=== PATIENT | female | born 1960 | race Caucasian/White ===

== ENCOUNTER 2022-09-01 23:33 | Observation (INO) | payer MEDICARE, MEDICAID, SELFPAY ==
--- NOTE | 2022-09-01 23:21 | PM.IMHP ---
H&P: HPI History of Present Illness Date/Time: 09/01/22 23:10 Chief Complaint: Cervical stenosis. Narrative: This is a pleasant 61-year-old female with coronary artery disease and history of angioplasty, hypertension, hyperlipidemia, and chronic obstructive pulmonary disease who is being directly admitted from the medical floor [facility] for neurosurgery consultation after she was found to have severe cervical stenosis on MRI today. The patient provides the following history. Yesterday she sustained a ground level fall at home and a significantly displaced left trimalleolar fracture which was repaired yesterday per Dr. Nicole. The patient reports having several falls in the past 1 week due to balance issues and some lightheadedness. MRI of the cervical spine was ordered to evaluate the gait disturbances and reports of paresthesias and dexterity issues with the upper extremities and that showed multilevel significant central, pre foraminal, and neuroforaminal stenosis. Dr. Nicole spoke with Dr. Haile, neurosurgeon on-call, who accepted the patient for consult in transfer. At the time my evaluation the patient has some mild discomfort in the left ankle, rating her pain 4/10. She has no other complaints and specifically denies headache, vertigo, vision changes, focal weakness, difficulty speaking, difficulty swallowing, chest pain, shortness a breath, nausea, and vomiting. She also denies paresthesias, skin color, and temperature changes distal to the surgical site. Review of Systems Review of Systems: Twelve systems were reviewed and are negative except for as per HPI. [facility] Past Medical History Medical History (Updated 09/01/22 @ 23:30 by Susanne Farias PA-C) Chronic obstructive pulmonary disease Coronary artery disease Depression with anxiety Hyperlipidemia Hypertension Uterine cancer Status post hysterectomy and external radiation. Surgical History Surgical History (Updated 09/01/22 @ 23:27 by Susanne Farias PA-C) History of cardiac catheterization History of coronary angioplasty History of hysterectomy for cancer History of left knee replacement (2004) History of open reduction and internal fixation (ORIF) procedure (08/31/22) Repair of left trimalleolar fracture per Dr. Nicole. Family History Family History (Updated 09/01/22 @ 23:27 by Susanne Farias PA-C) Other Diabetes mellitus Heart disease Social History Social History (Updated 09/01/22 @ 23:27 by Susanne Farias PA-C) Social History: The patient lives in [place] with her cousin. She is . Former smoker, quit about 5 years ago. No alcohol or illicit substance abuse. Code status: Full code. Meds Home Medications and Allergies Allergies Allergy/AdvReac Type Severity Reaction Status Date / Time Sulfa (Sulfonamide Allergy Mild STOPPED Verified 09/03/08 10:15 Antibiotics) BREATHING-CHILDHOOD morphine AdvReac Severe URINARY Unverified 09/03/08 10:15 RETENTION Exam Const: Other: Well-developed female supine in bed in no acute distress. HENMT: Other: Normocephalic, atraumatic. Nares patent bilaterally. Oral mucosa moist. Eyes: Other: Pupils are reactive. Extraocular motions intact. Sclerae anicteric. Neck: Other: Supple. No midline vertebral tenderness. Resp: Other: Respirations are nonlabored and lungs are clear to auscultation anteriorly and at the flanks. Cardio: Other: Regular rate and rhythm with normal S1-S2. GI: Other: Abdomen is soft, obese, nontender, and nondistended with positive bowel sounds. Skin: Other: Warm and dry. Neuro: Other: Alert oriented x4. Cranial nerves 2-12 grossly intact. No pronator drift. Normal [id number]. 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 Left shoulder shrug may be a bit weaker when compared to the right. Extrem: Other: No cyanosis, clubbing, or edema. Radial and right pedal
[2022-09-02] VITALS (8 sets, daily range): BP systolic 92–126; BP diastolic 40–82; PULSE 66–76; RESP 12–67; TEMP 36.1–36.7; O2SAT 94–99; BMI 38.6
[2022-09-02] MEDS: ACETAMINOPHEN 325 MG TABLET 650 MG PO ×2 (06:02→11:36)
--- NOTE | 2022-09-02 06:28 | PC.NURSE ---
Spoke with Dr. Sotelo at this time r/t patient having pain to left ankle from recent ORIF. New order received for oxycodone 5mg PO once and to follow up with Dr. Whitney for further pain management with his surgical patient.
[2022-09-02 06:31] LABS: Hematocrit 41.8 % (37.0-47.0); Hemoglobin 12.4 g/dL (12.0-15.0); Mean Corpuscular HGB Conc 29.7 g/dl (32-36); Mean Corpuscular Hemoglobin 31.5 pg (26-34); Mean Corpuscular Volume 106.1 fl (80-100); Mean Platelet Volume 11.9 fl (7.4-10.4); Platelet Count Result 170 k/mm3 (150-375); Red Blood Count 3.94 M/mm3 (4.2-5.4); Red Cell Distribution Width 13.2 % (11.5-14.5); White Blood Count 10.6 K/mm3 (4.5-10.0)
[2022-09-02] MEDS: oxyCODONE HCL (*CRX) 5 MG TAB IR PO ×4 (06:42→20:31)
[2022-09-02 06:44] LABS: Alanine Aminotransferase 20 U/L (6-35); Albumin Level 3.2 g/dL (3.5-5.1); Alkaline Phosphatase 58 U/L (38-126); Anion Gap 4 mmol/L (8-16); Aspartate Amino Transferase 27 U/L (14-36); Bilirubin,Total 0.4 mg/dL (0.2-1.3); Blood Urea Nitrogen 17 mg/dL (7-17); Calcium 8.4 mg/dL (8.4-10.2); Carbon Dioxide 28 mmol/L (22-30); Chloride 108 mmol/L (98-107); Estimated CRCL calculation 65 ml/min; Estimated Glomerular Filt Rate > 60; Glucose 106 mg/dL (65-110); Magnesium 2.3 mg/dL (1.6-2.3); Potassium 3.7 mmol/L (3.4-5.0); Sodium 140 mmol/L (137-145)
[2022-09-02] MEDS: ENOXAPARIN 40 MG/0.4 ML SYRINGE SUB-Q (09:27)
[2022-09-02] MEDS: EZETIMIBE 10 MG TABLET PO (12:11)
[2022-09-02] MEDS: EMPAGLIFLOZIN 25 MG TABLET PO (12:11)
[2022-09-02] MEDS: buPROPion HCL SR (12HR) 100 MG TABCR PO (12:11)
[2022-09-02] MEDS: LOSARTAN POTASSIUM 100 MG TABLET PO (12:11)
[2022-09-02] MEDS: ISOSORBIDE MONONITRATE 30 MG TAB.ER.24H PO (12:11)
[2022-09-02] MEDS: hydroCHLOROthiazide 25 MG TABLET PO (12:11)
[2022-09-02] MEDS: ATORVASTATIN 20 MG TABLET PO (12:12)
--- NOTE | 2022-09-02 12:46 | PCPTNOTE ---
On 09/02/22, the student, [Ju Nation], provided care and completed [facility] documentation on this patient. I have reviewed the student's documentation and agree with the findings.
--- NOTE | 2022-09-02 14:58 | PM.IMPN ---
Progress Note: A&P Assessment and Plan (1) Cervical stenosis of spinal canal: Code(s): M48.02 - Spinal stenosis, cervical region Status: Acute Assessment and Plan: MRI findings as noted in prior note - NSG consulted and patient transferred to our care yesterday. Appreciate nsg recs and will await their determination. Patient is on lovenox 40mg currently which will continue unless surgical management expected. (2) Trimalleolar fracture of left ankle: Code(s): S82.852A - Displaced trimalleolar fracture of left lower leg, initial encounter for closed fracture Status: Acute Assessment and Plan: S/P repair from Dr. Nicole, we will reach out and see if he plans to follow here as well. Currently POD2. Pain is controlled this am. The patient states there was a plan for her to have a rehab placement. PT/OT eval/treatment will continue here. (3) Hypertension: Code(s): I10 - Essential (primary) hypertension Status: Acute Assessment and Plan: Stable on current regimen which will continue. (4) Hyperlipidemia: Code(s): E78.5 - Hyperlipidemia, unspecified Status: Acute Assessment and Plan: Cont. atorvastatin. (5) Coronary artery disease: Code(s): I25.10 - Atherosclerotic heart disease of kash[place] coronary artery without angina pectoris Status: Acute Assessment and Plan: Cont. home regimen, patient without complaints. (6) Chronic obstructive pulmonary disease: Code(s): J44.9 - Chronic obstructive pulmonary disease, unspecified Status: Acute Assessment and Plan: Stable without exacerbation, continuing home symbicort, prn susana. Time Spent With Patient Time: >30 minutes. Subjective Date/time seen: 09/02/22 14:58 Interval history: This 61 year old female presented on 09/01 from [place] after a left trimalleolar fracture repair by Dr. Nicole. She was sent for NSG consultation d/t severe cervical spine stenosis found on MRI with symptoms of hand clumsiness and weakness. This morning the patient states she has some pain in the left foot but it is manageable. She denies acute headache or neck pain. She rested fairly well overnight per her report. Review of Systems Review of Systems: Review of symptoms negative across 12 systems other than as noted in history. Exam Narrative: GENERAL APPEARANCE: Appears to be in no acute distress. HEAD: normocephalic atraumatic EYES: PERRL, EOMI. Vision grossly intact. ENT: Hearing grossly intact, no nasal discharge NECK: Neck supple, trachea midline. CARDIAC: Normal S1/S2. Rhythm is regular. No murmurs, rubs, or gallops. No cyanosis or pallor. Extremities are warm and well perfused. LUNGS: Clear to auscultation without rales, rhonchi, wheezing or diminished breath sounds. Respirations even and unlabored. ABDOMEN: BS positive x 4 quadrants. Soft, nondistended, nontender. No guarding or rebound. MSK: Left ankle with dressing c/d/i - distal nv sensation intact, cap refill <2 seconds. PERIPHERAL VASCULAR: Peripheral pulses palpable. Normal perfusion, cap refill <2 seconds. No edema. NEURO: Follows commands. No focal deficits. SKIN: Ursine without lesions or eruptions. PSYCH: Stable, no paranoia or delusional thinking. Objective Data Vital Signs Vital Signs: Vital Signs - 24 hr 09/02/22 00:18 09/02/22 00:34 09/02/22 06:00 Temperature 98.0 F 96.9 F L Pulse Rate 74 72 67 Respiratory Rate 16 14 67 H Blood Pressure 116/73 126/82 Pulse Oximetry 99 99 99 Oxygen Delivery Nasal Cannula Oxygen Flow Rate 2 09/02/22 10:16 09/02/22 09:20 09/02/22 10:59 Temperature Pulse Rate Respiratory Rate Blood Pressure Pulse Oximetry Oxygen Delivery Nasal Cannula Room Air Room Air Oxygen Flow Rate 2 09/02/22 14:00 Temperature 97.1 F L Pulse Rate 76 Respiratory Rate 12 Blood Pressure 110/63 Pulse Oximetry 94 Oxygen Delivery Oxygen Flow Rate Intake/Output Inta
--- NOTE | 2022-09-02 15:17 | PCCCNOTE ---
On 09/02/22, the student, [Yaritza Medina], provided care and completed [facility] documentation on this patient. I have reviewed the student's documentation and agree with the findings.
--- NOTE | 2022-09-02 16:35 | PM.CNOR ---
Assessment and Plan Assessment and plan (1) Trimalleolar fracture of left ankle: Code(s): S82.852A - Displaced trimalleolar fracture of left lower leg, initial encounter for closed fracture Status: Acute Assessment and Plan: Patient is a 61-year-old female who I took care of when she came in through the emergency room on WednesdayAugust 31 with a severely displaced and unstable comminuted left trimalleolar ankle fracture. Even after closed reduction and splinting the joint was still prominently subluxed putting the skin at risk so she underwent urgent open reduction internal fixation of the left ankle fractures unfortunately swelling was very mild allowing this to proceed. She has a history of several falls in the last 3 weeks. She does not know why. She simply loses her balance. I noted that 5 years ago she had moderately severe cervical spinal stenosis and we ordered an MRI scan of her cervical spine yesterday a [facility] and showed severe multilevel cervical spinal stenosis. Patient does admit that her hands go numb at times and sometimes she loses coordination in her hands. I felt it would be unsafe to have her recuperate at home living by herself hopping on the walker 1 leg it as she needs to be strict nonweightbearing on the left leg. With her propensity for falling walking on to normal legs, the likelihood of her falling hopping on 1 leg is considered excessive and dangerous. I spoke to neuro surgery here at [facility] Dr. Ray and we arranged for transfer to [facility] so she cannot have urgent neurosurgical evaluation with respect to her severe cervical spinal stenosis and recommendations for definitive management can be made. She normally takes a baby aspirin and cardiac dosing of Xarelto 2.5 mg b.i.d. for her coronary artery disease. She had NH 5 years ago. She did not have to have a stent. She saw cardiology in the emergency room before her surgery on Wednesday and did not have any cardiac or medical issues with her surgery. After seeing the results of the MRI scan of her cervical spine yesterday with the realization that she may need cervical spine decompression and fusion to address this, I have held her baby aspirin and the Cardiac dosing of Xarelto her and her last doses should been 9:00 a.m. Wednesday morning the 01 of September. The hospitalist has started her on Lovenox for DVT prophylaxis which I think is an excellent choice as this can be discontinued and reversed in a short time if neuro surgery to address her cervical spinal stenosis is planned. On exam today she has intact sensation in her left foot. She has some aching discomfort but no severe pain. Physical therapy has seen her and her is working on transfers with her strict nonweightbearing left leg. I have emphasized the need to keep her left leg elevated most of the time. Will have her limit her time in the chair to 20 minutes at a time these next several days as having the leg down will result in significant swelling and risk of wound healing problems at the left ankle. I will be available for assistance if any questions on her orthopedic care relative to her left ankle arise. If this felt that neurosurgical intervention is not necessary in the near future for her cervical spine, I would recommend resuming her b.i.d. 2.5 mg Xarelto dosing and resume baby aspirin 81 mg chewable every 12 hours for cardiac and DVT prophylaxis following ankle fracture ORIF. Her Lovenox can be then discontinued at that point. With respect to rehabilitation plans for her left ankle, usually there is enough radiographic healing to allow weight-bearing as tolerated in a boot at 6 weeks after surgery with this injury. History of Present Illness HPI Consult date: 09/02/22 Chief complaint: Severe Cervical Spinal Stenosis [facility] Past Medical History Medical History (Updated 09/02/22 @ 15:12 by Brian Mercado APRN) Chronic obstructive pulmonary disease Coronary artery dise
[2022-09-02] MEDS: OMEGA 3 POLYUNSAT FATTY ACIDS 1 GM CAP PO (17:29)
[2022-09-02] MEDS: ACETAMINOPHEN 500 MG TABLET 1000 MG PO (17:30)
[2022-09-02] MEDS: carvediloL 25 MG TABLET PO (17:31)
[2022-09-02] MEDS: busPIRone HCL 10 MG TABLET 30 MG PO (17:32)
[2022-09-02] MEDS: TOPIRAMATE 100 MG TABLET PO (17:33)
[2022-09-02] MEDS: OLANZapine 5 MG TABLET 10 MG PO (20:30)
[2022-09-02] MEDS: DOXYCYCLINE HYCLATE 100 MG TABLET PO (20:31)
[2022-09-02] MEDS: FLUTICASONE/SALMETEROL 45-21 MCG INHALER 1 PUFF 2 PUFF INHALATION (20:57)
[2022-09-03] VITALS (7 sets, daily range): BP systolic 97–134; BP diastolic 65–83; PULSE 65–75; RESP 16–18; TEMP 35.9–36.2; O2SAT 94–98
[2022-09-03] MEDS: oxyCODONE HCL (*CRX) 5 MG TAB IR PO ×6 (00:49→20:06)
[2022-09-03] MEDS: ACETAMINOPHEN 500 MG TABLET 1000 MG PO ×4 (00:49→16:25)
[2022-09-03 06:59] LABS: Hematocrit 40.7 % (37.0-47.0); Hemoglobin 12.7 g/dL (12.0-15.0); Mean Corpuscular HGB Conc 31.2 g/dl (32-36); Mean Corpuscular Hemoglobin 31.5 pg (26-34); Mean Platelet Volume 11.1 fl (7.4-10.4); Platelet Count Result 186 k/mm3 (150-375); Red Blood Count 4.03 M/mm3 (4.2-5.4); Red Cell Distribution Width 13.2 % (11.5-14.5); White Blood Count 8.4 K/mm3 (4.5-10.0)
[2022-09-03 07:09] LABS: Anion Gap 4 mmol/L (8-16); Blood Urea Nitrogen 18 mg/dL (7-17); Calcium 8.6 mg/dL (8.4-10.2); Carbon Dioxide 30 mmol/L (22-30); Chloride 104 mmol/L (98-107); Estimated CRCL calculation 59 ml/min; Estimated Glomerular Filt Rate 57; Glucose 88 mg/dL (65-110); Magnesium 2.3 mg/dL (1.6-2.3); Potassium 3.8 mmol/L (3.4-5.0); Sodium 138 mmol/L (137-145)
[2022-09-03] MEDS: FLUTICASONE/SALMETEROL 45-21 MCG INHALER 1 PUFF 2 PUFF INHALATION ×2 (07:52→20:42)
[2022-09-03] MEDS: ATORVASTATIN 20 MG TABLET PO (09:10)
[2022-09-03] MEDS: hydroCHLOROthiazide 25 MG TABLET PO (09:10)
[2022-09-03] MEDS: busPIRone HCL 10 MG TABLET 30 MG PO ×2 (09:10→16:26)
[2022-09-03] MEDS: EMPAGLIFLOZIN 25 MG TABLET PO (09:10)
[2022-09-03] MEDS: ISOSORBIDE MONONITRATE 30 MG TAB.ER.24H PO (09:10)
[2022-09-03] MEDS: TOPIRAMATE 100 MG TABLET PO ×2 (09:10→16:26)
[2022-09-03] MEDS: LOSARTAN POTASSIUM 100 MG TABLET PO (09:10)
[2022-09-03] MEDS: ENOXAPARIN 40 MG/0.4 ML SYRINGE SUB-Q (09:11)
[2022-09-03] MEDS: EZETIMIBE 10 MG TABLET PO (09:11)
[2022-09-03] MEDS: DOXYCYCLINE HYCLATE 100 MG TABLET PO ×2 (09:11→20:06)
[2022-09-03] MEDS: OMEGA 3 POLYUNSAT FATTY ACIDS 1 GM CAP PO ×2 (09:11→16:26)
[2022-09-03] MEDS: buPROPion HCL SR (12HR) 100 MG TABCR PO (09:11)
[2022-09-03] MEDS: carvediloL 25 MG TABLET PO ×2 (09:11→16:26)
--- NOTE | 2022-09-03 11:11 | PM.IMPN ---
Progress Note: A&P Assessment and Plan (1) Cervical stenosis of spinal canal: Code(s): M48.02 - Spinal stenosis, cervical region Status: Acute Assessment and Plan: MRI findings as noted- NSG consulted and patient transferred to our care two days prior. Appreciate nsg recs and will await their determination. Patient is on lovenox 40mg currently which will continue unless surgical management expected. (2) Trimalleolar fracture of left ankle: Code(s): S82.852A - Displaced trimalleolar fracture of left lower leg, initial encounter for closed fracture Status: Acute Assessment and Plan: S/P repair from Dr. Nicole, he will follow here as well. Currently POD3. Pain is controlled this am. The patient states there was a plan for her to have a rehab placement and this is arranged for [facility]. PT/OT eval/treatment will continue here. In regards to discharge thromboprophylaxis, Dr. Nicole has noted the following, If this felt that neurosurgical intervention is not necessary in the near future for her cervical spine, I would recommend resuming her b.i.d. 2.5 mg Xarelto dosing and resume baby aspirin 81 mg chewable every 12 hours for cardiac and DVT prophylaxis following ankle fracture ORIF.? Her Lovenox can be then discontinued at that point. In regards to rehab plans he additionally notes, With respect to rehabilitation plans for her left ankle, usually there is enough radiographic healing to allow weight-bearing as tolerated in a boot at 6 weeks after surgery with this injury. (3) Hypertension: Code(s): I10 - Essential (primary) hypertension Status: Acute Assessment and Plan: Stable on current regimen which will continue. (4) Hyperlipidemia: Code(s): E78.5 - Hyperlipidemia, unspecified Status: Acute Assessment and Plan: Cont. atorvastatin. (5) Coronary artery disease: Code(s): I25.10 - Atherosclerotic heart disease of lime coronary artery without angina pectoris Status: Acute Assessment and Plan: Cont. home regimen, patient without complaints. If no contraindication, resume her xarelto and asa upon discharge as discussed above. (6) Chronic obstructive pulmonary disease: Code(s): J44.9 - Chronic obstructive pulmonary disease, unspecified Status: Acute Assessment and Plan: Stable without exacerbation, continuing home symbicort, prn susana. Time Spent With Patient Time: >30 minutes with moderate decision making complexity Subjective Date/time seen: 09/03/22 11:11 Interval history: This 61 year old female presented on 09/01 from [place] after a left trimalleolar fracture repair by Dr. Nicole. She was sent for NSG consultation d/t severe cervical spine stenosis found on MRI with symptoms of hand clumsiness and weakness. This morning the patient states she has continued pain in the left foot but it is manageable on the oral pain medications. She denies acute headache or neck pain. She rested fairly well overnight per her report. She does not report numbness or paresthesias of the hands. Review of Systems Review of Systems: Review of symptoms negative across 12 systems other than as noted in history. Exam Narrative: GENERAL APPEARANCE: Appears to be in no acute distress. HEAD: normocephalic atraumatic EYES: PERRL, EOMI. Vision grossly intact. ENT: Hearing grossly intact, no nasal discharge NECK: Neck supple, trachea midline. CARDIAC: Normal S1/S2. Rhythm is regular. No murmurs, rubs, or gallops. No cyanosis or pallor. Extremities are warm and well perfused. LUNGS: Clear to auscultation without rales, rhonchi, wheezing or diminished breath sounds. Respirations even and unlabored. ABDOMEN: BS positive x 4 quadrants. Soft, nondistended, nontender. No guarding or rebound. MSK: Left ankle with dressing c/d/i - distal nv sensation intact, cap refill <2 seconds. PERIPHERAL VASCULAR: Periphera
--- NOTE | 2022-09-03 13:11 | WPDNEUROSGCN ---
Assessment and Plan Assessment and plan (1) Cervical stenosis of spinal canal: Code(s): M48.02 - Spinal stenosis, cervical region Status: Acute (2) Cervical myelopathy: Code(s): G95.9 - Disease of spinal cord, unspecified Status: Acute Plan Ms. Butterfield is a 61-year-old female with history of OR/CAD s/p CABG and coronary stent on ASA/Xarelto and COPD on 2.5L O2 at night who was admitted to the hospital for urgent evaluation of cervical myelopathy. She has had intermittent paresthesias in her hands, dropping objects, and falls. She recently sustained a trimalleolar fracture as a result of her fall which is being managed by Dr. Nicole. She does have objective signs of myelopathy on exam. Her MRI shows cervical stenosis with cord compression most significantly at C5-6 and C6-7. I do believe that she needs surgical intervention; however, this does not need to be done while she is in the hospital this admission. I briefly discussed the need for surgery with her as well as the fact that she is a relatively high-risk surgical candidate due to her medical comorbidities and blood thinner use. We would need to get clearance from her cosmetic surgeon and PCP. I will arrange for follow up with me in clinic in the next few weeks to be able to discuss surgery in more detail. Consult date: 09/03/22 HPI: Letty Butterfield is a 61 year old female with history of OR in 2016 on ASA/xarelto, COPD on 2.5L O2 at night, HTN, HLD Who was admitted to the hospital on Wednesday for urgent neurosurgical evaluation of cervical stenosis. The patient reports a long history of neck pain over the course of many years. Over the last 6 months, the patient has been having intermittent paresthesias in her hands which occur for a few minutes at a time 3-4 times per week. 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 She has occasionally dropped objects. She sometimes gets into her left shoulder but denies radicular pain into the arms. She has also been having more falls but describes often feeling lightheaded prior to falling. She denies any loss of consciousness. She has had a few episodes of urinary incontinence because of not being able to get to the restroom quickly enough, but she denies any issues with urinary frequency or urgency on a routine basis. she had a recent fall from which she sustained a trimalleolar fracture for which Dr. Nicole was seeing her. He apparently had access to an old MRI cervical spine showing cervical stenosis, and he sent her to [place] to get an updated MRI cervical spine. This reportedly showed significant cervical stenosis, and he recommended that she be admitted to the hospital in order to be evaluated by Neurosurgery. Of note, she has had 2 myocardial infarctions, last time in 2016. She follows with cosmetic surgeon Dr. Stroud in [place]. she has COPD for which she uses 2.5 L of oxygen night. This is reportedly managed by her primary care physician, Dr. Taylor Fernández. She quit smoking in 2016. She lives with her cousin. She has been ambulating with a cane for several years since she had a left knee surgery. She states that this pain is to help take the pressure off her knee. Review of Systems Review of Systems: All systems reviewed & are unremarkable except as noted in HPI and below PMFSH Past Medical History Medical History (Updated 09/03/22 @ 18:15 by Lianet Whitfield MD) Chronic obstructive pulmonary disease Coronary artery disease Depression with anxiety Hyperlipidemia Hypertension Uterine cancer Status post hysterectomy and external radiation. Surgical History Surgical History (Updated 09/01/22 @ 23:27 by Susanne aFrias PA-C) History of cardiac catheterization History of coronary angioplasty History of hysterectomy for cancer History of left knee replacement (2004) History of open reduction and internal fixation (ORIF) procedure (08/31/22) Repair of left trimal
--- NOTE | 2022-09-03 15:18 | PM.DS ---
DS: Admitting Diagnosis Discharge Date 09/03/22 Admitting Diagnosis left trimalleolar fracture, cervical stenosis, htn, hld, cad, cad, copd DS: Discharge Diagnosis Discharge Diagnosis (1) Cervical stenosis of spinal canal: Code(s): M48.02 - Spinal stenosis, cervical region Status: Acute Assessment and Plan: MRI findings as noted- NSG consulted and patient transferred to our care two days prior. Appreciate nsg recs, noted no acute plan for intervention. (2) Trimalleolar fracture of left ankle: Code(s): S82.852A - Displaced trimalleolar fracture of left lower leg, initial encounter for closed fracture Status: Acute Assessment and Plan: S/P repair from Dr. Nicole, he will follow here as well. Currently POD3. Pain is controlled this am. The patient states there was a plan for her to have a rehab placement and this is arranged for [facility]. PT/OT eval/treatment will continue here with discharge planned for this evening. In regards to discharge thromboprophylaxis, Dr. Nicole has noted the following, If this felt that neurosurgical intervention is not necessary in the near future for her cervical spine, I would recommend resuming her b.i.d. 2.5 mg Xarelto dosing and resume baby aspirin 81 mg chewable every 12 hours for cardiac and DVT prophylaxis following ankle fracture ORIF.? Her Lovenox can be then discontinued at that point. In regards to rehab plans he additionally notes, With respect to rehabilitation plans for her left ankle, usually there is enough radiographic healing to allow weight-bearing as tolerated in a boot at 6 weeks after surgery with this injury. (3) Hypertension: Code(s): I10 - Essential (primary) hypertension Status: Acute Assessment and Plan: Stable on current regimen which will continue. (4) Hyperlipidemia: Code(s): E78.5 - Hyperlipidemia, unspecified Status: Acute Assessment and Plan: Cont. atorvastatin. (5) Coronary artery disease: Code(s): I25.10 - Atherosclerotic heart disease of grindstone coronary artery without angina pectoris Status: Acute Assessment and Plan: Cont. home regimen, patient without complaints. If no contraindication, resume her xarelto and asa upon discharge as discussed above. (6) Chronic obstructive pulmonary disease: Code(s): J44.9 - Chronic obstructive pulmonary disease, unspecified Status: Acute Assessment and Plan: Stable without exacerbation, continuing home symbicort, prn susana. Uses 2.5L at night. DS: Summary Hospital Course Reason for hospitalization: Cervical Stenosis, NSG consult Hospital Course: Letty Butterfield is a 61 year old female who presented as a direct transfer from [facility], [place] where she was admitted for a left ankle fracture s/p repair with new findings of cervical stenosis on MRI. She was transferred for neurosurgical consultation. That consultation has occurred and there is not an acute plan for surgical management in regards to this currently. The patient is pod 3 for the ankle repair and will be discharging to a SNF for further rehab. Further outpatient management of the cervical stenosis can be undertaken as needed by NSG post rehab, or acutely if symptoms worsen. Status at Discharge Cognitive/behavioral status at discharge: Baseline. Time Spent with Patient Time attestation: Total time spent providing and/or coordinating discharge services: Time spent: Greater than 30 minutes Exam Narrative: GENERAL APPEARANCE: Appears to be in no acute distress. HEAD: normocephalic atraumatic EYES: PERRL, EOMI. Vision grossly intact. ENT: Hearing grossly intact, no nasal discharge NECK: Neck supple, trachea midline. CARDIAC: Normal S1/S2. Rhythm is regular. No murmurs, rubs, or gallops. No cyanosis or pallor. Extremities are warm and well perfused. LUNGS: Clear to auscultation without rales, rhonchi, wheezing or diminishe
[2022-09-03] MEDS: OLANZapine 5 MG TABLET 10 MG PO (20:06)
== END 2022-09-03 21:45 ==
PROVIDERS: Nurse Practitioner Family; Physician Assistant; Admitting Provider Family Medicine; Visit Provider Family Medicine
DX: M48.02 Spinal stenosis, cervical region (principal); S82.852A Displaced trimalleolar fracture of left lower leg, initial encounter for closed fracture; W18.30XA Fall on same level, unspecified, initial encounter; Y92.009 Unspecified place in unspecified non-institutional (private) residence as the place of occurrence of the external cause; I10 Essential (primary) hypertension; E78.5 Hyperlipidemia, unspecified; I25.10 Atherosclerotic heart disease of native coronary artery without angina pectoris; Z95.1 Presence of aortocoronary bypass graft; I25.2 Old myocardial infarction; J44.9 Chronic obstructive pulmonary disease, unspecified; Z99.81 Dependence on supplemental oxygen; R29.6 Repeated falls; D72.829 Elevated white blood cell count, unspecified; R26.9 Unspecified abnormalities of gait and mobility; R20.2 Paresthesia of skin; R42 Dizziness and giddiness; F41.8 Other specified anxiety disorders; Z90.710 Acquired absence of both cervix and uterus; Z79.01 Long term (current) use of anticoagulants; Z79.82 Long term (current) use of aspirin; Z85.42 Personal history of malignant neoplasm of other parts of uterus; Z87.891 Personal history of nicotine dependence; Z82.49 Family history of ischemic heart disease and other diseases of the circulatory system
CPT/HCPCS: 36415; 80048; 80053; 83735; 85027; 94640; 96372; 97110; 97161; 97165; 97530; 97535; A9270; G0378; J1650

== ENCOUNTER 2022-12-09 09:25 | Outpatient (CLI) | payer MEDICARE, MEDICAID, SELFPAY ==
--- NOTE | ~2022-12-09 | XR_ITS ---
EXAMINATION: XR chest 2V DATE: 12/09/2022 10:03 INDICATION: History of COPD TECHNIQUE: Frontal and lateral views of the chest are obtained COMPARISON: None available FINDINGS: The lungs are free of acute opacities. No pleural effusion or pneumothorax. The cardiomedia stinal silhouette is normal. There is severe thoracic spondylosis. IMPRESSION: 1. No acute cardiopulmonary abnormality. Reviewed, dictated and finalized at location A.
--- NOTE | 2022-12-09 09:37 | ECG_ITS ---
Measurements Intervals [place] Rate: 63 P: 67 TX: 166 QRS: 15 QRSD: 97 T: 39 QT: 420 QTc: 432 Interpretive Statements SINUS RHYTHM NO PREVIOUS ECG AVAILABLE FOR COMPARISON Electronically Signed On 12-09-2022 15:45:36 CDT by Dot Aguayo M.D.
[2022-12-09 10:08] LABS: Hematocrit 44.6 % (37.0-47.0); Hemoglobin 14.3 g/dL (12.0-15.0); Mean Corpuscular HGB Conc 32.1 g/dl (32-36); Mean Corpuscular Hemoglobin 31.8 pg (26-34); Mean Corpuscular Volume 99.3 fl (80-100); Platelet Count Result 257 k/mm3 (150-375); Red Blood Count 4.49 M/mm3 (4.2-5.4); Red Cell Distribution Width 13.3 % (11.5-14.5); White Blood Count 8.9 K/mm3 (4.5-10.0)
[2022-12-09 10:11] LABS: Appearance Urine Clear (Clear); Bilirubin Urine Negative (Negative); Blood Urine Negative (Negative); Color Urine Yellow (Yellow); Glucose Urine UA 3+ mg/dL (Negative); Ketones Urine Negative (Negative); Leukocyte Esterase Ur Negative LEU/UL (Negative); Nitrate Urine Negative (Negative); Protein Urine Negative (Negative); Specific Grav Ur 1.014 (1.001-1.035); Urobilinogen Urine 0.2 mg/dL (<2.0)
[2022-12-09 10:15] LABS: Add Urine Microscopic? NO
[2022-12-09 10:17] LABS: Anion Gap 7 mmol/L (8-16); Blood Urea Nitrogen 21 mg/dL (7-17); Calcium 9.7 mg/dL (8.4-10.2); Carbon Dioxide 28 mmol/L (22-30); Chloride 104 mmol/L (98-107); Estimated Glomerular Filt Rate 42; Glucose 103 mg/dL (65-110); Potassium 4.1 mmol/L (3.4-5.0); Sodium 139 mmol/L (137-145)
[2022-12-09 10:23] LABS: Partial Thromboplastin Time 27.4 SECONDS (22.3-36.8); Prothrombin Time 13.5 Seconds (11.1-14.7)
== END 2022-12-09 09:26 | disposition home or self-care (01) ==
LOC: ANHSURGERY 09:32
PROVIDERS: PCP Family Medicine; Visit Provider Neurological Surgery
DX: Z01.818 Encounter for other preprocedural examination (principal); M54.12 Radiculopathy, cervical region
CPT/HCPCS: 36415; 71046; 80048; 81003; 85027; 85610; 85730; 93005

== ENCOUNTER 2022-12-17 13:20 | Observation (INO) | payer MEDICARE, MEDICAID, SELFPAY ==
[2022-12-07 12:42] VITALS: BMI 34.9
--- NOTE | 2022-12-07 12:50 | PC.NURSE ---
Report to the Outpatient Waiting Room, entrance under the green pavilion located off [facility], at time 6:00 on date 12/16/22. Planned Procedure Time: 7:30. Time changes happen often and if your time is changed the preop area will call you the afternoon before. - You and your visitor will be asked to self-screen and do not enter if you have any COVID symptoms. - A mask is optional within the hospital at this time. Patients may have clear liquids (water, carbonated beverages, clear teas, apple juice) until 3 hours prior to surgery (4:30) with a maximum of 20 ounces. - No food from midnight until time of surgery Take the following medications with a SIP of water the morning of surgery: INHALERS, BUPROPION, BUSPIRONE, CARVEDILOL, ISOSORBIDE, TOPIRAMATE DO NOT STOP ANY OF YOUR OTHER PRESCRIPTION MEDICATIONS PRIOR TO SURGERY ?EXCEPT THE FOLLOWING Medications to discontinue per physician: ASPIRIN, XARELTO Date to take last dose: 12/08/22 LAST DOSE OF VITAMINS 12/12/22 Please no make-up, nail [place] su[place], hairspray, perfume, deodorant, or body powder the day of surgery. No jewelry (including any body piercings) or valuables the day of surgery, leave them at home. Please take a shower or bath the night before, or the morning of, surgery with an antibacterial soap. Wear comfortable, loose fitting clothing. - Jewelry must be removed prior to entering the operating room. Rings and piercings that are not removed may be cut off. - The hospital will not accept responsibility for valuables. - Please leave all valuables, including medications, at home the day of surgery. If you are going home after surgery, a licensed tier truck driver must drive you home. - NO public transportation without another adult if you receive anesthesia. - We recommend that an adult stay with you for 24 hours following discharge. - We also recommend that you do not drive, make important decision, drink alcoholic beverages, or take any drugs that were not prescribed by your health care provider for at least 24 hours after your discharge time. Follow any additional instructions given to you from your surgeon. If you or anyone in your household have experienced Covid symptoms in the past week, please notify your surgeon or the nurse liaison at the phone number below for possible testing. Telephone instructions given to PT - DELANO CANTU and asked if any additional questions and then verbalized understanding. Patient advised to call surgeon office or pre surgery nurse liaison [phone] if any additional questions.
[2022-12-16] VITALS (14 sets, daily range): BP systolic 112–154; BP diastolic 69–97; PULSE 66–93; RESP 12–18; TEMP 36.1–37.2; O2SAT 94–98
[2022-12-16] MEDS: LACTATED RINGERS 1,000 ML 30 ML IV CONT ×2 (06:30→10:44)
--- NOTE | 2022-12-16 07:10 | WPDANESEPPF ---
Anes - Initial Pre Proc Eval Procedure: Operation Date: 12/16/22 07:30 Proposed Procedures p C4-C7 Posterior Cervical Decompression and Fusion - Lianet Whitfield MD Date/Time: 12/16/22 07:10 Surgeon: Lianet Whitfield MD Pre Op Diagnosis: cervical myelopathy and stenosis with radiculopath Patient Data Age: 62 Gender: F Height: 1.6 m Weight: 89.4 kg Allergies Allergy/AdvReac Type Severity Reaction Status Date / Time Sulfa (Sulfonamide Allergy Mild STOPPED Verified 12/07/22 12:38 Antibiotics) BREATHING-CHILDHOOD morphine AdvReac Severe URINARY Verified 12/07/22 12:38 RETENTION Home Medications Medication Instructions Recorded Confirmed Type albuterol sulfate 90 mcg/actuation 2 puff inhalation DIRECTED PRN 09/01/22 12/07/22 History aerosol inhaler Dyspnea atorvastatin 20 mg tablet 20 mg PO DAILY 09/01/22 12/07/22 History budesonide-formoterol HFA 80 2 inh inhalation DAILY 09/01/22 12/07/22 History mcg-4.5 mcg/actuation aerosol inhaler (Symbicort) bupropion HCl 100 mg tablet,12 hr 100 mg PO DAILY 09/01/22 12/07/22 History sustained-release (Wellbutrin SR) buspirone 30 mg tablet 30 mg PO BID 09/01/22 12/07/22 History carvedilol 25 mg tablet 25 mg PO BID 09/01/22 12/07/22 History cyanocobalamin (vitamin B-12) 1,000 mcg PO DAILY 09/01/22 12/07/22 History 1,000 mcg tablet ezetimibe 10 mg tablet 10 mg PO DAILY 09/01/22 12/07/22 History ipratropium bromide 0.02 % 3 ml inhalation Q6H PRN Dyspnea 09/01/22 12/07/22 History solution for inhalation isosorbide mononitrate 30 mg 30 mg PO DAILY 09/01/22 12/07/22 History tablet,extended release 24 hr losartan 100 1 tablet PO DAILY 09/01/22 12/07/22 History mg-hydrochlorothiazide 25 mg tablet olanzapine 10 mg tablet 10 mg PO HS 09/01/22 12/07/22 History rivaroxaban 2.5 mg tablet (Xarelto) 2.5 mg PO BID 09/01/22 12/07/22 History topiramate 100 mg tablet 100 mg PO BID 09/01/22 12/07/22 History dapagliflozin propanediol 10 mg 10 mg PO DAILY 09/02/22 12/07/22 History tablet (Farxiga) icosapent ethyl 1 gram capsule 1 g PO BID 09/02/22 12/07/22 History aspirin 81 mg chewable tablet 81 mg PO DAILY 12/07/22 12/07/22 History Patient hx anesthesia problems: none Family hx anesthesia problems: none Results Review: All pre-operative results and documents have been reviewed as part of the pre-operative evaluation. [facility] Past Medical History Medical History Chronic obstructive pulmonary disease Coronary artery disease Depression with anxiety Hyperlipidemia Hypertension Uterine cancer Status post hysterectomy and external radiation. Surgical History Surgical History History of cardiac catheterization History of coronary angioplasty History of hysterectomy for cancer History of left knee replacement (2004) History of open reduction and internal fixation (ORIF) procedure (08/31/22) Repair of left trimalleolar fracture per Dr. Nicole. Family History Family History Other Diabetes mellitus Heart disease Social History Social History Social History: The patient lives in [place] with her cousin. She is . Former smoker, quit about 5 years ago. No alcohol or illicit substance abuse. Code status: Full code. Smoking packs per day: 2 Smoking cigarettes per day: 40.0 Years smoked: 45 Smoking pack-years: 90.00 Smoking status: Former smoker Tobacco type: cigarettes Smoking end date: 03/08/15 Alcohol intake: never Substance use: never Substance use type: does not use Lack of Transportation: No Lack of Food: Never True Current Housing: I Have Housing Concerned About Future Housing: No Difficulty Paying Gas/Electric Bills: No Difficulty Paying for Meds: No Currently Unemployed:
--- NOTE | 2022-12-16 07:17 | WPDHPUPDATE1 ---
History and Physical Update Update Date/Time: 12/16/22 07:17 History and Physical has been reviewed, including an updated exam of the patient. There are NO changes in the patient's condition. Risks, benefits, and alternatives have been discussed and questions answered. Patient agrees to proceed with procedure.
--- NOTE | 2022-12-16 07:17 | PM.IMHP ---
H&P: HPI History of Present Illness Date/Time: 12/16/22 07:17 Chief Complaint: cervical myelopathy Narrative: Ms. Butterfield is a 62-year-old female with history of HTN, [place] in 2016 on ASA/xarelto, COPD on 2.5L O2 at night, HTN, HLD who presents for follow-up of an inpatient consultation for cervical stenosis.? I saw her in August after she was diagnosed with a trimalleolar fracture which she sustained from a fall.? 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 She was discharged to rehab facility and has since returned home.? She is here to discuss surgery today for her cervical spine. ? Today, she reports she has had many years of neck pain with radiation into the shoulder and down the back of the left arm to the elbow.? She continues to have intermittent paresthesias in her hands.? She feels weak in her hand strength as well as generally weak throughout her body.? She has been walking with a walker since her discharge from the hospital to prevent falls.? She again reiterates that she often will get dizzy or lightheaded which causes her to fall. ? With respect to her ankle injury, she is weaning out of the boot.? She did have surgery for this which she tolerated well.? She recently saw her bank secrecy act officer, Dr. Stroud, who made some recent adjustments her blood pressure medication. Review of Systems Review of Systems: All systems reviewed & are unremarkable except as noted in HPI and below PMFSH Past Medical History Medical History Chronic obstructive pulmonary disease Coronary artery disease Depression with anxiety Hyperlipidemia Hypertension Uterine cancer Status post hysterectomy and external radiation. Surgical History Surgical History History of cardiac catheterization History of coronary angioplasty History of hysterectomy for cancer History of left knee replacement (2004) History of open reduction and internal fixation (ORIF) procedure (08/31/22) Repair of left trimalleolar fracture per Dr. Nicole. Family History Family History Other Diabetes mellitus Heart disease Social History Social History Social History: The patient lives in [place] with her cousin. She is . Former smoker, quit about 5 years ago. No alcohol or illicit substance abuse. Code status: Full code. Smoking packs per day: 2 Smoking cigarettes per day: 40.0 Years smoked: 45 Smoking pack-years: 90.00 Smoking status: Former smoker Tobacco type: cigarettes Smoking end date: 03/08/15 Alcohol intake: never Substance use: never Substance use type: does not use Lack of Transportation: No Lack of Food: Never True Current Housing: I Have Housing Concerned About Future Housing: No Difficulty Paying Gas/Electric Bills: No Difficulty Paying for Meds: No Currently Unemployed: No Education: High School Diploma/GED Difficulty w/ Childcare or Family Care: No Living arrangements: with family Additional living arrangements comments: COUSIN Spiritual care concerns: No Agree to blood products: Yes Meds Home Medications and Allergies Home Medications Medication Instructions Recorded Confirmed Type albuterol sulfate 90 mcg/actuation 2 puff inhalation DIRECTED PRN 09/01/22 12/07/22 History aerosol inhaler Dyspnea atorvastatin 20 mg tablet 20 mg PO DAILY 09/01/22 12/07/22 History budesonide-formoterol HFA 80 2 inh inhalation DAILY 09/01/22 12/07/22 History mcg-4.5 mcg/actuation aerosol inhaler (Symbicort) bupropion HCl 100 mg tablet,12 hr 100 mg PO DAILY 09/01/22 12/07/22 History sustained-release (Wellbutrin SR) buspirone 30
[2022-12-16] MEDS: ceFAZolin 2 GM/D5W 50 ML 2 GM/50 ML BAG IVPB ×3 (07:30→22:36)
[2022-12-16] MEDS: BUPIVACAINE/EPINEPHRINE 0.5% 50 ML VIAL 20 ML INFILTRATE (08:48)
--- NOTE | 2022-12-16 10:53 | P.OPB_ITS ---
Procedure Note - Brief Procedure Note - Brief Date of procedure: 12/16/22 cervical myelopathy and stenosis with radiculopathy Post-op diagnosis: Same Procedure performed: Posterior cervical decompressioin and fusion C4-7 Surgeon: Lianet Whitfield MD Electrician Supervisor Airplane: Benny Anesthesia: GLMA Findings: Successful PCDF C4-7. Difficulty visualizing hardware due to patient's anatomy Estimated blood loss (mL): 200 Urine output (mL): -100.0 Drains: Yes Packing: No Pathology: None sent Complications: None Condition: Stable Disposition: PACU
[2022-12-16] MEDS: fentaNYL CITRATE INJ (*CRX) 100 MCG/2 ML VIAL 25 MCG IV PUSH ×3 (10:57→11:21)
--- NOTE | 2022-12-16 11:05 | SUR.PHASEI ---
1100 - dr. river at bedside assessing pt and pt neuro assessment.
--- NOTE | 2022-12-16 12:12 | ADMGEN ---
This patient, Letty Butterfield, was admitted to Medical Room 250-01. Patient/family oriented to hospital policies and general routines including ID bracelet, bed and alarms, visiting hours, pain management, procedures, bathroom and other care routines, personal items, smoking policy, room service/diet, and visiting hours. Information on how to activate the Rapid Response Team has been discussed. Patient/Family are encouraged to report perceived risks to care and to ask questions if they do not understand what they are told or what they should do.
[2022-12-16] MEDS: ACETAMINOPHEN 500 MG TABLET 1000 MG PO ×2 (12:39→17:46)
[2022-12-16] MEDS: oxyCODONE HCL (*CRX) 5 MG TAB IR 10 MG PO ×2 (12:39→18:21)
--- NOTE | 2022-12-16 12:57 | W.PM.PROC2 ---
Procedure Note - Detailed Date of Procedure 12/16/22 Pre-op Diagnosis cervical myelopathy and stenosis with radiculopathy Post-op Diagnosis Same Procedure Performed 1. C4, C5, C6, and C7 laminectomies 2. Lateral mass instrumentation at C4, C5, C6, and C7 3. Arthrodesis with autograft and allograft at C4-5, C5-6, and C6-7 4. Use of C-arm for fluoroscopy Surgeon Lianet Whitfield MD Machine Rigger Benny Anesthesia General Indications Ms. Butterfield is a 62-year-old female who presents with an 8-month history of intermittent paresthesias in her hands, weakness in her hands, neck pain with radiculopathy into the left arm, falling, and urinary frequency and urgency.?MRI cervical spine accessed in [facility] from August shows severe central stenosis at C4-5, C5-6, and C6-7 cord compression.? Given her subjective and objective signs of cervical myelopathy, I recommended surgery in the form of posterior cervical decompression and fusion from C4-C7.?Risks including bleeding, pain, infection, CSF leak, hardware malpositioning, spinal cord injury, weakness, paralysis, coma, stroke, and were discussed. The patient provided written informed consent to proceed. Description of Procedure The patient was brought to the operating room where endotracheal anesthesia was induced. The Dixon headholder was applied, and the patient was transferred to the operating table in the prone position. The head was secured to the bed. All pressure points were padded. The C-arm was used to evaluate the planned incision. The planned surgical site was prepped and draped in usual sterile fashion. Time out was conducted, and local anesthesia was injected. A 10-blade scalpel was used to make the incision. The subcutaneous tissue was dissected with the bovie until the spinous processes were encountered. Self-retaining retractors were placed. A clamp was placed on a spinous process which was confirmed to be the C4 level with the C-arm. The incision was extended inferiorly to better expose down to the inferior level. The muscles were elevated in a subperiosteal fashion to expose the laminae and lateral masses of C4 through C7 bilaterally. The facet joints were exposed and defined with the bovie, and the airplane patrol pilot holes for the lateral mass screws were created with the high-speed drill. On the right side, the hand drill was used to drill through the lateral mass to a depth of 12mm at C4. The trajectory was palpated with a ball-tip probe to ensure where were no breeches in the bone. The drill was then lengthened to 14mm. The 3.0mm tap was then passes. This was repeated at C5, C6, and C7. Bone wax was placed over the screw holes. This was then repeated on the left side at C4, C5, C6, and C7. No bone breaches were noted at the depth of 14mm. We then turned our attention to the laminectomies. The high-speed drill was used to create a trough through the laminae of C4, C5, C6, and C7. The posterior elements were elevated with a Leksell and Kerrison rongeurs, and the bone was passed off to be morselized for autograft. The ligamentum flavum was elevated with the bone. Small residual pieces of ligamentum and bone were removed with the kerrison. The facet joints were decorticated with the drill.? We ensured hemostasis with the bipolar and Floseal. We next turned our attention to the lateral mass screws. The screw trajectories were palpated again with the balltip probe. 14 x 3.5mm screws were placed at each level bilaterally. 50mm rods were placed followed by set screws which were final tightened. The area was copiously irrigated. Autograft was placed lateral to the screws bilaterally and into the facets. A hemovac drain was placed in the epidural space and tunneled inferiorly. The muscle was approximated with 0 vicryl. The fascia was closed with 0 vicryl as well. The dermis was closed with 2-0 and 3-0 vicryl. The skin was closed with running 3-0 nylon. The drain was secured with a nylon as well. Sterile dressings were placed. T
[2022-12-16] MEDS: TOLNAFTATE 1% POWDER 45 GM BTL 1 APPLIC TOPICAL ×2 (15:44→20:09)
[2022-12-16] MEDS: busPIRone HCL 10 MG TABLET 30 MG PO (17:03)
[2022-12-16] MEDS: OMEGA 3 POLYUNSAT FATTY ACIDS 1 GM CAP 2 GM PO (17:04)
[2022-12-16] MEDS: TOPIRAMATE 100 MG TABLET PO (17:04)
[2022-12-16] MEDS: carvediloL 25 MG TABLET 50 MG PO (20:09)
[2022-12-16] MEDS: OLANZapine 5 MG TABLET 10 MG PO (20:09)
[2022-12-16] MEDS: DOCUSATE SODIUM 100 MG CAPSULE PO (20:09)
[2022-12-16] MEDS: FLUTICASONE/SALMETEROL 45-21 MCG INHALER 1 PUFF 2 PUFF INHALATION (21:30)
[2022-12-17] VITALS (11 sets, daily range): BP systolic 106–146; BP diastolic 63–81; PULSE 73–92; RESP 12–20; TEMP 36.1–36.6; O2SAT 93–99
--- NOTE | ~2022-12-17 | XR_ITS ---
EXAMINATION: XR_CERV2-3V_CR DATE: 12/16/2022 14:10 INDICATION: Cervical posterior decompression and fusion. TECHNIQUE: 3 views of cervical spine were obtained. COMPARISON: Cervical spine MRI 09/01/2022 FINDINGS: There is 3 mm retrolisthesis of C3 on C4 and C4 on C5 and 2 mm retrolisthesis of C5 on C6. Vertebral body heights are normal. There is severely decreased disc height from C3-C4 through C6-C7. There are changes of posterior fusion procedure from C4 to C7 with lateral mass screws. There are swanson inectomies from C4 to C7. There is multilevel mild to moderate facet joint hypertrophy. A surgical dr gabe is noted. IMPRESSION: 1. Posterior fusion procedure from C4 to C7. 2. Severe cervical spondylosis. Reviewed, dictated and finalized at location A.
--- NOTE | ~2022-12-17 | XR_ITS ---
XR fluoroscopy no charge Procedure: Cervical decompression and fusion. TECHNIQUE: Fluoroscopy used during Cervical decompression and fusion. performed by [Lianet gonzalez MD] on 12/16/2022. 14 seconds of fluoroscopy with 6 images captured. FINDINGS: Correlate with procedure note. IMPRESSION: Fluoroscopy used during Cervical decompression and fusion. Surgical changes demonstrated at C4-7. Please refer to procedural report. Reviewed, dictated and finalized at location B.
[2022-12-17] MEDS: oxyCODONE HCL (*CRX) 5 MG TAB IR 10 MG PO ×4 (00:14→17:38)
[2022-12-17] MEDS: ACETAMINOPHEN 500 MG TABLET 1000 MG PO ×4 (00:14→17:38)
[2022-12-17] MEDS: CYCLOBENZAPRINE HCL 10 MG TABLET PO (01:36)
[2022-12-17] MEDS: ceFAZolin 2 GM/D5W 50 ML 2 GM/50 ML BAG IVPB ×2 (06:11→14:13)
[2022-12-17] MEDS: FLUTICASONE/SALMETEROL 45-21 MCG INHALER 1 PUFF 2 PUFF INHALATION ×2 (07:49→20:38)
[2022-12-17] MEDS: buPROPion HCL SR (12HR) 100 MG TABCR PO (08:14)
[2022-12-17] MEDS: TOPIRAMATE 100 MG TABLET PO ×2 (08:14→16:01)
[2022-12-17] MEDS: ATORVASTATIN 20 MG TABLET PO (08:14)
[2022-12-17] MEDS: DOCUSATE SODIUM 100 MG CAPSULE PO ×2 (08:14→20:23)
[2022-12-17] MEDS: OMEGA 3 POLYUNSAT FATTY ACIDS 1 GM CAP 2 GM PO ×2 (08:14→16:01)
[2022-12-17] MEDS: CYANOCOBALAMIN 1,000 MCG TABLET 1000 MCG PO (08:15)
[2022-12-17] MEDS: EZETIMIBE 10 MG TABLET PO (08:15)
[2022-12-17] MEDS: hydroCHLOROthiazide 25 MG TABLET PO (08:15)
[2022-12-17] MEDS: carvediloL 25 MG TABLET 50 MG PO ×2 (08:15→20:23)
[2022-12-17] MEDS: ISOSORBIDE MONONITRATE 30 MG TAB.ER.24H PO (08:15)
[2022-12-17] MEDS: EMPAGLIFLOZIN 25 MG TABLET BY MOUTH (08:15)
[2022-12-17] MEDS: LOSARTAN POTASSIUM 100 MG TABLET PO (08:15)
[2022-12-17] MEDS: busPIRone HCL 10 MG TABLET 30 MG PO ×2 (08:15→16:01)
[2022-12-17] MEDS: TOLNAFTATE 1% POWDER 45 GM BTL 1 APPLIC TOPICAL ×2 (08:15→20:24)
--- NOTE | 2022-12-17 10:17 | WPDANESPN ---
Anes - Prog Note Post-Op Date/Time: 12/17/22 10:17 Cardiovascular status: normal Respiratory status: normal Airway patency: baseline Mental status: baseline Post-Op hydration status: normal Vital Signs: Last Vital Signs Temp 97.0 F L 12/17/22 10:01 Pulse 75 12/17/22 10:01 Resp 17 12/17/22 10:01 BP 108/65 12/17/22 10:01 Pulse Ox 93 12/17/22 10:01 O2 Del Method Nasal Cannula 12/17/22 08:00 O2 Flow Rate 2 12/17/22 08:00 FiO2 30 12/17/22 07:49 Pain Score (VAS): 0/10 I/O: Intake & Output 12/16/22 12/17/22 12/17/22 23:59 07:59 15:59 Intake Total 1320 50 360 Output Total 50 50 Balance 1270 0 360 Post-procedural complaints: none Patient Feedback: Patient satisfied with anesthetic care.
--- NOTE | 2022-12-17 15:29 | PC.NURSE ---
pt informed nurse that neurosurgery may remove Hemovac later this shift.
--- NOTE | 2022-12-17 17:50 | PC.NURSE ---
pt ambulated to restroom, sba sponge bath given. MD Roseann here to removed hemavac.
--- NOTE | 2022-12-17 19:05 | WPDNEUROSGPN ---
Progress Note: A&P Assessment and Plan (1) Cervical myelopathy: Code(s): G95.9 - Disease of spinal cord, unspecified Status: Acute (2) Status post cervical arthrodesis: Code(s): Z98.1 - Arthrodesis status Status: Acute Plan s/p PCDF C4-7 on 12/16 Plan: -I removed the hemovac at bedside today -Anticipate discharge home tomorrow -She may shower tomorrow -Bathing and activity restrictions discussed with the patient -She will see me in clinic in 2 weeks for suture removal Subjective Date/time seen: 12/17/22 19:05 Interval history: Doing well with tolerable neck pain today. No pain or paresthesias in arms or hands. Ambulated with therapy. She did have some hypoxia with ambulation which she thinks has been a chronic issue due to her COPD. Voiding independently and tolerating PO. Review of Systems Review of Systems: All systems reviewed & are unremarkable except as noted in HPI and below Exam Narrative: AOx4 Full strength with exception of hand intrinsics 4+/5 Sensation intact to light touch Trace serosanguinous drainage on dressing HV 100cc out since surgery Objective Data Vital Signs Vital Signs: Vital Signs - 24 hr 12/16/22 20:09 12/16/22 20:52 12/17/22 01:31 Temperature 97.0 F L 97.2 F L Pulse Rate 82 87 87 Respiratory Rate 14 13 Blood Pressure 129/78 136/74 Pulse Oximetry 97 96 Oxygen Delivery Oxygen Flow Rate Fraction of Inspired Oxygen 12/17/22 05:46 12/17/22 07:49 12/17/22 08:15 Temperature 96.9 F L Pulse Rate 92 90 Respiratory Rate 12 Blood Pressure 146/81 H Pulse Oximetry 99 95 Oxygen Delivery Nasal Cannula Oxygen Flow Rate 2.5 Fraction of Inspired Oxygen 30 12/17/22 08:00 12/17/22 10:01 12/17/22 14:52 Temperature 97.0 F L 97.9 F Pulse Rate 90 75 74 Respiratory Rate 12 17 17 Blood Pressure 108/65 106/63 Pulse Oximetry 95 93 97 Oxygen Delivery Nasal Cannula Oxygen Flow Rate 2 Fraction of Inspired Oxygen Intake/Output Intake/Output: Intake & Output 12/14/22 12/15/22 12/16/22 12/17/22 23:59 23:59 23:59 23:59 Intake Total 1890 1630 Output Total 70 540 Balance 1820 1090 Meds/Results Medications: Active Medications Generic Name Dose Route Start Last Admin Trade Name Freq PRN Reason Stop Dose Admin Acetaminophen 1,000 mg 12/16/22 12:00 12/17/22 17:38 Acetaminophen 500 Mg Tablet PO 1,000 mg Q6H MANINDER Administration Al Hydrox/Mg Hydrox/Simethicone 20 ml 12/16/22 10:46 Mag Hydrox/Al Hydrox/Simeth 30 Ml Udc PO Q4H PRN Indigestion/Heartburn Albuterol 2 puff 12/16/22 10:50 Albuterol Sulfate (*Sp) Aerosol 1 Puff INHALATION Q4-6H PRN Dyspnea Atorvastatin Calcium 20 mg 12/17/22 09:00 12/17/22 08:14 Atorvastatin 20 Mg Tablet PO 20 mg DAILY MANINDER Administration Bisacodyl 10 mg 12/16/22 10:46 Bisacodyl 10 Mg Suppository RECTAL DAILY PRN Constipation Bupropion HCl 100 mg 12/17/22 09:00 12/17/22 08:14 Bupropion Hcl Sr (12hr) 100 Mg Tabcr PO 100 mg DAILY MANINDER Administration Buspirone HCl 30 mg 12/16/22 17:00 12/17/22 16:01 Buspirone Hcl 10 Mg Tablet PO 30 mg BID MANINDER Administration Carvedilol 50 mg 12/16/22 21:00 12/17/22 08:15 Carvedilol 25 Mg Tablet PO 50 mg Q12HR MANINDER Administration Cyanocobalamin 1,000 mcg 12/17/22 09:00 12/17/22 08:15 Cyanocobalamin 1,000 Mcg Tablet PO 1,000 mcg DAILY MANINDER Administration Cyclobenzaprine HCl 10 mg 12/16/22 10:46 12/17/22 01:36 Cyclobenzaprine Hcl 10 Mg Tablet PO 10 mg TID PRN Administration Muscle Spasms Docusate Sodium 100 mg 12/16/22 21:00 12/17/22 08:14 Docusate Sodium 100 Mg Capsule PO 100 mg Q12HR MANINDER Administration Ezetimibe 10 mg 12/17/22 09:00 12/17/22 08:15 Ezetimibe 10 Mg Tablet PO 10 mg DAILY MANINDER Administration Empagliflozin 25 mg 12/17/22 09:00 12/17/22 08:15 Empagliflozin 25 Mg Tablet BY MOUTH
[2022-12-17] MEDS: OLANZapine 5 MG TABLET 10 MG PO (20:24)
[2022-12-18] MEDS: ACETAMINOPHEN 500 MG TABLET 1000 MG PO ×3 (00:30→11:15)
[2022-12-18] MEDS: oxyCODONE HCL (*CRX) 5 MG TAB IR 10 MG PO ×3 (00:30→11:15)
[2022-12-18 04:31] VITALS: BP 118/68; PULSE 66; RESP 20; TEMP 36.1; O2SAT 99
[2022-12-18 08:00] VITALS: O2SAT 95
[2022-12-18] MEDS: DOCUSATE SODIUM 100 MG CAPSULE PO (08:07)
[2022-12-18] MEDS: ISOSORBIDE MONONITRATE 30 MG TAB.ER.24H PO (08:07)
[2022-12-18] MEDS: OMEGA 3 POLYUNSAT FATTY ACIDS 1 GM CAP 2 GM PO (08:07)
[2022-12-18] MEDS: hydroCHLOROthiazide 25 MG TABLET PO (08:08)
[2022-12-18] MEDS: EMPAGLIFLOZIN 25 MG TABLET BY MOUTH (08:08)
[2022-12-18] MEDS: EZETIMIBE 10 MG TABLET PO (08:08)
[2022-12-18] MEDS: busPIRone HCL 10 MG TABLET 30 MG PO (08:08)
[2022-12-18] MEDS: buPROPion HCL SR (12HR) 100 MG TABCR PO (08:08)
[2022-12-18] MEDS: ATORVASTATIN 20 MG TABLET PO (08:08)
[2022-12-18] MEDS: TOPIRAMATE 100 MG TABLET PO (08:08)
[2022-12-18] MEDS: CYANOCOBALAMIN 1,000 MCG TABLET 1000 MCG PO (08:08)
[2022-12-18] MEDS: LOSARTAN POTASSIUM 100 MG TABLET PO (08:08)
[2022-12-18 08:09] VITALS: O2SAT 95
[2022-12-18] MEDS: FLUTICASONE/SALMETEROL 45-21 MCG INHALER 1 PUFF 2 PUFF INHALATION (08:09)
[2022-12-18 08:10] VITALS: PULSE 70
[2022-12-18] MEDS: TOLNAFTATE 1% POWDER 45 GM BTL 1 APPLIC TOPICAL (08:10)
[2022-12-18] MEDS: carvediloL 25 MG TABLET 50 MG PO (08:10)
--- NOTE | 2022-12-18 12:45 | PM.DS ---
DS: Admitting Diagnosis Discharge Date December 18, 2022 Admitting Diagnosis Cervical myelopathy DS: Discharge Diagnosis Discharge Diagnosis (1) Cervical myelopathy: Code(s): G95.9 - Disease of spinal cord, unspecified Status: Acute (2) Status post cervical arthrodesis: Code(s): Z98.1 - Arthrodesis status Status: Acute DS: Summary Hospital Course Hospital Course: Ms. Butterfield presented to the hospital on December 16 for surgery; please see the operative note for more details. She was transferred to the floor after surgery. She worked with therapy who cleared her for discharge home. Therapy did note decreased oxygen saturations with ambulation. Her hemovac drain was removed on POD1. Her pain was adequately controlled. She was determined ready for discharge home on POD2. Time Spent with Patient Time attestation: Total time spent providing and/or coordinating discharge services: Exam Narrative: AOx4 Full strength with exception of hand intrinsics 4+/5 Sensation intact to light touch Trace serosanguinous drainage on dressing Discharge Plan Discharge Attending physician on discharge: Lianet Whitfield Discharging Clinician: Lainet Whitfield Patient Disposition: Home, Self-Care Activity: other - see discharge instructions Diet: as tolerated Wound Care Instructions: follow printed instructions Discharge Instructions: Discharge Instructions Procedure: Posterior cervical decompression and fusion Your doctor removed bone and ligament to decompress your spinal cord and nerve roots, and then placed hardware to stabilize the spine. Here are some instructions to follow upon discharge from the hospital to help in your recovery. Activity: Unless released by your doctor, you should not return to work. You should rest at home and let your body heal. Taking short walks is encouraged, but avoid strenuous exercise. Do not jog, run, lift weights, bicycle, or participate in other exercises unless specifically allowed by your doctor. Most importantly, avoid lifting objects heavier than a telephone book or a carton of milk as this places a strain on your neck. If possible, avoid household activities that involve lifting such as laundry, grocery shopping, or childcare. Try to arrange for help from friends and family for these activities while your neck heals. You should not drive until you are both off of narcotics and your neck has loosened up enough to safely check your blind spots. You may remove the dressing and leave the incision open to air. You may shower. After showering, lightly dab your wound dry. Do not take baths or sit in a hot tub or pool until approved by your doctor. You may get your incision wet with soap and water, but do not submerge the incision under water. DO NOT SMOKE TOBACCO. Smoking has been proven to interfere with the normal healing of the bones in your neck. Smoking will dramatically reduce the success rate of your surgery. Diet: You can return to your usual diet, unless instructed otherwise by your doctor. Medications: You should resume taking all of your normal medications unless instructed otherwise by your doctor. You may take Tylenol 1000mg every 6 hours as needed for pain. If your pain is still uncontrolled after Tylenol, then take oxycodone. You may also take flexeril for neck pain and muscle spasms every 8 hours. However, you should not take anti-inflammatory medications (such as Motrin, Advil, ibuprofen, naproxen) unless specifically approved by your doctor. These medications can prevent your bones from healing properly after surgery. If you have questions about your normal medications (for example, those prescribed for high blood pressure), you should contact your primary care doctor. You will be given a prescription for pain medications and possibly a laxative, as pain medications can cause constipation. Take the pain medication as instructed. If your pain is not re
== END 2022-12-18 15:15 | disposition home or self-care (01) ==
LOC: ANHSURGERY 13:38 → ANH2MED 13:38
PROVIDERS: Admitting Provider Neurological Surgery; PCP Family Medicine; Visit Provider Neurological Surgery
PROC: (CPT 22600; principal; 2022-12-16 07:30)
DX: M48.02 Spinal stenosis, cervical region (principal); M54.12 Radiculopathy, cervical region; G95.9 Disease of spinal cord, unspecified; I10 Essential (primary) hypertension; I25.2 Old myocardial infarction; J44.9 Chronic obstructive pulmonary disease, unspecified; R06.00 Dyspnea, unspecified; I25.10 Atherosclerotic heart disease of native coronary artery without angina pectoris; F41.8 Other specified anxiety disorders; Z87.891 Personal history of nicotine dependence; Z79.82 Long term (current) use of aspirin; Z79.01 Long term (current) use of anticoagulants; Z79.51 Long term (current) use of inhaled steroids; Z79.899 Other long term (current) drug therapy; Z82.49 Family history of ischemic heart disease and other diseases of the circulatory system
CPT/HCPCS: 22600; 22614 ×2; 22842; 20936; 36415; 71046; 72040; 80048; 81003; 85027; 85610; 85730; 86850; 86900; 86901; 93005; 94640; 97161; 97165; 97530; 97535; 99199; A9270; C1713; G0378; J0330; J0690; J1100; J1170; J2250; J2405; J2704; J3010; J7120

== ENCOUNTER 2023-04-22 14:12 | Outpatient (CLI) | payer MEDICARE, SELFPAY ==
--- NOTE | ~2023-04-22 | XR_ITS ---
EXAMINATION:XR_CERV2-3V_CR DATE: 04/22/2023 14:30 INDICATION: Chronic neck pain. Assess arthrodesis status TECHNIQUE: AP, lateral, lateral swimmers and odontoid views of the cervical spine are provided. COMPARISON: 12/16/2022 FINDINGS: C4-C7 laminectomies. C4-C7 instrumented posterior spinal fusion with bilateral vertical jean claude and later al mass screw fixation. No evident instrumentation failure or lucency surrounding the screws to sugge st loosening or infection. Unchanged 3 mm retrolisthesis C3 on C4, C4 on C5 and 2 mm retrolisthesis C 5 on C6. Odontoid is intact. Moderate atlantoaxial osteoarthritis. Severe disc height loss at C3-C4 t hrough C6-C7. Multilevel bilateral cervical facet osteoarthritis. Prevertebral soft tissues are norm al. IMPRESSION: 1. Stable appearance of instrumented C4-C7 posterior spinal fusion with associated C7 laminectomies. 2. Severe cervical spondylosis. Reviewed, dictated and finalized at location A. LATION APPLICATOR IMPRESSION: 1. Stable appearance of instrumented C4-C7 posterior spinal fusion with associa sandeep C7 laminectomies. 2. Severe cervical spondylosis.
== END 2023-04-22 14:13 | disposition home or self-care (01) ==
LOC: ANHIMG 14:17
PROVIDERS: PCP Family Medicine; Visit Provider Neurological Surgery
DX: M54.2 Cervicalgia (principal); Z98.1 Arthrodesis status; M43.02 Spondylolysis, cervical region
CPT/HCPCS: 72040

== ENCOUNTER 2023-10-21 12:03 | Outpatient (CLI) | payer MEDICARE, SELFPAY ==
--- NOTE | ~2023-10-21 | XR_ITS ---
XR_CERV2-3V_CR Ordering provider: Lianet Whitfield MD History: . Z98.1 - Arthrodesis status . Comparison: April 22, 2023 FINDINGS: VERTEBRAL BODIES: Normal height and alignment. No visible fracture or subluxation. The dens is intact . Postoperative changes seen posteriorly at the levels of C3, C4, C5 and C6. DISK SPACES: Narrowing of all disc spaces except C2-C3. Multilevel uncovertebral joint osteoarthritic changes. PARASPINOUS SOFT TISSUES: No prevertebral soft tissue swelling. IMPRESSION: No acute osseous abnormality cervical spine. Postoperative changes. Reviewed, dictated and finalized at location A.
--- NOTE | ~2023-10-21 | XR_ITS ---
XR shoulder RT min 2V Ordering provider: Lianet Whitfield MD History: . M25.519 - Pain in unspecified shoulder . Comparison: None. FINDINGS: BONES: No acute fracture or dislocation. JOINT SPACES: The acromioclavicular joint is normal. The glenohumeral joint is normal. SOFT TISSUES: Normal. IMPRESSION: No acute osseous abnormality right shoulder. Reviewed, dictated and finalized at location A.
--- NOTE | ~2023-10-21 | XR_ITS ---
XR shoulder LT min 2V Ordering provider: Lianet Whitfield MD History: . M25.519 - Pain in unspecified shoulder . Comparison: None. FINDINGS: BONES: No acute fracture or dislocation. JOINT SPACES: The acromioclavicular joint is normal. The glenohumeral joint is normal. SOFT TISSUES: Normal. IMPRESSION: No acute osseous abnormality left shoulder. Reviewed, dictated and finalized at location A.
== END 2023-10-21 12:04 | disposition home or self-care (01) ==
PROVIDERS: PCP Family Medicine; Visit Provider Neurological Surgery
DX: Z98.1 Arthrodesis status (principal); M25.511 Pain in right shoulder; M25.512 Pain in left shoulder
CPT/HCPCS: 72040; 73030

== ENCOUNTER 2024-03-07 14:10 | Outpatient (CLI) | payer MEDICARE, SELFPAY ==
[2024-03-07 15:15] VITALS: PULSE 72; O2SAT 95
[2024-03-07 15:17] VITALS: PULSE 96; O2SAT 87
[2024-03-07 15:18] VITALS: PULSE 98; O2SAT 88
[2024-03-07 15:19] VITALS: PULSE 93; O2SAT 91
[2024-03-07 15:20] VITALS: PULSE 92; O2SAT 92
[2024-03-07 15:30] VITALS: PULSE 79; O2SAT 95
--- NOTE | 2024-03-07 15:36 | PCRCNOTE ---
Faxed home O2 eval to Gina Cortes [employer] office staff. Formal 6min walk not performed due to need for home o2
--- NOTE | 2024-03-08 22:45 | P.PCNPFT_ITS ---
PFT Procedure Performed PFT Procedure Performed Spirometry with Pre/Post Bronchodilator Plethysmography (Lung Vol) Diffusing Cap (DLCO) Flow Vol Loop PFT Interpretation DOS: 03/07/2024 REQUESTING: AJAY Ricketts REASON FOR TESTING: Dyspnea PULMONARY FUNCTION TESTS Results are reliable and reproducible. Repeatability of spirometry FEV1 maneuver pre and post bronchodilator is Grade A. Spirometry: The pre-bronchodilator FEV1 is 1.45 L, 61%, decreased. The pre- bronchodilator FVC is 2.54 L, 85%, normal. The FEV1/FVC ratio is 57%, decreased consistent with airflow obstruction. After bronchodilator, the FEV1 is 1.41 L, 60%,-2%. The FVC is 2.40 L, 80%,-5%. The FEV1/FVC ratio is 59%, below normal. Lung volumes: The total lung capacity is 4.20 L, 86%, normal. The residual volume is 1.66 L, 84%, normal. The RV/TLC is 39%, normal. Airway resistance is increased. Diffusion: DLCO is 6.5, 31%, extremely reduced. The DLCO/VA is 2.30 L, 52%, moderately reduced. Flow volume loop: The flow volume loop shows coving of the expiratory limb. IMPRESSION: This study shows a moderate obstructive ventilatory impairment without response to bronchodilator, normal lung volumes, severe diffusion impairment with partial correction when adjusted for alveolar volume. Lack of response to bronchodilator should not preclude use if clinically indicated. No prior studies to compare. Leigh Aiken MD
== END 2024-03-07 14:11 | disposition home or self-care (01) ==
PROVIDERS: PCP Family Medicine; Visit Provider Nurse Practitioner
DX: R94.2 Abnormal results of pulmonary function studies (principal); R06.09 Other forms of dyspnea
CPT/HCPCS: 94060; 94618; 94726; 94729

== ENCOUNTER 2024-03-15 10:05 | Outpatient (CLI) | payer MEDICARE, SELFPAY ==
--- NOTE | ~2024-03-15 | XR_ITS ---
Clinical Indication: Dyspnea PA and lateral views of the chest: Comparison: 12/09/2022 Findings: The lungs are clear, without evidence of focal consolidation or pleural effusion. Cardiome diastinal silhouette is within normal limits. Degenerative change of the thoracic spine noted. Impression: Clear lungs. Reviewed, dictated and finalized at location . ET LUBRICANT MIXER Impression: Clear lungs.
[2024-03-15 11:51] LABS: Basophils Percent Auto 0.1 % (0.2-1.2); Eosinophils Absolute Auto 0.4 K/mm3 (0-0.3); Eosinophils Percent Auto 5.1 % (0-4.4); Hematocrit 42.1 % (37.0-47.0); Hemoglobin 13.4 g/dL (12.0-15.0); Immature Granulocyte Absolute 0.02 K/mm3 (0.00-0.031); Immature Granulocyte Percent A 0.3 % (0-0.5); Lymphocytes Absolute Auto 1.21 K/mm3 (0.9-3.2); Lymphocytes Percent Auto 17.7 % (18.3-44.2); Mean Corpuscular HGB Conc 31.8 g/dl (32-36); Mean Corpuscular Hemoglobin 31.2 pg (26-34); Mean Corpuscular Volume 97.9 fl (80-100); Mean Platelet Volume 11.1 fl (7.4-10.4); Monocytes Absolute Auto 0.9 K/mm3 (0.1-0.6); Monocytes Percent Auto 12.6 % (2.6-8.5); Neutrophils Absolute Auto 4.4 K/mm3 (1.3-6.7); Neutrophils Percent Auto 64.2 % (45.5-73.1); Platelet Count Result 253 k/mm3 (150-375); Red Cell Distribution Width 12.8 % (11.5-14.5); White Blood Count 6.8 K/mm3 (4.5-10.0)
[2024-03-15 11:58] LABS: Cholesterol 113 mg/dL (0-200); HDL Direct 50 mg/dL; Triglycerides 106 mg/dL (<150)
[2024-03-15 12:08] LABS: NT Pro B Type Natriuretic Pept 98 pg/mL (19.9-100)
[2024-03-15 12:10] LABS: LDL Cholesterol Direct 37 mg/dL
[2024-03-15 12:29] LABS: Vitamin D 25 Hydroxy 58.5 ng/mL
[2024-03-15 13:00] LABS: Hepatitis C Virus Antibody Negative (Negative)
[2024-03-15 13:07] LABS: Folic Acid 5.1 ng/mL (2.76->20); Vitamin B12 > 1000.0 pg/mL (239-931)
[2024-03-15 19:42] LABS: Hemoglobin A1C 5.6 % (<5.7)
[2024-03-16 08:23] LABS: Alanine Aminotransferase 17 U/L (6-35); Albumin Level 3.9 g/dL (3.5-5.1); Alkaline Phosphatase 92 U/L (38-126); Anion Gap 9 mmol/L (4-12); Aspartate Amino Transferase 22 U/L (14-36); Bilirubin,Total 0.6 mg/dL (0.2-1.3); Blood Urea Nitrogen 19 mg/dL (7-17); Calcium 9.1 mg/dL (8.4-10.2); Carbon Dioxide 21 mmol/L (22-30); Chloride 106 mmol/L (98-107); Estimated Glomerular Filt Rate 50; Glucose 77 mg/dL (65-110); Potassium 3.8 mmol/L (3.4-5.0); Sodium 136 mmol/L (137-145)
[2024-03-16 11:53] LABS: Immunoglobulin E 23 kU/L (<OR=114)
[2024-03-17 04:28] LABS: Alpha-1-Antitrypsin, QN 183 mg/dL (83-199)
[2024-03-17 13:48] LABS: NIL 0.03 IU/mL; Quantiferon TB Plus, 1T NEGATIVE (NEGATIVE); TB1-NIL <0.00 IU/mL; TB2-NIL <0.00 IU/mL
[2024-03-17 14:18] LABS: Alternaria alternata IgE <0.10 kU/L; Alternaria alternata IgE Class 0; Aspergillus fumigatus IgE <0.10 kU/L; Bermuda Grass (G2) IgE <0.10 kU/L; Bermuda Grass (G2) IgE Class 0; Cat Dander IgE <0.10 kU/L; Cat Dander IgE Class 0; Cladosporium herbarum IgE <0.10 kU/L; Cladosporium herbarum IgE Clas 0; Cockroach IgE <0.10 kU/L; Cockroach IgE Clas 0; Common Ragweed IgE Class 0; Cottonwood IgE <0.10 kU/L; Dermatophagoides Farinae Class 0; Dermatophagoides Pterony Class 0; Dermatophagoides Pteronyssinus <0.10 kU/L; Dog Dander IgE <0.10 kU/L; Elm (T8) IgE <0.10 kU/L; Elm (T8) IgE Class 0; Hickory/Pecan IgE <0.10 kU/L; Hickory/Pecan IgE Class 0; Immunoglobulin E 21 kU/L (<OR=114); Maple Box Elder IgE Class 0; Mountain Cedar IgE <0.10 kU/L; Mountain Cedar IgE Class 0; Mouse Urine Proteins IgE <0.10 kU/L; Mouse Urine Proteins IgE Class 0; Oak IgE <0.10 kU/L; Peniciliium notatum class 0; Penicillium notatum (M1) IgE <0.10 kU/L; Rough Marsh <0.10 kU/L; Rough Marsh Elder Class 0; Rough Pigweed (W14) IgE <0.10 kU/L; Rough Pigweed (W14) IgE Class 0; Russian Thistle <0.10 kU/L; Sycamore IgE <0.10 kU/L; Sycamore IgE Class 0; Timothy Grass IgE <0.10 kU/L; Timothy Grass IgE Class 0; Walnut Tree IgE <0.10 kU/L; Walnut Tree IgE Class 0; White Ash IgE Class 0; White Mulberry IgE <0.10 kU/L; White Mulberry IgE Class 0
[2024-03-18 21:54] LABS: Immunoglobulin G, Serum 863 mg/dL (600-1540); Immunoglobulin G1 534 mg/dL (382-929); Immunoglobulin G2 199 mg/dL (241-700); Immunoglobulin G3 71 mg/dL (22-178); Immunoglobulin G4 10.7 mg/dL (4.0-86.0)
== END 2024-03-15 10:06 | disposition home or self-care (01) ==
PROVIDERS: PCP Family Medicine; Referring Provider Nurse Practitioner Family; Visit Provider Nurse Practitioner
DX: R06.09 Other forms of dyspnea (principal); E78.5 Hyperlipidemia, unspecified; R73.9 Hyperglycemia, unspecified; E55.9 Vitamin D deficiency, unspecified; Z11.59 Encounter for screening for other viral diseases; Z79.899 Other long term (current) drug therapy
CPT/HCPCS: 36415; 71046; 80053; 80061; 82103; 82306; 82607; 82746; 82784; 82785; 82787; 83036; 83880; 84443; 85025; 86003; 86480; 86803

== ENCOUNTER 2024-03-15 12:55 | Outpatient (CLI) | payer MEDICARE, SELFPAY ==
--- NOTE | ~2024-03-15 | MM_ITS ---
EXAMINATION: MM screening tk BI w ben HISTORY: Screening TECHNIQUE: Craniocaudal and mediolateral oblique 3-D tomosynthesis images were obtained and synthetic 2-D images were generated. CAD analysis was submitted and interpreted. COMPARISON: No prior mammogram is available for comparison at this institution. BREAST PARENCHYMAL COMPOSITION: There are scattered areas of fibroglandular density. FINDINGS: There is no evidence of suspicious mass, calcification, or architectural distortion to sugg est malignancy in either breast. There has been no suspicious interval change. IMPRESSION: 1. No mammographic evidence of malignancy. 2. Recommend routine screening mammography in one year. BI-RADS Category 1: Negative Reviewed, dictated and finalized at location B. ING PROCESS SPECIALIST
== END 2024-03-15 12:56 | disposition home or self-care (01) ==
LOC: MICIMG 12:56
PROVIDERS: PCP Family Medicine; Visit Provider Nurse Practitioner Family
DX: Z12.31 Encounter for screening mammogram for malignant neoplasm of breast (principal)
CPT/HCPCS: 77063; 77067

== ENCOUNTER 2024-03-16 13:54 | Outpatient (CLI) | payer MEDICARE, SELFPAY ==
[2024-03-16 14:46] LABS: Add Urine Microscopic? YES; Appearance Urine Clear (Clear); Bacteria Urine None Seen /hpf; Bilirubin Urine Negative (Negative); Blood Urine Negative (Negative); Color Urine Yellow (Yellow); Glucose Urine UA 1+ mg/dL (Negative); Ketones Urine Negative (Negative); Leukocyte Esterase Ur 3+ LEU/UL (Negative); Nitrate Urine Negative (Negative); Non Pathogenic Casts 0-2; Protein Urine Negative (Negative); RBC Urine 0-2 /hpf (0-2); Specific Grav Ur 1.005 (1.001-1.035); Squamous Epithelial Cell Urine None Seen /hpf (Few); Urobilinogen Urine 0.2 mg/dL (<2.0)
[2024-03-16 15:02] LABS: Complement C3 118 mg/dL (88-165)
[2024-03-16 15:08] LABS: Erythrocyte Sedimentation Rate 15 mm/hr (0-20)
[2024-03-16 15:25] LABS: Creatinine Urine 10.3 mg/dL; Total Protein Urine Random 12 mg/dL; Ur Ttl Prot Creatinine Ratio 1.17 mg/mg (0-0.20)
[2024-03-16 15:31] LABS: MALB Creatinine Ratio < 60.0 mg/g (0-30); Microalbumin Urine Random < 6.0 mg/L (0-16.7)
[2024-03-16 15:37] LABS: Vitamin D 25 Hydroxy 55.6 ng/mL
[2024-03-16 15:52] LABS: Hepatitis B Surface Antigen Negative (Negative)
[2024-03-16 16:10] LABS: Hepatitis C Virus Antibody Negative (Negative)
[2024-03-16 16:42] LABS: Albumin Level 4.2 g/dL (3.5-5.1); Anion Gap 8 mmol/L (4-12); Blood Urea Nitrogen 20 mg/dL (7-17); CRP < 0.5 mg/dL (<1.0); Calcium 9.3 mg/dL (8.4-10.2); Carbon Dioxide 25 mmol/L (22-30); Chloride 105 mmol/L (98-107); Creatine Kinase 73 U/L (30-135); Estimated Glomerular Filt Rate 48; Glucose 82 mg/dL (65-110); Magnesium 1.9 mg/dL (1.6-2.3); Phosphorus 4.1 mg/dL (2.5-4.5); Potassium 3.7 mmol/L (3.4-5.0); Sodium 138 mmol/L (137-145)
[2024-03-16 16:48] LABS: NT Pro B Type Natriuretic Pept 151 pg/mL (19.9-100)
[2024-03-17 13:44] LABS: Protein, Total 6.5 g/dL (6.1-8.1)
[2024-03-20 12:39] LABS: Cystatin C 1.47 mg/L (0.52-1.14); eGFR 43 (> OR = 60)
[2024-03-20 13:43] LABS: NIL 0.03 IU/mL; Quantiferon TB Plus, 1T NEGATIVE (NEGATIVE)
== END 2024-03-16 13:55 | disposition home or self-care (01) ==
PROVIDERS: PCP Family Medicine; Visit Provider Internal Medicine Nephrology
DX: I12.9 Hypertensive chronic kidney disease with stage 1 through stage 4 chronic kidney disease, or unspecified chronic kidney disease (principal); N18.30 Chronic kidney disease, stage 3 unspecified; I73.9 Peripheral vascular disease, unspecified; I25.84 Coronary atherosclerosis due to calcified coronary lesion; I87.2 Venous insufficiency (chronic) (peripheral); G47.33 Obstructive sleep apnea (adult) (pediatric); E78.00 Pure hypercholesterolemia, unspecified; F32.2 Major depressive disorder, single episode, severe without psychotic features
CPT/HCPCS: 36415; 80069; 81001; 82043; 82306; 82550; 82570; 82610; 83735; 83880; 83883; 84155; 84156; 84165; 85652; 86140; 86160; 86480; 86803; 87340

== ENCOUNTER 2024-04-04 12:58 | Outpatient (CLI) | payer MEDICARE, SELFPAY ==
--- OUTSIDE RECORDS SUMMARY | 2024-04-04 13:36 | XMS_ITS | Continuity of Care Document ---
Author Organization [facility] Address [address] [place] [address] Phone Care Team Providers Care Meat Hostess Name Role Phone Davie Sun Unavailable Unavailable Procedures Procedure Date Eye Exam & Treatment Eye Exam, New Patient Advance Directives Directive Yes / No Effective Date File Name No Information Encounters Encounter Description Practice Location Reason(s) For Visit Diagnoses Date Provider Providers Copied on Encounter [facility], [address] [place] [address] [address], [place], [place], [id number], tel:[phone] [facility] No Information 3-[address] Krishnasamy Davie. [address], [facility], [place]. tel:[phone] [facility], [address] [place] [address] [address], [place], [place], [id number], tel:[phone] [facility] No Information 2-[address] Krishnasamy Davie. [address] [facility] [address], [place], [address], [place]. tel:[phone] Family History Family Member Type Diagnosis Age At Onset No Information Payers Payer name Insurance type Covered green party ID Authoriza tion(s) No Information Social History Type Description Quantity Date Captured Comments Sex Male Smoking Status No Information Chief Complaint And Reason For Visit No Information Reason For Referral Reason For Referral No Information History Of Present Illness Encounter Date Complaint History Of Prese nt Illness No Information Functional Status Date Functional Assessmen t No Information Instructions Date Instruction Additional Infor mation No Information Assessments Type Assessment Date No Information Patient Care Teams Name Effective Dates (start - stop) Status Members No Information
--- OUTSIDE RECORDS SUMMARY | 2024-04-04 13:36 | XMS_ITS | Patient Health Summary ---
Author Organization [facility] Address [address] [place] [address] Care Team Providers Care Gamb Cutter Name Role Phone José Carrillo MD Primary Care Provider [phone] Note from [facility],non-owned Affiliates and Associated Physician Practices is amultiple site organization consisting of ambulatory clinics and hospital sitesin [place], [place], [place] and [place]. This disclosure is being madepursuant to the Care Everywhere program and may not contain all information available regarding this patient. Last updated 17.[facility] Social History Tobacco Use Types Packs/Day Years Used Date Smoking Tobacco: Never Assessed Sex and Gender Information Value Date Recorded Sex Assigned at Not on file Gender Identity Not on file Sexual Orientation Not on file Care Teams Gamb Cutter Relationship Specialty Start Date End Date José Carrillo MD [facility] [place] [address] PCP - General 02/10/18
--- OUTSIDE RECORDS SUMMARY | 2024-04-04 13:36 | XMS_ITS | Clinical Summary ---
Author Organization [facility] Address [facility] [facility] [place], [place] [address] [place] [address] Care Team Providers Care Hospital Staff Pharmacist Name Role Phone Unavailable Primary Care Provider Unavailabl e Social History Tobacco Use Types Packs/Day Years Used Date Smoking Tobacco: Never Assessed Comments Unknown Sex and Gender Information Value Date Recorded Sex Assigned at Not on file Legal Sex Female 4:34 PM CDT Gender Identity Not on file Sexual Orientation Not on file Plan of Treatment Health Maintenance Due Date Last Done Comments Cervical Cancer Screening Pa p Smear (Age 30 to 64) Every 3 Years 1961 Colorectal Cancer Screening Colonoscopy (10 Years) 1961 Annual Physical 1964 Hepatitis C 12/05/1979 DTaP, Tdap and Td Vaccines ( 1 - Tdap) 1980 Cervical Cancer Screening Pa p with HPV Testing (Age 30 to 64) Every 5 Years 12/05/1991 Cervical Cancer Screening with HPV 12/05/1991 Mammogram Screening 2001 Zoster Vaccines (1 of 2) 12/05/2011 COVID-19 Vaccine (2023-2 5 season) 2023 Influenza Adult (#1) 2023 RSV Immunization or 60+ Years (1 - 1-dose 75+ series) 2036 Meningococcal B Vaccine Aged Out No l onger eligible based on patient's age to complete this topic Meningococcal Vaccine Aged Out No afshin yuniel eligible based on patient's age to complete this topic Pneumococcal Vaccine: Pediat rics (0 to 5 Years) and At-Risk Patients (6 to 64 Years) Aged Out No longer eligible b ased on patient's age to complete this topic RSV Immunizations Under 20 Months Aged Out No longer eligible based on patient's age to complete this topic
--- OUTSIDE RECORDS SUMMARY | 2024-04-04 13:36 | XMS_ITS | Clinical Summary ---
Author Organization [facility] Address [address] [facility] [place] [address] Care Team Providers Care Cake Decorator Name Role Phone José Carrillo MD Primary Care Provider [phone] Source Comments [facility]non-owned Affiliates and Associated Physician Practices is amultiple site organization consisting of ambulatory clinics and hospital sitesin [place], [place], [place] and [place]. This disclosure is being madepursuant to the Care Everywhere program and may not contain all information available regarding this patient. Last updated 17.[facility] Social History Tobacco Use Types Packs/Day Years Used Date Smoking Tobacco: Never Assessed Sex and Gender Information Value Date Recorded Sex Assigned at Not on file Gender Identity Not on file Sexual Orientation Not on file Plan of Treatment Health Maintenance Due Date Last Done Comments COLOGUARD (AGES 45-75) - COL ON CA SCREENING 1961 COLON MONITORING 1961 COLONOSCOPY - COLON CA SCREENING 1961 CT COLONOGRAPHY - COLON CA SCREENING 1961 Colorectal Cancer Screening 1961 FIT - COLON CA SCREENING 1961 FLEX SIG - COLON CA SCREENING 1961 LIPID TESTING 1961 MAMMOGRAM 1961 PAP SMEAR 1961 HIV SCREENING 1976 HEPATITIS C SCREENING 11/30/1979 DTAP/TDAP/TD VACCINES (1 - Tdap) 1980 PNEUMOCOCCAL VACCINE 50+ (1 of 1 - PCV) 12/05/2011 ZOSTER VACCINE (1 of 2) 12/05/2011 COVID-19 VACCINE ( - 2023-2 5 season) 2023 INFLUENZA VACCINE (#1) 2023 DEPRESSION SCREENING 03/08/2024 Respiratory Syncytial Virus (RSV) Vaccine Pt: or over 60 yrs (1 - 1-dose 75+ series) 2036 HEPATITIS B VACCINE Aged Out No longe r eligible based on patient's age to complete this topic HIB VACCINE Aged Out No longer eligi ble based on patient's age to complete this topic HPV VACCINE Aged Out No longer eligi ble based on patient's age to complete this topic MENINGOCOCCAL (Group B) VACCINE Aged Out No longer eligible based on patient's age to complete this topic MENINGOCOCCAL VACCINE Aged Out No afshin yuniel eligible based on patient's age to complete this topic PNEUMOCOCCAL VACCINE Aged Out No long er eligible based on patient's age to complete this topic Care Teams Cake Decorator Relationship Specialty Start Date End Date José Carrillo MD [address] [place] [address] PCP - General 02/10/18
--- OUTSIDE RECORDS SUMMARY | 2024-04-04 13:36 | XMS_ITS | Referral Summary ---
Author Organization [facility] Address [address] [facility] [place] [address] Care Team Providers Care Methods Analyst Name Role Phone José Carrillo MD Primary Care Provider [phone] Source Comments [facility],non-owned Affiliates and Associated Physician Practices is amultiple site organization consisting of ambulatory clinics and hospital sitesin [place], [place], [place] and [place]. This disclosure is being madepursuant to the Care Everywhere program and may not contain all information available regarding this patient. Last updated 17.[facility] Social History Tobacco Use Types Packs/Day Years Used Date Smoking Tobacco: Never Assessed Sex and Gender Information Value Date Recorded Sex Assigned at Not on file Gender Identity Not on file Sexual Orientation Not on file Plan of Treatment Not on file Care Teams Methods Analyst Relationship Specialty Start Date End Date José Carrillo MD [facility] [place] [address] PCP - General 02/10/18
--- OUTSIDE RECORDS SUMMARY | 2024-04-04 13:36 | XMS_ITS | CONTINUITY OF CARE DOCUMENT ---
Author Name scooter helms Address Unknown Organization [facility] Address [address] [address] [place] [address] Phone [phone] Care Team Providers Care Rn Rehab Name Role Phone Maximus JAVIER, Jeremy Unavailable ANDREAS BALLARD MD Unavailable VALE KIRBYJUAN Unavailable [phone] PROBLEMS Condition Status Date Provider Notes Diastolic CHF active Jeremy Stroud MD Pulmonary hypertension active Jeremy Stroud MD Neck pain, chronic active Jeremy Stroud MD Aortic atherosclerosis active Jeremy Stroud MD HTN-01/13 ECHO EF 60 completed - Jeremy Stroud MD CHEST PAIN-01/13 NUC NEG & ECHO completed - Jeremy Stroud MD SLEEP APNEA:NO TIME FOR SLEE P STUDY NOW completed - Jeremy Stroud MD HTN-01/13 TYRESE DUP NEG completed - Jeremy issa MD LVH completed - Jeremy Stroud MD SHORTNESS OF BREATH?ETIOLOGY completed 200 10/17/17 - Jeremy Stroud MD Tobacco use, quit active Jeremy Stroud MD COPD active Jeremy Stroud MD 02 at [facility] un[facility] HTN essential;neg duplx and angio active Jeremy Stroud MD rpm not covreee d Hypercholesterolemia;neg lpa and crp active Jeremy Stroud MD BACK PAIN;CHRONIC active Jeremy Stroud MD CAD;carotid plaue active Jeremy Stroud MD AMI, subendocardial active Cynthia Regalado 2016 Anxiety disorder active Jeremy Stroud MD Raynaud's syndrome active Jeremy Stroud MD SLEEP APNEA; active Jeremy Stroud MD Obesity active Jeremy Stroud MD Dyspnea on exertion completed - Jeremy Stroud MD Screening active Jeremy Stroud MD Claudication, intermittent completed 10/03 - Jeremy Stroud MD B12 deficiency with macro active Jeremy petersen MD nml folate PVD; active Jeremy Stroud MD Edema completed - Jeremy Stroud MD Hypertriglyceridemia active Jeremy Murguia D Exposure to SARS-associated coronavirus;neg igg active Jeremy Stroud MD Renal disease, chronic, mild;NEG DUPLEX AND US and angiao active Jeremy Stroud MD on arb and farxag not dm,eg uacr Syncope active Jeremy Stroud MD resloved wiht stoppielliot pych meds SVT;nml tsh active Jeremy stanley active Tony Prince MD Coronary artery aneurysm active Jeremy brower MD Bipolar disorder active Jeremy Stroud MD ENCOUNTERS Date Type Provider Location Encounter Diag nosis - In-person encounter Office Visit Jeremy Stroud MD [facility] COPDSyncopeBipolar disorder - In-person encounter Office Visit Tony Prince MD [facility] - In-person encounter Office Visit Tony Prince MD [facility] - In-person encounter Office Visit Jeremy Stroud MD [facility] B12 deficiency with macro - In-person encounter Office Visit Jeremy Stroud MD [facility] HTN essential;neg duplx and [id number] deficiency with macroCoronary artery aneurysm - In-person encounter Office Visit Tony Prince MD [facility] july thurner - In-person encounter Office Visit Jeremy Stroud MD [facility] CAD;carotid plaueScreeningEdemaSyncopeS [place];nml tsh - In-person encounter Office Visit Jeremy Stroud MD [facility] Syncope - In-person encounter Office Visit Jeremy Stroud MD [facility] AMI, subendocardialRenal disease, chronic, mild;NEG DUPLEX AND US and angiao - In-person encounter Office Visit Ge Quick MD [facility] - In-person encounter Office Visit Jeremy Stroud MD [facility] - In-person encounter Office Visit Jeremy Stroud MD [facility] - In-person encounter Office Visit Jeremy Stroud MD [facility] PVD;HypertriglyceridemiaExp osure to SARS-associated coronavirus;neg igg - In-person encounter Office Visit Jeremy Stroud MD [facility] CAD;carotid plaueSLEEP APNEA;Dyspnea on exertionScreeningClaudicati on, [id number] deficiency with macroPVD; - In-person encounter Office Visit Jeremy Stroud MD [facility] HTN-01/13 ECHO EF 60CHEST PAIN-01/13 NUC NEG & ECHOSLEEP APNEA:NO TIME FOR SLEEP STUDY NOWHTN-01/13 TYRESE DUP NEGLVHSHORTNESS OF BREATH?ETIOLOGYTobacco use, quitCOPDHTN essential;neg duplx and angioHypercholesterolemia;n eg lpa and crpBACK PAIN;CHRONICCAD;carotid plaueAMI, subendocardialAnxiety disorderRaynaud's syndromeSLEEP APNEA;ObesityScreening - In-person encounter Office Visit Jeremy Stroud MD [facility] Tobacco use, quit - In-person encounter Office Visit Jeremy Stroud MD [facility] HTN-01/13 ECHO EF 60CHEST PAIN-01/13 NUC NEG & ECHO VITAL SIGNS Date Observation Value Provider Body Mass Index (Ratio) 34.61 kg/m2 Jagdish Stroud MD blood pressure, cuff size regular Doni morrow Leroy blood pressure, diastolic 70 mm[Hg] Ta cristhian Leroy blood pressure, systolic 116 mm[Hg] Tab [facility] Leroy oxygen saturation, oximetry 97 % Neha Leroy respiratory rate E&M 12 /min Neha Leroy pulse rate 64 /min Neha Leroy weight E&M 208 [lb_av] Neha [place] height E&M 65 [in_i] Neha [place] Body Mass Index (Ratio) 35.24 kg/m2 Sund britton Prince MD blood pressure, diastolic 80 mm[Hg] Ky oneil [place] blood pressure, systolic 109 mm[Hg] Kyl ia [place] oxygen saturation, oximetry 94 % [facility] pulse rate 64 /[facility] 211.8 [lb_av] Karthika [place] blood pressure, cuff size regular Ky oneil [place] respiratory rate E&M 12 /min Joesph Nilsa freedman height E&M 65 [in_i] [facility] Body Mass Index (Ratio) 34.44 kg/m2 Sund britton Prince MD blood pressure, cuff size large Ke rri Reganuenebrigitte blood pressure, diastolic 82 mm[Hg] Ke rri Gruenenfelder blood pressure, systolic 124 mm[Hg] Claire ri Gruenenfelder oxygen saturation, oximetry 94 % Leslie Gruenenfelder respiratory rate E&M 12 /min Leslie G ruenenfelder pulse rate 75 /min Leslie Gruenenfe lder weight E&M 207 [lb_av] Leslie Gruenenfe lder height E&M 65 [in_i] Leslie Gruenenfe er Body Mass Index (Ratio) 34.61 kg/m2 Jagdish Stroud MD blood pressure, cuff size regular Ke rri Gruenenfeld blood pressure, diastolic 80 mm[Hg] Ke rri Gruenenfelder blood pressure, systolic 142 mm[Hg] Claire ri Reganuenenfelder oxygen saturation, oximetry 95 % Leslie Ericanenfelder respiratory rate E&M 12 /min Leslie G ruenenfelder pulse rate 70 /min Leslie Grrogelionenfe [facility] weight E&M 208 [lb_av] Leslie Akbarnfe [facility] height E&M 65 [in_i] Leslie Akbarnfe [facility] Body Mass Index (Ratio) 34.14 kg/m2 Jagdish Stroud MD blood pressure, cuff size large Doni Leroy blood pressure, diastolic 78 mm[Hg] Ta cristhian Leroy blood pressure, systolic 118 mm[Hg] Merrick Leroy oxygen saturation, oximetry 97 % Neha Leroy respiratory rate E&M 12 /min Nehasammy Leroy pulse rate 61 /min Nehanash Leroy weight E&M 205.2 [lb_av] Nehanash Leroy height E&M 65 [in_i] Neha Rad blood pressure, cuff size regular Ke rri Gruenenfelder blood pressure, diastolic 80 mm[Hg] Ke rri Gruenenfelder blood pressure, systolic 130 mm[Hg] Ker ri Gruenenfelder oxygen saturation, oximetry 93 % Leslie Gruenenfelder respiratory rate E&M 12 /min Leslie G ruenenfelder pulse rate 62 /min Leslie Gruenenfe lder height E&M 65 [in_i] Leslie Gruenenfe lder Body Mass Index (Ratio) 34.11 kg/m2 Jagdish Stroud MD blood pressure, cuff size regular Ja rret blood pressure, diastolic 106 mm[Hg] Ja rret blood pressure, systolic 142 mm[Hg] Jar ret pulse rate 73 /min Loyd y oxygen saturation, oximetry 90 % respiratory rate E&M 16 /min Loyd weight E&M 205 [lb_av] Loyd y height E&M 65 [in_i] Loyd y Body Mass Index (Ratio) 33.94 kg/m2 Jagdish Stroud MD blood pressure, cuff size regular Ke rri Gruenenfelder blood pressure, diastolic 104 mm[Hg] Ke rri Gruenenfelder blood pressure, systolic 170 mm[Hg] Ker ri Gruenenfelder oxygen saturation, oximetry 94 % Leslie Gruenenfelder respiratory rate E&M 12 /min Leslie G ruenenfelder pulse rate 78 /min Leslie Gruenenfe lder weight E&M 204 [lb_av] Leslie Gruenenfe er height E&M 65 [in_i] Leslie Gruenenfe [facility] Body Mass Index (Ratio) 33.94 kg/m2 Jagdish Stroud MD blood pressure, diastolic 100 mm[Hg] Li nkLogic blood pressure, systolic 142 mm[Hg] Hilaria kLogic blood pressure, cuff size regular Ke rri Gruenenfelder blood pressure, diastolic 100 mm[Hg] Ke rri Gruenenfelder blood pressure, systolic 142 mm[Hg] Ker ri Gruenenfelder oxygen saturation, oximetry 96 % Leslie Grcecilenfmeena respiratory rate E&M 12 /min Leslie G kaila pulse rate 74 /min Leslie Grrogelionenfe [facility] weight E&M 204 [lb_av] Leslie Gruenenfe [facility] height E&M 65 [in_i] Leslie Grrogelionenfe [facility] Body Mass Index (Ratio) 35.94 kg/m2 Rosita Quick MD blood pressure, diastolic 80 mm[Hg] Ri pantera Null blood pressure, systolic 117 mm[Hg] Davion shayla Chaka blood pressure, cuff size large Ri pantera Null oxygen saturation, oximetry 95 % Asiya Null respiratory rate E&M 16 /min Zia Null pulse rate 56 /min Asiya Muller son weight E&M 216 [lb_av] Asiya Muller son height E&M 65 [in_i] Asiya Muller son Body Mass Index (Ratio) 39.07 kg/m2 Jagdish Stroud MD blood pressure, diastolic 70 mm[Hg] Li [facility]kLogic blood pressure, systolic 170 mm[Hg] Hilaria kLogic blood pressure, cuff size large Rose Mary mott [place] blood pressure, diastolic 70 mm[Hg] Rose Mary mott [place] blood pressure, systolic 170 mm[Hg] Ruperto mcguire [place] pulse rate 98 /min Joyce Darien monteiro respiratory rate E&M 20 /min Stephanie nunez [place] oxygen saturation, oximetry 92 % Joyce Gary weight E&M 234.8 [lb_av] Joyce Ramonasammy marcel height E&M 65 [in_i] Joyce Darien monteiro Body Mass Index (Ratio) 34.78 kg/m2 Jagdish Stroud MD blood pressure, diastolic 104 mm[Hg] Cy pepper Fenton blood pressure, systolic 179 mm[Hg] Iwona priya Fenton blood pressure, cuff size regular Cy ntalcon Fenton respiratory rate E&M 16 /min Ro Fenton pulse rate 67 /min Ro Stanbel l oxygen saturation, oximetry 95 % Ro Fenton weight E&M 209 [lb_av] Ro Campbel l height E&M 65 [in_i] Ro Campbel l Body Mass Index (Ratio) 30.62 kg/m2 Jagdish Stroud MD blood pressure, elliott tolic, second observation 74 mm[Hg] Jeremy Stroud MD blood pressure, syst olic, second observation 113 mm[Hg] Jeremy Stroud MD blood pressure, diastolic 82 mm[Hg] Da gustavo Rae blood pressure, systolic 112 mm[Hg] Dac ia Rae oxygen saturation, oximetry 93 % Diane Rae respiratory rate E&M 16 /min Diane V oss pulse rate 74 /min Diane Rae weight E&M 184 [lb_av] Diane Mcbride height E&M 65 [in_i] Diane Mcbride blood pressure, diastolic 70 mm[Hg] Romel Pink blood pressure, systolic 130 mm[Hg] Edita Pink pulse rate 65 /min Lorrie Pink oxygen saturation, oximetry 96 % Lorrie Pink respiratory rate E&M 18 /min Lorrie Pink Body Mass Index (Ratio) 36.34 kg/m2 Markus Pink weight E&M 218.4 [lb_av] Lorrie Pink height E&M 65 [in_i] Lorrie Pink blood pressure, diastolic 87 mm[Hg] Reinaldo Gonzalez RN blood pressure, systolic 124 mm[Hg] Piotr Gonzalez RN pulse rate 82 /min Piotr Gonzalez RN oxygen saturation, oximetry 98 % Piotr Gonzalez RN respiratory rate E&M 20 /min Piotr mcqueen RN weight E&M 173 [lb_av] Piotr Gonzalez RN blood pressure, diastolic 97 mm[Hg] Reinaldo Gonzalez RN blood pressure, systolic 148 mm[Hg] Piotr Gonzalez RN pulse rate 78 /min Piotr Gonzalez RN oxygen saturation, oximetry 98 % Piotr Gonzalez RN respiratory rate E&M 18 /min Piotr mcqueen RN weight E&M 176 [lb_av] Piotr Gonzalez RN RESULTS Date Observation Value Provider Reference Range Interpretation Location lipoprotein, beta, serum, point, quantitative, calculated 53 mg/dL [facility] 0-99 HDL cholesterol, serum 44 mg/dL [facility] >39 triglyceride, serum, random 154 mg/dL [facility] 0-149 High cholesterol, serum 123 mg/dL [facility] [phone]/01/ 30 calcium, serum 9.6 mg/dL [facility] 8.7-10.2 carbon dioxide, venous blood 27 mmol/L [facility] 20-29 chloride, serum 96 mmol/L [facility] 96-106 potassium, serum 4.1 mmol/L [facility] 3.5-5.2 sodium, serum 137 mmol/L [facility] 199-948 4630/01/ 30 urea nitrogen/creatinine ratio, serum 14 [facility] 9-23 eGFR if 61 mL/min/{1.7 3_m2} [facility] >59 eGFR if not 53 mL/min/{1.7 3_m2} [facility] >59 Low creatinine, serum 1.15 mg/dL [facility] 0.57-1.00 High urea nitrogen, blood 16 mg/dL [facility] 6-24 blood glucose, random 97 mg/dL [facility] 65-99 HDL cholesterol, serum 57 mg/dL [facility] >39 triglyceride, serum, random 220 mg/dL [facility] 0-149 High cholesterol, serum 189 mg/dL [facility] 131-980 7230/10/ 03 calcium, serum 10.6 mg/dL [facility] 8.7-10.2 High carbon dioxide, venous blood 29 mmol/L [facility] 20-29 chloride, serum 103 mmol/L [facility] 96-106 potassium, serum 5.2 mmol/L [facility] 3.5-5.2 sodium, serum 146 mmol/L [facility] 134-144 High urea nitrogen/creatinine ratio, serum 22 [facility] 9-23 eGFR if 55 mL/min/{1.7 3_m2} [facility] >59 Low eGFR if not 48 mL/min/{1.7 3_m2} [facility] >59 Low creatinine, serum 1.25 mg/dL [facility] 0.57-1.00 High urea nitrogen, blood 27 mg/dL [facility] 6-24 High blood glucose, random 98 mg/dL [facility] 65-99 pro brain natriuretic peptide 137 pg/mL [facility] 0-287 microalbumin/creatin ine ratio, urine 2.4 MG/G CREAT [facility] 0.0-30.0 microalbumin, random, urine 0.33 mg/dL [facility] Units converted. See lab report for original value. creatinine, random, urine 135.6 mg/dL [facility] Not Estab. lipoprotein, beta, serum, point, quantitative, calculated 109 mg/dL [facility] 0-99 High very low density lipoproteins 56 mg/dL [facility] 5-40 High HDL cholesterol, serum 35 mg/dL [facility] >39 Low triglyceride, serum, random 282 mg/dL [facility] 0-149 High cholesterol, serum 200 mg/dL [facility] 100-199 High alanine aminotransferase (SGPT), serum 12 1/L [facility] 0-32 aspartate aminotransferase (SGOT), serum 14 1/L [facility] 0-40 alkaline phosphatase, serum 99 1/L [facility] 39-117 bilirubin, serum, total 0.3 mg/dL [facility] 0.0-1.2 albumin/globulin ratio, serum 1.9 [facility] 1.2-2.2 globulin, serum 2.3 [facility] 1.5-4.5 albumin, serum 4.3 g/dL [facility] 3.5-5.5 protein, total, serum 6.6 g/dL [facility] 6.0-8.5 calcium, serum 9.7 mg/dL [facility] 8.7-10.2 carbon dioxide, venous blood 22 mmol/L [facility] 20-29 chloride, serum 105 mmol/L [facility] 96-106 potassium, serum 5.0 mmol/L [facility] 3.5-5.2 sodium, serum 144 mmol/L [facility] [phone]/10/ 04 urea nitrogen/creatinine ratio, serum 13 [facility] 9-23 eGFR if 69 mL/min/{1.7 3_m2} [facility] >59 eGFR if not 60 mL/min/{1.7 3_m2} [facility] >59 creatinine, serum 1.05 mg/dL [facility] 0.57-1.00 High urea nitrogen, blood 14 mg/dL [facility] 6-24 blood glucose, random 83 mg/dL [facility] 65-99 hemoglobin A1C, blood, as % of total hemoglobin 5.3 % [facility] 4.8-5.6 vitamin b12, serum 339.3 pg/mL LinkLog 211.0 - 946.0 free thyroxine index 5.1 ??g/dL [facility] 4.4 - 11.4 triiodothyronine uptake 1.1 TBI [facility] 0.8 - 1.3 thyroxine, serum, total 5.6 ??G/DL [facility] 4.5 - 11.7 thyroid stimulating hormone, serum 0.788 ??IU/ML [facility] 0.270 - 4.200 pro brain natriuretic peptide 100.9 pg/mL [facility] 0.0 - 125.0 very low density lipoproteins 52.0 mg/dL [facility] 5.0 - 40.0 High LDL/HDL (low-density lipoprotein/high-den sity lipoprotein) ratio 2.7 RATIO [facility] - lipoprotein, beta, serum, point, quantitative, calculated 101.0 (?) [facility] 0.0 - 100.0 High HDL cholesterol, serum 37.0 mg/dL [facility] 45.0 - 65.0 Low cholesterol, serum 190.0 mg/dL [facility] 0.0 - 200.0 triglyceride, serum, fasting 260.0 mg/dL [facility] 0.0 - 150.0 High ferritin, serum 244.8 ng/mL [facility] 13.0 - 150.0 High anion gap, serum 11.5 [facility] - albumin/globulin ratio, serum 2.6 g/dL [facility] 1.1 - 2.5 High globulin, serum 2.7 [facility] 2.3 - 3.8 urea nitrogen/creatinine ratio, serum 15.0 [facility] - Estimated Glomerular Filtration Rate (calc) 49.9 (?) [facility] 59.0 - Low chloride, serum 103.5 mmol/L [facility] 98.0 - 107.0 potassium, serum 5.3 mmol/L [facility] 3.5 - 5.1 High sodium, serum 143.0 mmol/L [facility] 136.0 - 145.0 creatinine, serum 1.2 mg/dL [facility] 0.5 - 1.0 High carbon dioxide, venous blood 28.0 mmol/L [facility] 22.0 - 29.0 albumin, serum 4.2 g/dL [facility] 3.5 - 5.2 calcium, serum 9.8 mg/dL [facility] 8.6 - 10.2 aspartate aminotransferase (SGOT), serum 17.0 1/L [facility] 0.0 - 32.0 alkaline phosphatase, serum 102.0 1/L [facility] 40.0 - 130.0 alanine aminotransferase (SGPT), serum 20.0 1/L [facility] 0.0 - 33.0 protein, total, serum 6.9 g/dL [facility] 6.6 - 8.7 bilirubin, serum, total 0.3 mg/dL [facility] 0.0 - 1.2 urea nitrogen, blood 18.0 mg/dL [facility] 6.0 - 20.0 blood glucose, random 79.0 mg/dL [facility] 74.0 - 99.0 red blood cell distribution width, size density 48.1 fL [facility] - immature granulocytes, percentage of total cells, blood 0.2 % [facility] nucleated red blood cells as percent of blood leukocytes 0.0 % [facility] - red blood cell (erythrocyte) count, per high power field 0.0 10*3/UL [facility] eosinophils as percent of blood leukocytes 4.6 % [facility] - neutrophils as percent of blood leukocytes 55.2 % [facility] - Absolute Neutrophils 5.4 CELLS/UL [facility] 1.5 - 7.8 basophils as percent of blood leukocytes 1.0 % [facility] - Absolute Basophils 0.1 CELLS/UL [facility] 0.0 - 0.2 monocytes as percent of blood leukocytes 10.7 % [facility] - Absolute Monocytes 1.0 CELLS/UL [facility] 0.2 - 1.0 High lymphocytes as percent of blood leukocytes 28.3 % [facility] - Absolute Lymphocytes 2.8 CELLS/UL [facility] 0.9 - 3.9 mean platelet volume 11.7 (?) [facility] - platelet count 243.0 THOUSAND/UL [facility] 100.0 - 400.0 mean corpuscular hemoglobin concentration, RBC 31.4 G/DL [facility] 31.0 - 38.0 mean corpuscular hemoglobin, RBC 31.0 pg [facility] 25.0 - 35.0 mean corpuscular volume, RBC 98.9 fL [facility] 75.0 - 100.0 hematocrit, blood 43.0 % [facility] 35.0 - 55.0 hemoglobin, blood 13.5 g/dL [facility] 11.5 - 16.5 erythrocyte count, whole blood 4.4 MILLION/UL [facility] 3.5 - 5.5 iron, serum 82.0 ug/dL [facility] 25.0 - 156.0 iron saturation percent, serum 24.5 % [facility] 20.0 - 50.0 iron binding capacity, total 334.6 ug/dL [facility] 250.0 - 450.0 Nitrite Urine Negative [facility] Negative urobilinogen, urine 0.2 E.U./dL mg/dl [facility] 0.2 - 1.0 specific gravity, urine >=1.030 [facility] 1.001 - 1.035 KETONES, URINE Negative [facility] Negative bilirubin, urine Negative [facility] Negative Glucose Urine Negative [facility] Negative clarity, urine, point Cloudy [facility] Yellow urine color Yellow [facility] yellow to karl hemoglobin A1C, blood, as % of total hemoglobin 5.9 % [facility] 4.0 - 6.0 HISTORY OF MEDICATION USE Medication Status Instructions Dates Provider Indications Com ments furosemide 20 mg tablet active TAKE 1 TABLET BY MOUTH TWICE A DAY 03/16 Rosemary Tiwarigovy 0.25 mg/0.5 mL pen injector active 1 pen injector subcutaneously once a week 11/24 Jeremy Stroud MD clopidogrel 75 mg tablet active TAKE 1 TABLET BY MOUTH EVERY DAY 11/24 Jeremy Stroud MD clopidogrel 75 mg tablet completed - 11/24 Jeremy Stroud MD Zetia 10 mg tablet active Take 1 tablet by mouth once a day 08/29 Jeremy Stroud MD Crestor 40 mg tablet active Take 1 tablet by mouth once a day 08/29 Jeremy Stroud MD Nexlizet 180-10 mg tablet completed Take 1 tablet by mouth once a day 08/25 - 08/29 Jeremy Stroud MD furosemide 20 mg tablet completed take 1 pill twice a day - 03/16 Rosemary Valentine nifedipine 60 mg tablet extended release 24hr active Take 1 tablet by mouth every night at bedtime Jeremy Stroud MD Lasix 20 mg tablet completed Take 1 tablet by mouth twice a day - 08/25 Jeremy Stroud MD Procardia XL 60 mg tablet extended release 24hr completed Take 1 tablet by mouth once daily 06/09 - 08/03 Jeremy Stroud MD atorvastatin 40 mg tablet completed 1 tablet by mouth once a day TAKE 1 TABLET BY MOUTH EVERY DAY 04/02 - 08/29 Jeremy Stroud MD losartan 100 mg tablet active TAKE 1 TABLET BY MOUTH EVERY DAY 03/31 Jeremy Stroud MD topiramate 100 mg tablet active Take 1 tablet by mouth once a day as needed headache Jeremy Stroud MD albuterol sulfate 90 mcg/actuation HFA aerosol inhaler active Inhale 2 puff using inhaler every four hours as needed Cynthia Dougherty NP Vascepa 1 gram capsule active TAKE 2 CAPSULES BY MOUTH TWICE A DAY Jeremy Stroud MD Coreg 25 mg tablet active TAKE 2 TABLETS BY MOUTH TWICE DAILY 08/20 Jeremy Stroud MD cyclobenzaprine 10 mg tablet completed - 08/25 Jeremy Stroud MD atorvastatin 20 mg tablet completed 1 tablet by mouth once a day TAKE 1 TABLET BY MOUTH EVERY DAY 03/17 - 04/02 Jeremy Stroud MD ezetimibe 10 mg tablet completed Take 1 tablet by mouth once a day TAKE 1 TABLET BY MOUTH EVERY DAY 03/17 - 08/25 Jeremy Stroud MD metoprolol succinate 100 mg tablet extended release 24 hr completed Take 1 tablet by mouth once a day TAKE 1 TABLET BY MOUTH EVERY DAY 03/17 - 08/20 Cynthia Dougherty NP Vascepa 1 gram capsule completed Take 2 capsule by mouth twice a day TAKE 2 CAPSULES BY MOUTH TWICE A DAY 03/17 - 03/31 Cynthia Dougherty NP Xarelto 2.5 mg tablet completed Take 1 tablet by mouth twice a day 03/17 - 11/24 Jeremy tSroud MD ezetimibe 10 mg tablet completed TAKE 1 TABLET BY MOUTH EVERY DAY - 03/17 Bobbi Bañuelos NP atorvastatin 20 mg tablet completed TAKE 1 TABLET BY MOUTH EVERY DAY 04/09 - 03/17 Bobbi Bañuelos NP Farxiga 10 mg tablet active Take 1 tablet by mouth once a day 03/13 Jeremy Stroud MD albuterol sulfate 2.5 mg/3 mL (0.083 %) solution for nebulization completed Inhale 1 puff using nebulizer once a day as needed 03/13 - 07/11 Jeremy Stroud MD Vitamin B-12 1,000 mcg tablet active TAKE 1 TABLET BY MOUTH EVERY DAY 04/28 Jeremy Stroud MD Xarelto 2.5 mg tablet completed TAKE 1 TABLET BY MOUTH TWICE A DAY 04/23 - 03/17 Bobbi Bañuelos NP Vascepa 1 gram capsule completed TAKE 2 CAPSULES BY MOUTH TWICE A DAY 04/21 - 03/17 Bobbi Bañuelos NP metoprolol succinate 100 mg tablet extended release 24 hr completed TAKE 1 TABLET BY MOUTH EVERY DAY - 03/17 Bobbi Bañeulos NP Vascepa 1 gram capsule completed 2 capsule by mouth twice a day 04/06 - 04/21 Jeremy Stroud MD phentermine 37.5 mg capsule completed Take 1 tablet by mouth once a day - 07/11 Jeremy Stroud MD Xarelto 2.5 mg tablet completed 1 tablet by mouth twice a day - 04/23 Jeremy Stroud MD losartan-hydrochl orothiazide 100-25 mg tablet completed Take 1 tablet by mouth once a day 12/04 - 03/31 Cynthia Dougherty [employer] #90, 90 days supply, Prescribed by JEREMY STROUD, Filled 12/05/2019 ezetimibe 10 mg tablet completed Take 1 tablet by mouth once a day 12/04 - Leslie Ibrahim #90, 90 days supply, Prescribed by JEREMY STROUD, Filled 12/05/2019 duloxetine 60 mg capsule,delayed release(DR/EC) completed Take 1 capsule by mouth once a day - 08/25 Jeremy Stroud MD #30, 30 days supply, Prescribed by CHRISTOPHE CORBIN, Filled 02/07/2020 Symbicort 80-4.5 mcg/actuation HFA aerosol inhaler active Take 2 puff by mouth once a day Jeremy Stroud MD #10.2, 30 days supply, Prescribed by EMORY WARE, Filled 02/13/2020 SEMAGLUTIDE/PLACE KELSIE completed once a week - 08/20 Cynthia Dougherty NP Vascepa 1 gram capsule completed 2 capsule by mouth twice a day 12/04 - 04/21 Jeremy Stroud MD ZETIA 10 MG ORAL TABLET completed ONE TAB. DAILY with lipoitor 12/04 - Jeremy Stroud MD HYZAAR 100-25 MG ORAL TABLET completed ONE TAB. DAILY 12/04 - Jeremy Stroud MD cyanocobalamin (vitamin B-12) 1,000 mcg tablet completed tablet by mouth once a day - 04/28 Jeremy Stroud MD #90, 90 days supply, Prescribed by JEREMY STROUD, Filled 11/12/2019 olanzapine 20 mg tablet completed Take 0.5 tablet by mouth twice a day 11/27 - 08/31 Leslie Ibrahim #30, 30 days supply, Prescribed by CHRISTOPHE CORBIN, Filled 11/28/2019 duloxetine 30 mg capsule,delayed release(DR/EC) completed Take 1 capsule by mouth once a day 11/27 - 03/13 Jeremy Stroud MD #30, 30 days supply, Prescribed by CHRISTOPHE CORBIN, Filled 11/28/2019 buspirone 30 mg tablet completed Take 1 tablet by mouth twice a day 11/27 - 08/25 Jeremy Stroud MD #60, 30 days supply, Prescribed by CHRISTOPHE CORBIN, Filled 11/28/2019 ALBUTEROL SULFATE HFA 108 (90 BASE) MCG/ACT INHALATION AEROSOL SOLUTION completed INHALE 2 PUFFS BY MOUTH ONCE EVERY 4 HOURS 09/27 - Jeremy Stroud MD #[id number], 16 days supply, Prescribed by ANDREAS BALLARD, Filled 11/29/2019 metoprolol succinate 100 mg tablet extended release 24 hr completed TAKE 1 TABLET BY MOUTH DAILY 09/30 - Piotr Gonzalez RN EZETIMIBE 10MG completed TAKE 1 TABLET BY MOUTH EVERY DAY WITH ATORVASTATIN 03/11 - 12/04 Ro Fenton ZETIA 10 MG ORAL TABLET completed ONE TAB. DAILY to take with lipitor - 12/04 Ro Fenton VITAMIN D3 [id number] completed TAKE 1 CAPSULE BY MOUTH EACH WEEK 09/02 - 12/04 Jeremy Stroud MD VITAMIN B-12 1000MCG completed TAKE 1 TABLET BY MOUTH DAILY 09/02 - 12/04 Jeremy Stroud MD PHENTERMINE HCL 37.5 MG TABS completed TAKE 1 TABLET BY MOUTH DAILY - 12/04 Ro Fenton TOPAMAX 100 MG ORAL TABLET completed one a day - 12/04 Ro Fenton SYMBICORT 160-4.5 MCG/ACT INHALATION AEROSOL completed take 2 puffs once daily - 12/04 Jeremy Stroud MD VITAMIN D3 00773 UNIT ORAL TABLET completed take one tablet weekly 10/06 - 10/16 Diane Rae QSYMIA 7.5-46 MG ORAL CAPSULE EXTENDED RELEASE 24 HOUR completed one tablet daily 10/17 - 10/16 Diane Are QSYMIA 3.75-23 MG ORAL CAPSULE EXTENDED RELEASE 24 HOUR completed one tablet daily 10/03 - 10/16 Diane Rae albuterol sulfate 2.5 mg/3 mL (0.083 %) solution for nebulization completed as needed - 03/13 Lorrie Pink ipratropium bromide 0.02% solution active four times a day as directed Lorrie Pink OXYCODONE-ACETAMI NOPHEN 10-325 MG ORAL TABLET completed as needed for pain - 10/16 Diane Rae BUPROPION HCL ER (XL) 300 MG ORAL TABLET EXTENDED RELEASE 24 HOUR completed one tab a day - 12/04 Ro Fenton CITALOPRAM HYDROBROMIDE 40 MG ORAL TABLET completed take one tablet by mouth once daily - 10/16 Diane Rae isosorbide mononitrate 30 mg tablet extended release 24 hr completed Take 1 tablet by mouth once a day 09/30 - 11/24 Jeremy Stroud MD gabapentin 800 mg tablet active Take 1 tablet by mouth three times a day 09/02 Santosh Sorto trazodone 100 mg tablet active Take 1 tablet by mouth every night Jeremy Stroud MD BRILINTA 90 MG ORAL TABLET completed twice daily - 10/16 Diane aRe atorvastatin 20 mg tablet completed Take 1 tablet by mouth once a day 09/30 - 04/09 Piotr Gonzalez RN aspirin 81 mg tablet,delayed release (DR/EC) active 1 tablet by mouth once a day 08/06 Jeremy Stroud MD [facility] N[facility] STEP 1 21 MG/24HR TRANSDERMAL PATCH 24 HOUR completed Apply 1 Patch Once a Day Transdermally. 08/06 - 10/16 Lorrie Pink COUMADIN 5 MG ORAL TABLET completed 1 TAB DAILY - 10/16 Lorrie Pink ZESTORETIC 10-12.5 MG ORAL TABLET completed ONE TAB. DAILY (new) 03/27 - 10/16 Lorrie Pink LORCET PLUS TABS completed every 6-8 as needed for pain - 10/16 Lorrie Pink TOPROL XL 100 MG ORAL TABLET EXTENDED RELEASE 24 HOUR completed ONE TAB DAILY - 12/04 Jeremy Stroud MD XANAX 0.5 MG ORAL TABLET completed ONE TAB. 4 TIMES DAILY - 12/04 Ro Fenton SOCIAL HISTORY Date Observation Value Provider personal history of marijuana use no Jeremy Stroud MD drug use no Jeremy Monteiro alcohol use, average drinks per day none Jeremy Jacobsa alcohol use yes Jeremy Serota Shantal Monteiro smoking, year quit 2015 Jeremy turner MD number of years as a smoker 10 years or m ore Jeremy Stroud MD smoking history, tot al pack/day 2 Jeremy Stroud MD cigarette use yes Jeremy Stroud MD smoking status Former smoker Jeremy issa MD quit smoking, stage quit Jeremy hooper MD personal history of marijuana use no Tony Prince drug use no Tony Prince alcohol use, average drinks per day none Tony Prince alcohol use yes Tony Prince smoking, year quit 2015eep D as number of years as a smoker 10 years or m ore Tonyfabricio Prince MD smoking history, tot al pack/day 2 Tony Prince cigarette use yes Tony Prince smoking status Former smoker Tonyfabricio Prince MD personal history of marijuana use no Jeremy Stroud MD drug use no Jeremy Serota Shantal Monteiro alcohol use, average drinks per day none Jeremy Stroud MD alcohol use yes Jeremy Serota Shantal Monteiro smoking, year quit 2015 Jeremy turner MD number of years as a smoker 10 years or m ore Jeremy Stroud MD smoking history, tot al pack/day 2 Jeremy Stroud MD cigarette use yes Jeremy Stroud MD smoking status Former smoker Jeremy issa MD personal history of marijuana use no Jeremy Serotsammy JAVIER drug use no Jeremy Serota Shantal Monteiro alcohol use, average drinks per day none Jeremy Serota alcohol use yes Jeremy Monteiro smoking, year quit 2015 Jeremy turner MD number of years as a smoker 10 years or m ore Jeremy Stroud MD smoking history, tot al pack/day 2 Jeremy Stroud MD cigarette use yes Jermey Stroud MD smoking status Former smoker Jeremy issa MD personal history of marijuana use no Gracia O'Shant PRINT INSPECTOR drug use no Gracia O'Shant PRINT INSPECTOR alcohol use, average drinks per day none Gracia O'Shant PRINT INSPECTOR alcohol use yes Gracia O'Shant PRINT INSPECTOR smoking, year quit 2015 Gracia O'N eal PRINT INSPECTOR number of years as a smoker 10 years or m ore Gracia O'Shant PRINT INSPECTOR smoking history, tot al pack/day 2 Gracia O'Shant PRINT INSPECTOR cigarette use yes Gracia O'Shant N P smoking status Former smoker Gracia O'Shant PRINT INSPECTOR quit smoking, stage quit Jeremy hooper MD personal history of marijuana use no Jeremy Stroud MD drug use no Jeremy Monteiro alcohol use, average drinks per day none Jeremy Stroud MD alcohol use yes Jeremy Monteiro smoking, year quit 2015 Jeremy turner MD number of years as a smoker 10 years or m ore Jeremy Stroud MD smoking history, tot al pack/day 2 Jeremy Stroud MD cigarette use yes Jeremy Stroud MD smoking status Former smoker Jeremy issa MD personal history of marijuana use no Cynthia Dougherty NP drug use no Cynthia Murrietareri PRINT INSPECTOR alcohol use yes Cynthia Murrietareri PRINT INSPECTOR smoking, year quit 2015 Cynthia Mireles areri PRINT INSPECTOR number of years as a smoker 10 years or m ore Cynthia Phillipsri PRINT INSPECTOR smoking history, tot al pack/day 2 Cynthia Phillipsri PRINT INSPECTOR cigarette use yes Cynthia Phillipsri PRINT INSPECTOR smoking status Former smoker Cynthia Phillips ri PRINT INSPECTOR social history reviewed E&M revi ewed - no changes required Cynthia Phillipsri PRINT INSPECTOR social history E&M Marital Statu s: L fran with family/friends E thnicity: Smoking History: Fabricio weiss is a former smoker. Cynthia Murrietareri PRINT INSPECTOR drug use no Cynthia Phillipsri PRINT INSPECTOR alcohol use no Cynthia Phillipsri PRINT INSPECTOR smoking status Former smoker Cynthia Phillips ri PRINT INSPECTOR physical exercise, f requency, days per week no Asiya Chaka caffeine use, averag e drinks per day yes Asiya Chaka smoking, year quit 2015 Asiya Churcherson number of years as a smoker 10 years or m ore Asiya Null smoking history, tot al pack/day 2 Asiya Churcherson cigarette use yes Asiya mcduffie smoking status Former smoker Asiya Mehdi davis social history E&M Marital Statu s: L fran with family/friends E thnicity: Smoking History: Fabricio weiss is a former smoker. Jeremy Stroud MD social history reviewed E&M revi ewed - no changes required Jeremy Stroud MD physical exercise, f requency, days per week no Joyce Gary caffeine use, averag e drinks per day yes Joyce Gary smoking, year quit 2015 Joyce Gary number of years as a smoker 10 years or m ore Joyce Gary smoking history, tot al pack/day 2 Joyce Gary cigarette use yes Joyce Toribio nd smoking status Former smoker Joyce ballard social history E&M Marital Statu s: L fran with family/friends E thnicity: Smoking History: Fabricio weiss is a former smoker. Jeremy Stroud MD social history reviewed E&M revi ewed - no changes required Jeremy Stroud MD physical exercise, f requency, days per week no Ro Fenton caffeine use, averag e drinks per day yes Ro Fenton smoking, year quit 2015 Ro parrish number of years as a smoker 10 years or m ore Ro Fenton smoking history, tot al pack/day 2 Ro Eliceo cigarette use yes Ro Rodrigo villeda smoking status Former smoker Ro Stan bryan social history E&M Marital Statu s: L fran with family/friends E thnicity: Smoking History: Fabricio weiss is a former smoker. Jeremy Stroud MD social history reviewed E&M revi ewed - no changes required Jeremy Stroud MD smoking, year quit 2016 Diane Fiona s smoking history, tot al pack/day 2 Diane Rae cigarette use yes Diane Rae physical exercise, f requency, days per week no Diane Rae alcohol use, average drinks per day none Diane Rae caffeine use, averag e drinks per day yes Diane Rae smoking status Former smoker Diane Rae physical exercise, f requency, days per week no Jeremy Stroud MD alcohol use, average drinks per day none Jeremy Stroud MD smoking/tobacco cess ation, patient education and counseling yes Jeremy Stroud MD caffeine use, averag e drinks per day yes Jeremy Stroud MD smoking status Current every day smoker H skip Stroud MD social history E&M Marital Statu s: L fran with family/friends E thnicity: Smoking History: P atperry currently smokes every day. P atperry has been counseled to quit. Jeremy Stroud MD social history reviewed E&M ian connors - no changes required Jeremy Stroud MD quit smoking, stage quit Jeremy hooper MD number of grandchildren Jeremy Stroud MD Lorrie Pink smoking status smoker - current status unknown Corby Galeano RN smoking/tobacco cess ation, patient education and counseling yes eJremy Stroud MD social history reviewed E&M reviewed Piotr Gonzalez RN smoking/tobacco cess ation, patient education and counseling yes Jeremy Stroud MD social history E&M Marital Statu s: L fran with family/friends E thnicity: Piotr Gonzalez RN social history reviewed E&M reviewed Piotr Gonzalez RN physical exercise, f requency, days per week no [employer] caffeine use, averag e drinks per day yes [employer] alcohol use, average drinks per day none [employer] number of years as a smoker 10 years or m ore [facility] STATUS Date Observation Value Provider HRA, CV Assess/Plan, Angina (inactive) Management Plan continue current therapy Jeremy Stroud MD HRA, CV Assess/Plan, Angina (inactive) Management Plan continue current therapy Courtney Milton NP HRA, CV Assess/Plan, Angina (inactive) Management Plan continue current therapy Tony Prince MD HRA, CV Assess/Plan, Angina (inactive) Management Plan continue current therapy, antianginal therapy Jeremy Stroud MD HRA, CV Assess/Plan, Angina (inactive) Management Plan continue current therapy Jeremy Stroud MD HRA, CV Assess/Plan, Angina (inactive) Management Plan continue current therapy Gracia Prado NP HRA, CV Assess/Plan, Angina (inactive) Management Plan continue current therapy, schedule PCI Jeremy Stroud MD HRA, CV Assess/Plan, Angina (inactive) Management Plan continue current therapy Cynthia Dougherty NP HRA, CV Assess/Plan, Angina (inactive) Management Plan continue current therapy Cynthia Dougherty NP HRA, CV Assess/Plan, Angina (inactive) Management Plan continue current therapy Jeremy Stroud MD HRA, CV Assess/Plan, Angina (inactive) Management Plan continue current therapy Jeremy Stroud MD HRA, CV Assess/Plan, Angina (inactive) Management Plan continue current therapy Jeremy Stroud MD HRA, CV Assess/Plan, Angina (inactive) Management Plan continue current therapy Jeremy Stroud MD MENTAL STATUS Date Observation Value Provider assessment of judgme nt and insight E&M Alert and oriented to time, place and person. Mood and affect are normal. Piotr Gonzalez RN assessment of judgme nt and insight E&M Alert and oriented to time, place and person. Mood and affect are normal. Piotr Gonzalez RN INSURANCE PROVIDERS Payer name Policy type / Coverage type [place] [employer] ID [employer] COMPLETE CARE [id number] (PPO C-SNP) [employer] [id number] ADVANCE DIRECTIVES Name Date DISCUSSED - NO DECISION MADE TREATMENT PLAN Date Name Performer [id number],C,T he patient is between 55-77 years old and has smoked at least 30 pack years. The patient is either a current smoker or has quit within the past 15 years. T he patient is recommended to have low dose CT scan for lung cancer screening. Has been counseled regarding the importance of tobacco cessation and abstinence. Shared decision making during this office visit included discussion of the benefits and harms of screening, possible future recommendations of follow-up diagnostic testing, and total amount of radiation exposure. The patient was recommended to have annual low dose CT scan for lung cancer screening and is willing to undergo diagnosis and treatment. Cynthia Dougherty NP [id number],C,P atient c/o worsening of SOB. Will check labs, CXR, and PFTs. Her updated medication list for this problem includes: Symbicort 80-4.5 Mcg/actuation Hfa Aerosol Inhaler (Budesonide-formoterol) ..... Take 2 puff by mouth once a day Ipratropium [place] 0.02% Solution (Ipratropium bromide) ..... Four times a day as directed Cynthia Murrietaconor ELI [id number],C,W ill check labs to asess current status. Cynthia Phillipsroldan ELI [id number],C,T he patient is using CPAP on a regular basis. The patient has been benefiting from therapy and should continue use. Cynthia Phillipsroldan ELI [id number],C, W ill check labs. Cynthia Phillipsroldan ELI [id number],C,W ill check lipid profile. H er updated medication list for this problem includes: Atorvastatin 20 Mg Tablet (Atorvastatin) ..... 1 tablet by mouth once a day take 1 tablet by mouth every day Ezetimibe 10 Mg Tablet (Ezetimibe) ..... Take 1 tablet by mouth once a day take 1 tablet by mouth every day Vascepa 1 Gram Capsule (Icosapent ethyl) ..... Take 2 capsule by mouth twice a day take 2 capsules by mouth twice a day Cynthia Phillipsroldan ELI [id number],C,S lightly elevated in office today. She states her Bp at home ranges in the 150s/100s. W ill change Metoprolol to Carvedilol W ill order RPM Her updated medication list for this problem includes: Losartan-hydrochlorothiazide 100-25 Mg Tablet (Losartan-hydrochlorothiazide) ..... Take 1 tablet by mouth once a day Metoprolol Succinate 100 Mg Tablet Extended Release 24 Hr (Metoprolol succinate) ..... Take 1 tablet by mouth once a day take 1 tablet by mouth every day Aspirin 81 Mg Tablet,delayed Release (dr/ec) (Aspirin) ..... 1 tablet by mouth once a day Cynthia Phillipsroldan ELI [id number],C,N o chest pain. Will continue current medications. n eg nuc 2019 5 0% rca adn 100 om 3 with non stemi, had rca aneurm on med rx ef 55% Cynthia Dougherty SREEDHAR [id number],C,P atient c/o increased SOB n ml pro in 2018. Will check ProBNP C ONCLUSIONS: Echo 01/2022 1 . Normal left ventricular systolic function. Normal left ventricular size. Normal left ventricular wall thickness. There is E to A w ave reversal consistent with impaired LV relaxation. Left ventricular ejection fraction is measured at 55 %. 2 . Mild enlargement of right ventricle. Normal right ventricular systolic function. 3 . The left atrium is normal in size. Left atrial volume index is 16.0 LA volume is 20 mL. 4 . No significant valvular abnormalities. Cynthia Dougherty SREEDHAR [id number],S,S table T he following medications were removed from the medication list: Metoprolol Succinate 100 Mg Tablet Extended Release 24 Hr (Metoprolol succinate) ..... Take 1 tablet by mouth every day Her updated medication list for this problem includes: Losartan-hydrochlorothiazide 100-25 Mg Tablet (Losartan-hydrochlorothiazide) ..... Take 1 tablet by mouth once a day Metoprolol Succinate 100 Mg Tablet Extended Release 24 Hr (Metoprolol succinate) ..... Take 1 tablet by mouth once a day take 1 tablet by mouth every day Aspirin 81 Mg Tablet,delayed Release (dr/ec) (Aspirin) ..... 1 tablet by mouth once a day Bobbi Sarmad ELI [id number],S,W orsening sob, check echo H er updated medication list for this problem includes: Symbicort 80-4.5 Mcg/actuation Hfa Aerosol Inhaler (Budesonide-formoterol) ..... Take 2 puff by mouth once a day Ipratropium [place] 0.02% Solution (Ipratropium bromide) ..... Four times a day as directed Bobbi Bañuelos NP [id number],S, T he following medications were removed from the medication list: Atorvastatin 20 Mg Tablet (Atorvastatin) ..... Take 1 tablet by mouth every day Vascepa 1 Gram Capsule (Icosapent ethyl) ..... Take 2 capsules by mouth twice a day Ezetimibe 10 Mg Tablet (Ezetimibe) ..... Take 1 tablet by mouth every day Her updated medication list for this problem includes: Atorvastatin 20 Mg Tablet (Atorvastatin) ..... 1 tablet by mouth once a day take 1 tablet by mouth every day Ezetimibe 10 Mg Tablet (Ezetimibe) ..... Take 1 tablet by mouth once a day take 1 tablet by mouth every day Vascepa 1 Gram Capsule (Icosapent ethyl) ..... Take 2 capsule by mouth twice a day take 2 capsules by mouth twice a day Bobbi Bañuelos NP [id number],S,Continue curr ent meds Bobbi Bañuelos NP [id number],S,c oudl be villeda thrune but does not want it yet w u neg see screeing Jeremy Stroud MD [id number],S, n eg nuc 2019 5 0% rca adn 100 om 3 with non stemi, had rca aneurm on med rx ef 55% Jeremy Stroud MD [id number],S, T he patient is using CPAP on a regular basis. The patient has been benefiting from therapy and should continue use. Jeremy Stroud MD [id number],B, d oes not want surgey but will try diet pill Jeremy Stroud MD [id number],B, Jeremy issa MD [id number],S, n ml d n eg uacr, neg a1c n o venlus insuf or clto, high dd though and iron, nml tsh Jeremy Stroud MD [id number],S, m ild by charline Jeremy Stroud MD [id number],B, Jeremy issa MD [id number],S, Jeremy issa MD [id number],S, Jeremy issa MD [id number],S, T he patient is between 55-77 years old and has smoked at least 30 pack years. The patient is either a current smoker or has quit within the past 15 years. T he patient is recommended to have low dose CT scan for lung cancer screening. Has been counseled regarding the importance of tobacco cessation and abstinence. Shared decision making during this office visit included discussion of the benefits and harms of screening, possible future recommendations of follow-up diagnostic testing, and total amount of radiation exposure. The patient was recommended to have annual low dose CT scan for lung cancer screening and is willing to undergo diagnosis and treatment. Jeremy Stroud MD [id number],S, Jeremy issa MD Cardiology Jeremy Stroud MD Cardiology: r elated to [employer] meds which she stopped Jeremy Strodu MD Cardiology: nml d , neg a1c n o venlus insuf or clto, high dd though and iron, nml tsh Jeremy Stroud MD Cardiology: p ap 64/44 mean 52 who group 2 Jeremy Stroud MD Cardiology Jeremy Stroud MD Cardiology Jeremy Stroud MD Cardiology: b /l leg pains much better post mts stening for both CIV Jeremy Stroud MD Cardiology: c to second om, 70% rplv wiht pos pet was stented at time of cooling Jeremy Stroud MD Cardiology: e f 50 lvedp 27, nml pro 119 Jeremy Stroud MD Cardiology:48 e GFR 52 (09/18/2023) Jeremy Stroud MD Cardiology: s /p stent coiling of the RCA 09/17/2023 n ow doing well post stent coiling could consider angiogram in future to ensure patchy open areas within stent have clotted off pt advised that the only way to assess the segment which has been coiled in future would be by ivus as the angiogram would be shadowed by the coils Jeremy Stroud MD Cardiology: B P today: 109/80 P rior BP: 124/82 (09/01/2023) Labs Reviewed: C reat: 1.20 (09/2023) C hol: 123 (04/06/2020) HDL: 44 (04/06/2020) LDL: 53 (04/06/2020) T (04/06/2020) Courtney Milton NP Cardiology: H er updated medication list for this problem includes: Icosapent Ethyl 1 Gram Capsule (Icosapent ethyl) ..... Take 2 capsules by mouth twice a day Atorvastatin 40 Mg Tablet (Atorvastatin) ..... 1 tablet by mouth once a day take 1 tablet by mouth every day Ezetimibe 10 Mg Tablet (Ezetimibe) ..... Take 1 tablet by mouth once a day take 1 tablet by mouth every day Courtney Milton NP Cardiology: e GFR 52 (09/18/2023) Courtney Milton NP Cardiology: r elated to V[employer] which she stopped Courtney Sammy Milton PRINT INSPECTOR Cardiology: p ap 64/44 mean 52 who group 2 Courtney Sammy Milton PRINT INSPECTOR Cardiology: e f 50 lvedp 27, nml pro Courtney Sammy Milton PRINT INSPECTOR Cardiology:s/p stent coiling of the RCA 09/17/2023 n ow doing well post stent coiling could consider angiogram in future to ensure patchy open areas within stent have clotted off pt advised that the only way to assess the segment which has been coiled in future would be by ivus as the angiogram would be shadowed by the coils Courtney Milton NP :48 EGFR Jeremy Stroud MD Cardiology: H er updated medication list for this problem includes: Furosemide 20 Mg Tablet (Furosemide) ..... Take 1 pill twice a day Nifedipine 60 Mg Tablet Extended Release 24hr (Nifedipine) ..... Take 1 tablet by mouth every night at bedtime Losartan 100 Mg Tablet (Losartan) ..... Take 1 tablet by mouth every day Coreg 25 Mg Tablet (Carvedilol) ..... Take 2 tablets by mouth twice daily Aspirin 81 Mg Tablet,delayed Release (dr/ec) (Aspirin) ..... 1 tablet by mouth once a day Suresh JAVIER Cardiology: H er updated medication list for this problem includes: Zetia 10 Mg Tablet (Ezetimibe) ..... Take 1 tablet by mouth once a day Crestor 40 Mg Tablet (Rosuvastatin) ..... Take 1 tablet by mouth once a day Vascepa 1 Gram Capsule (Icosapent ethyl) ..... Take 2 capsules by mouth twice a day Suresh JAVIER Cardiology:Pt is her e for eval for treatment of cor aneuysm. Covered stents are not approved for elective use in [place] P gurdeep will schedule stent with coiling p rocedure, options, risks, discussed with patients in detail, over 30 minutes and pt aggreable to proceed Suresh JAVIER Cardiology:b/l leg p ains much better post mts stening for both CIV Suresh JAVIER Cardiology:doctor of medicine second om, 70% rp lv wiht pos pet Jeremy Stroud MD Cardiology Jeremy Stroud MD Cardiology: m ild by charline Jeremy Stroud MD Cardiology Jeremy Stroud MD Cardiology: p ap 64/44 mean 52 who group 2 Jeremy Stroud MD Cardiology: e f 50 lvedp 27, nml pro Jeremy Stroud MD Cardiology:related to pych meds which she stoope Jeremy Stroud MD Cardiology Jeremy Stroud MD Cardiology:both iliacs stented H skip Stroud MD Cardiology: 3 7 Jeremy Stroud MD Cardiology Jeremy Stroud MD Cardiology: e nlarger io be stented Jeremy Stroud MD :37 Jeremy Stroud MD Cardiology:enlarger io be stente d Jeremy Stroud MD Cardiology Jeremy Stroud MD Cardiology Jeremy Stroud MD Cardiology Jeremy Stroud MD Cardiology Jeremy Stroud MD Cardiology: H er updated medication list for this problem includes: Icosapent Ethyl 1 Gram Capsule (Icosapent ethyl) ..... Take 2 capsules by mouth twice a day Atorvastatin 40 Mg Tablet (Atorvastatin) ..... 1 tablet by mouth once a day take 1 tablet by mouth every day Ezetimibe 10 Mg Tablet (Ezetimibe) ..... Take 1 tablet by mouth once a day take 1 tablet by mouth every day Jeremy Stroud MD Cardiology: H er updated medication list for this problem includes: Lasix 20 Mg Tablet (Furosemide) ..... Take 1 tablet by mouth twice a day Procardia Xl 60 Mg Tablet Extended Release 24hr (Nifedipine) ..... Take 1 tablet by mouth once daily Losartan 100 Mg Tablet (Losartan) ..... Take 1 tablet by mouth every day Coreg 25 Mg Tablet (Carvedilol) ..... Take 2 tablets by mouth twice daily Aspirin 81 Mg Tablet,delayed Release (dr/ec) (Aspirin) ..... 1 tablet by mouth once a day BP today: 118/78 P rior BP: 130/80 (07/28/2023) Labs Reviewed: C reat: 1.15 (04/06/2020) C hol: 123 (04/06/2020) HDL: 44 (04/06/2020) LDL: 53 (04/06/2020) T (04/06/2020) Jeremy Stroud MD Cardiology Jeremy Stroud MD Cardiology: 4 4 Jeremy Stroud MD Cardiology Jeremy Stroud MD Cardiology: L /RHC showed: 1 . Enlarging aneurysm of right coronary artery which appears to be about 15mm in diameter. 2 . 50% mid right coronary stenosis and 70% RPLV stenosis. 3 . 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 4 . WHO Group 2 pulmonary hypertension with a subcomponent of COPD causing pulmonary hypertension with an elevated LVEDP of 27 and a mean PA pressure of 52. 5 . Renal insufficiency and hypertension with normal renal arteries. 6 . Diastolic heart failure with an ejection fraction of 50%. 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 b ilat 70% common iliac 06/29/23: 8 . Bilateral venous angiogram showed no stenosis. 9. 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 Jeremy Stroud MD Cardiology:L/RHC lianne wed: 1 . Enlarging aneurysm of right coronary artery which appears to be about 15mm in diameter. 2 . 50% mid right coronary stenosis and 70% RPLV stenosis. 3 . 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 4 . WHO Group 2 pulmonary hypertension with a subcomponent of COPD causing pulmonary hypertension with an elevated LVEDP of 27 and a mean PA pressure of 52. 5 . Renal insufficiency and hypertension with normal renal arteries. 6 . Diastolic heart failure with an ejection fraction of 50%. 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 b ilat 70% common iliac 06/29/23: 8 . Bilateral venous angiogram showed no stenosis. 9. 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 Tony Prince MD Cardiology: o n B12 supplements. Gracia Prado NP Cardiology: m ild by charline Gracia Prado NP Cardiology: o ld doctor of medicine 2nd om 70% rplv pos pet 1 5mm rca anerusm Gracia Prado NP Cardiology: e f 50 lvedp 27, nml pro Gracia Prado NP Cardiology: W ill schedule elective eliquine vein stenting for treatment of for May-Thurner Syndrome. b ilat 70% common iliac 06/29/23: L/RHC showed: 1 . Enlarging aneurysm of right coronary artery which appears to be about 15mm in diameter. 2 . 50% mid right coronary stenosis and 70% RPLV stenosis. 3 . 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 4 . WHO Group 2 pulmonary hypertension with a subcomponent of COPD causing pulmonary hypertension with an elevated LVEDP of 27 and a mean PA pressure of 52. 5 . Renal insufficiency and hypertension with normal renal arteries. 6 . Diastolic heart failure with an ejection fraction of 50%. lvedp 27 8 . Bilateral venous angiogram showed no stenosis. 9 . 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 Gracia Prado NP :44 Jeremy Stroud MD :bilat 70% common iliac Jeremy hooper MD :old doctor of medicine 2nd om 70% rplv pos pet 1 5mm rca anerusm Jeremy Stroud MD :ef 50 lvedp 27, nml pro Jeremy Stroud MD :pap 64/44 mean 52 who group 2 H skip Stroud MD Cardiology:brief Jeremy Monteiro Cardiology:carrillo net to date may need loop will cath for pos pet Jeremy Stroud MD Cardiology: n on compaletn Jeremy Stroud MD Cardiology Jeremy Stroud MD Cardiology: m ild by charline Jeremy Stroud MD Cardiology:CHOL: 123 (04/06/2020) LDL: 53 (04/06/2020) HDL: 44 (04/06/2020) T (04/06/2020) Her updated medication list for this problem includes: Atorvastatin 40 Mg Tablet (Atorvastatin) ..... 1 tablet by mouth once a day take 1 tablet by mouth every day Ezetimibe 10 Mg Tablet (Ezetimibe) ..... Take 1 tablet by mouth once a day take 1 tablet by mouth every day Icosapent Ethyl 1 Gram Capsule (Icosapent ethyl) ..... Take 2 capsules by mouth twice a day Jeremy Stroud MD Cardiology Jeremy Stroud MD Cardiology Jeremy Stroud MD Cardiology Jeremy Stroud MD Cardiology Jeremy Stroud MD Cardiology Jeremy Stroud MD Cardiology:neg echo and pro n ml d , neg a1c n o venlus insuf or clto, high dd though and iron, nml tsh Jeremy Stroud MD Cardiology: T gail patient is between 55-77 years old and has smoked at least 30 pack years. The patient is either a current smoker or has quit within the past 15 years. T gail patient is recommended to have low dose CT scan for lung cancer screening. Has been counseled regarding the importance of tobacco cessation and abstinence. Shared decision making during this office visit included discussion of the benefits and harms of screening, possible future recommendations of follow-up diagnostic testing, and total amount of radiation exposure. The patient was recommended to have annual low dose CT scan for lung cancer screening and is willing to undergo diagnosis and treatment. Jeremy Stroud MD Cardiology:pos pet 2 024 n eg nuc 2019 5 0% rca adn 100 om 3 with non stemi, had rca aneurm on med rx ef 55% Jeremy Stroud MD Cardiology: W ill check 2 weeks telesentry W ill repeat echo and check labs Cynthia Dougherty NP Cardiology: o n B12 supplements. Cynthia Dougherty NP Cardiology: F imers with neuro in [place] Cynthia Dougherty NP Cardiology: T he following medications were removed from the medication list: Vascepa 1 Gram Capsule (Icosapent ethyl) ..... Take 2 capsule by mouth twice a day take 2 capsules by mouth twice a day Her updated medication list for this problem includes: Atorvastatin 20 Mg Tablet (Atorvastatin) ..... 1 tablet by mouth once a day take 1 tablet by mouth every day Ezetimibe 10 Mg Tablet (Ezetimibe) ..... Take 1 tablet by mouth once a day take 1 tablet by mouth every day Icosapent Ethyl 1 Gram Capsule (Icosapent ethyl) ..... Take 2 capsules by mouth twice a day Cynthia Dougherty NP Cardiology: E levated in office. H as dizzy episodes with falls W ill adjust medications Cynthia Dougherty NP Cardiology: N o chest pain. Will continue current medications. n eg nuc 2019 5 0% rca adn 100 om 3 with non stemi, had rca aneurm on med rx ef 55% Cynthia Dougherty NP Cardiology: T he patient is using CPAP on a regular basis. The patient has been benefiting from therapy and should continue use. Cynthia Dougherty NP Cardiology: e f 55%, nml pro 2018 h as shortness of breath. w ill check labs and repeat echo Cynthia Dougherty NP -seen with PRINT INSPECTOR:The [place] flores is between 55-77 years old and has smoked at least 30 pack years. The patient is either a current smoker or has quit within the past 15 years. T he patient is recommended to have low dose CT scan for lung cancer screening. Has been counseled regarding the importance of tobacco cessation and abstinence. Shared decision making during this office visit included discussion of the benefits and harms of screening, possible future recommendations of follow-up diagnostic testing, and total amount of radiation exposure. The patient was recommended to have annual low dose CT scan for lung cancer screening and is willing to undergo diagnosis and treatment. Cynthia Dougherty NP -seen with PRINT INSPECTOR:Luis Angel t c/o worsening of SOB. Will check labs, CXR, and PFTs. Her updated medication list for this problem includes: Symbicort 80-4.5 Mcg/actuation Hfa Aerosol Inhaler (Budesonide-formoterol) ..... Take 2 puff by mouth once a day Ipratropium [place] 0.02% Solution (Ipratropium bromide) ..... Four times a day as directed Cynthia Dougherty NP -seen with PRINT INSPECTOR:Will check labs to asess current status. Cynthia Dougherty NP -seen with PRINT INSPECTOR:The pa sandra is using CPAP on a regular basis. The patient has been benefiting from therapy and should continue use. Cynthia Murrietaconor ELI -seen with PRINT INSPECTOR: W ill check labs. Cynthia Farhat ELI -seen with PRINT INSPECTOR:Yo valentine lipid profile. H er updated medication list for this problem includes: Atorvastatin 20 Mg Tablet (Atorvastatin) ..... 1 tablet by mouth once a day take 1 tablet by mouth every day Ezetimibe 10 Mg Tablet (Ezetimibe) ..... Take 1 tablet by mouth once a day take 1 tablet by mouth every day Vascepa 1 Gram Capsule (Icosapent ethyl) ..... Take 2 capsule by mouth twice a day take 2 capsules by mouth twice a day Cynthia Phillipsroldan ELI -seen with PRINT INSPECTOR:Slight ly elevated in office today. She states her Bp at home ranges in the 150s/100s. W ill change Metoprolol to Carvedilol W ill order RPM Her updated medication list for this problem includes: Losartan-hydrochlorothiazide 100-25 Mg Tablet (Losartan-hydrochlorothiazide) ..... Take 1 tablet by mouth once a day Metoprolol Succinate 100 Mg Tablet Extended Release 24 Hr (Metoprolol succinate) ..... Take 1 tablet by mouth once a day take 1 tablet by mouth every day Aspirin 81 Mg Tablet,delayed Release (dr/ec) (Aspirin) ..... 1 tablet by mouth once a day Cynthia Murrietaconor ELI -seen with PRINT INSPECTOR:No candy st pain. Will continue current medications. n eg nuc 2019 5 0% rca adn 100 om 3 with non stemi, had rca aneurm on med rx ef 55% Cynthia Murrietaconor ELI -seen with PRINT INSPECTOR:[place] t c/o increased SOB n ml pro in 2017. Will check ProBNP C ONCLUSIONS: Echo 01/2022 1 . Normal left ventricular systolic function. Normal left ventricular size. Normal left ventricular wall thickness. There is E to A w ave reversal consistent with impaired LV relaxation. Left ventricular ejection fraction is measured at 55 %. 2 . Mild enlargement of right ventricle. Normal right ventricular systolic function. 3 . The left atrium is normal in size. Left atrial volume index is 16.0 LA volume is 20 mL. 4 . No significant valvular abnormalities. Cynthia Murrietaconor ELI Cardiology:Stable T he following medications were removed from the medication list: Metoprolol Succinate 100 Mg Tablet Extended Release 24 Hr (Metoprolol succinate) ..... Take 1 tablet by mouth every day Her updated medication list for this problem includes: Losartan-hydrochlorothiazide 100-25 Mg Tablet (Losartan-hydrochlorothiazide) ..... Take 1 tablet by mouth once a day Metoprolol Succinate 100 Mg Tablet Extended Release 24 Hr (Metoprolol succinate) ..... Take 1 tablet by mouth once a day take 1 tablet by mouth every day Aspirin 81 Mg Tablet,delayed Release (dr/ec) (Aspirin) ..... 1 tablet by mouth once a day Bobbi Bañuelos NP Cardiology:Worsening sob, check echo H er updated medication list for this problem includes: Symbicort 80-4.5 Mcg/actuation Hfa Aerosol Inhaler (Budesonide-formoterol) ..... Take 2 puff by mouth once a day Ipratropium [place] 0.02% Solution (Ipratropium bromide) ..... Four times a day as directed Bobbi Bañuelos NP Cardiology: T he following medications were removed from the medication list: Atorvastatin 20 Mg Tablet (Atorvastatin) ..... Take 1 tablet by mouth every day Vascepa 1 Gram Capsule (Icosapent ethyl) ..... Take 2 capsules by mouth twice a day Ezetimibe 10 Mg Tablet (Ezetimibe) ..... Take 1 tablet by mouth every day Her updated medication list for this problem includes: Atorvastatin 20 Mg Tablet (Atorvastatin) ..... 1 tablet by mouth once a day take 1 tablet by mouth every day Ezetimibe 10 Mg Tablet (Ezetimibe) ..... Take 1 tablet by mouth once a day take 1 tablet by mouth every day Vascepa 1 Gram Capsule (Icosapent ethyl) ..... Take 2 capsule by mouth twice a day take 2 capsules by mouth twice a day Bobbi Bañuelos NP Cardiology:Continue current meds Bobbi Bañuelos NP Cardiology:coudl be villeda thrune but does not want it yet w u neg see screeing Jeremy Stroud MD Cardiology: n eg nuc 2020 5 0% rca adn 100 om 3 with non stemi, had rca aneurm on med rx ef 55% Jeremy Stroud MD Cardiology: T he patient is using CPAP on a regular basis. The patient has been benefiting from therapy and should continue use. Jeremy Stroud MD Cardiology: d oes not want surgey but will try diet pill Jeremy Stroud MD Cardiology Jeremy Stroud MD Cardiology: n ml d n eg uacr, neg a1c n o venlus insuf or clto, high dd though and iron, nml tsh Jeremy Stroud MD Cardiology: m ild by charline Jeremy Stroud MD Cardiology Jeremy Stroud MD Cardiology Jeremy Stroud MD Cardiology Jeremy Stroud MD Cardiology: T he patient is between 55-77 years old and has smoked at least 30 pack years. The patient is either a current smoker or has quit within the past 15 years. T he patient is recommended to have low dose CT scan for lung cancer screening. Has been counseled regarding the importance of tobacco cessation and abstinence. Shared decision making during this office visit included discussion of the benefits and harms of screening, possible future recommendations of follow-up diagnostic testing, and total amount of radiation exposure. The patient was recommended to have annual low dose CT scan for lung cancer screening and is willing to undergo diagnosis and treatment. Jeremy Stroud MD Cardiology Jeremy Stroud MD TeleHealth:nml d n eg uacr, neg a1c n o venlus insuf or clto, high dd though and iron, nml tsh Jeremy Stroud MD TeleHealth: T he patient is using CPAP on a regular basis. The patient has been benefiting from therapy and should continue use. Jeremy Stroud MD TeleHealth: H er updated medication list for this problem includes: Ezetimibe 10 Mg Oral Tablet (Ezetimibe) ..... Take 1 tablet by mouth every day with atorvastatin Vascepa 1 Gm Oral Capsule (Icosapent ethyl) ..... 2 capsules by mouth twice daily universal coupon code: bin# [id number], pcn# [id number], grp# [email or web address], id# [id number] Atorvastatin 20mg (Atorvastatin calcium) ..... Take 1 tablet by mouth daily C HOL: 189 (12/09/2019) HDL: 57 (12/09/2019) Jeremy Stroud MD TeleHealth Jeremy Stroud MD TeleHealth Jeremy Stroud MD TeleHealth Jeremy Stroud MD TeleHealth: d oes not want surgey but will try diet pill Jeremy Stroud MD TeleHealth Jeremy Stroud MD TeleHealth: H er updated medication list for this problem includes: Losartan Potassium-hctz 100-25 Mg Oral Tablet (Losartan potassium-hctz) ..... Take 1 tablet by mouth every day Metoprolol Succinate Er 100 Mg [id number] (Metoprolol succinate) ..... Take 1 tablet by mouth daily Aspirin Adult Low Dose 81 Mg Oral Tablet Delayed Release (Aspirin) ..... One tab by mouth daily & #13;Prior BP: 179/104 (12/05/2019) Labs Reviewed: C reat: 1.25 (12/09/2019) C hol: 189 (12/09/2019) HDL: 57 (12/09/2019) Jeremy Stroud MD TeleHealth: w u neg see screeing Jeremy Stroud MD TeleHealth: n eg nuc 2019 5 0% rca adn 100 om 3 with non stemi, had rca aneurm on med rx ef 55% Jeremy Stroud MD TeleHealth Jeremy Stroud MD nothing in clinedesk Jeremy brower MD Cardiology follow up : T he following medications were removed from the medication list: Toprol Xl 100 Mg Oral Tablet Extended Release 24 Hour (Metoprolol succinate) ..... One tab daily & #13;Her updated medication list for this problem includes: Hyzaar 100-25 Mg Oral Tablet (Losartan potassium-hctz) ..... One tab. daily Metoprolol Succinate Er 100 Mg [id number] (Metoprolol succinate) ..... Take 1 tablet by mouth daily Aspirin Adult Low Dose 81 Mg Oral Tablet Delayed Release (Aspirin) ..... One tab by mouth daily BP today: 179/104 P rior BP: 112/82 (12/08/2017) Labs Reviewed: C reat: 1.05 (12/09/2017) C hol: 200 (12/09/2017) HDL: 35 (12/09/2017) Jeremy Stroud MD Cardiology follow up :carrillo neg see screeing Jeremy Stroud MD Cardiology follow up Jeremy brower MD Cardiology follow up Jeremy brower MD Cardiology follow up :neg uacr, neg a1c n o venlus insuf or clto, high dd though and iron, nml tsh Jeremy Stroud MD Cardiology follow up : n ml pro Jeremy Stroud MD Cardiology follow up : T he patient is between 55-77 years old and has smoked at least 30 pack years. The patient is either a current smoker or has quit within the past 15 years. T he patient is recommended to have low dose CT scan for lung cancer screening. Has been counseled regarding the importance of tobacco cessation and abstinence. Shared decision making during this office visit included discussion of the benefits and harms of screening, possible future recommendations of follow-up diagnostic testing, and total amount of radiation exposure. The patient was recommended to have annual low dose CT scan for lung cancer screening and is willing to undergo diagnosis and treatment. Jeremy Stroud MD Cardiology follow up :mild by ab i Jeremy Stroud MD Cardiology follow up Jeremy brower MD Cardiology follow up :The patient is using CPAP on a regular basis. The patient has been benefiting from therapy and should continue use. Jeremy Stroud MD Cardiology follow up :neg nuc 2020 5 0% rca adn 100 om 3 with non stemi, had rca aneurm on med rx ef 55% Jeremy Stroud MD Cardiology follow up : H er updated medication list for this problem includes: Atorvastatin Calcium 20 Mg Oral Tablet (Atorvastatin calcium) ..... Take one tablet by mouth once daily C HOL: 190.0 (10/05/2015) HDL: 37.0 (10/05/2015) T.0 (10/05/2015) Jeremy Stroud MD Cardiology follow up :no venlus insuf or clto, high dd though and iron, nml tsh Jeremy Stroud MD Cardiology follow up : d oes not want surgey but will try diet pill Jeremy Stroud MD Cardiology follow up:will carrillo Steven Stroud MD Cardiology follow up : 5 0% rca adn 100 om 3 with non stemi, had rca aneurm on med rx ef 55% Jeremy Strodu MD Cardiology follow up : H er updated medication list for this problem includes: Aspirin Adult Low Dose 81 Mg Oral Tablet Delayed Release (Aspirin) ..... One tab by mouth daily Toprol Xl 100 Mg Oral Tablet Extended Release 24 Hour (Metoprolol succinate) ..... One tab daily BP today: 112/82 P rior BP: 130/70 (10/04/2015) Labs Reviewed: C reat: 1.2 (10/05/2015) C hol: 190.0 (10/05/2015) HDL: 37.0 (10/05/2015) T.0 (10/05/2015) Jeremy Stroud MD Cardiology follow up:nml pro Steven Stroud MD Cardiology follow up :The patient is between 55-77 years old and has smoked at least 30 pack years. The patient is either a current smoker or has quit within the past 15 years. T he patient is recommended to have low dose CT scan for lung cancer screening. Has been counseled regarding the importance of tobacco cessation and abstinence. Shared decision making during this office visit included discussion of the benefits and harms of screening, possible future recommendations of follow-up diagnostic testing, and total amount of radiation exposure. The patient was recommended to have annual low dose CT scan for lung cancer screening and is willing to undergo diagnosis and treatment. Jeremy Stroud MD Cardiology follow up:NEEDS TITRA TON, SEVERE Jeremy Stroud MD Cardiology follow up Jeremy brower MD Cardiology need [facility] Jeremy issa MD Cardiology need [facility]: T he following medications were removed from the medication list: Coumadin 5 Mg Tabs (Warfarin sodium) ..... 1 tab daily Her updated medication list for this problem includes: Brilinta 90 Mg Oral Tabs (Ticagrelor) ..... Twice daily Aspirin 81 Mg Tabs (Aspirin) ..... One tab. daily Jeremy Stroud MD Cardiology need [facility]vs:COPD VS ELLIOTT TOLIC CHF WILL CARRILLO Jeremy Stroud MD Cardiology need [facility]: does not want surgey but will try diet pill Jeremy Stroud MD Cardiology need [facility]vs:many sx will shahana Stroud MD Cardiology need [facility]vs:per pt Reena Stroud MD Cardiology need [facility]: H er updated medication list for this problem includes: Atorvastatin Calcium 20 Mg Oral Tabs (Atorvastatin calcium) ..... Take one tablet by mouth once daily Jeremy Stroud MD Cardiology need [facility]: H er updated medication list for this problem includes: Albuterol Sulfate (2.5 Mg/3ml) 0.083% Inh Nebu (Albuterol sulfate) ..... As needed Ipratropium [place] 0.02 % Inh Soln (Ipratropium bromide) ..... Four times daily as directed Jeremy Stroud MD Cardiology need cvs:see cad Jagdish Stroud MD Cardiology need [facility]vs: 50% rca adn 100 om 3 with non stemi, had rca aneurm on med rx ef 55% T he following medications were removed from the medication list: Zestoretic 10-12.5 Mg Tabs (Lisinopril-hydrochlorothiazide) ..... One tab. daily (new) Coumadin 5 Mg Tabs (Warfarin sodium) ..... 1 tab daily Her updated medication list for this problem includes: Isosorbide Mononitrate Er 30 Mg Oral [id number] (Isosorbide mononitrate) ..... Take one tablet by mouth once daily Brilinta 90 Mg Oral Tabs (Ticagrelor) ..... Twice daily Aspirin 81 Mg Tabs (Aspirin) ..... One tab. daily Toprol Xl 100 Mg Tb24 (Metoprolol succinate) ..... One tab daily Jeremy Stroud MD office visit Jeremy Stroud MD office visit: H er updated medication list for this problem includes: Toprol Xl 100 Mg Tb24 (Metoprolol succinate) ..... One tab daily Zestoretic 10-12.5 Mg Tabs (Lisinopril-hydrochlorothiazide) ..... One tab. daily (new) BP today: 124/87 Prior BP: 148/97 (01/26/2008) N uclear Stress Findings: 1. Normal Alber protocol exercise tolerance test. 2 . Normal left ventricular size and function with a calculated ejection fraction of 55%. 3 . Myocardial scintigraphy is normal without evidence for previous myocardial infarction or reversible ischemia. (01/26/2008) E chocardiogram: The left ventricular chamber size is normal. Wall thickness is increased consistent with mild concentric left ventricular hypertrophy. Normal left ventricular function. LV EF is estimated at 60% T he right ventricle is normal in size and function. N ormal left atrium. Normal right atrium. M yxomatous mitral valve. T he aortic valve appears structurally normal. T he tricuspid valve is structurally normal. The right ventricular systolic pressure (RSVP) is estimated to be less than 3 0 mmHg and is within normal limits. N ormal pulmonic valve. N ormal pericardium with no significant pericardial effusion. No pleural effusion noted. N ormal aortic root. M inimal mitral regurgitation. N o evidence of aortic valve regurgitation. M inimal tricuspid regurgitation. M inimal pulmonic regurgitation. (01/26/2008) Jeremy Stroud MD office visit: H er updated medication list for this problem includes: Toprol Xl 100 Mg Tb24 (Metoprolol succinate) ..... One tab daily Zestoretic 10-12.5 Mg Tabs (Lisinopril-hydrochlorothiazide) ..... One tab. daily (new) BP today: 124/87 P rior BP: 148/97 (01/26/2008) Orders: E KG (CPT-49513) C BC (INCLUDES DIFF/PLT) (6399) Jeremy Stroud MD office visit: H er updated medication list for this problem includes: Toprol Xl 100 Mg Tb24 (Metoprolol succinate) ..... One tab daily Zestoretic 10-12.5 Mg Tabs (Lisinopril-hydrochlorothiazide) ..... One tab. daily (new) BP today: 124/87 Prior BP: 148/97 (01/26/2008) N uclear Stress Findings: 1. Normal Alber protocol exercise tolerance test. 2 . Normal left ventricular size and function with a calculated ejection fraction of 55%. 3 . Myocardial scintigraphy is normal without evidence for previous myocardial infarction or reversible ischemia. (01/26/2008) E chocardiogram: The left ventricular chamber size is normal. Wall thickness is increased consistent with mild concentric left ventricular hypertrophy. Normal left ventricular function. LV EF is estimated at 60% T he right ventricle is normal in size and function. N ormal left atrium. Normal right atrium. M yxomatous mitral valve. T he aortic valve appears structurally normal. T he tricuspid valve is structurally normal. The right ventricular systolic pressure (RSVP) is estimated to be less than 3 0 mmHg and is within normal limits. N ormal pulmonic valve. N ormal pericardium with no significant pericardial effusion. No pleural effusion noted. N ormal aortic root. M inimal mitral regurgitation. N o evidence of aortic valve regurgitation. M inimal tricuspid regurgitation. M inimal pulmonic regurgitation. (01/26/2008) Orders: X -Ray, Chest, PA & Lateral ([id number]) B TYPE NATRIURETIC PEPTIDE (BNP) (04444) C OMPREHENSIVE METABOLIC PANEL W/EGFR (33741) L IPID PANEL (7600) C BC (INCLUDES DIFF/PLT) (6399) Jeremy Stroud MD office visit: O rders: B TYPE NATRIURETIC PEPTIDE (BNP) (88360) C OMPREHENSIVE METABOLIC PANEL W/EGFR (18250) L IPID PANEL (7600) C BC (INCLUDES DIFF/PLT) (6399) Jeremy Stroud MD office visit: H er updated medication list for this problem includes: Toprol Xl 100 Mg Tb24 (Metoprolol succinate) ..... One tab daily Zestoretic 10-12.5 Mg Tabs (Lisinopril-hydrochlorothiazide) ..... One tab. daily (new) BP today: 124/87 P rior BP: 148/97 (01/26/2008) Orders: B TYPE NATRIURETIC PEPTIDE (BNP) (61278) C OMPREHENSIVE METABOLIC PANEL W/EGFR (96003) L IPID PANEL (7600) C BC (INCLUDES DIFF/PLT) (6399) Jeremy Stroud MD office visit: H er updated medication list for this problem includes: Toprol Xl 100 Mg Tb24 (Metoprolol succinate) ..... One tab daily Zestoretic 10-12.5 Mg Tabs (Lisinopril-hydrochlorothiazide) ..... One tab. daily BP today: 148/97 Prior BP: / () Orders: C omplete Echo (CPT-07026) S tress Test - Adenosine (05939) R enal Artery Duplex (CPT-21179) X -Ray, Chest, PA & Lateral (CPT-10442) Jeremy Stroud MD office visit: H er updated medication list for this problem includes: Toprol Xl 100 Mg Tb24 (Metoprolol succinate) ..... One tab daily Zestoretic 10-12.5 Mg Tabs (Lisinopril-hydrochlorothiazide) ..... One tab. daily BP today: 148/97 Orders: C omplete Echo (CPT-13311) S tress Test - Adenosine (07962) R enal Artery Duplex (CPT-75057) X -Ray, Chest, PA & Lateral (CPT-03982) Jeremy Stroud MD Date Name Holter Monitor [address] DLCO - 40757 FRC - 54438 FVC - 40585 LIPID PANEL CBC (INCLUDES DIFF/P LT) BASIC METABOLIC PANE L W/EGFR PROTHROMBIN TIME WIT H INR Holter Monitor [address] DLCO - 11300 FRC - 36691 FVC - 19026 DLCO - 69679 FRC - 45202 FVC - [address] FOLATE, SERUM BASIC METABOLIC PANE L W/EGFR CBC (INCLUDES DIFF/P LT) LIPID PANEL PROTHROMBIN TIME WIT H INR Venogram with IVUS - Other PROTHROMBIN TIME WIT H INR LIPID PANEL CBC (INCLUDES DIFF/P LT) BASIC METABOLIC PANE L W/EGFR CRP, high sensitivit y DLCO - 80965 FRC - 78466 FVC - [address] RPM (remote patient monitoring) Monitor - Telemetry (Mobile Cardiac) Stress Cardiac PET-C T Low Dose Lung CT Complete Echo DLCO - 77346 FRC - 85560 FVC - 17362 CXR- PA/Lat CRP, high sensitivit y COMPREHENSIVE METABO LIC PANEL, W/EGFR LIPID PANEL Lipoprotein (a) PROBNP, N TERMINAL Microalb/Creatinine Urine, Random Complete Echo RPM (remote patient monitoring) PROBNP, N TERMINAL Low Dose Lung CT DLCO - 88489 FRC - 21549 FVC - 58755 CXR- PA/Lat Microalb/Creatinine Urine, Random CRP, high sensitivit y Lipoprotein (a) COMPREHENSIVE METABO LIC PANEL, W/EGFR LIPID PANEL Complete Echo RPM (remote patient monitoring) CT, Coronary Calcium Score Low Dose Lung CT DLCO - 51848 FRC - 54835 FVC - [address] LIPID PANEL BASIC METABOLIC PANE L W/EGFR DLCO - 03089 FRC - 02767 FVC - 88570 CT, Coronary Calcium Score Kidney Ultrasound BASIC METABOLIC PANE L W/EGFR COVID19 High Affinit y Antibodies (LC) Vitamin D, 25-Hydrox y LIPID PANEL CT, Coronary Calcium Score Low Dose Lung CT DLCO - 35602 FRC - 34512 FVC - 07641 PROBNP, N TERMINAL STR - Adenosine Arterial Duplex Bi-L ower EX CT, Coronary Calcium Score URINALYSIS, RANDOM, MICROALB/CREATININE HEMOGLOBIN A1c COMPREHENSIVE METABO LIC PANEL, W/EGFR LIPID PANEL Low Dose Lung CT DLCO - 21709 FRC - 35804 FVC - 15252 Sleep Study - split night URINALYSIS, COMPLETE W/REFLEX TO CULTURE Venous Doppler Bilat eral LE - Standing CBC (INCLUDES DIFF/P LT) COMPREHENSIVE METABO LIC PANEL W/EGFR PROBNP, N TERMINAL Sleep Study Home IRON AND TOTAL IRON BINDING CAPACITY FERRITIN THYROID PANEL WITH T SH, 3RD GENERATION VITAMIN B12 VITAMIN D, 25-HYDROX Y, LC/MS/MS HEMOGLOBIN A1c D-DIMER, QUANTITATIV E LIPID PANEL Complete Echo Carotid Duplex Bilat eral DLCO - 14284 FRC - 08271 FVC - 60958 CBC (INCLUDES DIFF/P LT) LIPID PANEL COMPREHENSIVE METABO LIC PANEL W/EGFR B TYPE NATRIURETIC P EPTIDE (BNP) X-Ray, Chest, PA & L ateral X-Ray, Chest, PA & L ateral Renal Artery Duplex Stress Test - Adenos ine Complete Echo HISTORY OF PROCEDURES Procedure Date Procedure Name Provider Procedure Notes S tatus Counseling LDCT Jeremy Stroud MD june pleted Complex e/m visit add on Suresh JAVIER completed Complex e/m visit add on Suresh JAVIER completed Complex e/m visit add on Jeremy Stroud MD completed Counseling LDCT Jeremy Stroud MD arpril com pleted Complex e/m visit add on Jeremy Stroud MD completed Counseling LDCT Jeremy Stroud MD june pleted Counseling LDCT Jeremy Stroud MD 1 yeare com pleted Spirometry Jeremy Stroud MD complete d FVC / MVV with bronchodilator - 63483 Jeremy Stroud MD completed BLOOD COUNT HEMOGLOBIN Jeremy Stroud MD completed SpO2 w/o 6min walk/titration Jeremy Stroud MD completed SVC - 60968 Jeremy Stroud MD complet ed DLCO - 10078 Jeremy Stroud MD comple sandeep Counseling LDCT Jeremy Stroud MD com pleted Counseling LDCT Jeremy Stroud MD com pleted EKG Jeremy Stroud MD complete d Counseling LDCT Jeremy Stroud MD com pleted EKG Jeremy Stroud MD complete d Spirometry Jeremy Stroud MD complete d FVC / MVV with bronchodilator - 74474 Jeremy Stroud MD completed BLOOD COUNT HEMOGLOBIN Jeremy Stroud MD completed FRC - 83088 Jeremy Stroud MD complet ed SpO2 w/o 6min walk/titration Jeremy Stroud MD completed SVC - 82886 Jeremy Stroud MD complet ed DLCO - 36620 Jeremy Stroud MD comple sandeep Ultrasound, retroperitoneal, complete Jeremy Stroud MD completed Counseling LDCT Jeremy Stroud MD nov com pleted FVC / MVV with bronchodilator - 15010 Jeremy Stroud MD completed BLOOD COUNT HEMOGLOBIN Jeremy Stroud MD completed FRC - 93179 Jeremy Stroud MD complet ed SpO2 w/o 6min walk/titration Jeremy Stroud MD completed DLCO - 05219 Jeremy Stroud MD comple sandeep Counseling LDCT Jeremy Stroud MD com pleted EKG Jeremy Stroud MD complete d Regadenoson, 4 units Jeremy Stroud MD completed Cardiolite, 2 units Jeremy Stroud MD completed SPECT Images Jeremy Stroud MD comple sandeep Stress EKG Jeremy Stroud MD complete d FVC / MVV with bronchodilator - 93783 Jeremy Stroud MD completed BLOOD COUNT HEMOGLOBIN Jeremy Stroud MD completed FRC - 83394 Jeremy Stroud MD complet ed SpO2 w/o 6min walk/titration Jeremy Stroud MD completed DLCO - 11952 Jeremy Stroud MD comple sandeep Counseling LDCT Jeremy Stroud MD com pleted EKG Jeremy Stroud MD complete d BLOOD COUNT HEMOGLOBIN Jeremy Stroud MD completed FVC - 16188 Jeremy Stroud MD complet ed FR - 70554 Jeremy Stroud MD complet ed DLCO - 93136 Jeremy Stroud MD [facility] sandeep SNOMED-CT: [id number] Smoking Cessation Counseling Jeremy Stroud MD completed EKG Jeremy Stroud MD complete d SNOMED-CT: [id number] Current Medications Documented Jeremy Stroud MD completed EKG Jeremy Stroud MD complete d EKG Jeremy Stroud MD complete d
--- OUTSIDE RECORDS SUMMARY | 2024-04-04 13:36 | XMS_ITS | Clinical Summary ---
Author Organization [facility] Facility Address [address] [place] [address] Care Team Providers Care Donor Services Specialist Name Role Phone Stew Arambula Primary Care Provider [phone] Medications NIFEdipine XL (PROCARDIA XL) 30 MG 24 hr tablet Take 1 tablet (30 mg total) by mouth at bed time Do not crush, chew, or split. 90 tablet 1 5 Active indapamide (LOZOL) 2.5 MG tablet Take 1 tablet (2.5 mg total) by mouth 1 (one) time each day in the morning 90 tablet 1 5 Active furosemide (LASIX) 20 MG tablet furosemide 20 mg tablet 4 03/21/19 25 Discontinu ed(Alterna te therapy) NIFEdipine XL (PROCARDIA XL) 30 MG 24 hr tablet Take 30 mg by mouth 1 (one) time each day Do not crush, chew, or split. 03/21/19 25 Discontinu ed(Reorder (does not appear on AVS)) indapamide (LOZOL) 2.5 MG tablet Take 2.5 mg by mouth 1 (one) time each day in the morning 03/21/19 25 Discontinu ed(Reorder (does not appear on AVS)) Encounters Date Type Department Care Team Description 03/28/2024 Documentation Only [facility], [address] [phone] Arun Li DO 03/27/2024 Documentation Only [facility], [address] [phone] Arun Li, DO 03/24/2024 Documentation Only [facility], [address] [phone] Arun Li, DO 03/24/2024 Documentation Only [facility], [address] [phone] Arun Li, DO 03/24/2024 Documentation Only [facility], [address] [phone] Arun Li, DO 03/22/2024 Documentation Only [facility], [address] [phone] Arun Li, DO 03/21/2024 3:15 PM [employer]ET [employer] Office Visit [facility], [facility] [address] [facility] [address] [place] [phone] Arun Li, DO Stage 3 chronic kidney disease, not otherwise specified (HCC) (Primary Dx); Persistent proteinuria; Coronary artery disease due to calcified coronary lesion; Peripheral vascular disease (HCC); Venous insufficiency; Obstructive sleep apnea syndrome; Hypertensive chronic kidney disease; Pure hypercholesterolemi a, not otherwise specified; Major depressive disorder, single episode, severe without psychotic features, not otherwise specified (HCC); Interstitial nephritis 03/21/2024 Refill [facility], [facility] [address] [facility] [address] [place] [address] Carmelina Roblero, HUGH 03/21/2024 Documentation Only [facility], [address] [phone] Arun Li, DO 03/20/2024 Documentation Only [facility], [address] [phone] Arun Li, DO 03/17/2024 Documentation Only [facility], [address] [place] [phone] Arun Li DO 03/16/2024 Documentation Only [address] [place] [phone] Arun Li DO from Last 3 Months Social History Tobacco Use Types Packs/Day Years Used Date Smoking Tobacco: Never Assessed Comments Unknown Sex and Gender Information Value Date Recorded Sex Assigned at Not on file Legal Sex Female 11:04 AM EDT Gender Identity Not on file Sexual Orientation Not on file Last Filed Vital Signs Vital Sign Reading Time Taken Comments Blood Pressure 118/64 03/21/2024 2:56 PM [employer] Pulse 72 03/21/2024 2:56 PM ASSET [employer]ER Temperature 36.1 ??C (97 ??F) 12/21/2023 1:47 PM CDT Respiratory Rate 18 03/21/2024 2:56 PM [employer]ET [employer] Oxygen Saturation 97% 03/21/2024 2:56 PM ASSET [employer]ER Inhaled Oxygen Concentration - - Weight 93.4 kg (205 lb 14.4 oz) 03/21/2024 2:56 PM ASSET [employer]OTE[employer]ER Height - - Body Mass Index - - Plan of Treatment Upcoming Encounters Date Type Department Care Team (Late st Contact Info) Description 04/25/2024 4:00 PM ASSET [employer]CTION GRE[employer]ER Office Visit [facility] [address] [phone] Arun Li DO [address] [place], [place] [address] [address] Health Maintenance Due Date Last Done Comments Breast Cancer Screening 1960 Colorectal Cancer Screening: Annual FOBT 2010 Colorectal Cancer Screening: Colonoscopy 2010 Colorectal Cancer Screening: Sigmoidoscopy 2010 Pneumococcal Vaccine: Pediatrics (0 to 5 Years) and At-Risk Patients (6 to 64 Years) (3 of 3 - PPSV23 or PCV20) 10/02/2026 10/02/2021, 06/01/2017 Influenza Vaccine Completed 02/02/2024, , 01/06/2022, Additional history exists Hepatitis B Vaccine Aged Out No longe r eligible based on patient's age to complete this topic Insurance [facility] [place] [address] Care Teams Donor Services Specialist Relationship Specialty Start Date End Date Stew Arambula [address] [place] [phone] PCP - General 09/20/23
[2024-04-04 13:51] LABS: Hematocrit 44.1 % (37.0-47.0); Hemoglobin 14.7 g/dL (12.0-15.0); Mean Corpuscular HGB Conc 33.3 g/dl (32-36); Mean Corpuscular Hemoglobin 30.9 pg (26-34); Mean Corpuscular Volume 92.8 fl (80-100); Mean Platelet Volume 11.5 fl (7.4-10.4); Platelet Count Result 192 k/mm3 (150-375); Red Blood Count 4.75 M/mm3 (4.2-5.4); Red Cell Distribution Width 12.3 % (11.5-14.5); White Blood Count 7.7 K/mm3 (4.5-10.0)
[2024-04-04 14:00] LABS: Alanine Aminotransferase 25 U/L (6-35); Albumin Level 4.4 g/dL (3.5-5.1); Alkaline Phosphatase 88 U/L (38-126); Anion Gap 15 mmol/L (4-12); Aspartate Amino Transferase 30 U/L (14-36); Bilirubin,Total 0.9 mg/dL (0.2-1.3); Blood Urea Nitrogen 26 mg/dL (7-17); Calcium 9.3 mg/dL (8.4-10.2); Carbon Dioxide 23 mmol/L (22-30); Chloride 95 mmol/L (98-107); Estimated Glomerular Filt Rate 54; Glucose 102 mg/dL (65-110); Magnesium 1.9 mg/dL (1.6-2.3); Potassium 3.3 mmol/L (3.4-5.0); Sodium 133 mmol/L (137-145)
[2024-04-04 14:57] LABS: Vitamin D 25 Hydroxy 62.2 ng/mL
[2024-04-06 03:04] LABS: Protein, Total 7.1 g/dL (6.1-8.1)
[2024-04-06 12:29] LABS: Cystatin C 1.57 mg/L (0.52-1.14); eGFR 39 (> OR = 60)
[2024-04-06 15:34] LABS: Kappa\\Lambda Light Chains 1.31 (0.26-1.65); Lambda Light Chain 26.2 mg/L (5.7-26.3)
[2024-04-06 20:18] LABS: Albumin 4.3 g/dL (3.8-4.8); Alpha 1 Globulin 0.3 g/dL (0.2-0.3); Alpha 2 Globulin 0.7 g/dL (0.5-0.9); Beta 1 Globulin 0.5 g/dL (0.4-0.6)
== END 2024-04-04 12:59 | disposition home or self-care (01) ==
PROVIDERS: PCP Family Medicine; Visit Provider Internal Medicine Nephrology
DX: I12.9 Hypertensive chronic kidney disease with stage 1 through stage 4 chronic kidney disease, or unspecified chronic kidney disease (principal); N18.30 Chronic kidney disease, stage 3 unspecified; R80.1 Persistent proteinuria, unspecified; I25.84 Coronary atherosclerosis due to calcified coronary lesion; I73.9 Peripheral vascular disease, unspecified; I87.2 Venous insufficiency (chronic) (peripheral); E78.00 Pure hypercholesterolemia, unspecified; G47.33 Obstructive sleep apnea (adult) (pediatric); F32.2 Major depressive disorder, single episode, severe without psychotic features
CPT/HCPCS: 36415; 80053; 82306; 82610; 83735; 83883; 84155; 84165; 85027

== ENCOUNTER 2024-04-05 16:27 | Outpatient (CLI) | payer MEDICARE, SELFPAY ==
--- OUTSIDE RECORDS SUMMARY | 2024-04-05 16:50 | XMS_ITS | Data Portability ---
Author Organization [place] [facility] [place] [facility], Main Office Address [address] [place] [address] Care Team Providers Care Panel Coverer Name Role Phone ANDREAS LEHMAN Primary Care Provider ANDREAS LEHMAN Referring Provider YI REED Tray Line Worker Assessment Encounter Date Assessment Date Assessment LastModified by Organization Details LastModified Time 02/16/2024 02/16/2024 Time spent with patient included: preparing to see patient by reviewing tests, obtaining and reviewing history, medical examination and evaluation, counseling and educating the patient, ordering medications and tests, documenting clinical information in EHR, independently interpreting results and communicating results to the patient for a total of 58 minutes. Not available 02/16/2024 14:51:22 03/27/2024 03/27/2024 Time spent with patient included: preparing to see patient by reviewing tests, obtaining and reviewing history, medical examination and evaluation, counseling and educating the patient, ordering medications and tests, documenting clinical information in EHR, independently interpreting results and communicating results to the patient for a total of 45 minutes. Not available 03/27/2024 12:19:29 Plan of Treatment Reminders Order Date Submit Date Provider Last Modified By Organization Details Last Modified Time Details Appointments Any 15 2024 10:00A M Gina Cortes NP Not available Not available Not available Any 15 2024 10:00A M Gina Cortes NP Not available Not available Not available Lab HbA1c (hemoglob in A1c), blood 2023 024 [email or web address] [id number] Not available 08/17/2023 08:02:44 BMP, serum or plasma 2023 024 NORMA Not available 08/04/2023 11:57:11 vitamin D, 25-hydrox y, total, serum 2023 024 NORMA Not available 08/04/2023 16:56:02 CBC w/ auto diff 2023 NORMA Not available 08/04/2023 11:40:59 drug of abuse panel, urine 2023 [facility] ([facility] [address] [place], [address], 10/19/2023 20:01:07 lipid panel, serum 2023 024 [facility], [address], [place], [address], 04/04/2024 08:24:40 CBC w/ auto diff 2023 024 [facility], [address], [place], [address], 03/14/2024 12:41:55 CMP, serum or plasma 2023 024 [facility], [address], [place], [address], 04/04/2024 08:24:40 TSH, serum or plasma 2023 024 [facility], [address], [place], [address], 04/04/2024 08:24:41 HbA1c (hemoglob in A1c), blood 2023 024 [facility], [address], [place], [address], 03/14/2024 12:41:55 vitamin D, 25-hydrox y, total, serum 2023 024 [facility], [address], [place], [address], 03/14/2024 12:41:54 vitamin B12 + folate, serum or blood [address] [facility], [address] [facility] [facility], [place], [address], 04/04/2024 08:24:40 hepatitis C virus Ab, serum 2023 [facility]24 [facility], [address] [facility], [place], [address], 04/04/2024 08:24:41 alpha-1-a ntitrypsi n (aat) phenotype , serum [address] [facility], [address] [facility], [place], [address], 03/24/2024 12:12:05 BNP (B-type natriuret ic peptide), serum or plasma 2023 024 [email or web address] [facility], [address] [facility] [facility], [place], [address], 03/06/2024 10:04:03 ige, total, serum 2023 024 [email or web address] 2 [facility], [address] [facility] [facility], [place], [address], 03/06/2024 10:04:19 tb (M tuberculo sis), ifn-gamma horace, blood [address] [facility], [address] [facility], [place], [address], 03/27/2024 08:58:29 igg subclasse s 1+2+3+4, serum 2023 024 [email or web address] 2 [facility], [address] [facility] [facility], [place], [address], 03/06/2024 10:05:52 respirato ry allergen panel, [facility] A, serum 2023 024 [email or web address] 2 [facility], [address], [place], [address], 03/06/2024 10:06:06 respirato ry allergen panel - [facility] b 2023 024 [email or web address] 2 [facility], [address], [place], [address], 03/06/2024 10:06:17 Referral pulmonolo gist referral - Please call patient to schedule. 2023 024 [email or web address] Gina Cortes [facility], [address] [facility], [address], [place], [address], 02/11/2024 15:48:46 pulmonary rehab referral - Please call patient to schedule. 2024 025 [facility] (Outpatient Rehab), [facility] [place], [address], 03/28/2024 19:10:33 overnight pulse oximetry referral - Please call patient to arrange. 2024 025 [facility], [address] [place] [address], [address], 03/28/2024 19:05:18 Procedures None recorded. Surgeries None recorded. Imaging MAMMO, screening , digital, bilateral - Please call patient to schedule. 2023 024 [email or web address] [facility], [address], [place], [address], 03/06/2024 16:00:41 XR, chest, 2 view 2023 024 [facility], [address], [address], [place], [address], 03/27/2024 16:55:11 LDCT, chest, for lung cancer screening 2024 025 [facility], [address], [address] [address], [place], [address], 03/27/2024 13:06:47 Medication Orders furosemid e 20 mg tablet 2023 024 [id number] 22 [facility] #[id number], [address], [place], [address], 03/21/2024 17:01:49 Symbicort 80 mcg-4.5 mcg/actua tion HFA aerosol inhaler 2023 024 [facility] #[id number], [address], [place], [address], 03/27/2024 10:50:34 prednison e 20 mg tablet 2023 024 [email or web address] #[id number], [address], [place], [address], 01/26/2024 17:06:50 doxycycli ne hyclate 100 mg tablet 2023 024 [facility]acy #[id number], [address], [place], [address], 01/26/2024 17:16:35 gabapenti n 800 mg tablet 2023 024 [facility]acy #[id number], [address], [place], [address], 02/02/2024 17:20:08 phentermi ne 37.5 mg tablet 2023 024 [facility] #[id number], [address], [place], [address], 02/02/2024 17:22:01 gabapenti n 800 mg tablet 2023 024 NORMA [facility]armacy #[id number], [address], [place], [address], 02/02/2024 17:33:19 albuterol sulfate HFA 90 mcg/actua tion aerosol inhaler 2023 024 [id number], [address], [place], [address], 02/02/2024 17:33:18 Symbicort 80 mcg-4.5 mcg/actua tion HFA aerosol inhaler 2023 024 [id number], [address], [place], [address], 03/27/2024 10:50:34 cholecalc iferol (vitamin D3) 50 mcg (2,000 unit) capsule 2023 024 [id number], [address], [place], [address], 02/02/2024 17:33:18 Trelegy Ellipta 200 mcg-62.5 mcg-25 mcg powder for inhalatio n 2023 024 [id number] [address] [place], [address], 02/16/2024 14:34:52 Augmentin 875 mg-125 mg tablet 2023 024 [email or web address] [id number], [address], [place], [address], 03/27/2024 10:24:33 prednison e 20 mg tablet 2023 024 [id number] [address] [place], [address], 02/16/2024 14:34:52 Trelegy Ellipta 200 mcg-62.5 mcg-25 mcg powder for inhalatio n 2024 025 NORMA [facility][id number], [address], [place], [address], 03/27/2024 10:59:39 Patient TargetsNo targets recorded. Patient Instructions Encounter Date Encounter Id Patient Instructions Last Modified By Organization Details Last Modified Time 02/02/2024 [id number] dementia rating scale-2* Not available 02/02/2024 17:33:13 multi-dimensiona l health assessment questionnaire* Not available 02/02/2024 17:33:13 care plan* NORMA Not available 02/03 12:56:35 advance directiv es: care instructions Not available 02/02/2024 17:33:13 advance care planning: care instructions Not available 02/02/2024 17:33:13 [place] Advance Directives Not available 02/02/2024 17:33:14 Follow up in 6 months Obtain labs Tests: Complete mammogram Referral: Gina CortesFmkid-fasedjznh-BRR D Recommend: Shingles vaccine Personalized Health Plan and Screening Recommendations Advance Directives - Do you have one? You have indicated that you are capable of preparing your advance care directive Advance Directives - Do we have your advance directive on file in your health record? Primary Prevention/Interven tion (prevents or decreases the chance of common diseases from occurring) Smoking Risk: Non Smoker Alcohol Misuse Screening: Negative Weight: Appropriate Overwei ght continue your current weight loss efforts try to lose 5% of your body weight try to lose 10% of your body weight try to lose 15% of your body weight Physical activity: minimum of 10-20 minutes of activity that causes mild breathlessness/day minimum of 20-30 minutes activity that causes mild breathlessness/day Nutrition: Good Average Refer to attached handout Heart-Healthy Diet: After Your Visit Refer to attached handout DASH Diet: After Your Visit Fall Risk (screened today): Low Intermediate Refer to attached handout Preventing Falls: After your Visit Vaccines Pneumococcal: Ordered Recommended today Recommended today, but you have declined No further needed Influenza: Ordered Chronic Disease Risks Stroke: Low Risk Intermediate Risk I have no recommendations Heart Attack: Low risk I have no recommendations Clogging of the Arteries: Low risk Intermediate Risk I have no recommendations Diabetes: Low Risk Intermediate Risk I have no recommendations Secondary Prevention/Interven tion (detects treatable diseases before they may cause symptoms, disability, or ) Breast Cancer Screening with mammogram: Your next mammogram: Ordered Cervical/Uterine/Ov serge Cancer Screening: Osteoporosis Screening: Date Screening Last Performed: Colon Cancer Screening: Colonoscopy Fecal Occult Blood Cologuard (DNA stool test) Date Screening Last Performed: __10/2021___ Eye Disease Screening: Dementia Risk: Low Intermediate I have no recommendations Depression Screening: Negative Positive Not available 02/02/2024 17:33:04 02/16/2024 [id number] six minute walk test* NORMA Not available 03/27/2024 13:55:34 complete PFT w/ post bronchodilator spirometry* - Please call patient to schedule. 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 Referring Physician: Nicole Gimenez, Internal Medicine, Encounter Date: 02/02/2024 Pulmonary Rehab Referral for Moderate chronic obstructive pulmonary disease Please call patient to schedule. Referring Physician: Gina Cortes, Pulmonary Disease, Encounter Date: 03/27/2024 Overnight Pulse Oximetry Ref erral for Oxygen saturation below reference range Please call patient to arrange. Referring Physician: Gina Cortes, Pulmonary Disease, Encounter Date: 03/27/2024 Results Created Date Observation Date Name Description Value Unit Range Abnormal Flag Note LastModifiedBy Organization Detail LastModifiedTime 08/04/19 24 08/04/2023 CBC/C OMPLE TE BLD COUNT W/DIF F white blood cells 16.3 x10'3 /uL 4.2-10 .8 high Not Available [facility] (Lab) [address] [place], [address], 08/04/2023 13:15:16 08/04/19 24 08/04/2023 CBC/C OMPLE TE BLD COUNT W/DIF F red blood cells 4.70 x10'6 /uL 3.80-5 .20 Not Available [facility] (Lab) [address] [place], [address], 08/04/2023 13:15:16 08/04/19 24 08/04/2023 CBC/C OMPLE TE BLD COUNT W/DIF F hemoglobin 15.0 g/dL 12.0-1 5.6 Not Available [facility] (Lab) [address] [place], [address], 08/04/2023 13:15:16 08/04/19 24 08/04/2023 CBC/C OMPLE TE BLD COUNT W/DIF F hematocrit 46.5 % 35.7-4 5.7 high Not Available [facility] (Lab) [address] [place], [address], 08/04/2023 13:15:16 08/04/19 24 08/04/2023 CBC/C OMPLE TE BLD COUNT W/DIF F mean red cell volume 98.9 fL 82.0-9 9.0 Not Available [facility] (Lab) [address] [place], [address], 08/04/2023 13:15:16 08/04/19 24 08/04/2023 CBC/C OMPLE TE BLD COUNT W/DIF F mean red cell hemoglobin 31.9 pg 27.0-3 3.0 Not Available [facility] (Lab) [address] [place], [address], 08/04/2023 13:15:16 08/04/19 24 08/04/2023 CBC/C OMPLE TE BLD COUNT W/DIF F mean RBC HGB concentratio n 32.3 g/dL 31.0-3 6.0 Not Available [facility] (Lab) [address] [place], [address], 08/04/2023 13:15:16 08/04/19 24 08/04/2023 CBC/C OMPLE TE BLD COUNT W/DIF F red cell distribution width 12.4 % 11.8-1 5.5 Not Available [facility] (Lab) [address] [place], [address], 08/04/2023 13:15:16 08/04/19 24 08/04/2023 CBC/C OMPLE TE BLD COUNT W/DIF F platelets 215 x10'3 /uL 150-40 0 Not Available [facility] (Lab) [address] [place], [address], 08/04/2023 13:15:16 08/04/19 24 08/04/2023 CBC/C OMPLE TE BLD COUNT W/DIF F mean platelet volume 10.9 fL 9.0-12 .4 Not Available [facility] (Lab) [address] [place], [address], 08/04/2023 13:15:16 08/04/19 24 08/04/2023 CBC/C OMPLE TE BLD COUNT W/DIF F neutrophils 80 % 39.0-7 2.0 high Not Available [facility] (Lab) [address] [place], [address], 08/04/2023 13:15:16 08/04/19 24 08/04/2023 CBC/C OMPLE TE BLD COUNT W/DIF F lymphocytes 13 % 16.0-4 7.0 low Not Available [facility] (Lab) [address] [place], [address], 08/04/2023 13:15:16 08/04/19 24 08/04/2023 CBC/C OMPLE TE BLD COUNT W/DIF F monocytes 4 % 5.0-12 .0 low Not Available [facility] (Lab) [address] [place], [address], 08/04/2023 13:15:16 08/04/19 24 08/04/2023 CBC/C OMPLE TE BLD COUNT W/DIF F eosinophils 3 % 1.0-7. 0 Not Available [facility] (Lab) [address] [place], [address], 08/04/2023 13:15:16 08/04/19 24 08/04/2023 CBC/C OMPLE TE BLD COUNT W/DIF F neutrophils, absolute count 12.09 x10'3 /uL 1.5-8. 0 high Not Available [facility] (Lab) [address] [place], [address], 08/04/2023 13:15:16 08/04/19 24 08/04/2023 CBC/C OMPLE TE BLD COUNT W/DIF F lymphocytes, absolute count 2.00 x10'3 /uL 1.07-3 .43 Not Available [facility] (Lab) [address] [place], [address], 08/04/2023 13:15:16 08/04/19 24 08/04/2023 BASIC METAB OLIC PANEL sodium 137 mmol/ L 137-14 5 Not Available [facility] (Lab) [address] [place], [address], 08/04/2023 11:57:11 08/04/19 24 08/04/2023 BASIC METAB OLIC PANEL potassium 4.0 mmol/ L 3.5-5. 1 Not Available [facility] (Lab) [address] [place], [address], 08/04/2023 11:57:11 08/04/19 24 08/04/2023 BASIC METAB OLIC PANEL chloride 102 mmol/ L 98-107 Not Available [facility] (Lab) [address] [place], [address], 08/04/2023 11:57:11 08/04/19 24 08/04/2023 BASIC METAB OLIC PANEL carbon dioxide 28 mmol/ L 22-30 Not Available [facility] (Lab) [address] [place], [address], 08/04/2023 11:57:11 08/04/19 24 08/04/2023 BASIC METAB OLIC PANEL anion gap 11.0 mmol/ L 14-22 low Not Available [facility] (Lab) [address] [place], [address], 08/04/2023 11:57:11 08/04/19 24 08/04/2023 BASIC METAB OLIC PANEL glucose 116 mg/dL 70-99 high Not Available [facility] (Lab) [address] [place], [address], 08/04/2023 11:57:11 08/04/19 24 08/04/2023 BASIC METAB OLIC PANEL BUN 18 mg/dL 8-19 Not Available [facility] (Lab) [address] [place], [address], 08/04/2023 11:57:11 08/04/19 24 08/04/2023 BASIC METAB OLIC PANEL creatinine 1.40 mg/dL 0.66-1 .25 high Not Available [facility] (Lab) [address] [place], [address], 08/04/2023 11:57:11 08/04/19 24 08/04/2023 BASIC METAB OLIC PANEL GFR 38 Refer ence Range : [place] ge GFR Healt hy Adult : >60 mL/mi n/1.7 3 m2 Chron ic Kidne y Disea se: 15-60 mL/mi n/1.7 3 m2 Kidne y Failu re: <15/m L/min /1.73 m2 www.n iddk. nih.g ov The MDRD study equat ion has not been valid ated in child julio c <18 years of age; pregn ant women ; the elder ly >85 years of age; or in some racia l or ethni c subgr oups, such as Hispa nics. Outsi de the valid ated maddison eters , estim ated GFR is less accur ate, requi ring clini mechelle judgm ent on a case- by-ca se basis . Clini mechelle inter preta tion for other races and ages must be made by the clini joao. The MDRD study equat ion has not been valid ated for the evalu ation of serum creat inine relat ed to nutri awa l statu s or medic ation usage . For perso ns <18 years of age, a pedia tric GFR calcu lator is avail able on the [facility] websi te: https ://ww w.kid milady.o rg/pr ofess ional s/kdo qi/gf r_cal culat or Not Available [facility] (Lab) [address] [place], [address], 08/04/2023 11:57:11 08/04/19 24 08/04/2023 BASIC METAB OLIC PANEL calcium 9.5 mg/dL 8.4-10 .2 Not Available [facility] (Lab) [address] [place], [address], 08/04/2023 11:57:11 08/04/19 24 08/04/2023 HEMOG LOBIN A1C HA1C 5.7 % 4.0-6. 0 Diabe barrett Scree migel Crite barb: <5.7% Consi stent with absen ce of diabe barrett 5.7-6 .4% Consi stent with incre ased risk for diabe barrett (pred iabet es) >OR=6 .5% Consi stent with diabe barrett REFER ENCE: Diabe barrett Care 2016, 39(Izaguirre ppl.1 ):s13 -s22 Not Available [facility] (Lab) [address] [place], [address], 08/04/2023 14:56:00 08/04/19 24 08/04/2023 VITAM IN D 25-HY DROXY vd25oh 29.4 NG/mL 30-100 low Vitam in D Statu s: Defic ient: <20 ng/mL Insuf ficie nt: 20-29 ng/mL Suffi cient : 30-10 0 ng/mL Not Available [facility] (Lab) [address] [place], [address], 08/04/2023 16:53:21 07/04/19 24 07/04/2023 XR, chest No observ ation record ed. [email or web address] [facility] [address] [place], [address], 07/24/2023 11:55:54 10/21/19 24 10/21/2023 XR, shoul luis No observ ation record ed. [address] [address], [place], [address], 11/04/2023 08:55:12 10/21/19 24 10/21/2023 XR, shoul luis No observ ation record ed. [address] [address], [place], [address], 11/04/2023 08:54:55 10/21/19 24 10/21/2023 XR, cervi mechelle spine , 2 or 3 view No observ ation record ed. [address] [address], [place], [address], 11/04/2023 08:55:56 03/08/19 25 03/07/2024 imagi ng/di agnos tic resul t No observ ation record ed. [address], [place], [address], 03/08/2024 23:51:13 03/15/19 25 03/15/2024 XR, chest , 2 view No observ ation record ed. [facility] [address], [place], [address], 03/27/2024 16:55:12 03/15/19 25 03/15/2024 MAMMO , scree migel, digit al, bilat eral No observ ation record ed. [facility] [address], [place], [address], 03/20/2024 14:31:44 03/20/1903/07/2024 compl ete PFT w/ post [facility] hodil ator bee metry * No observ ation record ed. [email or web address] (Pulmonary) [address] [facility] [address], [place], [address], 03/27/2024 17:00:52 03/24/1903/07/2024 compl ete PFT w/ post [facility] hodil ator bee metry * No observ ation record ed. [facility] (Pulmonary) [address] [facility] [address], [place], [address], 03/24/2024 12:12:05 03/27/1903/27/2024 six minut e walk test* No observ ation record ed. [facility] ([facility] Scheduling) [address] [place], [address], 03/27/2024 13:55:34 Result Notes Documentation Provider Name and Address Organization Details Recorded Time Tb (m Tuberculosis), Ifn-gamma Horace, Blood : TB neg, RAST neg Gina Cortes, TRANSFORMATION COACH [address] [facility], [facility] [address], [place], [address], [employer] 03/27/2024 10:10:36 Problems Name Problem SNOMED Code Status Onset Date Resolution Date Notes Provider Name and Address Organization Details Recorded Time White blood cell abnormali ty 986268175 Active Not Available [employer] 4 11:23:59 Chronic obstructi ve pulmonary disease 45461822 Active Nicole Gimenez APRN [address] [facility], [address], [place], [address] , [employer] 4 17:10:00 Insomnia 407536220 Active Nicole Gimenez APRN [address] [facility], [address], [place], [address] , [employer] 4 17:10:49 Myocardia l infarctio n 81392237 Active 07/2015 Nicole Gimenez APRN [address], [place], [address] , [employer] [facility] 4 17:11:11 Degenerat ion of lumbar intervert ebral disc 98010534 Active Nicole Gimenez APRN [address], [address] [facility], [place], [address] , [employer] 4 17:10:20 Raynaud's phenomeno n 340610481 Active Nicole Gimenez APRN [address], [address], [place], [address] , [employer] 4 17:10:58 Angular cheilitis 030378178 Active 2019 Nicole Gimenez APRN [address], [address] [address], [place], [address] , [employer] 4 17:09:55 Shoulder joint pain 146791092 Active Not Available [employer] 4 11:23:59 Syncope 676362358 Active Nicole Gimenez APRN [address], [place], [address] , [employer] 4 17:10:55 Knee pain Active Not Available [facility] 4 11:23:59 Vitamin D deficienc y 85258191 Active Nicole Gimenez APRN [address], [address], [place], [address] , [employer] 4 17:10:51 Depressiv e disorder 89131532 Active Nicole Gimenez APRN [address], [place], [address] , [employer] 4 17:10:24 Malignant neoplasm of uterus 991710188 Active around age 28 Not Available [facility] 4 11:23:59 Osteoarth ritis 017196087 Active Nicole Gimenez APRN [address], [place], [address] , [facility] [employer] [facility] [facility] 4 17:11:01 Obesity 767503512 Active Nicolezayra Gimenez APRN [address], [place], [address] , [facility] 4 17:11:05 Cough 29624497 Active Not Available [facility] 4 11:24:00 Hyperlipi demia 30500759 Active Nicole Gimenez APRN [address], [address], [place], [address] , [facility] [employer] [facility] 4 17:10:40 Essential hypertens ion 36102757 Active Nicole Gimenez APRN [address], [address], [place], [address] , [facility] [employer] [facility] 4 17:10:28 Degenerat ion of cervical intervert ebral disc 60140806 Active Nicole KELLY Gimenez [address], [place], [address] , [employer] [facility] [employer] [facility] 4 17:10:08 Snoring 11604308 Active Not Available [facility] 4 11:24:00 Degenerat ion of intervert ebral disc 44986133 Active lumbar and cervical spine Nicole Gimenez APRN [address], [place], [address] , [facility] 4 17:10:16 Obstructi ve sleep apnea syndrome 98276398 Active 2017 Nicole Gimenez APRN [address], [address], [place], [address] , [employer] [facility] [employer] [facility] 4 17:11:02 Fatigue 01533104 Active Nicole Gimenez APRN [address], [place], [address] , [facility] 4 17:10:32 Dental abscess 162104985 Active 2022 Not Available [facility] 4 11:23:59 Pain of right ankle joint [id number] 338733 Active 2022 Not Available [facility] 4 11:23:59 Pain of left ankle joint [id number] 824915 Active 2022 Not Available [facility] 4 11:23:59 Closed trimalleo lar fracture of left ankle [id number] Active 2022 Not Available [facility] 4 11:23:59 Edema of lower extremity 413794032 Active 2023 Andreas Lehman MD [address], [address], [place], [address] , [employer] 4 17:41:44 Hyperglyc emia 54785125 Active 2023 Nicole Gimenez APRN [address], [address], [place], [address] , [employer] 4 17:11:30 Coronary arteriosc lerosis 81760179 Active 2023 Nicole Gimenez APRN [address], [address], [place], [address] , [employer] 4 17:10:05 Glomerula r filtratio n rate below reference range 442126465 Active 2023 MIRIAM Joyce [address], [address], [place], [address] , [employer] 4 12:52:59 Closed fracture of left ankle [id number] 988098 Active Nicole Gimenez APRN [address], [address], [place], [address] , [employer] [facility] 4 17:06:20 Open fracture of lateral malleolus 3290275 Active Nicole Gimenez APRN [address], [place], [address] , [employer] 4 17:06:20 Acute exacerbat ion of chronic obstructi ve pulmonary disease 247249054 Active Nicole Gimenez APRN [address], [address], [place], [address] , [employer] [facility] [employer] 4 17:07:30 Stented coronary artery 941339500 Active 2023 Nicole Gimenez APRN [address], [address], [place], [address] , [employer] [facility] [employer] [facility] 4 17:29:53 Disorder of limb 859241430 Active 2023 Nicole Gimenez APRN [address], [address], [place], [address] , [employer] [facility] [employer] 4 17:30:55 Moderate chronic obstructi ve pulmonary disease 642622465 Active 2023 Gina Cortes NP [address], [address], [place], [address] , [employer] [facility] 4 14:15:28 Dyspnea on exertion 31936948 Active 2023 Gina Cortes NP [address], [address], [place], [address] , [employer] [facility] [employer] [facility] 4 14:26:40 Acute sinusitis 26831779 Active 2023 Gina Cortes NP [address], [place] [address], [place], [address] , [employer] [facility] [employer] [facility] 4 14:31:30 Oxygen saturatio n below reference range 396906946 Active 2024 Gina Cortes NP [address], [place], [address] , [employer] [facility] [employer] 5 11:44:38 Notes:Some problems listed i n Document: #[id number] could not be added to this patient's chart. Please review this document and add these problems to the patient's chart manually as needed. Problem Notes None recorded. Procedures Surgical History Date Name Laterality Status Provider Name and Address Organization Details Recorded Time 02/02/20 Medicare Wellness CPT Code, subsequent completed Nicole Gimenez, CHEMICAL WEIGHER [address], [facility] [address], [place], [address], [place] [facility] 01/26/2024 17:14:10 Knee Replacement completed Radha kendrick, [facility] [place] [facility] [place] [facility] 09/24/2022 15:33:23 Hysterectomy completed Radha Gallo, [facility] [place] [facility] 09/24/2022 15:33:41 Cardiac Cath completed Layla Gomez [facility] [place] [facility] 02/02/2024 17:02:43 Neck Surgeries completed Marie Albert [facility] 02/16/2024 14:05:44 Ankle Surgery completed Marie Albert [facility] 02/16/2024 14:05:53 Cardiac Stent Placement completed Marie Albert [facility] 02/16/2024 14:06:16 Stent completed Marie Albert [facility] 02/16/2024 14:06:28 Imaging Results Imaging Date Name Status LastModified by Organization Details LastModified Time 07/04/2023 XR, chest completed [address] [place], [address], 07/24/2023 11:55:54 10/21/2023 XR, shoulder completed [address], [address], 11/04/2023 08:55:12 10/21/2023 XR, shoulder completed [address], [address], 11/04/2023 08:54:55 10/21/2023 XR, cervical spine, 2 or 3 view completed [address], [address], 11/04/2023 08:55:56 03/07/2024 imaging/diagnostic result active [facility] [address] [facility] [address], [place], [address], 03/08/2024 23:51:13 03/15/2024 XR[facility], [facility] [address], [place], [address], 03/27/2024 16:55:12 03/15/2024 MAMMO, screening, digital, bilateral [facility] [address], [place], [address], 03/20/2024 14:31:44 03/07/2024 complete PFT w/ post bronchodilator spirometry* completed [address] (Pulmonary) [address] [address], [place], [address], 03/27/2024 17:00:52 03/07/2024 complete PFT w/ post bronchodilator spirometry* completed [facility] (Pulmonary) [address] [place] [address] [address], [place], [address], 03/24/2024 12:12:05 03/27/2024 six minute walk test* completed [facility] ([facility]) [address] [facility], [place], [address], 03/27/2024 13:55:34 Procedure Notes None recorded. Medical Equipment None Reported. Allergies Allergen ID Allergen Name Allergen Category Reaction Reaction Severity Criticality Documentation Date Start Date Code Code System Note Provider Name and Address Organization Details Recorded Time 51399 Substance with sulfonami de structure and antibacte rial mechanism of action (substanc e) medicatio n Not available Not available Not available 05/06/2022 [id number] SNOMED Other react ions and sever ities : 'Adve rse react ion to subst ance' . Nicole Gimenez APRN [address] [facility], [place], [address], [facility] [employer] 11/20/202 4 17:05:50 Medications Name Sig Start Date Stop Date Status Note LastModified by Organization Details LastModified Time losartan 50 mg tablet 100 mg by oral route. 09/02 completed Not Available Not Available Not Available nifedipine ER 30 mg tablet,ext ended release 24 hr TAKE 1 TABLET BY MOUTH EVERY DAY AT BEDTIME. DO NOT CRUSH, CHEW, OR SPLIT active Not Available Not Available No t Available cyclobenza delfino 10 mg tablet Take 10 mg by oral route. 02/01 completed Not Available Not Available Not Available cefazolin 1 gram solution for injection 1000 mg by injectio n route. 08/31 completed Not Available Not Available Not Available docusate sodium 50 mg/5 mL oral liquid 100 mg by oral route. 09/02 completed Not Available Not Available Not Available atorvastat in 40 mg tablet TAKE 1 TABLET BY MOUTH EVERY DAY 02/01 completed Not Available Not Available Not Available buspirone 5 mg tablet 10/02 completed Not Available Not Available Not Available cyanocobal harris (vit B-12) ER 1,000 mcg tablet,ext ended release TAKE 1 TABLET BY MOUTH DAILY 05/02 completed Not Available Not Available Not Available carvedilol 25 mg tablet TAKE 2 TABLETS BY MOUTH TWICE A DAY active Not Available Not Available No t Available acetaminop hen 325 mg tablet 650 mg by oral route. 09/01 completed Not Available Not Available Not Available prednisone 10 mg tablet TAKE 1 TAB BY MOUTH 3X A DAY X 3 DAYS,1 TAB 2 X A DAY X 2 DAYS, 1 TAB ONCE A DAY FOR 1 DAY 10/02 completed Not Available Not Available Not Available venlafaxin e ER 75 mg capsule,ex tended release 24 hr TAKE 1 CAPSULE BY MOUTH EVERY DAY 10/02 completed Not Available Not Available Not Available gabapentin 600 mg tablet 07/02 completed 1 po tid Not Available Not Available Not Available doxycyclin e hyclate 100 mg capsule 100 mg by oral route. 09/24 completed Not Available Not Available Not Available carvedilol 12.5 mg tablet 02/01 completed Not Available Not Available Not Available ipratropiu m 0.5 mg-albuter ol 3 mg (2.5 mg base)/3 mL nebulizati on soln 3 mL by inhalati on route. 07/03 completed Not Available Not Available Not Available clindamyci n HCl 300 mg capsule Take 1 capsule 3 times a day by oral route for 7 days. active Not Available Not Available No t Available albuterol sulfate 2.5 mg/3 mL (0.083 %) solution for nebulizati on USE 3 ML VIA NEBULIZE R FOUR TIMES DAILY NEEDED active [address] Not Available Not Available No t Available citalopram 40 mg tablet TK 1 T PO QD 07/29 completed Not Available Not Available Not Available trazodone 50 mg tablet TAKE 1 TABLET BY MOUTH EVERY DAY AT BEDTIME NEEDED FOR 30 DAYS 10/02 completed Not Available Not Available Not Available polyethyle ne glycol 3350 17 gram oral powder packet 17 g by oral route. 09/01 completed Not Available Not Available Not Available azithromyc in 250 mg tablet 2 tabs po qd x 1 day then 1 tab po qd x 4 days active Not Available Not Available No t Available indapamide 2.5 mg tablet TAKE 1 TABLET (2.5 MG TOTAL) BY MOUTH ONCE DAILY IN THE MORNING active Not Available Not Available No t Available alprazolam 1 mg tablet TAKE 1 TABLET BY MOUTH FOUR TIMES DAILY NEEDED 10/02 completed Not Available Not Available Not Available Senna Lax 8.6 mg tablet 17.2 mg by oral route. 09/01 completed Not Available Not Available Not Available naloxone 0.4 mg/mL injection solution 0.2 mg by injectio n route. 09/01 completed Not Available Not Available Not Available prednisone 20 mg tablet take 3 tabs po x 2 days, then 2 tabs po x 2 days then 1 tabs po x 2 days active Not Available Not Available No t Available isosorbide mononitrat e ER 30 mg tablet,ext ended release 24 hr TAKE 1 TABLET BY MOUTH EVERY DAY active Not Available Not Available No t Available metoprolol succinate ER 100 mg tablet,ext ended release 24 hr TAKE 1 TABLET BY MOUTH EVERY DAY 10/15 completed Not Available Not Available Not Available gabapentin 400 mg capsule Take 800 mg by oral route. 01/25 completed Not Available Not Available Not Available Milk of Jax 400 mg/5 mL oral suspension 2400 mg by oral route. 09/01 completed Not Available Not Available Not Available phentermin e 15 mg capsule TAKE 1 CAPSULE BY MOUTH DAILY 02/03 completed Not Available Not Available Not Available cyanocobal harris (vit B-12) 1,000 mcg tablet TAKE 1 TABLET BY MOUTH EVERY DAY active Not Available Not Available No t Available olanzapine 10 mg tablet Take 1 tablet every day by oral route. active [employer] Not Available Not Available No t Available amlodipine 2.5 mg tablet Take 1 tablet every day by oral route. active Not Available Not Available No t Available phentermin e 37.5 mg tablet TAKE 1 TABLET BY MOUTH EVERY DAY DIRECTED active Not Available Not Available No t Available clopidogre l 75 mg tablet TAKE 1 TABLET BY MOUTH EVERY DAY active Not Available Not Available No t Available morphine ER 30 mg tablet,ext ended release TAKE 1 TABLET BY MOUTH EVERY 12 HOURS 12/22 completed Not Available Not Available Not Available hydrocodon e 10 mg-acetami nophen 325 mg tablet Take 1 tablet every 4 hours by oral route. active Not Available Not Available No t Available aspirin 81 mg tablet,del ayed release Take 1 tablet every day by oral route. active Dr. Stroud Not Available Not Available Not Available Wellbutrin SR 100 mg tablet, 12 hr sustained- release Take 1 tablet every day by oral route. active [employer] Not Available Not Available No t Available vancomycin 1,000 mg intravenou s injection 1000 mg by intraven . route. 09/02 completed Not Available Not Available Not Available acetaminop hen 500 mg tablet 1000 mg by oral route. 09/02 completed Not Available Not Available Not Available Lipitor 20 mg tablet Take 20 mg by oral route. 02/01 completed Not Available Not Available Not Available oxycodone 15 mg tablet TAKE 1 TABLET BY MOUTH EVERY 8 HOURS NEEDED 12/22 completed Not Available Not Available Not Available prednisone 10 mg tablets in a dose pack Take 1 tab by mouth, 3 times a day for 3 daysTake 1 tab by mouth 2 times a day for 2 daysTake 1 tab by mouth once a day for 1 day 10/02 completed Not Available Not Available Not Available losartan 100 mg-hydroch lorothiazi de 25 mg tablet Take 1 tablet by oral route. active [employer] Not Available Not Available No t Available oxycodone- acetaminop hen 5 mg-325 mg tablet 1 tablet by oral route. 09/01 completed Not Available Not Available Not Available amoxicilli n 875 mg tablet Take 1 tablet every 12 hours by oral route for 7 days. active Not Available Not Available No t Available citalopram 20 mg tablet TAKE 1 TABLET BY MOUTH EVERY DAY active Not Available Not Available No t Available famotidine 20 mg tablet 20 mg by oral route. 09/01 completed Not Available Not Available Not Available diphenhydr amine 50 mg/mL injection solution 12.5 mg by injectio n route. 09/01 completed Not Available Not Available Not Available cyanocobal harris (vit B-12) 500 mcg tablet Take 1000 microgra ms by oral route. 02/01 completed Not Available Not Available Not Available Nitrostat 0.4 mg sublingual tablet 1 tab under tongue prn chest pain active Not Available Not Available No t Available nifedipine ER 60 mg tablet,ext ended release 24 hr TAKE 1 TABLET BY MOUTH EVERYDAY AT BEDTIME active Not Available Not Available No t Available oxycodone- acetaminop hen 10 mg-325 mg tablet Take 1 tablet every 6 hours by oral route. active Not Available Not Available No t Available gabapentin 800 mg tablet TAKE 1 TABLET BY MOUTH THREE TIMES A DAY active Not Available Not Available No t Available trazodone 100 mg tablet TAKE 1 TABLET BY MOUTH AT BEDTIME NEEDED FOR INSOMNIA active Serota Not Available Not Available No t Available Kenalog 10 mg/mL suspension for injection In office injectio n administ ered by the provider 10/02 completed [facility]: [id number] Not Available Not Available Not Available morphine ER 60 mg tablet,ext ended release Take 1 tablet every 12 hours by oral route for 14 days. active Not Available Not Available No t Available bisacodyl 10 mg rectal suppositor y 10 mg by rectal route. 09/02 completed Not Available Not Available Not Available diphenhydr amine 25 mg capsule 25 mg by oral route. 09/02 completed Not Available Not Available Not Available buspirone 30 mg tablet Take 30 mg by oral route. 02/01 completed Not Available Not Available Not Available triamcinol one acetonide 0.1 % topical ointment Apply 1 applicat ion(s) twice a day by topical route as needed for 4-6 weeks corners of mouth active Not Available Not Available No t Available nystatin 100,000 unit/gram topical cream AVA TO CORNER OF MOUTH BID PRN FOR 4 - 6 WEEKS 12/22 completed Not Available Not Available Not Available lidocaine 5 % topical patch Apply by topical route for 30 days. 02/01 completed Not Available Not Available Not Available metoprolol tartrate 50 mg tablet 50 mg by oral route. 09/01 completed Not Available Not Available Not Available fentanyl (PF) 50 mcg/mL injection solution 25 microgra ms by injectio n route. 09/01 completed Not Available Not Available Not Available aspirin 81 mg chewable tablet 81 mg by oral route. 09/02 completed Not Available Not Available Not Available morphine ER 15 mg tablet,ext ended release TK 1 T PO Q 12 H FOR 7 DAYS 12/22 completed Not Available Not Available Not Available cyanocobal harris (vit B-12) 1,[address] 1 tablet every day by sublingu al route. 04/05 completed Not Available Not Available Not Available hydrochlor othiazide 25 mg tablet 25 mg by oral route. 09/02 completed Not Available Not Available Not Available furosemide 20 mg tablet TAKE 1 TABLET BY MOUTH TWICE A DAY active [address] Not Available Not Available No t Available sodium chloride 0.9 % intravenou s solution 1000 mL by intraven . route. 07/03 completed Not Available Not Available Not Available ergocalcif sanjiv (vitamin D2) 1,250 mcg (50,000 unit) capsule TK 1 C PO Q WEEK 04/05 completed Not Available Not Available Not Available levofloxac in 500 mg tablet Take 1 tablet every 24 hours by oral route for 5 days. active Not Available Not Available No t Available Anusol-HC 25 mg rectal suppositor y Insert 1 supposit ory twice a day by rectal route for 14 days. 02/03 completed Not Available Not Available Not Available albuterol sulfate HFA 90 mcg/actuat ion aerosol inhaler INHALE 2 PUFFS BY MOUTH ONCE EVERY 4 HOURS dx j44.9 active Not Available Not Available No t Available losartan 100 mg tablet TAKE 1 TABLET BY MOUTH EVERY DAY active Not Available Not Available No t Available fluticason e propionate 50 mcg/actuat ion nasal spray,susp ension 2 sprays each nostril qday 04/05 completed Not Available Not Available Not Available doxycyclin e hyclate 100 mg tablet TAKE 1 TABLET BY MOUTH TWICE A DAY FOR 7 DAYS 01/25 completed Not Available Not Available Not Available phentermin e 37.5 mg capsule Take 1 capsule every day by oral route as directed . 2023 active [address] Not Available Not Available Not Avai lable ipratropiu m bromide 0.02 % solution for inhalation INHALE THE CONTENTS OF 1 VIAL VIA NEBULIZE R EVERY 6 HOURS NEEDED active [address] 15 Not Available Not Available No t Available diazepam 5 mg tablet Take 1 tablet every day by oral route at bedtime. active Not Available Not Available No t Available amoxicilli n 875 mg-potassi um clavulanat e 125 mg tablet Take 1 tablet every 12 hours by oral route for 10 days. 03/27 completed Not Available Not Available Not Available Topamax 100 mg tablet Take 1 tablet every day by oral route. active [employer] Not Available Not Available No t Available buspirone 15 mg tablet 30 mg by oral route. 09/02 completed Not Available Not Available Not Available oxycodone 5 mg tablet TAKE 1 TABLET BY MOUTH EVERY 8 HOURS NEEDED FOR PAIN active Not Available Not Available No t Available midazolam 1 mg/mL injection solution 5 mg by injectio n route. 08/31 completed Not Available Not Available Not Available escitalopr am 10 mg tablet 1 po qday with 20 mg tab 12/22 completed Not Available Not Available Not Available escitalopr am 20 mg tablet 1/2 tab daily 12/22 completed Not Available Not Available Not Available ezetimibe 10 mg tablet TAKE 1 TABLET BY MOUTH EVERY DAY active Not Available Not Available No t Available cyclobenza delfino 5 mg tablet TAKE 1 TABLET BY MOUTH THREE TIMES A DAY NEEDED 02/01 completed Not Available Not Available Not Available rosuvastat in 40 mg tablet TAKE 1 TABLET BY MOUTH EVERY DAY active Not Available Not Available No t Available bupropion HCl XL 300 mg 24 hr tablet, extended release TAKE 1 TABLET BY MOUTH EVERY DAY 07/06 completed Not Available Not Available Not Available bupropion HCl XL 150 mg 24 hr tablet, extended release 3 po qday active Not Available Not Available No t Available Therapeuti c Multivit/M ineral 27 mg-0.4 mg tablet 1 tablet by oral route. 09/02 completed Not Available Not Available Not Available topiramate 50 mg tablet TAKE 1 TABLET BY MOUTH TWICE A DAY FOR 30 DAYS 10/02 completed Not Available Not Available Not Available Mag-Al Plus 200 mg-200 mg-20 mg/5 mL oral suspension 30 mL by oral route. 09/02 completed Not Available Not Available Not Available duloxetine 60 mg capsule,de layed release Take 60 mg by oral route. 02/01 completed Not Available Not Available Not Available Boostrix Tdap 2.5 Lf unit-8 mcg-5 Lf/0.5 mL intramuscu lar syringe active Not Available Not Available Not Available pregabalin 75 mg capsule TAKE 1 CAPSULE BY MOUTH TWICE A DAY 05/21 completed Not Available Not Available Not Available Lyrica 50 mg capsule Take 1 capsule 3 times a day by oral route. 06/29 completed Not Available Not Available Not Available sodium chloride 0.9 % intravenou s piggyback 50 mL by intraven . route. 09/02 completed Not Available Not Available Not Available lidocaine (PF) 10 mg/mL (1 %) injection solution In office injectio n administ ered by the provider 10/02 completed [facility]: [phone] Not Available Not Available Not Available ondansetro n HCl (PF) 4 mg/2 mL injection solution 4 mg by injectio n route. 09/02 completed Not Available Not Available Not Available Symbicort 160 mcg-4.5 mcg/actuat ion HFA aerosol inhaler Inhale 1 puff twice a day by inhalati on route. 04/05 completed Not Available Not Available Not Available Symbicort 80 mcg-4.5 mcg/actuat ion HFA aerosol inhaler INHALE 2 PUFFS BY MOUTH bid 03/27 completed Not Available Not Available Not Available cholecalci ferol (vitamin D3) 1,250 mcg (50,000 unit) capsule TAKE 1 CAPSULE BY MOUTH ONCE WEEKLY 10/02 completed Not Available Not Available Not Available oxycodone 20 mg tablet TK 1 T PO Q 6 H PRN P 12/22 completed Not Available Not Available Not Available cholecalci ferol (vitamin D3) 50 mcg (2,000 unit) capsule Take 1 capsule every day by oral route. 2023 active Not Available Not Available Not Avai lable cholecalci ferol (vitamin D3) 50 mcg (2,000 unit) tablet TAKE 1 TABLET BY MOUTH EVERY DAY active Not Available Not Available No t Available Senexon-S 8.6 mg-50 mg tablet TAKE 1 TABLET BY MOUTH TWICE A DAY NEEDED FOR CONSTIPA TION 02/01 completed Not Available Not Available Not Available [employer]ios Aerosol Delivery System 04/05 completed Not Available Not Available Not Available Xarelto 10 mg tablet 2.5 mg by oral route. 09/01 completed Not Available Not Available Not Available Brilinta 90 mg tablet TK 1 T PO BID 02/03 completed Not Available Not Available Not Available Qsymia 3.75 mg-23 mg capsule, extended release TK 1 C PO QD 11/26 completed Not Available Not Available Not Available Vascepa 1 gram capsule TAKE 2 CAPSULES BY MOUTH TWICE A DAY active Not Available Not Available No t Available hydromorph one 0.5 mg/0.5 mL injection syringe 0.5 mg by injectio n route. 09/01 completed Not Available Not Available Not Available Farxiga 10 mg tablet Take 10 mg by oral route. active [facility] Not Available Not Available No t Available Spiriva Respimat 2.5 mcg/actuat ion solution for inhalation Inhale 2 puffs every day by inhalati on route. 12/22 completed Not Available Not Available Not Available Vitamin B12 10/02 completed Not Available Not Available Not Available ketamine 50 mg/5 mL (10 mg/mL) in sodium chlor,iso- osmotic inj syringe 50 mg by injectio n route. 08/31 completed Not Available Not Available Not Available Xarelto 2.5 mg tablet Take 2.5 mg by oral route. 02/01 completed Not Available Not Available Not Available vancomycin 1.25 gram/250 mL in diluent combinatio n IV piggyback 1250 mg by intraven . route. 09/01 completed Not Available Not Available Not Available Trelegy Ellipta 200 mcg-62.5 mcg-25 mcg powder for inhalation Inhale 1 puff every day by inhalati on route. 2024 active Not Available Not Available Not Avai lable Flowflex COVID-19 Antigen Home Test kit USE DIRECTED 10/15 completed Not Available Not Available Not Available Vitals Date Recorded Body height Body mass index (BMI) Body weight Body temperature Oxygen saturation Oxygen saturation in Arterial blood by Pulse oximetry Heart rate Systolic blood pressure Diastolic blood pressure Provider Name and Address Organization Details Last Updated DateTime 4 160.02 cm 37 kg/m2 87197.8 1 g 97.7 [degF] 95 % 95 % 86 /min 118 mm[Hg] 78 mm[Hg] SANJUANITA Garnica [facility] [employer] [facility] 4 17:27:11 Date Recorded Body height Body mass index (BMI) Body weight Body temperature Heart rate Oxygen saturation Oxygen saturation in Arterial blood by Pulse oximetry Systolic blood pressure Diastolic blood pressure Provider Name and Address Organization Details Last Updated DateTime 4 160.02 cm 36.1 kg/m2 48928.8 4 g 97.3 [degF] 81 /min 91 % 91 % 140 mm[Hg] 76 mm[Hg] Virginie Hyde RN [facility] [employer] [facility] 4 16:17:50 Date Recorded Body height Body mass index (BMI) Body weight Body temperature Heart rate Systolic blood pressure Diastolic blood pressure Provider Name and Address Organization Details Last Updated DateTime 4 160.02 cm 36.3 kg/m2 19433.4 4 g 97.2 [degF] 72 /min 126 mm[Hg] 80 mm[Hg] SERA [facility] [employer] [facility] 4 17:04:33 Date Recorded Body height Body temperature Heart rate Oxygen saturation Oxygen saturation in Arterial blood by Pulse oximetry Systolic blood pressure Diastolic blood pressure Provider Name and Address Organization Details Last Updated DateTime 4 160.02 cm 97.2 [degF] 62 /min 90 % 90 % 124 mm[Hg] 78 mm[Hg] Marie Albert MA [facility] [employer] [facility] 4 14:02:45 Date Recorded Body height Body mass index (BMI) Body weight Heart rate Oxygen saturation Oxygen saturation in Arterial blood by Pulse oximetry Body temperature Systolic blood pressure Diastolic blood pressure Provider Name and Address Organization Details Last Updated DateTime 5 160.02 cm 36.7 kg/m2 26688.6 2 g 70 /min 91 % 91 % 98.4 [degF] 124 mm[Hg] 72 mm[Hg] Shanique Bee MA [facility] [employer] [facility] 5 10:27:38 Social History Question Answer Notes LastModified by Organization Details LastModified Time Tobacco Smoking Status Former Smoker Not Available [facility] 05/06/2022 10:41:30 Do You Have An Advance Directive? No MIGRATION.[id number] [id number] Information not available 05/06/2022 What Is Your Level Of Alcohol Consumption? None MIGRATION.0301 [id number] Information not available 05/06/2022 What Is Your Level Of Caffeine Consumption? Occasional MIGRATION.0301 [id number] Information not available 05/06/2022 In The 14 Days Before Symptom Onset, Have You Had Close Contact With A Laboratory-confi rmed COVID-19 While That Case Was Ill? No Information not available 02/16/2024 In The 14 Days Before Symptom Onset, Have You Had Close Contact With A Person Who Is Under Investigation For COVID-19 While That Person Was Ill? No Information not available 02/16/2024 Are You Currently Employed? No Retired Information not available 02/16/2024 What Type Of Diet Are You Following? REGULAR MIGRATION.0301 [id number] Information not available 05/06/2022 What Is The Highest Grade Or Level Of School You Have Completed Or The Highest Degree You Have Received? [id number] Information not available 02/02/2024 Do You Have An Electrostatic Air Filter? No Information not available 02/16/2024 Have You Been Exposed To Chemicals Or Toxins? No Not That Aware Of Information not available 02/16/2024 Have There Been Any Changes To Your Family Or Social Situation? No MIGRATION.0301 [id number] Information not available 05/06/2022 What Is The Fluoride Status Of Your Home? Unknown MIGRATION.0301 [id number] Information not available 05/06/2022 When Did You Quit Smoking? 6-10yearssincelast cigarette MIGRATION.0301 [id number] Information not available 05/06/2022 Do You Have A Humidifier? No Information not available 02/16/2024 Do You Use Insect Repellent Routinely? Yes MIGRATION.0301 [id number] Information not available 05/06/2022 Where Do You Live? SingleLevelHouse MIGRATION.0301 [id number] Information not available 05/06/2022 Do You Have A Medical Power Of Bridal Gown Fitter? No Information not available 02/02/2024 Do You Have Moisture Problems In Your Home? No Information not available 02/16/2024 What Was The Date Of Your Most Recent Tobacco Screening? 03/27/2024 [email or web address] Information not available 03/27/2024 How Many Children Do You Have? 1 Information not available 02/16/2024 What Is Your Current Pack Years? 30ormorepackyears MIGRATION.0301 [id number] Information not available 05/06/2022 Do You Have Any Pets? Yes Information not available 02/16/2024 What Is Your Relationship Status? Information not available 02/02/2024 Do You Use Your Seat Belt Or Car Seat Routinely? Yes MIGRATION.0301 [id number] Information not available 05/06/2022 Do You Have Smoke And Carbon Monoxide Detectors In Your Home? Yes MIGRATION.0301 [id number] Information not available 05/06/2022 At What Age Did You Start Smoking Tobacco? 17 MIGRATION.0301 [id number] Information not available 05/06/2022 Are You Passively Exposed To Smoke? No MIGRATION.0301 858680 Information not available 05/06/2022 Are There Any Smokers In Your House? No MIGRATION.030 085897 Information not available 05/06/2022 Do You Feel Stressed (tense, Restless, Nervous, Or Anxious, Or Unable To Sleep At Night)? [id number] MIGRATION.030 039658 Information not available 05/06/2022 Do You Use Any Illicit Or Recreational Drugs? No MIGRATION.030 999583 Information not available 05/06/2022 Do You Use Sunscreen Routinely? Yes MIGRATION.[id number] Information not available 05/06/2022 Has Tobacco Cessation Counseling Been Provided? No MIGRATION.030 204618 Information not available 05/06/2022 How Many Years Have You Smoked Tobacco? 37 MIGRATION.[id number] Information not available 05/06/2022 Have You Recently Traveled Abroad? No Information not available 02/02/2024 Do You Have Any Dietary Restrictions? No MIGRATION.[id number] Information not available 05/06/2022 Do You Or Have You Ever Used Any Other Forms Of Tobacco Or Nicotine? No MIGRATION.030 598857 Information not available 05/06/2022 Sex: Female Functional Status Question Answer Note LastModified by Organizat ion Details LastModified Time What is your exercise level? Occasional [id number] Information not available 05/06/2022 Mental Status None recorded. Family History Relationship Description Onset Age of this Age Resolved Age Notes LastModified by Organization Details LastModified Time Mother Heart disease [email or web address] Not available 2022 15:32:53 Mother Hypertensive disorder [email or web address] Not available 2022 15:33:04 Medical History Condition Response HEART DISEASE/HEART PROBLEMS Y ARTHRITIS Y USE OF BLOOD THINNERS Y Gynecological History Statement/Question Response Date of Last Pap Date of Last Mammogram Date of Last Colonoscopy Most Recent Bone Density Obstetrics History GPAL:G 0 P 0 0 0 0 Immunizations Vaccine Type Date Status Note Provider Nam e and Address Organization Details Recorded Time COVID-19, mRNA, LNP-S, PF, 30 mcg/0.3 mL dose 1 completed Nicole Gimenez, CHEMICAL WEIGHER [address] [facility], [address], [place], [address], [facility] [employer] [facility] 01/26/2024 17:06:33 COVID-19, mRNA, LNP-S, PF, 30 mcg/0.3 mL dose 1 completed Nicole Gimenez APRN [address], [address], [place], [address], [facility] [employer] [facility] 01/26/2024 17:06:33 Tdap 8 completed Nicole Gimenez APRN [address], [address], [place], [address], [facility] [employer] [facility] 01/26/2024 17:06:33 Influenza, split virus, quadrivalent, PF 3 completed Virginie Hyde RN null, [facility] 01/27/2023 14:03:43 pneumococcal polysaccharide PPV23 2 completed Not Available [facility] 04/01/2023 11:24:00 Influenza, split virus, quadrivalent, PF 9 completed Not Available [facility] 04/01/2023 11:24:00 Influenza, split virus, quadrivalent, PF 8 completed Not Available [facility] 04/01/2023 11:24:00 Influenza, split virus, quadrivalent, PF 7 completed Not Available [facility] 04/01/2023 11:24:00 Tdap 8 completed Not Available [facility] 04/01/2023 11:24:00 Pneumococcal conjugate PCV 13 8 completed Not Available [facility] 04/01/2023 11:24:00 Influenza, split virus, quadrivalent, PF 2 completed Nicole Gimenez APRN [address], [address], [place], [address], [facility] [employer] [facility] 01/26/2024 17:06:33 Influenza, split virus, quadrivalent, preservative 6 completed Not Available [facility] 04/01/2023 11:24:00 Influenza, split virus, trivalent, PF 4 completed SERA Pope null, [facility] 02/02/2024 17:43:40 Past Encounters Encounter ID Performer Location Encounter Start Date Encounter Closed Date Diagnosis/Indication Diagnosis SNOMED-CT Code Diagnosis ICD10 Code Diagnosis Note [id number] [facility] [address] [facility] [address] [place] [address] 10/02/2021 00:00:00 10/03/2021 13:26:40 [id number] [facility] [address] [facility] [address] [place] [address] 11/04/2021 00:00:00 11/04/2021 22:36:43 [id number] [facility] [address] [facility] [address] [place] [address] 01/06/2022 00:00:00 02/04/2022 17:58:17 [id number] Andreas Lehman MD [facility] Primary Care [place] [address] [facility] [address] [place] [address] 05/21/2022 10:22:28 05/21/2022 10:59:50 Dietary management surveillance 323688899 Z71.3 doing welldown 19 poundscont inue phentermin e 37.5 mg po qday daily for 3 months then 4 week breakf/u in 4 months or sooner if needed Degenerati on of lumbar intervertebral disc 70673645 M51.36 d/c lyrica as it is not effectiver estart gabapentin 800 mg po tidcontinu e pain mgtm Dental abscess 885511666 K04.7 salt water garg[place]kee p dentures out when possiblese e dentist if no improvemen t in 2 weeks-her dentures may need to be refitted given her recent weight loss [id number] SHARI Silva [facility] [address] [address] 09/24/2022 14:43:44 09/24/2022 16:08:15 Pain of right ankle joint 8725910341 7492420 M25.571 [id number] Vincent Nicole MD [facility] [address] [address] 10/15/2022 14:49:01 10/15/2022 15:52:55 Closed trimalleolar fracture of left ankle 8024793097 0271958 S82.852D [id number] Andreas Lehman MD [facility] Primary Care [facility] [address] [facility] [address] [place] [address] 01/26/2023 09:46:08 01/26/2023 10:20:03 Chronic obstructive pulmonary disease 49893404 J44.9 overnight pulse oximetry orderedif normal, consider formal 6 minute walkcontin ue symbicortr ecent CXR normal Administra tion of influenza vaccine 78580916 Z23 [id number] Andreas Lehman MD [facility] Care [facility] [address] [facility] [address] [place] [address] 06/14/2023 12:35:15 06/14/2023 13:12:18 Coronary arteriosclerosis 31881207 I25.10 will have heart cath doneconsid er GLP-1 in future for cardiovasc ular effects [id number] Andreas Lehman MD [facility] [address] [facility] [address] [facility] [place] [address] 07/20/2023 17:19:37 07/20/2023 17:56:26 Chronic obstructive pulmonary disease 22710343 J44.9 overnight pulse oximetry orderedif normal, consider formal 6 minute walkcontin ue symbicortr ecent CXR normal 07/20/23: increase symbicort use to bidprednis one taperdoxyc ycline bid x 7 dayscall/r eturn if no improvemen t in 1-2 days or sooner if neededrevi ewed s/s that warrant urgent/ritu rgent eval in meantime Edema of l ower extremity 579218525 R60.0 check labs after starting furosemide Essential hypertension 43419586 I10 Vitamin D deficiency 347 82921 E55.9 Hyperglycemia 27993405 R 73.9 check a1c, consider ozempic for cardiovasc ular protection if elevated [id number] MIRIAM Joyce [facility] Primary Care [facility] [address] [facility] [address] [facility] [place] [address] 10/19/2023 16:13:56 10/19/2023 16:45:16 Dietary management surveillance 789579400 Z71.3 5lb weight loss since last visit refill phentermin e given Essential hypertension 57008241 I10 stable with medsbp 140/76, 81 no hernandez/cp, occ sob r/t COPDmeds per cardiology Degenerati on of lumbar intervertebral disc 59948364 M51.36 Long-term drug therapy 229950095 Z79.079 [id number] Nicole Gimenez APRN [facility] Primary Care [facility] [address] [facility] [address] [place] [address] 02/02/2024 16:48:10 02/02/2024 17:45:08 Hyperlipidemia 03855252 E78.5 Z79.899 Hyperglycemia 37347614 R 73.9 Vitamin D deficiency 347 27920 E55.9 Screening mammography 24 214980 Z12.31 Hepatitis C screening 41 5468850 Z11.59 Adult heal th examination 557694317 Z00.00 Screening for disorder 172206532 Z13.9 Degenerati on of lumbar intervertebral disc 92649630 M51.369 Administra tion of influenza vaccine 23407089 Z23 Chronic ob structive pulmonary disease 88689506 J44.9 [id number] Gina Cortes NP [facility] Pulmonolo gy [address] [place] [address] 02/16/2024 13:52:03 02/16/2024 14:41:13 Moderate chronic obstructive pulmonary disease 824181073 J44.9 CAT-33Prog ressively worsening of breathing- ADL's are affected will stop Symbicort and start Trelegy6 minute walk test and PFT orderCXR asapConsid er pulmonary rehab in futureAugm entin and prednisone due to lungs sounds and sinusitisC ontinue O2 at night Dyspnea on exertion 6084 5006 R06.09 Lab work todayPFT repeat due to worsening of s/sAware to use Albuterol inhaler as needed-ok to use when sobEncoura ge patient to remain activefoll ow-up in 3 months for trelegy and testing-so clarice for any changes in breathing and increase use of inhaler Acute sinusitis 80925000 J01.90 Augmentin and Prednisone as directed-s violeta effects reviewed-t yanet probiotic with it Obstructiv e sleep apnea syndrome 34021489 G47.33 continue home O2 at night-unab le to tolerate CPAP Ex-smoker 5186801 Z87.89 1 last LDCT was in May 2023-wnl [id number] Gina Cortes NP [facility] Pulmonolo gy [address] [address] 03/27/2024 09:52:32 03/27/2024 13:06:47 Moderate chronic obstructive pulmonary disease 738852518 J44.9 CAT-32Prog ressively worsening of breathing- ADL's are affected (difficult y showering and dressing, unable to walk long distance without becoming sob) will continue TrelegyO2 sats with 6 minute walk test 87%-+ dyspnea with exertionPu lmonary rehab orderFollo w-up in 3 months-steve ner if worseEncou rage vaccinatio nsRAST -, TB wnl, Alpha 1 neg Ex-cigarette smoker [address] screening in May Oxygen sat uration below reference range 562604518 R79.81 R09.02 G47.30 O2 required with exertion-O 2 sats dropped below 90 during 6 minute walk test Health Concerns Section Related Observation LastModified by Organization Detai ls LastModified Time None Recorded Concern Status LastModified by Organization Details LastModified Time None Recorded Advance Directives Directive N: Payers Encounter Date Sequence Insurance Name Policy Number Policy Lebron Covered Member ID Lebron Member ID Guarantor Name 07/20/2023 1 [facility] (MEDICARE REPLACEMENT/A DVANTAGE - PPO) [id number] Letty Butterfield [id number] Letty Butterfield 10/19/2023 1 [facility] (MEDICARE REPLACEMENT/A DVANTAGE - PPO) [id number] Letty Butterfield [id number] Letty Butterfield 02/02/2024 1 [facility] (MEDICARE REPLACEMENT/A DVANTAGE - PPO) [id number] Letty Butterfield [id number] Letty Butterfield 02/16/2024 1 [facility] (MEDICARE REPLACEMENT/A DVANTAGE - PPO) [id number] Letty E Greer [id number] Letty Ritchie Greer 03/27/2024 1 [facility] (MEDICARE REPLACEMENT/A DVANTAGE - PPO) [id number] Letty Butterfield [id number] Letty E Greer Notes Date Note Type Note Provider Name and Address Organization Details Recorded Time 07/20/2023 text/html had cath done, w ill see vascular surgeon soon lots of chest congestion, +sputum, +cough increased edema hands and feet Andreas Lehman MD [address], [place], [address], [employer] 07/25/2023 10:25:42 10/19/2023 text/html Pt is here for f/u Stew reyes, [employer] [address], [place], [address], [employer] 10/19/2023 16:39:14 02/02/2024 text/html Letty presents today for her Medicare Annual Wellness exam and medication refills. She also sees Dr. Stroud and Dr. Barron for her care. She does not see pulmonary for her COPD. Nicole Gimenez APRN [address], [address], [place], [address], [employer] 02/04/2024 13:06:37 02/16/2024 text/html COPDReported bypatient.Quality:symp toms do not vary with time of day; symptoms worse with lying down Severity:very limiting; severe; uses nebulizer/inhaler an average of 14 times/week lately; unable to shower without stopping-walking to house from car difficult Duration:constant Onset/Timing:chronic: slowly much worse Context:cigarette smoking; recurrent bronchopulmonary infections; influenza vaccine 01/2024 Modifying Factors:relieved with rest; relieved with bronchodilator; worse in a supine position; worse with exertion Associated Symptoms:no snoring; no arousals from sleep; no decrease in exercise capacity; no coughing up sputum; no fever; no weight loss;excessive daytime sleepiness;dyspnea exertional;decrease in exercise capacity;fatigue;cough ing up sputum green;cough loose;wheezing exertional;depression; lower leg edema and chest discomfort intermittentNotes:ex-s moker of 2 ppd for 40 yearssees Cardiologyhx sleep apneaMmrc 5 Gina Cortes NP [address] [facility] [facility] [address], [place], [address], [employer] 02/16/2024 14:52:44 03/27/2024 text/html COPDReported bypatient.Quality:symp toms do not vary with time of day; symptoms worse with lying down Severity:very limiting; severe; unable to shower without stopping-walking to house from car difficult-nebulizer 1-2 times a day Duration:constant Onset/Timing:chronic: slowly much worse Context:cigarette smoking; recurrent bronchopulmonary infections; influenza vaccine 01/2024 Modifying Factors:relieved with rest; relieved with bronchodilator; worse in a supine position; worse with exertion Associated Symptoms:no snoring; no arousals from sleep; no decrease in exercise capacity; no coughing up sputum; no fever; no wheezing; no weight loss;excessive daytime sleepiness;dyspnea exertional;decrease in exercise capacity;fatigue;cough ing up sputum clear / white and frothy;cough loose;depression; lower leg edema intermittentNotes:ex-s moker of 2 ppd for 40 years-last CT 05/2023 wnlsees Cardiology-hx stentshx sleep apneaMmrc 5little relief with albuterol inhaler Gina Cortes NP [address] [facility], [place], [address], [employer] 03/27/2024 12:36:06 OBGyn Episode No OBEpisode recorded.
--- OUTSIDE RECORDS SUMMARY | 2024-04-05 16:50 | XMS_ITS | CONTINUITY OF CARE DOCUMENT ---
Author Name scooter helms Address Unknown Organization [facility] Address [address] [place] [address] Phone [phone] Care Team Providers Care Obiee Architect Name Role Phone Maximus JAVIER, Jeremy Unavailable ANDREAS BALLARD MD Unavailable [phone] VALE KIRBY JUAN Murguia Unavailable PROBLEMS Condition Status Date Provider Notes Diastolic CHF active Jeremy Stroud MD Pulmonary hypertension active Jeremy Stroud MD Neck pain, chronic active Jeremy Stroud MD Aortic atherosclerosis active Jeremy Stroud MD CHEST PAIN-01/13 NUC NEG & ECHO completed - Jeremy Stroud MD COPD active Jermey Stroud MD 02 at [facility] HTN essential;neg duplx and angio active Jeremy Stroud MD rpm not covreee d AMI, subendocardial active Cynthia Regalado 2016 Raynaud's syndrome active Jeremy Stroud MD Dyspnea on exertion completed - Jeremy Stroud MD Claudication, intermittent completed 10/03 - Jeremy Stroud MD Edema completed - Jeremy Stroud MD Renal disease, chronic, mild;NEG DUPLEX AND US and angiao active Jeremy Stroud MD on arb and farxag not dm,eg uacr Syncope active Jeremy Stroud MD resloved wiht stoppion pych meds Coronary artery aneurysm active Jeremy brower MD Bipolar disorder active Jeremy Stroud MD may thurner active Tony Prince MD SVT;nml tsh active Jeremy Stroud MD Exposure to SARS-associated coronavirus;neg igg active Jeremy Stroud MD Hypertriglyceridemia active Jeremy Murguia D PVD; active Jeremy Stroud MD B12 deficiency with macro active Jeremy petersen MD nml folate Screening active Jeremy Stroud MD Obesity active Jeremy Stroud MD SLEEP APNEA; active Jeremy Stroud MD Anxiety disorder active Jeremy Stroud MD CAD;carotid plaue active Jeremy Stroud MD BACK PAIN;CHRONIC active Jeremy Stroud MD Hypercholesterolemia;neg lpa and crp active Jeremy Stroud MD Tobacco use, quit active Jeremy Stroud MD SHORTNESS OF BREATH?ETIOLOGY completed 200 10/17/17 - Jeremy Stroud MD LVH completed - Jeremy Stroud MD HTN-01/13 TYRESE DUP NEG completed - Jeremy issa MD SLEEP APNEA:NO TIME FOR SLEE P STUDY NOW completed - Jeremy Stroud MD HTN-01/13 ECHO EF 60 completed - Jeremy Stroud MD ENCOUNTERS Date Type Provider Location Encounter Diag nosis - In-person encounter Office Visit Jeremy Stroud MD [facility] COPDSyncopeBipolar disorder - In-person encounter Office Visit Tony Prince MD [facility] - In-person encounter Office Visit Tony Prince MD [facility] - In-person encounter Office Visit Jeremy Stroud MD [facility] B12 deficiency with macro - In-person encounter Office Visit Jeremy Stroud MD [facility] HTN essential;neg duplx and jruunF11 deficiency with macroCoronary artery aneurysm - In-person encounter Office Visit Tony Prince MD [facility] july thurner - In-person encounter Office Visit Jeremy Stroud MD [facility] CAD;carotid plaueScreeningEdemaSyncopeS VT;nml tsh - In-person encounter Office Visit eJremy Stroud MD [facility] Syncope - In-person encounter Office Visit Jeremy Stroud MD [facility] AMI, subendocardialRenal disease, chronic, mild;NEG DUPLEX AND US and angiao - In-person encounter Office Visit Ge Quick MD [facility] - In-person encounter Office Visit Jeremy Stroud MD [facility] - In-person encounter Office Visit Jeremy Stroud MD [facility] - In-person encounter Office Visit Jeremy Stroud MD [facility] PVD;HypertriglyceridemiaExp osure to SARS-associated coronavirus;neg igg - In-person encounter Office Visit Jeremy Stroud MD [facility] CAD;carotid plaueSLEEP APNEA;Dyspnea on exertionScreeningClaudicati on, pbyiudtxrtvfI21 deficiency with macroPVD; - In-person encounter Office Visit Jeremy Stroud MD [facility] HTN-01/13 ECHO EF 60CHEST PAIN-01/13 NUC NEG & ECHOSLEEP APNEA:NO TIME FOR SLEEP STUDY NOWHTN-01/13 TYRESE DUP NEGLVHSHORTNESS OF BREATH?ETIOLOGYTobacco use, quitCOPDHTN essential;neg duplx and angioHypercholesterolemia;n eg lpa and crpBACK PAIN;CHRONICCAD;carotid plaueAMI, subendocardialAnxiety disorderRaynaud's syndromeSLEEP APNEA;ObesityScreening - In-person encounter Office Visit Jeremy Stroud MD [facility] Tobacco use, quit - In-person encounter Office Visit Jeremy Stroud MD [facility] HTN-01/13 ECHO EF 60CHEST PAIN-01/13 NUC NEG & ECHO VITAL SIGNS Date Observation Value Provider Body Mass Index (Ratio) 34.61 kg/m2 Jagdish Stroud MD blood pressure, cuff size regular Doni morrow Leroy blood pressure, diastolic 70 mm[Hg] Ta cristhian Leroy blood pressure, systolic 116 mm[Hg] Tab [facility] Leroy oxygen saturation, oximetry 97 % Neha Leroy respiratory rate E&M 12 /min Neha Leroy pulse rate 64 /min Neha Leroy weight E&M 208 [lb_av] Neha [place] height E&M 65 [in_i] Neha [place] Body Mass Index (Ratio) 35.24 kg/m2 Sund britton Prince MD blood pressure, diastolic 80 mm[Hg] Ky oneil [place] blood pressure, systolic 109 mm[Hg] Kyl ia [place] oxygen saturation, oximetry 94 % [facility] pulse rate 64 /[facility] 211.8 [lb_av] Karthika [place] blood pressure, cuff size regular Ky oneil [place] respiratory rate E&M 12 /min Joesph Nilsa freedman height E&M 65 [in_i] [facility] Body Mass Index (Ratio) 34.44 kg/m2 Sund [...] ruenenfelder pulse rate 70 /min Leslie Grrogelionenfe [facility] weight E&M 208 [lb_av] Leslie Akbarnfe [facility] height E&M 65 [in_i] Leslie Akbarnfe [facility] Body Mass Index (Ratio) 34.14 kg/m2 Jagdish [...] er height E&M 65 [in_i] Leslie Gruenenfe [facility] Body Mass Index (Ratio) 33.94 kg/m2 Jagdish [...] kaila pulse rate 74 /min Leslie Grrogelionenfe [facility] weight E&M 204 [lb_av] Leslie Gruenenfe [facility] height E&M 65 [in_i] Leslie Grrogelionenfe [facility] Body Mass Index (Ratio) 35.94 kg/m2 Rosita [...] Asiya Muller son height E&M 65 [in_i] Aisya Muller son Body Mass Index (Ratio) 39.07 kg/m2 Jagdish Stroud MD blood pressure, diastolic 70 mm[Hg] Li [facility]kLogic blood pressure, systolic 170 mm[Hg] Hilaria kLogic blood pressure, cuff size large Rose Mary mott [place] blood pressure, diastolic 70 mm[Hg] Rose Mary mott [place] blood pressure, systolic 170 mm[Hg] Ruperto mcguire [place] pulse rate 98 /min Joyce Darien monteiro respiratory rate E&M 20 /min Stephanie nunez [place] oxygen saturation, oximetry 92 % Joyce Gary [...] [lb_av] Diane Mcbride height E&M 65 [in_i] Dinae Mcbride blood pressure, diastolic 70 mm[Hg] Romel [...] 0-149 High cholesterol, serum 123 mg/dL [facility] [phone]/01/ 30 calcium, serum 9.6 mg/dL [facility] 8.7-10.2 carbon dioxide, venous blood 27 mmol/L [facility] 20-29 chloride, serum 96 mmol/L [facility] 96-106 potassium, serum 4.1 mmol/L [facility] 3.5-5.2 sodium, serum 137 mmol/L [facility] [phone]/01/ 30 urea nitrogen/creatinine ratio, serum 14 [facility] [...] 0-149 High cholesterol, serum 189 mg/dL [facility] [phone]/10/ 03 calcium, serum 10.6 mg/dL [facility] 8.7-10.2 [...] [facility] 3.5-5.2 sodium, serum 144 mmol/L [facility] 088-015 7562/10/ 04 urea nitrogen/creatinine ratio, serum 13 [facility] [...] cell distribution width, size density 48.1 fL [facility] - immature granulocytes, percentage of total cells, blood 0.2 % [facility] - nucleated red blood cells as percent of blood leukocytes 0.0 % [facility] - red blood cell (erythrocyte) count, per high power field 0.0 10*3/UL [facility] eosinophils as percent of blood leukocytes 4.6 % [facility] - neutrophils as percent of blood leukocytes 55.2 % [facility] - Absolute Neutrophils 5.4 CELLS/UL [facility] 1.5 - 7.8 basophils as percent of blood leukocytes 1.0 % [facility] - Absolute Basophils 0.1 CELLS/UL [facility] 0.0 - 0.2 monocytes as percent of blood leukocytes 10.7 % [facility] - Absolute Monocytes 1.0 CELLS/UL [facility] 0.2 - 1.0 High lymphocytes as percent of blood leukocytes 28.3 % [facility] - Absolute Lymphocytes 2.8 CELLS/UL [facility] 0.9 - 3.9 mean platelet volume 11.7 (?) [facility] - platelet count 243.0 THOUSAND/UL [facility] [...] tablet by mouth once a day 08/29 Jereym Stroud MD Crestor 40 mg tablet active [...] twice a day 03/17 - 11/24 Jeremy Stroud MD ezetimibe 10 mg tablet completed TAKE [...] EVERY DAY - 03/17 Bobbi Bañuelos NP Vascepa 1 gram capsule completed 2 [...] a day 12/04 - 03/31 Cynthia Dougherty SOUND DESIGNER #90, 90 days supply, Prescribed by JEREMY [...] lipitor - 12/04 Ro Fenton VITAMIN D3 [id number] completed TAKE 1 CAPSULE BY MOUTH EACH [...] - 12/04 Jeremy Stroud MD VITAMIN D3 17822 UNIT ORAL TABLET completed take one tablet weekly 10/06 - 10/16 Diane Rae QSYMIA 7.5-46 MG ORAL CAPSULE EXTENDED RELEASE 24 HOUR completed one tablet daily 10/17 - 10/16 Diane Rae QSYMIA 3.75-23 MG ORAL CAPSULE EXTENDED RELEASE [...] TABLET completed twice daily - 10/16 Diane Rae atorvastatin 20 mg tablet completed Take 1 [...] history of marijuana use no Gracia O'Shant SOUND DESIGNER drug use no Gracia O'Shant SOUND DESIGNER alcohol use, average drinks per day none Gracia O'Shant SOUND DESIGNER alcohol use yes Gracia O'Shant SOUND DESIGNER smoking, year quit 2015 Gracia O'N eal SOUND DESIGNER number of years as a smoker 10 years or m ore Gracia O'Shant SOUND DESIGNER smoking history, tot al pack/day 2 Gracia O'Shant SOUND DESIGNER cigarette use yes Gracia O'Shant N P smoking status Former smoker Gracia O'Shant SOUND DESIGNER quit smoking, stage quit Jeremy hooper MD [...] Dougherty NP drug use no Cynthia Murrietareri SOUND DESIGNER alcohol use yes Cynthia Murrietareri SOUND DESIGNER smoking, year quit 2015 Cynthia Mireles areri SOUND DESIGNER number of years as a smoker 10 years or m ore Cynthia Phillipsri SOUND DESIGNER smoking history, tot al pack/day 2 Cnythia Phillipsri SOUND DESIGNER cigarette use yes Cynthia Phillipsri SOUND DESIGNER smoking status Former smoker Cynthia Phillips ri SOUND DESIGNER social history reviewed E&M revi ewed - no changes required Cynthia Phillipsri SOUND DESIGNER social history E&M Marital Statu s: L fran with family/friends E thnicity: Smoking History: Fabricio weiss is a former smoker. Cynthia Murrietareri SOUND DESIGNER drug use no Cynthia Phillipsri SOUND DESIGNER alcohol use no Cynthia Phillipsri SOUND DESIGNER smoking status Former smoker Cynthia Phillips ri SOUND DESIGNER physical exercise, f requency, days per week [...] counseling yes Jeremy Stroud MD social history reviewed E&M reviewed [...] or m ore [facility] smoking status [facility] FUN[facility] STAT[facility] Date Observation Value Provider [...] Payer name Policy type / Coverage type [place] red green party ID [id number] COMPLETE CARE [id number] (PPO C-SNP) [employer] insurance [employer] [id number] ADVANCE DIRECTIVES Name Date DISCUSSED - NO DECISION MADE TREATMENT PLAN Date Name Performer [id number],C,T he patient is between 55-77 years old [...] undergo diagnosis and treatment. Cynthia Dougherty NP [id number],C,P atient c/o worsening of SOB. Will check labs, CXR, and PFTs. Her updated medication list for this problem includes: Symbicort 80-4.5 Mcg/actuation Hfa Aerosol Inhaler (Budesonide-formoterol) ..... Take 2 puff by mouth once a day Ipratropium [place] 0.02% Solution (Ipratropium bromide) ..... Four times a day as directed Cynthia Murrietaconor ELI [id number],C,W ill check labs to asess current status. Cynthia Phillipsroldan ELI [id number],C,T he patient is using CPAP on a regular basis. The patient has been benefiting from therapy and should continue use. Cynthia Phillipsroldan ELI [id number],C, W ill check labs. Cynthia Phillipsroldan ELI [id number],C,W ill check lipid profile. H er updated [...] mouth twice a day Cynthia Phillipsroldan ELI [id number],C,S lightly elevated in office today. She states [...] mouth once a day Cynthia Phillipsroldan ELI [id number],C,N o chest pain. Will continue current medications. n eg nuc 2019 5 0% rca adn 100 om 3 with non stemi, had rca aneurm on med rx ef 55% Cynthia Dougherty SREEDHAR [id number],C,P atient c/o increased SOB n ml pro [...] No significant valvular abnormalities. Cynthia Dougherty SREEDHAR [id number],S,S table T he following medications were removed [...] mouth once a day Bobbi Sarmad ELI [id number],S,W orsening sob, check echo H er updated medication list for this problem includes: Symbicort 80-4.5 Mcg/actuation Hfa Aerosol Inhaler (Budesonide-formoterol) ..... Take 2 puff by mouth once a day Ipratropium [place] 0.02% Solution (Ipratropium bromide) ..... Four times a day as directed Bobbi Bañuelos NP [id number],S, T he following medications were removed from [...] mouth twice a day Bobbi Bañuelos NP [id number],S,Continue curr ent meds Bobbi Bañuelos NP [id number],S,c oudl be villeda thrune but does not want it yet w u neg see screeing Jeremy Stroud MD [id number],S, n eg nuc 2019 5 0% rca adn 100 om 3 with non stemi, had rca aneurm on med rx ef 55% Jeremy Stroud MD [id number],S, T he patient is using CPAP on a regular basis. The patient has been benefiting from therapy and should continue use. Jeremy Stroud MD [id number],B, d oes not want surgey but will try diet pill Jeremy Stroud MD [id number],B, Jeremy issa MD [id number],S, n ml d n eg uacr, neg a1c n o venlus insuf or clto, high dd though and iron, nml tsh Jeremy Stroud MD [id number],S, m ild by charline Jeremy Stroud MD [id number],B, Jeremy issa MD [id number],S, Jeremy issa MD [id number],S, Jeremy issa MD [id number],S, T he patient is between 55-77 years [...] undergo diagnosis and treatment. 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 3 . 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 4 . WHO Group 2 pulmonary hypertension with a subcomponent of COPD causing pulmonary hypertension with an elevated LVEDP of 27 and a mean PA pressure of 52. 5 . Renal insufficiency and hypertension with normal renal arteries. 6 . Diastolic heart failure with an ejection fraction of 50%. 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 3 . 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 4 . WHO Group 2 pulmonary hypertension with a subcomponent of COPD causing pulmonary hypertension with an elevated LVEDP of 27 and a mean PA pressure of 52. 5 . Renal insufficiency and hypertension with normal renal arteries. 6 . Diastolic heart failure with an ejection fraction of 50%. 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 3 . 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 Cynthia Duogherty NP -seen with SOUND DESIGNER:Luis Angel t c/o worsening of SOB. Will check labs, CXR, and PFTs. Her updated medication list for this problem includes: Symbicort 80-4.5 Mcg/actuation Hfa Aerosol Inhaler (Budesonide-formoterol) ..... Take 2 puff by mouth once a day Ipratropium [place] 0.02% Solution (Ipratropium bromide) ..... Four times a day as directed Cynthia Dougherty NP -seen with SOUND DESIGNER:Will check labs to asess current status. Cynthia Dougherty NP -seen with SOUND DESIGNER:The pa sandra is using CPAP on a regular basis. The patient has been benefiting from therapy and should continue use. Cynthia Murrietaconor ELI -seen with SOUND DESIGNER: W ill check labs. Cynthia Farhat ELI -seen with SOUND DESIGNER:Yo valentine lipid profile. H er updated medication [...] a day Cynthia Phillipsroldan ELI -seen with SOUND DESIGNER:Slight ly elevated in office today. She states [...] a day Cynthia Murrietaconor ELI -seen with SOUND DESIGNER:No candy st pain. Will continue current medications. n eg nuc 2019 5 0% rca adn 100 om 3 with non stemi, had rca aneurm on med rx ef 55% Cynthia Murrietaconor ELI -seen with SOUND DESIGNER:Pativernon t c/o increased SOB n ml pro [...] puff by mouth once a day Ipratropium [place] 0.02% Solution (Ipratropium bromide) ..... Four times [...] mouth twice daily universal coupon code: bin# [id number], pcn# cn, grp# [id number], id# [id number] Atorvastatin 20mg (Atorvastatin calcium) ..... Take 1 [...] every day Metoprolol Succinate Er 100 Mg [id number] (Metoprolol succinate) ..... Take 1 tablet by [...] tab. daily Metoprolol Succinate Er 100 Mg Pi86o-cem (Metoprolol succinate) ..... Take 1 tablet by [...] Nebu (Albuterol sulfate) ..... As needed Ipratropium [place] 0.02 % Inh Soln (Ipratropium bromide) ..... [...] includes: Isosorbide Mononitrate Er 30 Mg Oral Zh45s-[id number] (Isosorbide mononitrate) ..... Take one tablet by [...] rior BP: 148/97 (01/26/2008) Orders: E KG (CPT-49840) C BC (INCLUDES DIFF/PLT) (6399) Jeremy Stroud [...] Orders: X -Ray, Chest, PA & Lateral (CPT-03699) B TYPE NATRIURETIC PEPTIDE (BNP) (34177) C OMPREHENSIVE METABOLIC PANEL W/EGFR (36970) L IPID PANEL (7600) C BC (INCLUDES DIFF/PLT) (6399) Jeremy Stroud MD office visit: O rders: B TYPE NATRIURETIC PEPTIDE (BNP) (30696) C OMPREHENSIVE METABOLIC PANEL W/EGFR (17366) L IPID PANEL (7600) C BC (INCLUDES DIFF/PLT) (6399) Jeremy Stroud MD office visit: H er updated medication list for this problem includes: Toprol Xl 100 Mg Tb24 (Metoprolol succinate) ..... One tab daily Zestoretic 10-12.5 Mg Tabs (Lisinopril-hydrochlorothiazide) ..... One tab. daily (new) BP today: 124/87 P rior BP: 148/97 (01/26/2008) Orders: B TYPE NATRIURETIC PEPTIDE (BNP) (53518) C OMPREHENSIVE METABOLIC PANEL W/EGFR (02482) L IPID PANEL (7600) C BC (INCLUDES DIFF/PLT) (6399) Jeremy Stroud MD office visit: H er updated medication list for this problem includes: Toprol Xl 100 Mg Tb24 (Metoprolol succinate) ..... One tab daily Zestoretic 10-12.5 Mg Tabs (Lisinopril-hydrochlorothiazide) ..... One tab. daily BP today: 148/97 Prior BP: / () Orders: C omplete Echo (CPT-61153) S tress Test - Adenosine (17287) R enal Artery Duplex (CPT-36190) X -Ray, Chest, PA & Lateral (CPT-70628) Jeremy Stroud MD office visit: H er updated medication list for this problem includes: Toprol Xl 100 Mg Tb24 (Metoprolol succinate) ..... One tab daily Zestoretic 10-12.5 Mg Tabs (Lisinopril-hydrochlorothiazide) ..... One tab. daily BP today: 148/97 Orders: C omplete Echo (CPT-58519) S tress Test - Adenosine (81035) R enal Artery Duplex (CPT-82376) X -Ray, Chest, PA & Lateral (CPT-00291) Jeremy Stroud MD Date Name Holter Monitor [address] DLCO - 12167 FRC - 45606 FVC - 40596 LIPID PANEL CBC (INCLUDES DIFF/P LT) BASIC METABOLIC PANE L W/EGFR PROTHROMBIN TIME WIT H INR Holter Monitor [address] DLCO - 87353 FRC - 46488 FVC - 34519 DLCO - 29776 FRC - 41649 FVC - [address] FOLATE, SERUM BASIC METABOLIC PANE L W/EGFR CBC (INCLUDES DIFF/P LT) LIPID PANEL PROTHROMBIN TIME WIT H INR Venogram with IVUS - Other PROTHROMBIN TIME WIT H INR LIPID PANEL CBC (INCLUDES DIFF/P LT) BASIC METABOLIC PANE L W/EGFR CRP, high sensitivit y DLCO - 82283 FRC - 76495 FVC - [address] RPM (remote patient monitoring) Monitor - Telemetry (Mobile Cardiac) Stress Cardiac PET-C T Low Dose Lung CT Complete Echo DLCO - 24476 FRC - 99616 FVC - 88326 CXR- PA/Lat CRP, high sensitivit y COMPREHENSIVE METABO LIC PANEL, W/EGFR LIPID PANEL Lipoprotein (a) PROBNP, N TERMINAL Microalb/Creatinine Urine, Random Complete Echo RPM (remote patient monitoring) PROBNP, N TERMINAL Low Dose Lung CT DLCO - 00313 FRC - 24809 FVC - 03503 CXR- PA/Lat Microalb/Creatinine Urine, Random CRP, high sensitivit y Lipoprotein (a) COMPREHENSIVE METABO LIC PANEL, W/EGFR LIPID PANEL Complete Echo RPM (remote patient monitoring) CT, Coronary Calcium Score Low Dose Lung CT DLCO - 02521 FRC - 94199 FVC - [address] LIPID PANEL BASIC METABOLIC PANE L W/EGFR DLCO - 56442 FRC - 60361 FVC - 06862 CT, Coronary Calcium Score Kidney Ultrasound BASIC METABOLIC PANE L W/EGFR COVID19 High Affinit y Antibodies (LC) Vitamin D, 25-Hydrox y LIPID PANEL CT, Coronary Calcium Score Low Dose Lung CT DLCO - 22435 FRC - 96304 FVC - 42030 PROBNP, N TERMINAL STR - Adenosine Arterial Duplex Bi-L ower EX CT, Coronary Calcium Score URINALYSIS, RANDOM, MICROALB/CREATININE HEMOGLOBIN A1c COMPREHENSIVE METABO LIC PANEL, W/EGFR LIPID PANEL Low Dose Lung CT DLCO - 44796 FRC - 85036 FVC - 95423 Sleep Study - split night URINALYSIS, COMPLETE [...] Echo Carotid Duplex Bilat eral DLCO - 65701 FRC - 62796 FVC - 47686 CBC (INCLUDES DIFF/P LT) LIPID PANEL COMPREHENSIVE [...] Stroud MD june pleted Counseling LDCT Jeremy tSroud MD 1 yeare com pleted Spirometry Jeremy Stroud MD complete d FVC / MVV with bronchodilator - 20205 Jeremy Stroud MD completed BLOOD COUNT HEMOGLOBIN Jeremy Stroud MD completed SpO2 w/o 6min walk/titration Jeremy Stroud MD completed SVC - 27660 Jeremy Stroud MD complet ed DLCO - 34746 Jeremy Stroud MD comple sandeep Counseling LDCT Jeremy Stroud MD com pleted Counseling LDCT Jeremy Stroud MD com pleted EKG Jeremy Stroud MD complete d Counseling LDCT Jeremy Stroud MD com pleted EKG Jeremy Stroud MD complete d Spirometry Jeremy Stroud MD complete d FVC / MVV with bronchodilator - 29245 Jeremy Stroud MD completed BLOOD COUNT HEMOGLOBIN Jeremy Stroud MD completed FRC - 93577 Jeremy Stroud MD complet ed SpO2 w/o 6min walk/titration Jeremy Stroud MD completed SVC - 83660 Jeremy Stroud MD complet ed DLCO - 25237 Jeremy Stroud MD comple sandeep Ultrasound, retroperitoneal, complete Jeremy Stroud MD completed Counseling LDCT Jeremy Stroud MD nov com pleted FVC / MVV with bronchodilator - 34893 Jeremy Stroud MD completed BLOOD COUNT HEMOGLOBIN Jeremy Stroud MD completed FRC - 86519 Jeremy Stroud MD complet ed SpO2 w/o 6min walk/titration Jeremy Stroud MD completed DLCO - 59352 Jeremy Stroud MD comple sandeep Counseling LDCT Jeremy Stroud MD com pleted EKG Jeremy Stroud MD complete d Regadenoson, 4 units Jeremy Stroud MD completed Cardiolite, 2 units Jeremy Stroud MD completed SPECT Images Jeremy Stroud MD comple sandeep Stress EKG Jeremy Stroud MD complete d FVC / MVV with bronchodilator - 34061 Jeremy Stroud MD completed BLOOD COUNT HEMOGLOBIN Jeremy Stroud MD completed FRC - 58286 Jeremy Stroud MD complet ed SpO2 w/o 6min walk/titration Jeremy Stroud MD completed DLCO - 92180 Jeremy Stroud MD comple sandeep Counseling LDCT Jeremy Stroud MD com pleted EKG Jeremy Stroud MD complete d BLOOD COUNT HEMOGLOBIN Jeremy Stroud MD completed FVC - 07082 Jeremy Stroud MD complet ed FR - 33124 Jeremy Stroud MD complet ed DLCO - 60880 Jeremy Stroud MD [facility] sandeep SNOMED-CT: [id number] Smoking Cessation Counseling Jeremy Stroud MD completed EKG Jeremy Stroud MD complete d SNOMED-CT: [id number] 957803 Current Medications Documented Jeremy Stroud MD completed EKG Jeremy Stroud MD complete d EKG Jeremy Stroud MD complete d
--- OUTSIDE RECORDS SUMMARY | 2024-04-05 16:50 | XMS_ITS | Clinical Summary ---
Author Organization [facility] Address Formerly [facility] [facility] [place], [place] [address] [place] [address] Care Team Providers Care Propagation Manager Name Role Phone Unavailable Primary Care Provider [...]
--- OUTSIDE RECORDS SUMMARY | 2024-04-05 16:50 | XMS_ITS | Patient Health Summary ---
Author Organization [facility] Address [address] [place] [place] [address] Care Team Providers Care Recreation Technician Name Role Phone José Carrillo MD Primary Care Provider [phone] Note from [facility],non-owned Affiliates and Associated Physician Practices is amultiple site organization consisting of ambulatory clinics and hospital sitesin [place], [place], [place] and [place]. This disclosure is being madepursuant to the Care Everywhere program and may not contain all information available regarding this patient. Last updated 17.[facility] Social History Tobacco Use Types Packs/Day Years Used Date Smoking Tobacco: Never Assessed Sex and Gender Information Value Date Recorded Sex Assigned at Not on file Gender Identity Not on file Sexual Orientation Not on file Care Teams Recreation Technician Relationship Specialty Start Date End Date José Carrillo MD [facility] [place] [address] PCP - General 02/10/18
--- OUTSIDE RECORDS SUMMARY | 2024-04-05 16:50 | XMS_ITS | Referral Summary ---
Author Organization [facility] Address [address] [facility] [place] [address] Care Team Providers Care Mule Spinner Name Role Phone José Carrillo MD Primary Care Provider [phone] Source Comments [facility],non-owned Affiliates and Associated Physician Practices is amultiple site organization consisting of ambulatory clinics and hospital sitesin [place], [place], [place] and [place]. This disclosure is being madepursuant to the Care Everywhere program and may not contain all information available regarding this patient. Last updated 17.[facility] Social History Tobacco Use Types Packs/Day Years Used Date Smoking Tobacco: Never Assessed Sex and Gender Information Value Date Recorded Sex Assigned at Not on file Gender Identity Not on file Sexual Orientation Not on file Plan of Treatment Not on file Care Teams Mule Spinner Relationship Specialty Start Date End Date José Carrillo MD [facility] [place] [address] PCP - General 02/10/18
--- OUTSIDE RECORDS SUMMARY | 2024-04-05 16:50 | XMS_ITS | Continuity of Care Document ---
Author Organization [facility] Address [address] [place] [address] Phone Care Team Providers Care Classified Advertising Manager Name Role Phone Davie Sun Unavailable Unavailable Procedures Procedure Date Eye Exam & Treatment Eye Exam, New Patient Advance Directives Directive Yes / No Effective Date File Name No Information Encounters Encounter Description Practice Location Reason(s) For Visit Diagnoses Date Provider Providers Copied on Encounter [facility], [address] [place] [address] [address], [place], [place], [id number], tel:[phone] [facility] [place] [facility] No Information 3[address] [place]. [address], [facility], [place]. tel:[phone] [facility], [address] [place] [address] [address], [place], [place], [id number], tel:[phone] [facility] [place] [facility] No Information [address] [place] [facility] [address], [place], [address], [place]. tel:[phone] Family History Family Member Type Diagnosis Age [...]
--- OUTSIDE RECORDS SUMMARY | 2024-04-05 16:50 | XMS_ITS | Clinical Summary ---
Author Organization [facility] Address [address] [facility] [place] [address] Care Team Providers Care Boot Turner Name Role Phone José Carrillo MD Primary Care Provider [phone] Source Comments [facility],non-owned Affiliates and Associated Physician Practices is amultiple site organization consisting of ambulatory clinics and hospital sitesin [place], [place] and [place]. This disclosure is being madepursuant to the Care Everywhere program and may not contain all information available regarding this patient. Last updated 17.[facility] Social History Tobacco Use Types Packs/Day Years [...] age to complete this topic Care Teams Boot Turner Relationship Specialty Start Date End Date José Carrillo MD [address] [place] [address] PCP - General 02/10/18
--- OUTSIDE RECORDS SUMMARY | 2024-04-05 16:51 | XMS_ITS | Clinical Summary ---
Author Organization [facility] Address [address] [place] [address] Care Team Providers Care Slabbing Machine Operator Name Role Phone Stew Arambula Primary Care Provider [phone] Medications NIFEdipine XL (PROCARDIA XL) 30 MG [...] Department Care Team Description 03/28/2024 Documentation Only [facility], [address] [address] Arun Li DO 03/27/2024 Documentation Only [facility], [address] [address] Arun Li, DO 03/24/2024 Documentation Only [facility], [address] [phone] Arun Li, DO 03/24/2024 Documentation Only [facility], [address] [phone] Arun Li, DO 03/24/2024 Documentation Only [facility], [address] [address] Arun Li, DO 03/22/2024 Documentation Only [facility], [address] [phone] Arun Li, DO 03/21/2024 3:15 PM [facility] [place] Office Visit [facility], [facility] [address] [facility] [address] [place] [address] Arun Li, DO Stage 3 chronic kidney disease, not otherwise specified (HCC) (Primary Dx); Persistent proteinuria; Coronary artery disease due to calcified coronary lesion; Peripheral vascular disease (HCC); Venous insufficiency; Obstructive sleep apnea syndrome; Hypertensive chronic kidney disease; Pure hypercholesterolemi a, not otherwise specified; Major depressive disorder, single episode, severe without psychotic features, not otherwise specified (HCC); Interstitial nephritis 03/21/2024 Refill [facility], [facility] [address] [facility] [address] [place] [address] Carmelina Roblero, HUGH 03/21/2024 Documentation Only [facility], [address] [phone] Arun Li, DO 03/20/2024 Documentation Only [facility], [address] [phone] Arun Li, DO 03/17/2024 Documentation Only [facility], [address] [place] [address] Arun Li DO 03/16/2024 Documentation Only [address] [place] [address] Arun Li [...] Comments Blood Pressure 118/64 03/21/2024 2:56 PM COOK [place] Pulse 72 03/21/2024 2:56 PM [facility] [place] Temperature 36.1 ??C (97 ??F) 12/21/2023 1:47 PM CDT Respiratory Rate 18 03/21/2024 2:56 PM [facility] [place] Oxygen Saturation 97% 03/21/2024 2:56 PM [facility] [place] Inhaled Oxygen Concentration - - Weight 93.4 kg (205 lb 14.4 oz) 03/21/2024 2:56 PM [facility] [place] Height - - Body Mass Index - - Plan of Treatment Upcoming Encounters Date Type Department Care Team (Late st Contact Info) Description 04/25/2024 4:00 PM COOK [place] Office Visit [facility] [address] [phone] Arun Li DO [address] [place], [place] [address] [address] Health Maintenance Due Date Last Done [...] patient's age to complete this topic Insurance [facility] MEDICARE Care Teams Slabbing Machine Operator Relationship Specialty Start Date End Date Stew Arambula [address] [place] [phone] PCP - General 09/20/23
[2024-04-05 17:11] LABS: Add Urine Microscopic? YES; Appearance Urine Clear (Clear); Bacteria Urine Rare /hpf; Bilirubin Urine Negative (Negative); Blood Urine Negative (Negative); Color Urine Yellow (Yellow); Glucose Urine UA 2+ mg/dL (Negative); Ketones Urine Negative (Negative); Leukocyte Esterase Ur 2+ LEU/UL (Negative); Need Manual Microscopic Reviewed; Nitrate Urine Negative (Negative); Non Pathogenic Casts 0-2; Protein Urine Negative (Negative); RBC Urine 0-2 /hpf (0-2); Squamous Epithelial Cell Urine None Seen /hpf (Few); Urobilinogen Urine 0.2 mg/dL (<2.0); WBC Urine 0-5 /hpf (0-3); pH Urine 6.5 (5.0-9.0)
[2024-04-05 17:40] LABS: Creatinine Urine 39.7 mg/dL; Total Protein Urine Random 15 mg/dL; Ur Ttl Prot Creatinine Ratio 0.38 mg/mg (0-0.20)
[2024-04-05 18:22] LABS: Creatinine Urine 37.4 mg/dL
[2024-04-05 18:32] LABS: MALB Creatinine Ratio < 16.0 mg/g (0-30); Microalbumin Urine Random < 6.0 mg/L (0-16.7)
[2024-04-08 10:03] LABS: Kappa Light Chains, Free RU 31.47 mg/L (<=32.90)
== END 2024-04-05 16:28 | disposition home or self-care (01) ==
LOC: ANHLAB 16:29
PROVIDERS: PCP Family Medicine; Visit Provider Internal Medicine Nephrology
DX: N18.30 Chronic kidney disease, stage 3 unspecified (principal); R80.1 Persistent proteinuria, unspecified; I25.84 Coronary atherosclerosis due to calcified coronary lesion; I73.9 Peripheral vascular disease, unspecified; I87.2 Venous insufficiency (chronic) (peripheral); G47.33 Obstructive sleep apnea (adult) (pediatric); I21.9 Acute myocardial infarction, unspecified; E78.00 Pure hypercholesterolemia, unspecified; F32.2 Major depressive disorder, single episode, severe without psychotic features
CPT/HCPCS: 81001; 82043; 82570; 84156; 86335

== ENCOUNTER 2024-06-19 10:41 | Outpatient (CLI) | payer MEDICARE, SELFPAY ==
[2024-06-19 11:44] LABS: Anion Gap 8 mmol/L (4-12); Blood Urea Nitrogen 23 mg/dL (7-17); Calcium 9.2 mg/dL (8.4-10.2); Carbon Dioxide 26 mmol/L (22-30); Chloride 104 mmol/L (98-107); Estimated Glomerular Filt Rate 46; Glucose 99 mg/dL (65-110); Phosphorus 3.9 mg/dL (2.5-4.5); Potassium 3.9 mmol/L (3.4-5.0); Sodium 138 mmol/L (137-145)
--- OUTSIDE RECORDS SUMMARY | 2024-06-19 12:05 | XMS_ITS | Continuity of Care Document ---
Author Organization [facility] Address [address] [place] [address] Phone Care Team Providers Care Velvet Cutter Name Role Phone Davie Sun Unavailable Unavailable Procedures Procedure Date Eye Exam & Treatment Eye Exam, New Patient Advance Directives Directive Yes / No Effective Date File Name No Information Encounters Encounter Description Practice Location Reason(s) For Visit Diagnoses Date Provider Providers Copied on Encounter [facility], [address] [place] [address] [address], [place], [place], [id number], tel:[phone] [facility] No Information 3-[address] [place]. [address], [facility], [place]. tel:[phone] [facility], [address] [place] [address] [address], [place], [place], [id number], tel:[phone] [facility] No Information [address] [place]. [address] [facility] [address], [place], [address], [place]. tel:[phone] Family History Family Member Type Diagnosis Age At Onset No Information Payers Payer name Insurance type Covered constitution party ID Authoriza tion(s) No Information Social [...]
--- OUTSIDE RECORDS SUMMARY | 2024-06-19 12:05 | XMS_ITS | Clinical Summary ---
Author Organization [facility] Address [address] [place] [address] Care Team Providers Care Kinesiologist Name Role Phone José Carrillo MD Primary Care Provider [phone] Source Comments [facility],non-owned Affiliates and Associated Physician Practices is amultiple site organization consisting of ambulatory clinics and hospital sitesin [place], [place], [place] and [place]. This disclosure is being madepursuant to the Care Everywhere program and may not contain all information available regarding this patient. Last updated 17.[facility] Social History Tobacco Use Types Packs/Day Years Used Date Smoking Tobacco: Never Assessed Comments Unknown Sex and Gender Information Value Date Recorded Sex Assigned at Not on file Legal Sex Female 11:34 AM CDT Gender Identity Not on file Sexual [...] VACCINE ( - 2023-2 5 season) 2023 DEPRESSION SCREENING 03/08/2024 INFLUENZA VACCINE (Season Ended) 2024 Respiratory Syncytial Virus (RSV) Vaccine Pt: or [...] to complete this topic MENINGOCOCCAL (Group B) VACC INE SHARED DECISION-MAKING Aged Out No longer eligibl e based on patient's age to complete this topic MENINGOCOCCAL GROUPS A/C/Y/W VACCINE Aged Out No longer eligible b ased on patient's age to complete this topic PNEUMOCOCCAL VACCINE Aged Out No long er eligible based on patient's age to complete this topic Care Teams Kinesiologist Relationship Specialty Start Date End Date José Carrillo MD [address] [place] [address] PCP - General 02/10/18
--- OUTSIDE RECORDS SUMMARY | 2024-06-19 12:05 | XMS_ITS | Clinical Summary ---
Author Organization [facility] Address [facility] [place] [address] Care Team Providers Care Executive Housekeeper Name Role Phone Unavailable Primary Care Provider [...] 12/05/2011 COVID-19 Vaccine (2023-2 5 season) 2023 RSV Immunization or 60+ Years (1 - 1-dose 75+ series) 2036 Meningococcal B Vaccine Aged Out No l onger eligible based on patient's age to complete this topic Meningococcal Vaccine Aged Out No afshin yuniel eligible based on patient's age to complete this topic Pneumococcal Vaccine: Pediat rics (0 to 5 Years) and At-Risk Patients (6 to 49 Years) Aged Out No longer eligible b ased on patient's age to complete this topic RSV Immunizations Under 20 Months Aged Out No longer eligible based on patient's age to complete this topic
--- OUTSIDE RECORDS SUMMARY | 2024-06-19 12:06 | XMS_ITS | CONTINUITY OF CARE DOCUMENT ---
Author Name scooter helms Address Unknown Organization [facility] Address [address] [address] [place] [address] Phone [phone] Care Team Providers Care Director Occupational Name Role Phone Maximus JAVIER, Jeremy Unavailable [phone] ANDREAS BALLARD MD Unavailable VALE KIRBY JUAN Murguia Unavailable [phone] PROBLEMS Condition Status Date Provider Notes Diastolic CHF active Jeremy Stroud MD Pulmonary hypertension active Jeremy Stroud MD Neck pain, chronic active Jeremy Stroud MD Aortic atherosclerosis active Jeremy Stroud MD CHEST PAIN-01/13 NUC NEG & ECHO completed - Jeremy Stroud MD COPD active Jermey Stroud MD 02 at [facility] HTN essential;neg duplx and angio active Jeremy [...] active Jeremy Stroud MD Hypertriglyceridemia active Jeremy Monteiro PVD; active Jeremy Stroud MD B12 deficiency with macro active Jeremy petersen MD nml folate Screening active Jeremy Stroud MD Obesity active Jeremy Stroud MD could ot get wegovy SLEEP APNEA; active Jeremy Stroud MD Anxiety [...] In-person encounter Office Visit Jeremy Stroud MD [facility] Obesity - In-person encounter Office Visit Jeremy Stroud MD [facility] COPDSyncopeBipolar disorder - In-person encounter Office Visit Tony Prince MD [facility] - In-person encounter Office Visit Tony Prince MD [facility] - In-person encounter Office Visit Jeremy Stroud MD [facility] B12 deficiency with macro - In-person encounter Office Visit Jeremy Stroud MD [facility] HTN essential;neg duplx and [id number] deficiency with macroCoronary artery aneurysm - In-person encounter Office Visit Tony Prince MD [facility] may thurner - In-person encounter Office Visit Jeremy Stroud MD [facility] CAD;carotid plaueScreeningEdemaSyncopeS VT;nml tsh - In-person encounter Office Visit Jeremy Stroud MD [facility] Syncope - In-person encounter Office Visit Jeremy Stroud MD [facility] AMI, subendocardialRenal disease, chronic, mild;NEG DUPLEX AND US and angiao - In-person encounter Office Visit Ge Quick MD [facility] - In-person encounter Office Visit Jeremy Stroud MD [facility] - In-person encounter Office Visit Jeremy Stroud MD [facility] - In-person encounter Office Visit Jeremy Stroud MD [facility] PVD;HypertriglyceridemiaExp osure to SARS-associated coronavirus;neg igg - In-person encounter Office Visit Jeremy Stroud MD [facility] CAD;carotid plaueSLEEP APNEA;Dyspnea on exertionScreeningClaudicati on, [id number] deficiency with macroPVD; - In-person encounter Office Visit Jeremy Stroud MD [facility] HTN-01/13 ECHO EF 60CHEST PAIN-01/13 NUC NEG & ECHOSLEEP APNEA:NO TIME FOR SLEEP STUDY NOWHTN-01/13 TYRESE DUP NEGLVHSHORTNESS OF BREATH?ETIOLOGYTobacco use, quitCOPDHTN essential;neg duplx and angioHypercholesterolemia;n eg lpa and crpBACK PAIN;CHRONICCAD;carotid plaueAMI, subendocardialAnxiety disorderRaynaud's syndromeSLEEP APNEA;ObesityScreening - In-person encounter Office Visit Jeremy Stroud MD [facility] Tobacco use, quit - In-person encounter Office Visit Jeremy Stroud MD [facility] HTN-01/13 ECHO EF 60CHEST PAIN-01/13 NUC NEG & ECHO VITAL SIGNS Date Observation Value Provider Body Mass Index (Ratio) 33.78 kg/m2 Jagdish Stroud MD blood pressure, diastolic 65 mm[Hg] [facility] blood pressure, systolic 90 mm[Hg] ezio [facility] oxygen saturation, oximetry 92 % [facility] pulse rate 71 /min [facility] respiratory rate E&M 12 /min [facility] weight E&M 203 [lb_av] [facility] height E&M 65 [in_i] [facility] blood pressure, cuff size regular An [facility] Body Mass Index (Ratio) 34.61 kg/m2 Jagdish Stroud MD blood pressure, cuff size regular Doni glovermary [place] blood pressure, diastolic 70 mm[Hg] Ta bitha [place] blood pressure, systolic 116 mm[Hg] Tab itha [place] oxygen saturation, oximetry 97 % Neha [place] respiratory rate E&M 12 /min Neha [place] pulse rate 64 /min Neha [place] weight E&M 208 [lb_av] Neha [place] height E&M 65 [in_i] Neha [place] Body Mass Index (Ratio) 35.24 kg/m2 Samira Prince MD blood pressure, diastolic 80 mm[Hg] Karthik Boggsam blood pressure, systolic 109 mm[Hg] Karthikl vinnie Gerber oxygen saturation, oximetry 94 % Joesph Boggsam pulse rate 64 /min Joesph Boggsam weight E&M 211.8 [lb_av] Joesph Boggsam blood pressure, cuff size regular Karthik Gerber respiratory rate E&M 12 /min Joesph Ash raham height E&M 65 [in_i] Joesph Buzz Body Mass Index (Ratio) 34.44 kg/m2 Samira Prince MD blood pressure, cuff size large Ke rri Gruenenfelder blood pressure, diastolic 82 mm[Hg] Ke rri Gruenenfelder blood pressure, systolic 124 mm[Hg] Ker ri Gruenenfelder oxygen saturation, oximetry 94 % Leslie Gruenenfelder respiratory rate E&M 12 /min Leslie G ruenenfelder pulse rate 75 /min Leslie Gruenenfe er weight E&M 207 [lb_av] Leslie Gruenenfe lder height E&M 65 [in_i] Leslie Gruenenfe lder Body Mass Index (Ratio) 34.61 kg/m2 Jagdish Stroud MD blood pressure, cuff size regular Ke rri Gruenenfelder blood pressure, diastolic 80 mm[Hg] Ke rri Gruenenfelder blood pressure, systolic 142 mm[Hg] Ker ri Gruenenfelder oxygen saturation, oximetry 95 % Leslie Gruenenfelder respiratory rate E&M 12 /min Leslie G ruenenfelder pulse rate 70 /min Leslie Gruenenfe lder weight E&M 208 [lb_av] Leslie Magi [facility] height E&M 65 [in_i] Leslie Magi [facility] Body Mass Index (Ratio) 34.14 kg/m2 Jagdish Stroud MD blood pressure, cuff size large Ta cristhian Leroy blood pressure, diastolic 78 mm[Hg] Ta cristhian Leroy blood pressure, systolic 118 mm[Hg] Tab ithsammy [place] oxygen saturation, oximetry 97 % Neha [place] respiratory rate E&M 12 /min Neha Leroy pulse rate 61 /min Neha [place] weight E&M 205.2 [lb_av] Neha [place] height E&M 65 [in_i] Neha [place] blood pressure, cuff size regular [facility] blood pressure, diastolic 80 mm[Hg] Ke rri Gruenenfarabella blood pressure, systolic 130 mm[Hg] Claire Lorenz oxygen saturation, oximetry 93 % Leslie [facility] respiratory rate E&M 12 /min Leslie elizabeth pulse rate 62 /min Leslie Sow [facility] height E&M 65 [in_i] Leslie Maldonadonehernan [facility] Body Mass Index (Ratio) 34.11 kg/m2 Jagdish Stroud MD blood pressure, cuff size regular Ja rret blood pressure, diastolic 106 mm[Hg] Ja rret blood pressure, systolic 142 mm[Hg] Jar ret pulse rate 73 /min Loyd lucita oxygen saturation, oximetry 90 % Loyd respiratory rate E&M 16 /min Loyd weight E&M 205 [lb_av] Loyd y height E&M 65 [in_i] Loyd erda y Body Mass Index (Ratio) 33.94 kg/m2 Jagdish Stroud MD blood pressure, cuff size regular Ke rri Gruenenfelder blood pressure, diastolic 104 mm[Hg] Ke rri Gruenenfelder blood pressure, systolic 170 mm[Hg] Ker ri Gru[place]der oxygen saturation, oximetry 94 % Leslie Gruenenfelder respiratory rate E&M 12 /min Leslie G ruenenfelder pulse rate 78 /min Leslie Gruenenfe lder weight E&M 204 [lb_av] Leslie Gruenenfe lder height E&M 65 [in_i] Leslie Gruenenfe lder Body Mass Index (Ratio) 33.94 kg/m2 Jagdish Stroud MD blood pressure, diastolic 100 mm[Hg] Li nkLogic blood pressure, systolic 142 mm[Hg] Hilaria kLogic blood pressure, cuff size regular Ke rri Gruenenfelder blood pressure, diastolic 100 mm[Hg] Ke rri Gruenenfelder blood pressure, systolic 142 mm[Hg] Ker ri Gruenenfelder oxygen saturation, oximetry 96 % Leslie Gruenenfelder respiratory rate E&M 12 /min Leslie G ruenenfelder pulse rate 74 /min Leslie Gruenenfe lder weight E&M 204 [lb_av] Leslie Gruenenfe lder height E&M 65 [in_i] Leslie Gruenenfe lder Body Mass Index (Ratio) 35.94 kg/m2 Rosita Quick MD blood pressure, diastolic 80 mm[Hg] Ri pantera Null blood pressure, systolic 117 mm[Hg] Davion shayla Null blood pressure, cuff size large Ri pantera Null oxygen saturation, oximetry 95 % Asiya Null respiratory rate E&M 16 /min Gabrielell enrique Null pulse rate 56 /min Asiya Muller son weight E&M 216 [lb_av] Asiya Muller son height E&M 65 [in_i] Asiya Muller son Body Mass Index (Ratio) 39.07 kg/m2 Jagdish Stroud MD blood pressure, diastolic 70 mm[Hg] Li nkLogic blood pressure, systolic 170 mm[Hg] Hilaria kLogic blood pressure, cuff size large Mi pantera Naper blood pressure, diastolic 70 mm[Hg] Mi pantera [place] blood pressure, systolic 170 mm[Hg] Ruperto shayla [place] pulse rate 98 /min Joyce monteiro respiratory rate E&M 20 /min Stephanie Gary oxygen saturation, oximetry 92 % Joyce Gary weight E&M 234.8 [lb_av] Joyce Toribio nd height E&M 65 [in_i] Joyce monteiro Body Mass Index (Ratio) 34.78 kg/m2 Jagdish Stroud MD blood pressure, diastolic 104 mm[Hg] Cy pepper Fenton blood pressure, systolic 179 mm[Hg] Iwona priya Fenton blood pressure, cuff size regular Cy pepper Fenton respiratory rate E&M 16 /min Ropriya Fenton pulse rate 67 /min Rosammy pastor oxygen saturation, oximetry 95 % Ro Fenton weight E&M 209 [lb_av] Ro Luna l height E&M 65 [in_i] Ro Luna l Body Mass Index (Ratio) 30.62 kg/m2 [...] Diane Rae weight E&M 184 [lb_av] Diane Rae height E&M 65 [in_i] Diane Rae blood pressure, diastolic 70 mm[Hg] Romel evans Apryl blood pressure, systolic 130 mm[Hg] Edita eitan [place] pulse rate 65 /min Lorrie [place] oxygen saturation, oximetry 96 % Lorrie Griggsby respiratory rate E&M 18 /min Lorrie Apryl Body Mass Index (Ratio) 36.34 kg/m2 Markus grey [place] weight E&M 218.4 [lb_av] Lorrie [place] height E&M 65 [in_i] Lorrienathan Pink blood pressure, diastolic 87 mm[Hg] Reinaldo [...] 0-149 High cholesterol, serum 123 mg/dL [facility] [id number] 1821/01/ 30 calcium, serum 9.6 mg/dL [facility] 8.7-10.2 carbon dioxide, venous blood 27 mmol/L [facility] 20-29 chloride, serum 96 mmol/L [facility] 96-106 potassium, serum 4.1 mmol/L [facility] 3.5-5.2 sodium, serum 137 mmol/L [facility] [phone]/01/ 30 urea nitrogen/creatinine ratio, serum 14 [facility] [...] 0-149 High cholesterol, serum 189 mg/dL [facility] 196-778 1179/10/ 03 calcium, serum 10.6 mg/dL [facility] 8.7-10.2 [...] [facility] 3.5-5.2 sodium, serum 144 mmol/L [facility] 489-690 9524/10/ 04 urea nitrogen/creatinine ratio, serum 13 [facility] 9-23 eGFR if 69 mL/min/{1.7 3_m2} [facility] >59 eGFR if not 60 mL/min/{1.7 3_m2} [facility] >59 creatinine, serum 1.05 mg/dL [facility] 0.57-1.00 High urea nitrogen, blood 14 mg/dL [facility] 6-24 blood glucose, random 83 mg/dL [facility] 65-99 hemoglobin A1C, blood, as % of total hemoglobin 5.3 % [facility] 4.8-5.6 vitamin b12, serum 339.3 pg/mL [facility] 211.0 - 946.0 free thyroxine index 5.1 [...] (low-density lipoprotein/high-den sity lipoprotein) ratio 2.7 RATIO [facility] - lipoprotein, beta, serum, point, quantitative, calculated [...] 3.5 - 5.2 calcium, serum 9.8 mg/dL [facility] 8.6 - 10.2 aspartate aminotransferase (SGOT), serum 17.0 1/L [facility] 0.0 - 32.0 alkaline phosphatase, serum 102.0 1/L [facility] 40.0 - 130.0 alanine aminotransferase (SGPT), serum 20.0 1/L [facility] 0.0 - 33.0 protein, total, serum 6.9 g/dL [facility] 6.6 - 8.7 bilirubin, serum, total 0.3 mg/dL [facility] 0.[facility] - 1.2 urea nitrogen, blood 18.0 mg/dL [facility] 6.0 - 20.0 blood glucose, random 79.0 mg/dL [facility] 74.0 - 99.0 red blood cell distribution width, size density 48.1 fL [facility] - immature granulocytes, percentage of total cells, blood 0.2 % [facility] - nucleated red blood cells as percent of blood leukocytes 0.0 % [facility] - red blood cell (erythrocyte) count, per high power field 0.0 10*3/UL [facility] - eosinophils as percent of blood leukocytes 4.6 % [facility] - neutrophils as percent of blood leukocytes 55.2 % [facility] - Absolute Neutrophils 5.4 CELLS/UL [facility] 1.5 - 7.8 basophils as percent of blood leukocytes 1.0 % [facility] - Absolute Basophils 0.1 CELLS/UL [facility] 0.0 - 0.2 monocytes as percent of blood leukocytes 10.7 % [facility] - Absolute Monocytes 1.0 CELLS/UL [facility] 0.2 - 1.0 High lymphocytes as percent of blood leukocytes 28.3 % [facility] Absolute Lymphocytes 2.8 CELLS/UL [facility] 0.9 - 3.9 mean platelet volume 11.7 (?) [facility] - platelet count 243.0 THOUSAND/UL [facility] 100.0 [...] Status Instructions Dates Provider Indications Com ments ezetimibe 10 mg tablet active TAKE 1 TABLET BY MOUTH EVERY DAY Jeremy Stroud MD cholecalciferol (vitamin D3) 50 mcg (2,000 unit) tablet active TAKE 1 TABLET BY MOUTH EVERY DAY Jeremy Stroud MD Shaneherrerakurt Spencerta 200-62.5-25 mcg blister with device active INHALE 1 PUFF EVERY DAY BY INHALATION ROUTE Jeremy Stroud MD isosorbide mononitrate 30 mg tablet extended release 24 hr active TAKE 1 TABLET BY MOUTH EVERY DAY Jeremy Stroud MD Coreg 25 mg tablet active TAKE 1 TABLETS BY MOUTH TWICE DAILY 05/09 Jeremy Stroud MD furosemide 20 mg tablet completed TAKE 1 TABLET BY MOUTH TWICE A DAY 03/16 - 05/09 Jeremy Stroud MD Wegovy 0.25 mg/0.5 mL pen injector completed 1 pen injector subcutaneously once a week 11/24 - 05/09 Jeremy Stroud MD clopidogrel 75 mg tablet active TAKE 1 TABLET BY MOUTH EVERY DAY 11/24 Jeremy Stroud MD clopidogrel 75 mg tablet completed - 11/24 Jeremy Stroud MD Zetia 10 mg tablet completed Take 1 tablet by mouth once a day 08/29 - 05/09 Jeremy Stroud MD Crestor 40 mg tablet active Take 1 tablet by mouth once a day 08/29 Jeremy Stroud MD Nexlizet 180-10 mg tablet completed Take 1 tablet by mouth once a day 08/25 - 08/29 Jeremy Stroud MD furosemide 20 mg tablet completed take 1 pill twice a day - 03/16 Rosemary Valentine nifedipine 60 mg tablet extended release 24hr completed Take 1 tablet by mouth every night at bedtime - 05/09 Jeremy Stroud MD Lasix 20 mg tablet [...] 2 CAPSULES BY MOUTH TWICE A DAY [facility] Specialist Coreg 25 mg tablet completed TAKE 2 TABLETS BY MOUTH TWICE DAILY 08/20 - 05/09 Jeremy Stroud MD cyclobenzaprine 10 mg tablet [...] a day 12/04 - 03/31 Cynthia Dougherty NP #90, 90 days supply, Prescribed by JEREMY [...] 02/07/2020 Symbicort 80-4.5 mcg/actuation HFA aerosol inhaler completed Take 2 puff by mouth once a day - 05/09 Jeremy Stroud MD #10.2, 30 days supply, [...] lipitor - 12/04 Ro Fenton VITAMIN D3 [id number] completed TAKE 1 CAPSULE BY MOUTH EACH [...] - 12/04 Jeremy Stroud MD VITAMIN D3 08274 UNIT ORAL TABLET completed take one tablet weekly 10/06 - 10/16 Diane Rae QSYMIA 7.5-46 MG ORAL CAPSULE EXTENDED RELEASE 24 HOUR completed one tablet daily 10/17 - 10/16 Diane Rae QSYMIA 3.75-23 MG ORAL CAPSULE EXTENDED RELEASE 24 HOUR completed one tablet daily 10/03 - 10/16 Diane Mcbride albuterol sulfate 2.5 mg/3 mL (0.083 %) solution for nebulization completed as needed - 03/13 Lorrie Pink ipratropium bromide 0.02% solution active four times a day as directed Lorrie Pink OXYCODONE-ACETAMI NOPHEN 10-325 MG ORAL TABLET completed as needed for pain - 10/16 Diane Mcbride BUPROPION HCL ER (XL) 300 MG ORAL TABLET EXTENDED RELEASE 24 HOUR completed one tab a day - 12/04 Ro Fenton CITALOPRAM HYDROBROMIDE 40 MG ORAL TABLET completed take one tablet by mouth once daily - 10/16 Diane Mcbride isosorbide mononitrate 30 mg tablet extended release [...] Stroud MD drug use no Jeremy Serota M Delia alcohol use, average drinks per day none [...] MD personal history of marijuana use no Tonyfabricio Prince MD drug use no Tony Prince alcohol use, average drinks per day none Tony Prince alcohol use yes Tony Prince smoking, year quit 2015 Tony D as number of years as a smoker 10 years or m ore Tony Prince MD smoking history, tot al pack/day 2 Tony Suresh JAVIER cigarette use yes Tony Prince smoking status Former smoker Tony Prince MD personal history of marijuana use [...] history of marijuana use no Gracia O'Shant [employer] drug use no Gracia O'Shant [employer] alcohol use, average drinks per day none Gracia O'Shant [employer] alcohol use yes Gracia O'Shant [employer] smoking, year quit 2015 Gracia O'N eal [employer] number of years as a smoker 10 years or m ore Gracia O'Shant [employer] smoking history, tot al pack/day 2 Gracia O'Shant [employer] cigarette use yes Gracia O'Shant N P smoking status Former smoker Gracia O'Shant [employer] quit smoking, stage quit Jeremy hooper MD personal history of marijuana use no Jeremy Stroud MD drug use no Jeremy Serota Shantal Monteiro alcohol use, average drinks per day none Jeremy Stroud MD alcohol use yes Jereym Serota Shantal Monteiro smoking, year quit 2015 Jeremy turner MD number of years as a smoker 10 years or m ore Jeremy Stroud MD smoking history, tot al pack/day 2 Jeermy Stroud MD cigarette use yes Jeremy Stroud MD smoking status Former smoker Jeremy issa MD personal history of marijuana use no Cynthia Dougherty NP drug use no Cynthia Phillipsri [employer] alcohol use yes Cynthia Phillipsri [employer] smoking, year quit 2015 Cynthia Woods [employer] number of years as a smoker 10 years or m ore Cynthia Dougherty [employer] smoking history, tot al pack/day 2 Cynthia Phillipsri [employer] cigarette use yes Cynthia Phillipsri [employer] smoking status Former smoker Cynthia Phillips ri [employer] social history reviewed E&M revi ewed - no changes required Cynthia Phillipsri [employer] social history E&M Marital Statu s: L fran with family/friends E thnicity: Smoking History: Fabricio weiss is a former smoker. Cynthia Phillipsri [employer] drug use no Cynthia Phillipsri [employer] alcohol use no Cynthia Phillipsri [employer] smoking status Former smoker Cynthia Phillips ri [employer] physical exercise, f requency, days per week no Asiya Null caffeine use, averag e drinks per day yes Asiya Churcherson smoking, year quit 2015 Asiya Null number of years as a smoker 10 years or m ore Asiya Null smoking history, tot al pack/day 2 Asiya Null cigarette use yes Asiya Churchenrique mcduffie smoking status Former smoker Asiya Harding susan social history E&M Marital Statu s: L [...] Joyce Gary cigarette use yes Joyce Toribio marcel smoking status Former smoker Joyce ballard social history E&M Marital Statu s: L fran with family/friends E thnicity: Smoking History: P atient is a former smoker. Jeremy Stroud MD [...] smoking history, tot al pack/day 2 Ro Fenton cigarette use yes Ro villeda smoking status Former smoker Ro Stan bryan social history E&M Marital Statu s: L fran with family/friends E thnicity: Smoking History: P atperry is a former smoker. Jeremy Stroud MD [...] MD social history E&M Marital Statu s: Romelia peters with family/friends E thnicity: Smoking History: P [...] MD social history E&M Marital Statu s: Romelia peters with family/friends E thnicity: Piotr Gonzalez RN social history reviewed E&M reviewed Piotr Gonzalez RN physical exercise, f requency, days per week no [facility] caffeine use, averag e drinks per day yes [facility] alcohol use, average drinks per day none [facility] number of years as a smoker 10 years or m ore [facility] smoking status [facility] FUNCTIONAL STATUS Date Observation Value Provider HRA, [...] (inactive) Management Plan continue current therapy Gracia Eve ELI HRA, CV Assess/Plan, Angina (inactive) Management Plan [...] Payer name Policy type / Coverage type [facility] republican ID [id number] (PPO C-SNP) Commercial insurance [id number] [id number] ADVANCE DIRECTIVES Name Date DISCUSSED - NO DECISION MADE TREATMENT PLAN Date Name Performer [id number],C,T he patient is between 55-77 years old [...] to undergo diagnosis and treatment. Cynthia Dougherty SREEDHAR [id number],C,P atient c/o worsening of SOB. Will check labs, CXR, and PFTs. Her updated medication list for this problem includes: Symbicort 80-4.5 Mcg/actuation Hfa Aerosol Inhaler (Budesonide-formoterol) ..... Take 2 puff by mouth once a day Ipratropium [place] 0.02% Solution (Ipratropium bromide) ..... Four times a day as directed Cynthia Murrietaconor ELI [id number],C,W ill check labs to asess current status. Cynthia Phillipsroldan ELI [id number],C,T he patient is using CPAP on a regular basis. The patient has been benefiting from therapy and should continue use. Cynthia Phillipsroldan ELI [id number],C, W ill check labs. Cynthia Phillipsroldan ELI [id number],C,W ill check lipid profile. H er updated [...] mouth twice a day Cynthia Phillipsroldan ELI [id number],C,S lightly elevated in office today. She states [...] tablet by mouth once a day Cynthia Dougherty [employer] [id number],C,N o chest pain. Will continue current medications. n eg nuc 2019 5 0% rca adn 100 om 3 with non stemi, had rca aneurm on med rx ef 55% Cynthia Dougherty [employer] [id number],C,P atient c/o increased SOB n ml pro [...] No significant valvular abnormalities. Cynthia Dougherty SREEDHAR [id number],S,S table T he following medications were removed [...] mouth once a day Bobbi Bañuelos NP [id number],S,W orsening sob, check echo H er updated medication list for this problem includes: Symbicort 80-4.5 Mcg/actuation Hfa Aerosol Inhaler (Budesonide-formoterol) ..... Take 2 puff by mouth once a day Ipratropium [place] 0.02% Solution (Ipratropium bromide) ..... Four times a day as directed Bobbi Bañuelos NP [id number],S, T he following medications were removed from [...] mouth twice a day Bobbi Bañuelos NP [id number],S,Continue curr ent meds Bobbi Bañuelos NP [id number],S,c oudl be villeda thrune but does not want it yet w u neg see screeing Jeremy Stroud MD [id number],S, n eg nuc 2020 5 0% rca adn 100 om 3 with non stemi, had rca aneurm on med rx ef 55% Jeremy Stroud MD [id number],S, T he patient is using CPAP on a regular basis. The patient has been benefiting from therapy and should continue use. Jeremy Stroud MD [id number],B, d oes not want surgey but will try diet pill Jeremy Stroud MD [id number],B, Jeremy issa MD [id number],S, n ml d n eg uacr, neg a1c n o venlus insuf or clto, high dd though and iron, nml tsh Jeremy Stroud MD [id number],S, m ild by charline Stroud MD [id number],B, Jeremy issa MD [id number],S, Jeremy issa MD [id number],S, Jeremy issa MD [id number],S, T he patient is between 55-77 years [...] undergo diagnosis and treatment. Jeremy Stroud MD [id number],S, Jeremy issa MD Cardiology: H er updated medication list for this problem includes: Vascepa 1 Gram Capsule (Icosapent ethyl) ..... Take 2 capsules by mouth twice a day Zetia 10 Mg Tablet (Ezetimibe) ..... Take 1 tablet by mouth once a day Crestor 40 Mg Tablet (Rosuvastatin) ..... Take 1 tablet by mouth once a day Jeremy Stroud MD Cardiology: m ild by charline Stroud MD Cardiology: n on compaletn Jeremy Stroud MD Cardiology: e f 50 lvedp 27, nml pro 119 Jeremy Stroud MD Cardiology: p ap 64/44 mean 52 who group 2 Jeremy Stroud MD Cardiology: b /l leg pains much better post mts stening for both CIV Jeremy Stroud MD Cardiology: s /p stent [...] by the coils Jeremy Stroud MD Cardiology: c to second om, 70% rplv wiht pos pet was stented at time of coiling the anerumis in rca Jeremy Stroud MD Cardiology: 4 8 e GFR 52 (09/18/2023) Jeremy Stroud MD Cardiology:not seem in fu Jeremy Stroud MD Cardiology: nml d , neg a1c n o venlus insuf or clto, high dd though and iron, nml tsh Jeremy Stroud MD Cardiology Jeremy Stroud MD Cardiology: r elated to pych meds which she stopped Jeremy Stroud MD [...] (04/06/2020) LDL: 53 (04/06/2020) T (04/06/2020) Courtney Sammy Milton SUPERVISOR [employer] Cardiology: H er updated medication list for [...] Courtney Milton NP Cardiology: r elated to [facility] which she stopped Courtney Sammy Milton SUPERVIS[employer] Cardiology: p ap 64/44 mean 52 who group 2 Courtney Sammy Milton SU[employer] Cardiology: e f 50 lvedp 27, nml pro Courtney Sammy Milton SU[employer] Cardiology:s/p stent coiling of the RCA 09/17/2023 n ow doing well post stent coiling could consider angiogram in future to ensure patchy open areas within stent have clotted off pt advised that the only way to assess the segment which has been coiled in future would be by ivus as the angiogram would be shadowed by the coils Courtney Milton [employer]PER[employer] :48 EGFR Jeremy Stroud MD Cardiology: H [...] 1 tablet by mouth once a day Tonyfabricio Prince MD Cardiology: H er updated medication list [...] mts stening for both CIV Suresh JAVIER 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 3 . 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 4 . WHO Group 2 pulmonary hypertension with a subcomponent of COPD causing pulmonary hypertension with an elevated LVEDP of 27 and a mean PA pressure of 52. 5 . Renal insufficiency and hypertension with normal renal arteries. 6 . Diastolic heart failure with an ejection fraction of 50%. 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 3 . 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 4 . WHO Group 2 pulmonary hypertension with a subcomponent of COPD causing pulmonary hypertension with an elevated LVEDP of 27 and a mean PA pressure of 52. 5 . Renal insufficiency and hypertension with normal renal arteries. 6 . Diastolic heart failure with an ejection fraction of 50%. 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 3 . 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 Cynthia Dougherty NP Cardiology: F murray with neuro in [place] Cynthia Dougherty NP Cardiology: T he following [...] episodes with falls W ill adjust medications Mikesavanna Dougherty NP Cardiology: N o chest pain. Will continue current medications. n eg nuc 2020 5 0% rca [...] repeat echo Cynthia Dougherty NP -seen with SUPERVISOR [employer]:The [place] flores is between 55-77 years old [...] and treatment. Cynthia Dougherty NP -seen with SUPERVISOR [employer]:Patien t c/o worsening of SOB. Will check labs, CXR, and PFTs. Her updated medication list for this problem includes: Symbicort 80-4.5 Mcg/actuation Hfa Aerosol Inhaler (Budesonide-formoterol) ..... Take 2 puff by mouth once a day Ipratropium [place] 0.02% Solution (Ipratropium bromide) ..... Four times a day as directed Cynthia Dougherty NP -seen with SUPERVISOR [employer]ICATION:Will check labs to asess current status. Cynthia Dougherty NP -seen with SUPERVISOR [employer]:The pa sandra is using CPAP on a regular basis. The patient has been benefiting from therapy and should continue use. Cynthia Dougherty NP -seen with SUPERVISOR [employer]: W ill check labs. Cynthia Dougherty NP -seen with SUPER[employer]OR [employer]:Yo valentine lipid profile. H er updated medication [...] capsules by mouth twice a day Cynthia Murrietaconor ELI -seen with SUPER[employer]OR [employer]:Slight ly elevated in office today. She states [...] tablet by mouth once a day Cynthia Farhat ELI -seen with SUPERVISOR [employer]ICATION:No candy st pain. Will continue current medications. 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 No significant valvular abnormalities. Cynthia Phillipsroldan ELI Cardiology:Stable T he following medications were [...] puff by mouth once a day Ipratropium [place] 0.02% Solution (Ipratropium bromide) ..... Four times [...] current meds Bobbi Bañuelos NP Cardiology:coudl be christiana leong but does not want it yet w [...] mouth twice daily universal coupon code: bin# [id number], pcn# [email or web address], grp# [email or web address], id# [id number] Atorvastatin 20mg (Atorvastatin calcium) ..... Take 1 [...] every day Metoprolol Succinate Er 100 Mg [id number] (Metoprolol succinate) ..... Take 1 tablet by [...] tab. daily Metoprolol Succinate Er 100 Mg [id number] (Metoprolol succinate) ..... Take 1 tablet by mouth daily Aspirin Adult Low Dose 81 Mg Oral Tablet Delayed Release (Aspirin) ..... One tab by mouth daily BP today: 179/104 P rior BP: 112/82 (12/08/2017) Labs Reviewed: C reat: 1.05 (12/09/2017) C hol: 200 (12/09/2017) HDL: 35 (12/09/2017) Jeremy Stroud MD Cardiology follow up :harkins neg see screeing Jeremy Stroud MD Cardiology [...] pill Jeremy Stroud MD Cardiology follow up:will harkins Steven Stroud MD Cardiology follow up : [...] need cvs:COPD VS ELLIOTT TOLIC CHF WILL LORENA Stroud MD Cardiology need cvs: does not want surgey but will try diet pill Jeremy Stroud MD Cardiology need cvs:many sx will lorena Stroud MD Cardiology need cvs:per pt Reena [...] Nebu (Albuterol sulfate) ..... As needed Ipratropium [place] 0.02 % Inh Soln (Ipratropium bromide) ..... [...] includes: Isosorbide Mononitrate Er 30 Mg Oral [id number] (Isosorbide mononitrate) ..... Take one tablet by [...] rior BP: 148/97 (01/26/2008) Orders: E KG (CPT-25143) C BC (INCLUDES DIFF/PLT) (5485) Jeremy Stroud MD office visit: H er [...] Orders: X -Ray, Chest, PA & Lateral (CPT-10119) B TYPE NATRIURETIC PEPTIDE (BNP) (75272) C OMPREHENSIVE METABOLIC PANEL W/EGFR (28261) L IPID PANEL (7600) C BC (INCLUDES DIFF/PLT) (6399) Jeremy Stroud MD office visit: O rders: B TYPE NATRIURETIC PEPTIDE (BNP) (85034) C OMPREHENSIVE METABOLIC PANEL W/EGFR (59120) L IPID PANEL (7600) C BC (INCLUDES DIFF/PLT) (6399) Jeremy Stroud MD office visit: H er updated medication list for this problem includes: Toprol Xl 100 Mg Tb24 (Metoprolol succinate) ..... One tab daily Zestoretic 10-12.5 Mg Tabs (Lisinopril-hydrochlorothiazide) ..... One tab. daily (new) BP today: 124/87 P rior BP: 148/97 (01/26/2008) Orders: B TYPE NATRIURETIC PEPTIDE (BNP) (74955) C OMPREHENSIVE METABOLIC PANEL W/EGFR (86415) L IPID PANEL (7600) C BC (INCLUDES DIFF/PLT) (6399) Jeremy Stroud MD office visit: H er updated medication list for this problem includes: Toprol Xl 100 Mg Tb24 (Metoprolol succinate) ..... One tab daily Zestoretic 10-12.5 Mg Tabs (Lisinopril-hydrochlorothiazide) ..... One tab. daily BP today: 148/97 Prior BP: / () Orders: C omplete Echo (CPT-34553) S tress Test - Adenosine (75416) R enal Artery Duplex (CPT-18832) X -Ray, Chest, PA & Lateral (CPT-42288) Jeremy Stroud MD office visit: H er updated medication list for this problem includes: Toprol Xl 100 Mg Tb24 (Metoprolol succinate) ..... One tab daily Zestoretic 10-12.5 Mg Tabs (Lisinopril-hydrochlorothiazide) ..... One tab. daily BP today: 148/97 Orders: C omplete Echo (CPT-27289) S tress Test - Adenosine (53553) R enal Artery Duplex (CPT-55143) X -Ray, Chest, PA & Lateral (CPT-73639) Jeremy Stroud MD Date Name Complete Echo Holter Monitor [address] DLCO - 27823 FRC - 41376 FVC - 34483 LIPID PANEL CBC (INCLUDES DIFF/P LT) BASIC METABOLIC PANE L W/EGFR PROTHROMBIN TIME WIT H INR Holter Monitor [address] DLCO - 99237 FRC - 52744 FVC - 74772 DLCO - 79760 FRC - 09130 FVC - [address] FOLATE, SERUM BASIC METABOLIC PANE L W/EGFR CBC (INCLUDES DIFF/P LT) LIPID PANEL PROTHROMBIN TIME WIT H INR Venogram with IVUS - Other PROTHROMBIN TIME WIT H INR LIPID PANEL CBC (INCLUDES DIFF/P LT) BASIC METABOLIC PANE L W/EGFR CRP, high sensitivit y DLCO - 73002 FRC - 63863 FVC - [address] RPM (remote patient monitoring) Monitor - Telemetry (Mobile Cardiac) Stress Cardiac PET-C T Low Dose Lung CT Complete Echo DLCO - 36027 FRC - 01311 FVC - 77342 CXR- PA/Lat CRP, high sensitivit y COMPREHENSIVE METABO LIC PANEL, W/EGFR LIPID PANEL Lipoprotein (a) PROBNP, N TERMINAL Microalb/Creatinine Urine, Random Complete Echo RPM (remote patient monitoring) PROBNP, N TERMINAL Low Dose Lung CT DLCO - 13501 FRC - 59115 FVC - 77834 CXR- PA/Lat Microalb/Creatinine Urine, Random CRP, high sensitivit y Lipoprotein (a) COMPREHENSIVE METABO LIC PANEL, W/EGFR LIPID PANEL Complete Echo RPM (remote patient monitoring) CT, Coronary Calcium Score Low Dose Lung CT DLCO - 60805 FRC - 26583 FVC - [address] LIPID PANEL BASIC METABOLIC PANE L W/EGFR DLCO - 20383 FRC - 88618 FVC - 78026 CT, Coronary Calcium Score Kidney Ultrasound BASIC METABOLIC PANE L W/EGFR COVID19 High Affinit y Antibodies (LC) Vitamin D, 25-Hydrox y LIPID PANEL CT, Coronary Calcium Score Low Dose Lung CT DLCO - 96912 FRC - 14582 FVC - 90716 PROBNP, N TERMINAL STR - Adenosine Arterial Duplex Bi-L ower EX CT, Coronary Calcium Score URINALYSIS, RANDOM, MICROALB/CREATININE HEMOGLOBIN A1c COMPREHENSIVE METABO LIC PANEL, W/EGFR LIPID PANEL Low Dose Lung CT DLCO - 98975 FRC - 89895 FVC - 04629 Sleep Study - split night URINALYSIS, COMPLETE [...] Echo Carotid Duplex Bilat eral DLCO - 73392 FRC - 24931 FVC - 20780 CBC (INCLUDES DIFF/P LT) LIPID PANEL COMPREHENSIVE METABO LIC PANEL W/EGFR B TYPE NATRIURETIC P EPTIDE (BNP) X-Ray, Chest, PA & L ateral X-Ray, Chest, PA & L ateral Renal Artery Duplex Stress Test - Adenos ine Complete Echo HISTORY OF PROCEDURES Procedure Date Procedure Name Provider Procedure Notes S tatus Complex e/m visit add on Jeremy Stroud MD completed Counseling LDCT Jeremy Stroud MD june pleted Complex e/m visit add on Tonyfabricio Prince MD completed Complex e/m visit add on Tonyfabricio Prince MD completed Complex e/m visit add on Jeremy Stroud MD completed Counseling LDCT Jeremy Stroud MD arpril com pleted Complex e/m visit add on Jeremy Stroud MD completed Counseling LDCT Jeremy Stroud MD june pleted Counseling LDCT Jeremy Stroud MD 1 yeare com pleted Spirometry Jeremy Stroud MD complete d FVC / MVV with bronchodilator - 47594 Jeremy Stroud MD completed BLOOD COUNT HEMOGLOBIN Jeremy Stroud MD completed SpO2 w/o 6min walk/titration Jeremy Stroud MD completed SVC - 27036 Jeremy Stroud MD complet ed DLCO - 73787 Jeremy Stroud MD comple sandeep Counseling LDCT Jeremy Stroud MD com pleted Counseling LDCT Jeremy Stroud MD com pleted EKG Jeremy Stroud MD complete d Counseling LDCT Jeremy Stroud MD com pleted EKG Jeremy Stroud MD complete d Spirometry Jeremy Stroud MD complete d FVC / MVV with bronchodilator - 41346 Jeremy Stroud MD completed BLOOD COUNT HEMOGLOBIN Jeremy Stroud MD completed FRC - 18288 Jeremy Stroud MD complet ed SpO2 w/o 6min walk/titration Jeremy Stroud MD completed SVC - 81205 Jeremy Stroud MD complet ed DLCO - 88862 Jeremy Stroud MD comple sandeep Ultrasound, retroperitoneal, complete Jeremy Stroud MD completed Counseling LDCT Jeremy Stroud MD nov com pleted FVC / MVV with bronchodilator - 37624 Jeremy Stroud MD completed BLOOD COUNT HEMOGLOBIN Jeremy Stroud MD completed FRC - 21144 Jeremy Stroud MD complet ed SpO2 w/o 6min walk/titration Jeremy Stroud MD completed DLCO - 28067 Jeremy Stroud MD comple sandeep Counseling LDCT Jeremy Stroud MD com pleted EKG Jeremy Stroud MD complete d Regadenoson, 4 units Jeremy Stroud MD completed Cardiolite, 2 units Jeremy Stroud MD completed SPECT Images Jeremy Stroud MD comple sandeep Stress EKG Jeremy Stroud MD complete d FVC / MVV with bronchodilator - 79546 Jeremy Stroud MD completed BLOOD COUNT HEMOGLOBIN Jeremy Stroud MD completed FRC - 26356 Jeremy Stroud MD complet ed SpO2 w/o 6min walk/titration Jeremy Stroud MD completed DLCO - 62462 Jeremy Stroud MD comple sandeep Counseling LDCT Jeremy Stroud MD com pleted EKG Jeremy Stroud MD complete d BLOOD COUNT HEMOGLOBIN Jeremy Stroud MD completed FVC - 51335 Jeremy Stroud MD complet ed FRC - 15840 Jeremy Stroud MD complet ed DLCO - 97388 Jeremy Stroud MD comple sandeep SNOMED-CT: [id number] Smoking Cessation Counseling Jeremy Stroud MD completed EKG Jeremy Stroud MD complete d SNOMED-CT: [id number] [id number] Current Medications Documented Jeremy Stroud MD completed EKG Jeremy Stroud MD complete d EKG Jeremy Stroud MD complete d
--- OUTSIDE RECORDS SUMMARY | 2024-06-19 12:06 | XMS_ITS | Clinical Summary ---
Author Organization [facility] Facility Address [address] [address] Care Team Providers Care Crocheter Name Role Phone Sabas Arambulary Primary Care Provider [phone] Medications indapamide (LOZOL) 1.25 MG tablet Take 1 tablet (1.25 mg total) by mouth 1 (one) time each day in the morning 90 tablet 1 04/25/2024 Active Encounters Date Type Department Care Team Description 04/25/2024 1:15 PM PIPE SETTER Office Visit [facility] [address] [facility] [address] [place] [address] Arun Li DO Stage 3 chronic kidney disease, not otherwise specified (HCC) (Primary Dx); Interstitial nephritis; Persistent proteinuria; Coronary artery disease due to calcified coronary lesion; Peripheral vascular disease (HCC); Venous insufficiency; Obstructive sleep apnea syndrome; Hypertensive chronic kidney disease; Pure hypercholesterolemi a, not otherwise specified; Major depressive disorder, single episode, severe without psychotic features, not otherwise specified (HCC) 04/25/2024 Refill [facility] [address] [facility] [address] [place] [address] Carmelina Roblero CMA 04/24/2024 Documentation Only [facility], [address] [address] Arun Li DO 04/10/2024 Documentation Only [facility], [address] [place] [place] [address] Arun Li, DO 04/10/2024 Documentation Only [facility], [address] [place] [address] Arun Li, DO 03/28/2024 Documentation Only [facility], [address] [address] Arun Li, DO 03/27/2024 Documentation Only [facility], [address] [address] Arun Li, DO 03/24/2024 Documentation Only [facility], [address] [address] Arun Li, DO 03/24/2024 Documentation Only [facility], [address] [address] Arun Li, DO 03/24/2024 Documentation Only [facility], [address] [address] Arun Li, DO 03/22/2024 Documentation Only [facility], [address] [address] Arun Li, DO 03/21/2024 3:15 PM PIPE SETTER Office Visit [facility], [facility] [address] [address] Arun Li, DO Stage 3 chronic kidney disease, not otherwise specified (HCC) (Primary Dx); Persistent proteinuria; Coronary artery disease due to calcified coronary lesion; Peripheral vascular disease (HCC); Venous insufficiency; Obstructive sleep apnea syndrome; Hypertensive chronic kidney disease; Pure hypercholesterolemi a, not otherwise specified; Major depressive disorder, single episode, severe without psychotic features, not otherwise specified (HCC); Interstitial nephritis 03/21/2024 Refill [facility], [facility] [address] [phone] Carmelina Roblero CMA 03/21/2024 Documentation Only [facility], [address] [address] Arun Li DO from Last 3 [...] Sign Reading Time Taken Comments Blood Pressure 120/68 04/25/2024 1:57 PM PIPE SETTER Pulse 71 04/25/2024 1:57 PM PIPE SETTER Temperature 36.1 C (97 F) 04/25/2024 1:57 PM PIPE SETTER Respiratory Rate 18 04/25/2024 1:57 PM PIPE SETTER Oxygen Saturation 96% 04/25/2024 1:57 PM PIPE SETTER Inhaled Oxygen Concentration - - Weight 89.5 kg (197 lb 4.8 oz) 04/25/2024 1:57 P M PIPE SETTER Height - - Body Mass Index - - Plan of Treatment Upcoming Encounters Date Type Department Care Team (Late st Contact Info) Description 06/27/2024 3:45 PM CDT Office Visit [facility], [facility] [address] [phone] Arun Li DO [address] [place] [phone] Health Maintenance Due Date Last Done Comments Breast Cancer Screening 1961 Colorectal Cancer Screening: Annual FOBT 2010 Colorectal Cancer Screening: Colonoscopy 2010 Colorectal Cancer Screening: Sigmoidoscopy 2010 Pneumococcal Vaccine: 50+ Years (3 of 3 - PPSV23, PCV20 or PCV21) 10/02/2026 10/02/2021, 06/01/2017 Pneumococcal Vaccine: Peds (0 to 5 Years) and At-Risk Patients (6 to 49 Years) Discontinued 10/02/2021, 06/01/2017 Influenza Vaccine Completed 02/02/2024, , 01/06/2022, Additional history exists Hepatitis B Vaccine Aged Out No longe r eligible based on patient's age to complete this topic Insurance [facility] Medicare Care Teams Crocheter Relationship Specialty Start Date End Date Stew Arambula [address] [place] [phone] PCP - General 09/20/23
[2024-06-19 15:47] LABS: Potassium Urine Random 32.5 meq/L; Sodium Urine Random 203 meq/L
[2024-06-20 13:18] LABS: Osmolality, Urine 752 mOsm/kg (50-1200)
[2024-06-21 13:18] LABS: Cystatin C 1.48 mg/L (0.52-1.14); eGFR 43 (> OR = 60)
[2024-06-22 10:38] LABS: Magnesium 2.1 mg/dL (1.6-2.3)
== END 2024-06-19 10:42 | disposition home or self-care (01) ==
LOC: ANHLAB 10:44
PROVIDERS: PCP Family Medicine; Visit Provider Internal Medicine Nephrology
DX: I12.9 Hypertensive chronic kidney disease with stage 1 through stage 4 chronic kidney disease, or unspecified chronic kidney disease (principal); N18.30 Chronic kidney disease, stage 3 unspecified; R80.1 Persistent proteinuria, unspecified; I25.84 Coronary atherosclerosis due to calcified coronary lesion; I73.9 Peripheral vascular disease, unspecified; I87.2 Venous insufficiency (chronic) (peripheral); G47.33 Obstructive sleep apnea (adult) (pediatric); E78.00 Pure hypercholesterolemia, unspecified; F32.2 Major depressive disorder, single episode, severe without psychotic features
CPT/HCPCS: 36415; 80069; 82610; 83735; 83930; 83935; 84133; 84300

== ENCOUNTER 2024-06-23 15:55 | Outpatient (CLI) | payer MEDICARE, SELFPAY ==
--- NOTE | ~2024-06-23 | CT_ITS ---
CT Scan of the Chest without Contrast: Clinical Indication: Lung cancer screening, nicotine dependence Technique: Contiguous sections were acquired throughout the chest without intravenous contrast. Dose reduction technique was used on this scan by utilizing automated exposure control and iterative recon struction technique. The dose-length product (DLP) was 160.71 mGy-cm. Findings: There is no evidence of any significant mediastinal, hilar or axillary lymphadenopathy. Coronary codey ry calcifications are present. There is no evidence of pleural or pericardial effusion. The lungs are clear. No pulmonary nodules or infiltrates are noted. There is advanced emphysema. Images through the upper abdomen reveal no abnormalities. There is diffuse degenerative spondylosis o f the spine. Impression: Lung RADS 1: Negative. 12 month follow-up screening CT advised. Advanced emphysema. Reviewed, dictated and finalized at location . Impression: Lung RADS 1: Negative. 12 month follow-up screening CT advised. Advanced emphysema.
--- OUTSIDE RECORDS SUMMARY | 2024-06-23 16:01 | XMS_ITS | Encounter Summary ---
Author Organization [facility] Address [address] [place] [phone] Phone Care Team Providers Care Loss Prevention Auditor Name Role Phone Stew Arambula Primary Care Provider [phone] Encounter Details Date Type Department Care Team (Late st Contact Info) Description 06/21/2024 Documentation Only [facility] [address] [address] David Alanis MD [address] [place] [address] [phone] Social History Tobacco Use Types Packs/Day Years Used Date Smoking Tobacco: Never Assessed Comments Unknown Sex and Gender Information Value Date Recorded Sex Assigned at Not on file Legal Sex Female 11:04 AM EDT Gender Identity Not on file Sexual Orientation Not on file documented as of this encounter Plan of Treatment Upcoming Encounters Date Type Department Care Team (Late st Contact Info) Description 06/27/2024 3:45 PM CDT Office Visit [facility], [facility] [address] [facility] [address] [place] [phone] Arun Li DO [address] [facility] [address] [place] [address] documented as of this encounter Visit Diagnoses Not on filedocumented in this encounter Care Teams Loss Prevention Auditor Relationship Specialty Start Date End Date Stew Arambula [address] [place] [address] [place] [address] PCP - General 09/20/23 documented as of this encounter
--- OUTSIDE RECORDS SUMMARY | 2024-06-23 16:01 | XMS_ITS | Data Portability ---
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 Assessment Encounter Date Assessment Date Assessment LastModified [...] Not available Not available Not available Lab alpha-1-a ntitrypsi n (aat) phenotype , serum 2023 12 024 [facility], [address] [place], [address], 03/24/2024 12:12:05 BNP (B-type natriuret ic peptide), serum or plasma 12/11/ 2024 12/11/2 024 [email or web address] 2 [facility], [address], [place], [address], 03/06/2024 10:04:03 ige, total, serum 2023 024 [email or web address] 2 [facility], [address], [place], [address], 03/06/2024 10:04:19 tb (M tuberculo sis), ifn-gamma horace, blood 2023 024 NORMA [facility], [address], [place], [address], 03/27/2024 08:58:29 [address] s 1+2+3+4, serum 2023 024 2 [facility], [address], [place], [address], 03/06/2024 10:05:52 respirato ry allergen panel, [facility] A, serum 2023 024 [email or web address] 2 [facility], [address], [place], [address], 03/06/2024 10:06:06 respirato ry allergen panel - [facility] b 2023 024 [email or web address] 2 [facility], [address], [place], [address], 03/06/2024 10:06:17 lipid panel, serum 2023 024 [email or web address] [facility], [address], [place], [address], 04/04/2024 08:24:40 CBC w/ auto diff 2023 024 2 [facility], [address], [place], [address], 06/06/2024 08:44:19 CMP, serum or plasma 2023 024 [facility], [address], [place], [address], 04/04/2024 08:24:40 TSH, serum or plasma 2023 024 [email or web address], [address], [place], [address], 04/04/2024 08:24:41 HbA1c (hemoglob in A1c), blood 2023 024 [email or web address] 2 [facility], [address], [place], [address], 06/06/2024 08:44:19 vitamin D, 25-hydrox y, total, serum 2023 024 [email or web address] 2 [facility], [address], [place], [address], 06/06/2024 08:44:18 vitamin B12 + folate, serum or blood 2023 024 [facility], [address], [place], [address], 04/04/2024 08:24:40 hepatitis C virus Ab, serum 2023 024 [facility], [address], [place], [address], 04/04/2024 08:24:41 drug of abuse panel, urine 2023 024 [facility] (Lab), [address] [place], [address], 10/19/2023 20:01:07 HbA1c (hemoglob in A1c), blood 2023 024 [email or web address] [id number] Not available 08/17/2023 08:02:44 BMP, serum or plasma 2023 024 NORMA Not available 08/04/2023 11:57:11 vitamin D, 25-hydrox y, total, serum 2023 024 NORMA Not available 08/04/2023 16:56:02 CBC w/ auto diff 2023 024 NORMA Not available 08/04/2023 11:40:59 Referral pulmonary rehab referral - Please call patient to schedule. [email or web address] [place] [address] (Outpatient Rehab), [address] [place], [address], 05/29/2024 08:38:07 overnight pulse oximetry referral - Please call patient to arrange. [email or web address] [place] [address] Respiratory Services, [address] [place] [address], [address], 05/29/2024 08:38:22 pulmonolo gist referral - Please call patient to schedule. 2023 024 [email or web address] Gina Cortes [facility], [address] [facility], [facility] [address], [place], [address], 02/11/2024 15:48:46 Procedures None recorded. Surgeries None recorded. Imaging LDCT, chest, for lung cancer screening - Please call patient to schedule. 2024 025 J[facility], [address], [place], [address], 05/08/2024 10:34:05 XR, chest, 2 view 2023 024 NORMA [facility], [address], [address], [place], [address], 03/27/2024 16:55:11 MAMMO, screening , digital, bilateral - Please call patient to schedule. 2023 024 [email or web address] [facility], [address], [place], [address], 03/06/2024 16:00:41 Medication Orders Trelegy Ellipta 200 mcg-62.5 mcg-25 mcg powder for inhalatio n 2024 025 [id number], [address], [place], [address], 03/27/2024 10:59:39 Trelegy Ellipta 200 mcg-62.5 mcg-25 mcg powder for inhalatio n 2023 024 [facility] #[id number], [address], [place], [address], 02/16/2024 14:34:52 Augmentin 875 mg-125 mg tablet 2023 024 [email or web address] [id number], [address] [place], [address], 03/27/2024 10:24:33 prednison e 20 mg tablet 2023 024 [facility] #[id number], [address] [place], [address], 02/16/2024 14:34:52 gabapenti n 800 mg tablet 2023 024 [facility] #[id number], [address] [place], [address], 02/02/2024 17:33:19 albuterol sulfate HFA 90 mcg/actua tion aerosol inhaler 2023 024 [facility] #[id number], [address] [place], [address], 02/02/2024 17:33:18 Symbicort 80 mcg-4.5 mcg/actua tion HFA aerosol inhaler 2023 024 [facility] #[id number], [address], [place], [address], 03/27/2024 10:50:34 cholecalc iferol (vitamin D3) 50 mcg (2,000 unit) capsule 2023 024 NORMA [facility] #[id number], [address], [place], [address], 02/02/2024 17:33:18 gabapenti n 800 mg tablet 2023 024 [facility] #[id number], [address], [place], [address], 02/02/2024 17:20:08 phentermi ne 37.5 mg tablet 2023 024 [email or web address] #52183, [address] [place], [address], 02/02/2024 17:22:01 furosemid e 20 mg tablet 2023 024 [id number] 22 [facility] #[id number], [address] [place], [address], 03/21/2024 17:01:49 Symbicort 80 mcg-4.5 mcg/actua tion HFA aerosol inhaler 2023 024 [facility] #65454, [address] [place], [address], 03/27/2024 10:50:34 prednison e 20 mg tablet 2023 024 [facility] #[id number], [address] [place], [address], 01/26/2024 17:06:50 doxycycli ne hyclate 100 mg tablet 2023 024 [facility] #[id number], [address] [facility], [place], [address], 01/26/2024 17:16:35 Patient TargetsNo targets recorded. Patient Instructions Encounter Date Encounter Id Patient Instructions Last Modified By Organization Details Last Modified Time 02/02/2024 [id number] dementia rating scale-2* Not available 02/02/2024 17:33:13 multi-dimensiona l health assessment questionnaire* Not available 02/02/2024 17:33:13 care plan* NORMA Not available 02/03 12:56:35 advance directiv es: care instructions Not available 02/02/2024 17:33:13 advance care planning: care instructions Not available 02/02/2024 17:33:13 [place] Advance Directives Not available 02/02/2024 17:33:14 Follow up in 6 months Obtain labs Tests: Complete mammogram Referral: Gina CortesEdzdp-[id number]-TUC Delia Recommend: Shingles vaccine Personalized Health Plan and Screening Recommendations Advance Directives - Do you have one? No You have indicated that you are capable [...] 15% of your body weight Physical activity: Need more exercise/physical activity minimum of 10-20 minutes of activity that [...] next mammogram: Ordered Cervical/Uterine/Ov serge Cancer Screening: No screening necessary Osteoporosis Screening: No screening necessary Date Screening Last Performed: Colon Cancer Screening: Colonoscopy Fecal Occult Blood Cologuard (DNA stool test) No screening necessary Date Screening Last Performed: __10/2021___ Eye Disease Screening: No Eye exam necessary Dementia Risk: Low Intermediate I have no recommendations Depression Screening: Negative Positive Active diagnosis, Continue current treatment plan Not available 02/02/2024 17:33:04 02/16/2024 [id number] six minute walk test* NORMA Not available 03/27/2024 13:55:34 complete PFT w/ post bronchodilator spirometry* - Please call patient to schedule. 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 C hronic obstructive pulmonary disease [...] x10'3 /uL 4.2-10 .8 high Not Available [facility] (Lab) [address] [place], [address], 08/04/2023 13:15:16 08/04/19 24 08/04/2023 CBC/C OMPLE TE BLD COUNT W/DIF F red blood cells 4.70 x10'6 /uL 3.80-5 .20 Not Available [facility] (Lab) [address] [place], [address], 08/04/2023 13:15:16 08/04/19 24 08/04/2023 CBC/C OMPLE TE BLD COUNT W/DIF F hemoglobin 15.0 g/dL 12.0-1 5.6 Not Available [facility] (Lab) [address] [place], [address], 08/04/2023 13:15:16 08/04/19 24 08/04/2023 CBC/C OMPLE TE BLD COUNT W/DIF F hematocrit 46.5 % 35.7-4 5.7 high Not Available [facility] (Lab) [address] [place], [address], 08/04/2023 13:15:16 08/04/19 24 08/04/2023 CBC/C OMPLE TE BLD COUNT W/DIF F mean red cell volume 98.9 fL 82.0-9 9.0 Not Available [facility] (Lab) [address] [place], [address], 08/04/2023 13:15:16 08/04/19 24 08/04/2023 CBC/C OMPLE TE BLD COUNT W/DIF F mean red cell hemoglobin 31.9 pg 27.0-3 3.0 Not Available [facility] (Lab) [address] [place], [address], 08/04/2023 13:15:16 08/04/19 24 08/04/2023 CBC/C OMPLE TE BLD COUNT W/DIF F mean RBC HGB concentratio n 32.3 g/dL 31.0-3 6.0 Not Available [facility] (Lab) [address] [place], [address], 08/04/2023 13:15:16 08/04/19 24 08/04/2023 CBC/C OMPLE TE BLD COUNT W/DIF F red cell distribution width 12.4 % 11.8-1 5.5 Not Available [facility] (Lab) [address] [place], [address], 08/04/2023 13:15:16 08/04/19 24 08/04/2023 CBC/C OMPLE TE BLD COUNT W/DIF F platelets 215 x10'3 /uL 150-40 0 Not Available [facility] (Lab) [address] [place], [address], 08/04/2023 13:15:16 08/04/19 24 08/04/2023 CBC/C OMPLE TE BLD COUNT W/DIF F mean platelet volume 10.9 fL 9.0-12 .4 Not Available [facility] (Lab) [address] [place], [address], 08/04/2023 13:15:16 08/04/19 24 08/04/2023 CBC/C OMPLE TE BLD COUNT W/DIF F neutrophils 80 % 39.0-7 2.0 high Not Available [facility] (Lab) [address] [place], [address], 08/04/2023 13:15:16 08/04/19 24 08/04/2023 CBC/C OMPLE TE BLD COUNT W/DIF F lymphocytes 13 % 16.0-4 7.0 low Not Available [facility] (Lab) [address] [place], [address], 08/04/2023 13:15:16 08/04/19 24 08/04/2023 CBC/C OMPLE TE BLD COUNT W/DIF F monocytes 4 % 5.0-12 .0 low Not Available [facility] (Lab) [address] [place], [address], 08/04/2023 13:15:16 08/04/19 24 08/04/2023 CBC/C OMPLE TE BLD COUNT W/DIF F eosinophils 3 % 1.0-7. 0 Not Available [facility] (Lab) [address] [place], [address], 08/04/2023 13:15:16 08/04/19 24 08/04/2023 CBC/C OMPLE TE BLD COUNT W/DIF F neutrophils, absolute count 12.09 x10'3 /uL 1.5-8. 0 high Not Available [facility] (Lab) [address] [place], [address], 08/04/2023 13:15:16 08/04/19 24 08/04/2023 CBC/C OMPLE TE BLD COUNT W/DIF F lymphocytes, absolute count 2.00 x10'3 /uL 1.07-3 .43 Not Available [facility] (Lab) [address] [place], [address], 08/04/2023 13:15:16 08/04/19 24 08/04/2023 BASIC METAB OLIC PANEL sodium 137 mmol/ L 137-14 5 Not Available [facility] (Lab) [address] [place], [address], 08/04/2023 11:57:11 08/04/19 24 08/04/2023 BASIC METAB OLIC PANEL potassium 4.0 mmol/ L 3.5-5. 1 Not Available [facility] (Lab) [address] [place], [address], 08/04/2023 11:57:11 08/04/19 24 08/04/2023 BASIC METAB OLIC PANEL chloride 102 mmol/ L 98-107 Not Available [facility] (Lab) [address] [place], [address], 08/04/2023 11:57:11 08/04/19 24 08/04/2023 BASIC METAB OLIC PANEL carbon dioxide 28 mmol/ L 22-30 Not Available [facility] (Lab) [address] [place], [address], 08/04/2023 11:57:11 08/04/19 24 08/04/2023 BASIC METAB OLIC PANEL anion gap 11.0 mmol/ L 14-22 low Not Available [facility] (Lab) [address] [place], [address], 08/04/2023 11:57:11 08/04/19 24 08/04/2023 BASIC METAB OLIC PANEL glucose 116 mg/dL 70-99 high Not Available [facility] (Lab) [address] [place], [address], 08/04/2023 11:57:11 08/04/19 24 08/04/2023 BASIC METAB OLIC PANEL BUN 18 mg/dL 8-19 Not Available [facility] (Lab) [address] [place], [address], 08/04/2023 11:57:11 08/04/19 24 08/04/2023 BASIC METAB OLIC PANEL creatinine 1.40 mg/dL 0.66-1 .25 high Not Available [facility] (Lab) [address] [place], [address], 08/04/2023 11:57:11 08/04/19 24 08/04/2023 BASIC METAB OLIC PANEL GFR 38 Refer ence Range : Hanna ge GFR Healt hy Adult : >60 [...] calcu lator is avail able on the F websi te: https ://ww w.kid milady.o rg/pr ofess ional s/kdo qi/gf r_cal culat or Not Available [facility] (Lab) [address] [place], [address], 08/04/2023 11:57:11 08/04/19 24 08/04/2023 BASIC METAB OLIC PANEL calcium 9.5 mg/dL 8.4-10 .2 Not Available [facility] (Lab) [address] [place], [address], 08/04/2023 11:57:11 08/04/19 24 08/04/2023 HEMOG LOBIN A1C HA1C 5.7 % 4.0-6. 0 Diabe barrett Scree migel Crite barb: <5.7% Consi stent with absen ce of diabe barrett 5.7-6 .4% Consi stent with incre ased risk for diabe barrett (pred iabet es) >OR=6 .5% Consi stent with diabe barrett REFER ENCE: Diabe barrett Care 2016, 39(Izaguirre ppl.1 ):s13 -s22 Not Available [facility] (Lab) [address] [place], [address], 08/04/2023 14:56:00 08/04/19 24 08/04/2023 VITAM IN D 25-HY DROXY [id number] 29.4 NG/mL 30-100 low Vitam in D Statu s: Defic ient: <20 ng/mL Insuf ficie nt: 20-29 ng/mL Suffi cient : 30-10 0 ng/mL Not Available [facility] (Lab) [address] [place], [address], 08/04/2023 16:53:21 07/04/19 24 07/04/2023 XR, chest No observ ation record ed. [email or web address] [facility] [address] [place], [address], 07/24/2023 11:55:54 10/21/19 24 10/21/2023 XR, shoul luis No observ ation record ed. [address] [address], [place], [address], 11/04/2023 08:55:12 10/21/19 24 10/21/2023 XR, shoul luis No observ ation record ed. [address] [address], [place], [address], 11/04/2023 08:54:55 10/21/19 24 10/21/2023 XR, cervi mechelle spine , 2 or 3 view No observ ation record ed. [address] [address], [place], [address], 11/04/2023 08:55:56 03/08/19 25 03/07/2024 imagi ng/di agnos tic resul t No observ ation record ed. [address], [place], [address], 03/08/2024 23:51:13 03/15/19 25 03/15/2024 XR, chest , 2 view No observ ation record ed. [email or web address] [facility] [address], [place], [address], 03/27/2024 16:55:12 03/15/19 25 03/15/2024 MAMMO , scree migel, digit al, bilat eral No observ ation record ed. [email or web address] [facility] [address], [place], [address], 03/20/2024 14:31:44 03/20/1903/07/2024 compl ete PFT w/ post [facility] hodil ator bee metry * No observ ation record ed. [email or web address] (Pulmonary) [address] [facility] [address], [place], [address], 03/27/2024 17:00:52 03/24/1903/07/2024 compl ete PFT w/ post [facility] hodil ator bee metry * No observ ation record ed. [facility] (Pulmonary) [address] [facility] [address], [place], [address], 03/24/2024 12:12:05 03/27/1903/27/2024 six minut e walk test* No observ ation record ed. [facility] ([facility] Sched[facility]) [address] [place], [address], 03/27/2024 13:55:34 Result Notes Documentation Provider Name and Address Organization Details Recorded Time Tb (m Tuberculosis), Ifn-gamma Horace, Blood : TB neg, RAST neg Gina Cortes, CABIN[employer] APPRENTICE [address] [facility] [address], [place], [address], [facility] 03/27/2024 10:10:36 Problems Name Problem SNOMED Code Status Onset Date Resolution Date Notes Provider Name and Address Organization Details Recorded Time White blood cell abnormali ty 984095188 Active Not Available [employer] 4 11:23:59 Chronic obstructi ve pulmonary disease 40594955 Active Nicole Gimenez APRN [address], [address], [place], [address] , [facility] 4 17:10:00 Insomnia 312382988 Active Nicole Gimenez APRN [address], [address], [place], [address] , 20/20 [employer] [facility] 4 17:10:49 Myocardia l infarctio n 45625645 Active 07/2015 Nicole Gimenez APRN [address], [address], [place], [address] , [facility] 4 17:11:11 Degenerat ion of lumbar intervert ebral disc 74402669 Active Nicole Gimenez APRN [address] [facility] [address], [place], [address] , [employer] [facility] 4 17:10:20 Raynaud's phenomeno n 366105228 Active Nicole Gimenez APRN [address], [address], [place], [address] , 20/20 [employer] [facility] 4 17:10:58 Angular cheilitis 931481278 Active 2019 Nicole Gimenez APRN [address], [address] [address], [place], [address] , [facility] [facility] 4 17:09:55 Shoulder joint pain 486370812 Active Not Available [facility] 4 11:23:59 Syncope 522858954 Active Nicole Gimenez APRN [address], [address], [place], [address] , 20/20 [employer] [facility] 4 17:10:55 Knee pain Active Not Available [facility] 4 11:23:59 Vitamin D deficienc y 80228790 Active Nicole Gimenez APRN [address], [address], [place], [address] , [employer] [facility] 4 17:10:51 Depressiv e disorder 67294100 Active Nicole Gimenez APRN [address], [address], [place], [address] , [employer] [facility] 4 17:10:24 Malignant neoplasm of uterus 471816373 Active around age 28 Not Available [facility] 4 11:23:59 Osteoarth ritis 068455192 Active Nicole Gimenez APRN [address], [address], [place], [address] , [employer] 4 17:11:01 Obesity 944470459 Active Nicole Gimenez APRN [address], [address], [place], [address] , [facility] 4 17:11:05 Cough 85798422 Active Not Available [facility] 4 11:24:00 Hyperlipi demia 91826388 Active Nicole Gimenez APRN [address], [place], [address] , [employer] 4 17:10:40 Essential hypertens ion 14695444 Active Nicole Gimenez APRN [address], [address], [place], [address] , [employer] 4 17:10:28 Degenerat ion of cervical intervert ebral disc 81408870 Active Nicole Gimenez APRN [address], [address], [place], [address] , [employer] 4 17:10:08 Snoring 01410278 Active Not Available [facility] 4 11:24:00 Degenerat ion of intervert ebral disc 00854818 Active lumbar and cervical spine Nicole Gimenez APRN [address], [address], [place], [address] , [facility] 4 17:10:16 Obstructi ve sleep apnea syndrome 37904187 Active 2017 Nicole Gimenez APRN [address], [address], [place], [address] , [facility] 4 17:11:02 Fatigue 41646368 Active Nicole Gimenez APRN [address], [address], [place], [address] , [employer] 4 17:10:32 Dental abscess 815175066 Active 2022 Not Available [facility] 4 11:23:59 Pain of right ankle joint 68598171670 618090 Active 2022 Not Available [facility] 4 11:23:59 Pain of left ankle joint 48811874295 889007 Active 2022 Not Available [facility] 4 11:23:59 Closed trimalleo lar fracture of left ankle 07505218161 711340 Active 2022 Not Available [facility] 4 11:23:59 Edema of lower extremity 966279181 Active 2023 Andreas Lehman MD [address], [address], [place], [address] , [facility] 4 17:41:44 Hyperglyc emia 69297398 Active 2023 Nicole Gimenez APRN [address], [address], [place], [address] , [facility] 4 17:11:30 Coronary arteriosc lerosis 25100623 Active 2023 Nicole Gimenez APRN [address], [address], [place], [address] , [facility] 4 17:10:05 Glomerula r filtratio n rate below reference range 903959369 Active 2023 MIRIAM Joyce [address], [place], [address] , [place] [facility] 4 12:52:59 Closed fracture of left ankle 43401075263 320403 Active Nicole Gimenez APRN [address], [place], [address] , [place] [facility] 4 17:06:20 Open fracture of lateral malleolus 9300946 Active Nicole Gimenez APRN [address], [address], [place], [address] , [facility] 4 17:06:20 Acute exacerbat ion of chronic obstructi ve pulmonary disease 396205277 Active Nicole Gimenez APRN [address], [address], [place], [address] , [facility] 4 17:07:30 Stented coronary artery 157914684 Active 2023 Nicole Gimenez APRN [address], [address], [place], [address] , [facility] 4 17:29:53 Disorder of limb 733207629 Active 2023 Nicole Gimenez APRN [address], [address], [place], [address] , [facility] 4 17:30:55 Moderate chronic obstructi ve pulmonary disease 200264042 Active 2023 Gina Cortes NP [address], [address], [place], [address] , [facility] 4 14:15:28 Dyspnea on exertion 69063646 Active 2023 Gina Cortes NP [address], [address], [place], [address] , [facility] 4 14:26:40 Acute sinusitis 83370389 Active 2023 Gina Cortes NP [address], [place], [address] , [facility] 4 14:31:30 Oxygen saturatio n below reference range 342979182 Active 2024 Gina Cortes NP [address], [place], [address] , [facility] 5 11:44:38 Notes:Some problems listed i n Document: #[id number] could not be added to this patient's chart. Please review this document and add these problems to the patient's chart manually as needed. Problem Notes None recorded. Procedures Surgical History Date Name Laterality Status Provider Name and Address Organization Details Recorded Time 02/02/20 Medicare Wellness CPT Code, subsequent completed Nicole Gimenez APRN [address], [facility] [address], [place], [address], [facility] 01/26/2024 17:14:10 Knee Replacement completed Radha kendrick, [facility] 09/24/2022 15:33:23 Hysterectomy completed Radha Gallo, [facility] 09/24/2022 15:33:41 Cardiac Cath completed Layla Gomez [facility] 02/02/2024 17:02:43 Neck Surgeries completed Marie Albert MA [facility] 02/16/2024 14:05:44 Ankle Surgery completed Marie Albert [facility] 02/16/2024 14:05:53 Cardiac Stent Placement completed Marie Albert MA [facility] 02/16/2024 14:06:16 Stent completed Marie Albert MA [facility] 02/16/2024 14:06:28 Imaging Results Imaging Date Name Status LastModified by Organization Details LastModified Time 07/04/2023 XR, chest completed [email or web address] [facility] [address] [place], [address], 07/24/2023 11:55:54 10/21/2023 XR, shoulder completed [address], [address], 11/04/2023 08:55:12 10/21/2023 XR, shoulder completed [address], [address], 11/04/2023 08:54:55 10/21/2023 XR, cervical spine, 2 or 3 view completed [address], [address], 11/04/2023 08:55:56 03/07/2024 imaging/diagnostic result active [facility] [address] [facility] [address], [place], [address], 03/08/2024 23:51:13 03/15/2024 XR, chest, 2 view completed [facility] [address], [place], [address], 03/27/2024 16:55:12 03/15/2024 MAMMO, screening, digital, bilateral completed [facility] [address], [place], [address], 03/20/2024 14:31:44 03/07/2024 complete PFT w/ post bronchodilator spirometry* completed [address] (Pulmonary) [address] [place] [address], [address], 03/27/2024 17:00:52 03/07/2024 complete PFT w/ post bronchodilator spirometry* completed [facility] (Pulmonary) [address] [place] [address], [address], 03/24/2024 12:12:05 03/27/2024 six minute walk test* completed [facility] (One Call Scheduling) [address] [facility], [place], [address], 03/27/2024 13:55:34 Procedure Notes None recorded. Medical Equipment None Reported. Allergies Allergen ID Allergen Name Allergen Category Reaction Reaction Severity Criticality Documentation Date Start Date Code Code System Note Provider Name and Address Organization Details Recorded Time 28622 Substance with sulfonami de structure and antibacte rial mechanism of action (substanc e) medicatio n Not available Not available Not available 05/06/2022 42966 2906 SNOMED Other react ions and sever ities : 'Adve rse react ion to subst ance' . Nicole Gimenez, KELLY [address], [place], [address], [facility] 17:05:50 Medications Name Sig Start Date Stop [...] Available Not Available Not Available Milk of Magnesia 400 mg/5 mL oral suspension 2400 mg [...] MOUTH AT BEDTIME NEEDED FOR INSOMNIA active Not Available Not Available No t Available Kenalog 10 mg/mL suspension for injection In office injectio n administ ered by the provider 10/02 completed ND: 0003-04 94-20 Not Available Not Available Not [...] completed Not Available Not Available Not Available indapamide 1.25 mg tablet TAKE 1 TABLET (1.25 MG TOTAL) BY MOUTH 1 (ONE) TIME EACH DAY IN THE MORNING active Not Available Not Available No t Available aspirin 81 mg chewable tablet 81 [...] TABLET BY MOUTH TWICE A DAY active Not [...] Not Available Not Available No t Available topiramate 100 mg tablet TAKE 1 TABLET BY MOUTH TWICE A DAY FOR 30 DAYS active Not Available Not Available No t [...] Not Available Not Available Not Available buspirone 15 mg tablet 30 mg [...] administ ered by the provider 10/02 completed [facility]: [id number] 76-17 Not Available Not Available Not [...] 200 mcg-62.5 mcg-25 mcg powder for inhalation INHALE 1 PUFF EVERY DAY BY INHALATI ON ROUTE active Not Available Not Available No t Available [employer] COVID-19 Antigen Home Test kit USE DIRECTED 10/15 completed Not Available Not Available Not Available Vitals Date Recorded Body height Body mass index (BMI) Body weight Body temperature Oxygen saturation Oxygen saturation in Arterial blood by Pulse oximetry Heart rate Systolic blood pressure Diastolic blood pressure Provider Name and Address Organization Details Last Updated DateTime 4 160.02 cm 37 kg/m2 33370.8 1 g 97.7 [degF] 95 % 95 % 86 /min 118 mm[Hg] 78 mm[Hg] SANJUANITA Garnica [facility] [employer] 4 17:27:11 Date Recorded Body height Body mass index (BMI) Body weight Body temperature Heart rate Oxygen saturation Oxygen saturation in Arterial blood by Pulse oximetry Systolic blood pressure Diastolic blood pressure Provider Name and Address Organization Details Last Updated DateTime 4 160.02 cm 36.1 kg/m2 04491.8 4 g 97.3 [degF] 81 /min 91 % 91 % 140 mm[Hg] 76 mm[Hg] [facility]UANITA [facility] [employer] [facility] 4 16:17:50 Date Recorded Body height Body mass index (BMI) Body weight Body temperature Heart rate Systolic blood pressure Diastolic blood pressure Provider Name and Address Organization Details Last Updated DateTime 4 160.02 cm 36.3 kg/m2 50423.4 4 g 97.2 [degF] 72 /min 126 mm[Hg] 80 mm[Hg] SERA Pope [facility] [employer] [facility] 4 17:04:33 Date Recorded Body height Body temperature Heart rate Oxygen saturation Oxygen saturation in Arterial blood by Pulse oximetry Systolic blood pressure Diastolic blood pressure Provider Name and Address Organization Details Last Updated DateTime 4 160.02 cm 97.2 [degF] 62 /min 90 % 90 % 124 mm[Hg] 78 mm[Hg] Marie Albert MA [facility] [employer] [facility] 4 14:02:45 Date Recorded Body height Body mass index (BMI) Body weight Heart rate Oxygen saturation Oxygen saturation in Arterial blood by Pulse oximetry Body temperature Systolic blood pressure Diastolic blood pressure Provider Name and Address Organization Details Last Updated DateTime 5 160.02 cm 36.7 kg/m2 68537.6 2 g 70 /min 91 % 91 % 98.4 [degF] 124 mm[Hg] 72 mm[Hg] Shanique Bee MA [facility] [employer] [facility] 5 10:27:38 Social History Question Answer Notes LastModified by Organization Details LastModified Time Tobacco Smoking Status Former Smoker Not Available [facility] 05/06/2022 10:41:30 Do You Have An Advance Directive? No MIGRATION.0301 [id number] Information not available 05/06/2022 What Is Your Level Of Alcohol Consumption? None MIGRATION.0301 461093 Information not available 05/06/2022 What Is Your Level Of Caffeine Consumption? Occasional MIGRATION.0301 407877 Information not available 05/06/2022 In The 14 [...] Of Diet Are You Following? REGULAR MIGRATION.0301 554802 Information not available 05/06/2022 What Is The Highest Grade Or Level Of School You Have Completed Or The Highest Degree You Have Received? [id number] Information not available 02/02/2024 Do You Have An Electrostatic Air Filter? No Information not available 02/16/2024 Have You Been Exposed To Chemicals Or Toxins? No Not That Aware Of Information not available 02/16/2024 Have There Been Any Changes To Your Family Or Social Situation? No MIGRATION.0301 900429 Information not available 05/06/2022 What Is The Fluoride Status Of Your Home? Unknown MIGRATION.0301 554798 Information not available 05/06/2022 When Did You Quit Smoking? 6-10yearssincelast cigarette MIGRATION.0301 846223 Information not available 05/06/2022 Do You Have A Humidifier? No Information not available 02/16/2024 Do You Use Insect Repellent Routinely? Yes MIGRATION.0301 225537 Information not available 05/06/2022 Where Do You Live? SingleLevelHouse MIGRATION.0301 113650 Information not available 05/06/2022 Do You Have A Medical Power Of Humidifier Maintenance Worker? No Information not available 02/02/2024 Do You Have Moisture Problems In Your Home? No Information not available 02/16/2024 What Was The Date Of Your Most Recent Tobacco Screening? 03/27/2024 [email or web address] Information not available 03/27/2024 How Many Children Do You Have? 1 Information not available 02/16/2024 What Is Your Current Pack Years? 30ormorepackyears MIGRATION.0301 590409 Information not available 05/06/2022 Do You Have Any Pets? Yes Information not available 02/16/2024 What Is Your Relationship Status? Information not available 02/02/2024 Do You Use Your Seat Belt Or Car Seat Routinely? Yes MIGRATION.0301 483760 Information not available 05/06/2022 Do You Have Smoke And Carbon Monoxide Detectors In Your Home? Yes MIGRATION.0301 998360 Information not available 05/06/2022 At What Age Did You Start Smoking Tobacco? 17 MIGRATION.0301 232161 Information not available 05/06/2022 Are You Passively Exposed To Smoke? No MIGRATION.0301 485692 Information not available 05/06/2022 Are There Any Smokers In Your House? No MIGRATION.0301 342386 Information not available 05/06/2022 Do You Feel Stressed (tense, Restless, Nervous, Or Anxious, Or Unable To Sleep At Night)? [id number] MIGRATION.0301 613839 Information not available 05/06/2022 Do You Use Any Illicit Or Recreational Drugs? No MIGRATION.0301 850924 Information not available 05/06/2022 Do You Use Sunscreen Routinely? Yes MIGRATION.0301 476352 Information not available 05/06/2022 Has Tobacco Cessation Counseling Been Provided? No MIGRATION.0301 448513 Information not available 05/06/2022 How Many Years Have You Smoked Tobacco? 37 MIGRATION.030 431062 Information not available 05/06/2022 Have You Recently Traveled Abroad? No Information not available 02/02/2024 Do You Have Any Dietary Restrictions? No MIGRATION.0301 034822 Information not available 05/06/2022 Do You Or Have You Ever Used Any Other Forms Of Tobacco Or Nicotine? No MIGRATION.0301 533185 Information not available 05/06/2022 Sex: Female Functional Status Question Answer Note LastModified by Organizat ion Details LastModified Time What is your exercise level? Occasional [id number] Information not available 05/06/2022 Mental Status None recorded. Family History Relationship Description Onset Age of this Age Resolved Age Notes LastModified by Organization Details LastModified Time Mother Heart disease [email or web address] Not available 2022 15:32:53 Mother Hypertensive disorder [email or web address] Not available 2022 15:33:04 Medical History Condition [...] Gimenez APRN [address], [address], [place], [address], [facility] [employer] [facility] 01/26/2024 17:06:33 COVID-19, mRNA, LNP-S, PF, 30 mcg/0.3 mL dose 1 completed Nicole Gimenez APRN [address], [address], [place], [address], [facility] [employer] [facility] 01/26/2024 17:06:33 Tdap 8 completed Nicole Gimenez APRN [address], [address], [place], [address], [facility] [employer] [facility] 01/26/2024 17:06:33 Influenza, split virus, quadrivalent, PF 3 completed Virginie Hyde RN [facility], [facility] [employer] [facility] 01/27/2023 14:03:43 pneumococcal polysaccharide PPV23 2 completed Not Available [facility] 04/01/2023 11:24:00 Influenza, split virus, quadrivalent, PF 9 completed Not Available [facility] 04/01/2023 11:24:00 Influenza, split virus, quadrivalent, PF 8 completed Not Available [facility] 04/01/2023 11:24:00 Influenza, split virus, quadrivalent, PF 7 completed Not Available [facility] 04/01/2023 11:24:00 Tdap 8 completed Not Available [facility] 04/01/2023 11:24:00 Pneumococcal conjugate PCV 13 8 completed Not Available [facility] 04/01/2023 11:24:00 Influenza, split virus, quadrivalent, PF 2 completed Nicole Gimenez APRN [address], [address], [place], [address], [facility] [employer] [facility] 01/26/2024 17:06:33 Influenza, split virus, quadrivalent, preservative 6 completed Not Available [facility] 04/01/2023 11:24:00 Influenza, split virus, trivalent, PF 4 completed Layla Gomez, SERA null, [place] [facility] 02/02/2024 17:43:40 Past Encounters Encounter ID Performer Location Encounter Start Date Encounter Closed Date Diagnosis/Indication Diagnosis SNOMED-CT Code Diagnosis ICD10 Code Diagnosis Note [id number] [facility] Primary Care [facility] [address] [facility] [address] [place] [address] 10/02/2021 00:00:00 10/03/2021 13:26:40 [id number] [facility] Primary Care [facility] [address] [facility] [address] [place] [address] 11/04/2021 00:00:00 11/04/2021 22:36:43 [id number] [facility] [address] [facility] [address] [place] [address] 01/06/2022 00:00:00 02/04/2022 17:58:17 [id number] Andreas Lehman MD [facility] [address] [facility] [address] [place] [address] 05/21/2022 10:22:28 05/21/2022 10:59:50 Dietary management surveillance 048650678 Z71.3 doing welldown 19 poundscont inue phentermin e 37.5 mg po qday daily for 3 months then 4 week breakf/u in 4 months or sooner if needed Degenerati on of lumbar intervertebral disc 34886063 M51.36 d/c lyrica as it is not effectiver estart gabapentin 800 mg po tidcontinu e pain mgtm Dental abscess 650285183 K04.7 salt water gargleskee p dentures out when possiblese e dentist if no improvemen t in 2 weeks-her dentures may need to be refitted given her recent weight loss [id number] SHARI Silva [facility] [address] [place] [address] 09/24/2022 14:43:44 09/24/2022 16:08:15 Pain of right ankle joint 1043986735 1325263 M25.571 [id number] Vincent Nicole MD [facility] [address] [place] [address] 10/15/2022 14:49:01 10/15/2022 15:52:55 Closed trimalleolar fracture of left ankle 8758737482 3037562 S82.852D [id number] Andreas Lehman MD [facility] Primary Care [address] [place] [address] 01/26/2023 09:46:08 01/26/2023 10:20:03 Chronic obstructive pulmonary disease 63180310 J44.9 overnight pulse oximetry orderedif normal, consider formal 6 minute walkcontin ue symbicortr ecent CXR normal Administra tion of influenza vaccine 15470502 Z23 [id number] Andreas Lehman MD [facility] Primary Care [address] [place] [address] 06/14/2023 12:35:15 06/14/2023 13:12:18 Coronary arteriosclerosis 85516465 I25.10 will have heart cath doneconsid er GLP-1 in future for cardiovasc ular effects [id number] Andreas Lehman MD [facility] Primary Care [address] [place] [address] 07/20/2023 17:19:37 07/20/2023 17:56:26 Chronic obstructive pulmonary disease 37629093 J44.9 overnight pulse oximetry orderedif normal, consider formal 6 minute walkcontin ue symbicortr ecent CXR normal 07/20/23: increase symbicort use to bidprednis one taperdoxyc ycline bid x 7 dayscall/r eturn if no improvemen t in 1-2 days or sooner if neededrevi ewed s/s that warrant urgent/ritu rgent eval in meantime Edema of l ower extremity 770669302 R60.0 check labs after starting furosemide Essential hypertension 20631922 I10 Vitamin D deficiency 347 13897 E55.9 Hyperglycemia 08355866 R 73.9 check a1c, consider ozempic for cardiovasc ular protection if elevated [id number] MIRIAM Joyce [facility] Primary Care [facility] [address] [facility] [address] [place] [address] 10/19/2023 16:13:56 10/19/2023 16:45:16 Dietary management surveillance 448372550 Z71.3 5lb weight loss since last visit refill phentermin e given Essential hypertension 26191279 I10 stable with medsbp 140/76, 81 no hernandez/cp, occ sob r/t COPDmeds per cardiology Degenerati on of lumbar intervertebral disc 87769663 M51.36 Long-term drug therapy 392558561 Z79.298 [id number] Nicole Gimenez APRN [facility] Primary Care [facility] [address] [facility] [address] [place] [address] 02/02/2024 16:48:10 02/02/2024 17:45:08 Hyperlipidemia 83872048 E78.5 Z79.899 Hyperglycemia 69002894 R 73.9 Vitamin D deficiency 347 98015 E55.9 Screening mammography 24 993631 Z12.31 Hepatitis C screening 41 5683096 Z11.59 Adult heal th examination 075523389 Z00.00 Screening for disorder 958290974 Z13.9 Degenerati on of lumbar intervertebral disc 87995762 M51.369 Administra tion of influenza vaccine 57154702 Z23 Chronic ob structive pulmonary disease 66723330 J44.9 [id number] Gina Cortes NP [facility] Pulmonolo gy [address] [address] 02/16/2024 13:52:03 02/16/2024 14:41:13 Moderate chronic obstructive pulmonary disease 420592584 J44.9 CAT-33Prog ressively worsening of breathing- ADL's [...] and increase use of inhaler Acute sinusitis 16321832 J01.90 Augmentin and Prednisone as directed-s violeta effects reviewed-t yanet probiotic with it Obstructiv e sleep apnea syndrome 94132835 G47.33 continue home O2 at night-unab le to tolerate CPAP Ex-smoker 1047791 Z87.89 1 last LDCT was in May 2023-wnl [id number] Gina Cortes NP [facility] Pulmonolo gy [place] [address] [address] 03/27/2024 09:52:32 03/27/2024 13:06:47 Moderate chronic obstructive pulmonary disease 837650014 J44.9 CAT-32Prog ressively worsening of breathing- ADL's are affected (difficult y showering and dressing, unable to walk long distance without becoming sob) will continue TrelegyO2 sats with 6 minute walk test 87%-+ dyspnea with exertionPu lmonary rehab orderFollo w-up in 3 months-steve ner if worseEncou rage vaccinatio nsRAST -, TB wnl, Alpha 1 neg Ex-cigarette smoker [address] screening in May Oxygen sat uration below reference range 909843938 R79.81 R09.02 G47.30 O2 required with exertion-O [...] Lebron Member ID Guarantor Name 07/20/2023 1 [facility] (MEDICARE REPLACEMENT/A DVANTAGE - PPO) [id number] Letty Butterfield [id number] Letty Butterfield 10/19/2023 1 [facility] (MEDICARE REPLACEMENT/A DVANTAGE - PPO) [id number] Letty Butterfield [id number] Letty Butterfield 02/02/2024 1 [facility] (MEDICARE REPLACEMENT/A DVANTAGE - PPO) [id number] Letty Ritchie Greer [id number] Letty Ritchie Greer 02/16/2024 1 [facility] (MEDICARE REPLACEMENT/A DVANTAGE - PPO) [id number] Letty Chau Greer [id number] Letty Ritchie Greer 03/27/2024 1 [facility] (MEDICARE REPLACEMENT/A DVANTAGE - PPO) [id number] Letty Chau Greer [id number] Letty Chau Greer Notes Date Note Type Note Provider Name and Address Organization Details Recorded Time 07/20/2023 text/html had cath done, w ill see vascular surgeon soon lots of chest congestion, +sputum, +cough increased edema hands and feet Andreas Lehman MD [address], [place], [address], [employer] 07/25/2023 10:25:42 10/19/2023 text/html Pt is here for f/u Stew reyes [employer]ERAPE[employer]IC CONSULTANT[facility] [address], [place], [address], [employer] 10/19/2023 16:39:14 02/02/2024 text/html Letty presents today for her Medicare Annual Wellness exam and medication refills. She also sees Dr. Stroud and Dr. Barron for her care. She does not see pulmonary for her COPD. Nicole Gimenez APRN [address], [place], [address], [employer] 02/04/2024 13:06:37 02/16/2024 text/html COPDReported bypatient.Quality:symp toms [...] Cardiologyhx sleep apneaMmrc 5 Gina Cortes NP [address] [facility], [address], [place], [address], [facility] 02/16/2024 14:52:44 03/27/2024 text/html COPDReported bypatient.Quality:symp toms [...] relief with albuterol inhaler Gina Cortes NP [address], [place], [address], [employer] 03/27/2024 12:36:06 OBGyn Episode No OBEpisode recorded.
--- OUTSIDE RECORDS SUMMARY | 2024-06-23 16:01 | XMS_ITS | Clinical Summary ---
Author Organization [facility] Facility Address [address] [place] [address] Care Team Providers Care Auto Damage Trainee Name Role Phone ArambulaStew Primary Care Provider [phone] Medications indapamide (LOZOL) 1.25 MG tablet Take 1 tablet (1.25 mg total) by mouth 1 (one) time each day in the morning 90 tablet 1 04/25/2024 Active Encounters Date Type Department Care Team Description 06/21/2024 Documentation Only [facility], [address] [phone] David Alanis MD 06/20/2024 Documentation Only [facility], [facility] [address] [address] David Alanis MD 06/20/2024 Documentation Only [facility], [address] [address] David Alanis MD 06/19/2024 Documentation Only [facility], [address] [address] Arun Li DO 04/25/2024 1:15 PM POULTRY HATCHERY MANAGER Office Visit [facility], [facility] [address] [place] [address] Arun Li DO Stage 3 chronic kidney disease, not otherwise specified (HCC) (Primary Dx); Interstitial nephritis; Persistent proteinuria; Coronary artery disease due to calcified coronary lesion; Peripheral vascular disease (HCC); Venous insufficiency; Obstructive sleep apnea syndrome; Hypertensive chronic kidney disease; Pure hypercholesterolem ia, not otherwise specified; Major depressive disorder, single episode, severe without psychotic features, not otherwise specified (HCC) 04/25/2024 Refill [facility], [facility] [address] [facility] [address] [place] [address] AnnikaCarmelina [facility] 04/24/2024 Documentation Only [facility], [address] [address] Arun Li, 04/10/2024 Documentation Only [facility], [address] [address] Arun Li, 04/10/2024 Documentation Only [facility], [address] [address] Arun Li, 03/28/2024 Documentation Only [facility], [address] [address] Arun Li, 03/27/2024 Documentation Only [facility], [address] [address] Arun Li, DO from Last 3 Months Social History [...] Comments Blood Pressure 120/68 04/25/2024 1:57 PM POULTRY HATCHERY MANAGER Pulse 71 04/25/2024 1:57 PM POULTRY HATCHERY MANAGER Temperature 36.1 C (97 F) 04/25/2024 1:57 PM POULTRY HATCHERY MANAGER Respiratory Rate 18 04/25/2024 1:57 PM POULTRY HATCHERY MANAGER Oxygen Saturation 96% 04/25/2024 1:57 PM POULTRY HATCHERY MANAGER Inhaled Oxygen Concentration - - Weight 89.5 kg (197 lb 4.8 oz) 04/25/2024 1:57 P M POULTRY HATCHERY MANAGER Height - - Body Mass Index - - Plan of Treatment Upcoming Encounters Date Type Department Care Team (Late st Contact Info) Description 06/27/2024 3:45 PM CDT Office Visit [facility], [facility] [address] [facility] [address] [place] [address] Arun Li DO [address] [facility] 1 [place] [address] Health Maintenance Due Date Last Done Comments [...] patient's age to complete this topic Insurance [facility] Medicare Care Teams Auto Damage Trainee Relationship Specialty Start Date End Date Arambula, Stew [address] [place] [address] PCP - General 09/20/23
--- OUTSIDE RECORDS SUMMARY | 2024-06-23 16:01 | XMS_ITS | Continuity of Care Document ---
Author Organization [facility] Address [address] [facility] [address] [place] [address] Phone Care Team Providers Care Club Director Name Role Phone Davie Sun Unavailable Unavailable Procedures Procedure Date Eye Exam & Treatment Eye Exam, New Patient Advance Directives Directive Yes / No Effective Date File Name No Information Encounters Encounter Description Practice Location Reason(s) For Visit Diagnoses Date Provider Providers Copied on Encounter [facility], [address] [place] [address] [address], [place], [place], [id number], tel:[phone] SEC [facility] No Information 3-[address] Krish[address]. [address], [facility], [place]. tel:[phone] [facility], [address] [place] [address] [address], [place], [place], [id number], tel:[phone] [facility] No Information [address] Krishnasamy [place]. [address] [facility] [address], [place], [address], [place]. tel:[phone] Family History Family Member Type Diagnosis Age [...]
--- OUTSIDE RECORDS SUMMARY | 2024-06-23 16:01 | XMS_ITS | Clinical Summary ---
Author Organization [facility] Address [address] [place] [id number] Care Team Providers Care Software Consultant Name Role Phone Unavailable Primary Care Provider [...] Screening with HPV 12/05/1991 Mammogram Screening 2001 Pneumococcal Vaccine: 50+ Ye ars (1 of 1 - PCV) 12/05/2011 Zoster Vaccines (1 of 2) 12/05/2011 COVID-19 Vaccine ( - 2023-2 5 season) 2023 RSV Immunization or 60+ [...]
--- OUTSIDE RECORDS SUMMARY | 2024-06-23 16:01 | XMS_ITS | Clinical Summary ---
Author Organization [facility] Address [address] [place] [address] Care Team Providers Care Print Color Operator Name Role Phone José Carrillo MD Primary Care Provider [phone] Source Comments [facility],non-owned Affiliates and Associated Physician Practices is amultiple site organization consisting of ambulatory clinics and hospital sitesin [place], [place], [place] and [place]. This disclosure is being madepursuant to the Care Everywhere program and may not contain all information available regarding this patient. Last updated 17.[facility] [employer] Social History Tobacco Use Types Packs/Day Years [...] age to complete this topic Care Teams Print Color Operator Relationship Specialty Start Date End Date José Carrillo MD [address] [place] [address] PCP - General 02/10/18
--- OUTSIDE RECORDS SUMMARY | 2024-06-23 16:02 | XMS_ITS | CONTINUITY OF CARE DOCUMENT ---
Author Name scooter helms Address Unknown Organization [facility] Address [address] [place] [address] Phone [phone] Care Team Providers Care Communications Intern Name Role Phone Maximus JAVIER, Jeremy Unavailable ANDREAS BALLARD MD Unavailable VALE KIRBYJUAN Unavailable PROBLEMS Condition Status Date Provider Notes [...] [facility] HTN essential;neg duplx and angio active Jeremy Stroud MD rpm not covreee d Hypercholesterolemia;neg lpa and crp active Jeremy Stroud MD BACK PAIN;CHRONIC active Jeremy Stroud MD CAD;carotid plaue active Jeremy Stroud MD AMI, subendocardial active Cynthia De La Vega P 2016 Anxiety disorder active Jeremy Stroud MD Raynaud's syndrome active Jeremy Stroud MD SLEEP APNEA; active Jeremy Stroud MD Obesity active Jeremy Stroud MD could ot get wegovy Dyspnea on exertion completed - Jeremy Stroud [...] uacr Syncope active Jeremy Stroud MD resloved mj stopmel pymonique meds SVT;nml tsh active Jeremy lealurner active Tony Prince MD Coronary artery aneurysm active Jeremy brower MD Bipolar disorder active Jeremy Stroud MD ENCOUNTERS Date Type Provider Location Encounter Diag nosis - In-person encounter Office Visit Jeremy Stroud MD [facility] Obesity - In-person encounter Office Visit Jeremy Stroud MD [facility] COPDSyncopeBipolar disorder - In-person encounter Office Visit Tony Prince MD [facility] - In-person encounter Office Visit Tony Prince MD [facility] - In-person encounter Office Visit Jeremy Stroud MD [facility] B12 deficiency with macro - In-person encounter Office Visit Jeremy Stroud MD [facility] HTN essential;neg duplx and [id number] deficiency with macroCoronary artery aneurysm - In-person encounter Office Visit Tony Prince MD [facility] may thurner - In-person encounter Office Visit Jeremy Stroud MD [facility] CAD;carotid plaueScreeningEdemaSyncopeS [place];nml tsh - In-person encounter Office Visit Jeremy Stroud MD [facility] Syncope - In-person encounter Office Visit Jeremy Stroud MD [facility] AMI, subendocardialRenal disease, chronic, mild;NEG DUPLEX AND US and angiao - In-person encounter Office Visit Ge Quick MD [facility] - In-person encounter Office Visit Jeremy Stroud MD [facility] - In-person encounter Office Visit Jeremy Stroud MD [facility] - In-person encounter Office Visit Jeremy Stroud MD [facility] PVD;HypertriglyceridemiaExp osure to SARS-associated coronavirus;neg igg - In-person encounter Office Visit Jeremy Stroud MD [facility] CAD;carotid plaueSLEEP APNEA;Dyspnea on exertionScreeningClaudicati on, [id number] deficiency with macroPVD; - In-person encounter Office Visit Jeremy Stroud MD [facility] HTN-01/13 ECHO EF 60CHEST PAIN-01/13 NUC NEG & ECHOSLEEP APNEA:NO TIME FOR SLEEP STUDY NOWHTN-01/13 TYRESE DUP NEGLVHSHORTNESS OF BREATH?ETIOLOGYTobacco use, quitCOPDHTN essential;neg duplx and angioHypercholesterolemia;n eg lpa and crpBACK PAIN;CHRONICCAD;carotid plaueAMI, subendocardialAnxiety disorderRaynaud's syndromeSLEEP APNEA;ObesityScreening - In-person encounter Office Visit Jeremy Stroud MD [facility] Tobacco use, quit - In-person encounter Office Visit Jeremy Stroud MD [facility] HTN-01/13 ECHO EF 60CHEST PAIN-01/13 NUC NEG & ECHO VITAL SIGNS Date Observation Value Provider Body Mass Index (Ratio) 33.78 kg/m2 Jagdish Stroud MD blood pressure, diastolic 65 mm[Hg] [facility] blood pressure, systolic 90 mm[Hg] ezio [facility] oxygen saturation, oximetry 92 % [facility] pulse rate 71 /min [facility] respiratory rate E&M 12 /min [facility] weight E&M 203 [lb_av] [facility] height E&M 65 [in_i] [facility] blood pressure, cuff size regular An [facility] Body Mass Index (Ratio) 34.61 kg/m2 Jagdish Stroud MD blood pressure, cuff size regular Doni glovermary [place] blood pressure, diastolic 70 mm[Hg] Ta bitha [place] blood pressure, systolic 116 mm[Hg] Tab itha [place] oxygen saturation, oximetry 97 % Neha [place] respiratory rate E&M 12 /min Neha [place] pulse rate 64 /min Neha [place] weight E&M 208 [lb_av] Neha [place] height E&M 65 [in_i] Neha [place] Body Mass Index (Ratio) 35.24 kg/m2 Samira Prince MD blood pressure, diastolic 80 mm[Hg] Karthik Boggsam blood pressure, systolic 109 mm[Hg] Karthikl vinnie Gerber oxygen saturation, oximetry 94 % Joesph Boggsam pulse rate 64 /min Joesph [place] weight E&M 211.8 [lb_av] Joesph Boggsam blood pressure, cuff size regular aKrthik [place] respiratory rate E&M 12 /min Joesph [...] lder weight E&M 208 [lb_av] Leslie Magi [facility] height E&M 65 [in_i] Leslie Magi [facility] Body Mass Index (Ratio) 34.14 kg/m2 Jagdish Stroud MD blood pressure, cuff size large Ta cristhian Leroy blood pressure, diastolic 78 mm[Hg] Ta cristhian Leroy blood pressure, systolic 118 mm[Hg] Tab ithsammy [place] oxygen saturation, oximetry 97 % Neha [place] respiratory rate E&M 12 /min Neha Leroy pulse rate 61 /min Neha [place] weight E&M 205.2 [lb_av] Neha [place] height E&M 65 [in_i] Neha [place] blood pressure, cuff size regular [facility] blood pressure, diastolic 80 mm[Hg] Ke rri Gruenenfarabella blood pressure, systolic 130 mm[Hg] Claire Lorenz oxygen saturation, oximetry 93 % [facility] respiratory rate E&M 12 /min Leslie elizabeth pulse rate 62 /min Leslie Sow [facility] height E&M 65 [in_i] Leslie Maldonadonehernan [facility] Body Mass Index (Ratio) 34.11 kg/m2 Jagdish [...] blood pressure, cuff size large Mi pantera [place] blood pressure, diastolic 70 mm[Hg] Mi pantera [place] blood pressure, systolic 170 mm[Hg] Ruperto shayla [place] pulse rate 98 /min Joyce monteiro respiratory [...] blood pressure, systolic 130 mm[Hg] Edita eitan [place] pulse rate 65 /min Lorrie [place] oxygen saturation, oximetry 96 % Lorrie Griggsby respiratory rate E&M 18 /min Lorrie Apryl Body Mass Index (Ratio) 36.34 kg/m2 Markus grey [place] weight E&M 218.4 [lb_av] Lorrie [place] height E&M 65 [in_i] Lorrienathan Pink blood [...] 0-149 High cholesterol, serum 123 mg/dL [facility] 206-450 4653/01/ 30 calcium, serum 9.6 mg/dL [facility] 8.7-10.2 carbon dioxide, venous blood 27 mmol/L [facility] 20-29 chloride, serum 96 mmol/L [facility] 96-106 potassium, serum 4.1 mmol/L [facility] 3.5-5.2 sodium, serum 137 mmol/L [facility] 282-182 4355/01/ 30 urea nitrogen/creatinine ratio, serum 14 [facility] [...] 0-149 High cholesterol, serum 189 mg/dL [facility] 228-898 9281/10/ 03 calcium, serum 10.6 mg/dL [facility] 8.7-10.2 [...] [facility] 3.5-5.2 sodium, serum 144 mmol/L [facility] 576-904 8759/10/ 04 urea nitrogen/creatinine ratio, serum 13 [facility] [...] 3.5 - 5.2 calcium, serum 9.8 mg/[facility] - 10.2 aspartate aminotransferase (SGOT), serum 17.0 1/L [facility] 0.0 - 32.0 alkaline phosphatase, serum 102.0 1/L [facility] 40.0 - 130.0 alanine aminotransferase (SGPT), serum 20.0 1/L [facility] 0.0 - 33.0 protein, total, serum 6.9 g/dL [facility] - 8.7 bilirubin, serum, total 0.3 mg/dL [facility] 0.[facility] - 1.2 urea nitrogen, blood 18.0 mg/dL [facility] 6.0 - 20.0 blood glucose, random 79.0 mg/dL [facility] 74.0 - 99.0 red blood cell distribution width, size density 48.1 fL [facility] - immature granulocytes, percentage of total cells, blood 0.2 % [facility] - nucleated red blood cells as percent of blood leukocytes 0.0 % [facility] - red blood cell (erythrocyte) count, per high power field 0.0 10*3/UL [facility] - eosinophils as percent of blood leukocytes 4.6 % [facility] - neutrophils as percent of blood leukocytes 55.2 % [facility] - Absolute Neutrophils 5.4 CELLS/UL [facility] 1.5 - 7.8 basophils as percent of blood leukocytes 1.0 % [facility] - Absolute Basophils 0.1 CELLS/UL [facility] 0.0 - 0.2 monocytes as percent of blood leukocytes 10.7 % [facility] - Absolute Monocytes 1.0 CELLS/UL [facility] 0.2 - 1.0 High lymphocytes as percent of blood leukocytes 28.3 % [facility] Absolute Lymphocytes 2.8 CELLS/UL [facility] 0.9 - [...] 2 CAPSULES BY MOUTH TWICE A DAY Formerly [facility] Coreg 25 mg tablet completed TAKE [...] lipitor - 12/04 Ro Fenton VITAMIN D3 [id number] completed TAKE 1 CAPSULE BY MOUTH EACH [...] - 12/04 Jeremy Stroud MD VITAMIN D3 15684 UNIT ORAL TABLET completed take one tablet [...] history of marijuana use no Gracia O'Shant CRM MANAGER drug use no Gracia O'Shant CRM MANAGER alcohol use, average drinks per day none Gracia O'Shant CRM MANAGER alcohol use yes Gracia O'Shant CRM MANAGER smoking, year quit 2015 Gracia O'N eal CRM MANAGER number of years as a smoker 10 years or m ore Gracia O'Shant CRM MANAGER smoking history, tot al pack/day 2 Gracia O'Shant CRM MANAGER cigarette use yes Gracia O'Shant N P smoking status Former smoker Gracia O'Shant CRM MANAGER quit smoking, stage quit Jeremy hooper MD [...] Dougherty NP drug use no Cynthia Phillipsri CRM MANAGER alcohol use yes Cynthia Phillipsri CRM MANAGER smoking, year quit 2015 Cynthia Woods CRM MANAGER number of years as a smoker 10 years or m ore Cynthia Dougherty CRM MANAGER smoking history, tot al pack/day 2 Cynthia Phillipsri CRM MANAGER cigarette use yes Cynthia Phillipsri CRM MANAGER smoking status Former smoker Cynthia Phillips ri CRM MANAGER social history reviewed E&M revi ewed - no changes required Cynthia Phillipsri CRM MANAGER social history E&M Marital Statu s: L fran with family/friends E thnicity: Smoking History: Fabricio weiss is a former smoker. Cynthia Phillipsri CRM MANAGER drug use no Cynthia Phillipsri CRM MANAGER alcohol use no Cynthia Phillipsri CRM MANAGER smoking status Former smoker Cynthia Phillips ri CRM MANAGER physical exercise, f requency, days per week [...] Payer name Policy type / Coverage type [facility] hospital green party ID [facility] COMPLETE CARE [id number] (PPO C-SNP) Commercial insurance [employer] [id number] ADVANCE DIRECTIVES Name Date DISCUSSED - NO DECISION MADE TREATMENT PLAN Date Name Performer [id number],C,T he patient is between 55-77 years old [...] undergo diagnosis and treatment. Cynthia Dougherty SREEDHAR [id number],C,P atient c/o worsening of SOB. Will check labs, CXR, and PFTs. Her updated medication list for this problem includes: Symbicort 80-4.5 Mcg/actuation Hfa Aerosol Inhaler (Budesonide-formoterol) ..... Take 2 puff by mouth once a day Ipratropium Greentop 0.02% Solution (Ipratropium bromide) ..... Four times a day as directed Cynthia Murrietaconor ELI [id number],C,W ill check labs to asess current status. Cynthia Phillipsroldan ELI [id number],C,T he patient is using CPAP on a regular basis. The patient has been benefiting from therapy and should continue use. Cynthia Phillipsroldan ELI [id number],C, W ill check labs. Cynthia Phillipsroldan ELI [id number],C,W ill check lipid profile. H er updated [...] mouth twice a day Cynthia Phillipsroldan ELI [id number],C,S lightly elevated in office today. She states [...] by mouth once a day Cynthia Dougherty CRM MANAGER [id number],C,N o chest pain. Will continue current medications. n eg nuc 2019 5 0% rca adn 100 om 3 with non stemi, had rca aneurm on med rx ef 55% Cynthia Dougherty CRM MANAGER [id number],C,P atient c/o increased SOB n ml pro [...] No significant valvular abnormalities. Cynthia Dougherty SREEDHAR [id number],S,S table T he following medications were removed [...] mouth once a day Bobbi Bañuelos NP [id number],S,W orsening sob, check echo H er updated medication list for this problem includes: Symbicort 80-4.5 Mcg/actuation Hfa Aerosol Inhaler (Budesonide-formoterol) ..... Take 2 puff by mouth once a day Ipratropium Greentop 0.02% Solution (Ipratropium bromide) ..... Four times a day as directed Bobbi Bañuelos NP [id number],S, T he following medications were removed from [...] mouth twice a day Bobbi Bañuelos NP [id number],S,Continue curr ent meds Bobbi Bañuelos NP [id number],S,c oudl be villeda thrune but does not want it yet w u neg see screeing Jeremy Stroud MD [id number],S, n eg nuc 2020 5 0% rca adn 100 om 3 with non stemi, had rca aneurm on med rx ef 55% Jeremy Stroud MD [id number],S, T he patient is using CPAP on a regular basis. The patient has been benefiting from therapy and should continue use. Jeremy Stroud MD [id number],B, d oes not want surgey but will try diet pill Jeremy Stroud MD [id number],B, Jeremy issa MD [id number],S, n ml d n eg uacr, neg a1c n o venlus insuf or clto, high dd though and iron, nml tsh Jeremy Stroud MD [id number],S, m ild by charline Stroud MD [id number],B, Jeremy issa MD [id number],S, Jeremy issa MD [id number],S, Jeremy issa MD [id number],S, T he patient is between 55-77 years [...] undergo diagnosis and treatment. Jeremy Stroud MD [id number],S, Jeremy issa MD Cardiology: H er updated [...] 53 (04/06/2020) T (04/06/2020) Courtney Sammy Milton CRM MANAGER Cardiology: H er updated medication list for [...] Courtney Milton NP Cardiology: r elated to [facility] which she stopped Courtney Sammy Milton CRM MANAGER Cardiology: p ap 64/44 mean 52 who group 2 Courtney Sammy Milton CRM MANAGER Cardiology: e f 50 lvedp 27, nml pro Courtney Sammy Milton CRM MANAGER Cardiology:s/p stent coiling of the RCA 09/17/2023 n ow doing well post stent coiling could consider angiogram in future to ensure patchy open areas within stent have clotted off pt advised that the only way to assess the segment which has been coiled in future would be by ivus as the angiogram would be shadowed by the coils Courtney Milton CRM MANAGER :48 EGFR Jeremy Stroud MD Cardiology: H [...] mts stening for both CIV Suresh JAVIER 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 3 . PIPE PULLER of the second obtuse marginal with 100% stenosis. 4 . WHO Group 2 pulmonary hypertension with a subcomponent of COPD causing pulmonary hypertension with an elevated LVEDP of 27 and a mean PA pressure of 52. 5 . Renal insufficiency and hypertension with normal renal arteries. 6 . Diastolic heart failure with an ejection fraction of 50%. 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 3 . PIPE PULLER of the second obtuse marginal with 100% stenosis. 4 . WHO Group 2 pulmonary hypertension with a subcomponent of COPD causing pulmonary hypertension with an elevated LVEDP of 27 and a mean PA pressure of 52. 5 . Renal insufficiency and hypertension with normal renal arteries. 6 . Diastolic heart failure with an ejection fraction of 50%. 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 3 . 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 Cynthia Dougherty NP -seen with CRM MANAGER:Patien t c/o worsening of SOB. Will check labs, CXR, and PFTs. Her updated medication list for this problem includes: Symbicort 80-4.5 Mcg/actuation Hfa Aerosol Inhaler (Budesonide-formoterol) ..... Take 2 puff by mouth once a day Ipratropium [place]op 0.02% Solution (Ipratropium bromide) ..... Four times a day as directed Cynthia Dougherty NP -seen with CRM MANAGER:Will check labs to asess current status. Cynthia Dougherty NP -seen with CRM MANAGER:The pa sandra is using CPAP on a regular basis. The patient has been benefiting from therapy and should continue use. Cynthia Dougherty NP -seen with CRM MANAGER: W ill check labs. Cynthia Dougherty NP -seen with CRM MANAGER:Yo valentine lipid profile. H er updated medication [...] a day Cynthia Murrietaconor ELI -seen with CRM MANAGER:Slight ly elevated in office today. She states [...] a day Cynthia Farhat ELI -seen with CRM MANAGER:No candy st pain. Will continue current medications. n eg nuc 2019 5 0% rca adn 100 om 3 with non stemi, had rca aneurm on med rx ef 55% Cynthia Murrietaconor ELI -seen with CRM MANAGER:Patien t c/o increased SOB n ml pro [...] puff by mouth once a day Ipratropium Greentop 0.02% Solution (Ipratropium bromide) ..... Four times [...] mouth twice daily universal coupon code: bin# [id number], pcn# cn, grp# ecvascepa, id# [id number] Atorvastatin 20mg (Atorvastatin calcium) ..... Take 1 [...] every day Metoprolol Succinate Er 100 Mg [id number] (Metoprolol succinate) ..... Take 1 tablet by [...] tab. daily Metoprolol Succinate Er 100 Mg [id number] (Metoprolol succinate) ..... Take 1 tablet by [...] Nebu (Albuterol sulfate) ..... As needed Ipratropium [place] 0.02 % Inh Soln (Ipratropium bromide) ..... [...] includes: Isosorbide Mononitrate Er 30 Mg Oral [id number] (Isosorbide mononitrate) ..... Take one tablet by [...] rior BP: 148/97 (01/26/2008) Orders: E KG (CPT-60610) C BC (INCLUDES DIFF/PLT) (6244) Jeremy Stroud MD office visit: H er [...] Orders: X -Ray, Chest, PA & Lateral (CPT-04436) B TYPE NATRIURETIC PEPTIDE (BNP) (08119) C OMPREHENSIVE METABOLIC PANEL W/EGFR (48978) L IPID PANEL (7600) C BC (INCLUDES DIFF/PLT) (6399) Jeremy Stroud MD office visit: O rders: B TYPE NATRIURETIC PEPTIDE (BNP) (51690) C OMPREHENSIVE METABOLIC PANEL W/EGFR (86871) L IPID PANEL (7600) C BC (INCLUDES DIFF/PLT) (6399) Jeremy Stroud MD office visit: H er updated medication list for this problem includes: Toprol Xl 100 Mg Tb24 (Metoprolol succinate) ..... One tab daily Zestoretic 10-12.5 Mg Tabs (Lisinopril-hydrochlorothiazide) ..... One tab. daily (new) BP today: 124/87 P rior BP: 148/97 (01/26/2008) Orders: B TYPE NATRIURETIC PEPTIDE (BNP) (48522) C OMPREHENSIVE METABOLIC PANEL W/EGFR (01926) L IPID PANEL (7600) C BC (INCLUDES DIFF/PLT) (6399) Jeremy Stroud MD office visit: H er updated medication list for this problem includes: Toprol Xl 100 Mg Tb24 (Metoprolol succinate) ..... One tab daily Zestoretic 10-12.5 Mg Tabs (Lisinopril-hydrochlorothiazide) ..... One tab. daily BP today: 148/97 Prior BP: / () Orders: C omplete Echo (CPT-93919) S tress Test - Adenosine (70830) R enal Artery Duplex (CPT-96055) X -Ray, Chest, PA & Lateral (CPT-22846) Jeremy Stroud MD office visit: H er updated medication list for this problem includes: Toprol Xl 100 Mg Tb24 (Metoprolol succinate) ..... One tab daily Zestoretic 10-12.5 Mg Tabs (Lisinopril-hydrochlorothiazide) ..... One tab. daily BP today: 148/97 Orders: C omplete Echo (CPT-26292) S tress Test - Adenosine (93966) R enal Artery Duplex (CPT-43134) X -Ray, Chest, PA & Lateral (CPT-73287) Jeremy Stroud MD Date Name Complete Echo Holter Monitor [address] DLCO - 49057 FRC - 66446 FVC - 13768 LIPID PANEL CBC (INCLUDES DIFF/P LT) BASIC METABOLIC PANE L W/EGFR PROTHROMBIN TIME WIT H INR Holter Monitor [address] DLCO - 65690 FRC - 30018 FVC - 31165 DLCO - 66906 FRC - 29406 FVC - [address] FOLATE, SERUM BASIC METABOLIC PANE L W/EGFR CBC (INCLUDES DIFF/P LT) LIPID PANEL PROTHROMBIN TIME WIT H INR Venogram with IVUS - Other PROTHROMBIN TIME WIT H INR LIPID PANEL CBC (INCLUDES DIFF/P LT) BASIC METABOLIC PANE L W/EGFR CRP, high sensitivit y DLCO - 49762 FRC - 26447 FVC - [address] RPM (remote patient monitoring) Monitor - Telemetry (Mobile Cardiac) Stress Cardiac PET-C T Low Dose Lung CT Complete Echo DLCO - 22843 FRC - 98224 FVC - 08331 CXR- PA/Lat CRP, high sensitivit y COMPREHENSIVE METABO LIC PANEL, W/EGFR LIPID PANEL Lipoprotein (a) PROBNP, N TERMINAL Microalb/Creatinine Urine, Random Complete Echo RPM (remote patient monitoring) PROBNP, N TERMINAL Low Dose Lung CT DLCO - 73810 FRC - 55930 FVC - 48792 CXR- PA/Lat Microalb/Creatinine Urine, Random CRP, high sensitivit y Lipoprotein (a) COMPREHENSIVE METABO LIC PANEL, W/EGFR LIPID PANEL Complete Echo RPM (remote patient monitoring) CT, Coronary Calcium Score Low Dose Lung CT DLCO - 93143 FRC - 00435 FVC - [address] LIPID PANEL BASIC METABOLIC PANE L W/EGFR DLCO - 36678 FRC - 33420 FVC - 76631 CT, Coronary Calcium Score Kidney Ultrasound BASIC METABOLIC PANE L W/EGFR COVID19 High Affinit y Antibodies (LC) Vitamin D, 25-Hydrox y LIPID PANEL CT, Coronary Calcium Score Low Dose Lung CT DLCO - 91530 FRC - 60184 FVC - 83151 PROBNP, N TERMINAL STR - Adenosine Arterial Duplex Bi-L ower EX CT, Coronary Calcium Score URINALYSIS, RANDOM, MICROALB/CREATININE HEMOGLOBIN A1c COMPREHENSIVE METABO LIC PANEL, W/EGFR LIPID PANEL Low Dose Lung CT DLCO - 73011 FRC - 68511 FVC - 94044 Sleep Study - split night URINALYSIS, COMPLETE [...] Echo Carotid Duplex Bilat eral DLCO - 72061 FRC - 40897 FVC - 49409 CBC (INCLUDES DIFF/P LT) LIPID PANEL COMPREHENSIVE [...] d FVC / MVV with bronchodilator - 45155 Jeremy Stroud MD completed BLOOD COUNT HEMOGLOBIN Jeremy Stroud MD completed SpO2 w/o 6min walk/titration Jeremy Stroud MD completed SVC - 82153 Jeremy Stroud MD complet ed DLCO - 37252 Jeremy Stroud MD comple sandeep Counseling LDCT Jeremy Stroud MD com pleted Counseling LDCT Jeremy Stroud MD com pleted EKG Jeremy Stroud MD complete d Counseling LDCT Jeremy Stroud MD com pleted EKG Jeremy Stroud MD complete d Spirometry Jeremy Stroud MD complete d FVC / MVV with bronchodilator - 07504 Jeremy Stroud MD completed BLOOD COUNT HEMOGLOBIN Jeremy Stroud MD completed FRC - 58182 Jeremy Stroud MD complet ed SpO2 w/o 6min walk/titration Jeremy Stroud MD completed SVC - 36702 Jeremy Stroud MD complet ed DLCO - 62718 Jeremy Stroud MD comple sandeep Ultrasound, retroperitoneal, complete Jeremy Stroud MD completed Counseling LDCT Jeremy Stroud MD nov com pleted FVC / MVV with bronchodilator - 09329 Jeremy Stroud MD completed BLOOD COUNT HEMOGLOBIN Jeremy Stroud MD completed FRC - 21983 Jeremy Stroud MD complet ed SpO2 w/o 6min walk/titration Jeremy Stroud MD completed DLCO - 31734 Jeremy Stroud MD comple sandeep Counseling LDCT Jeremy Stroud MD com pleted EKG Jeremy Stroud MD complete d Regadenoson, 4 units Jeremy Stroud MD completed Cardiolite, 2 units Jeremy Stroud MD completed SPECT Images Jeremy Stroud MD comple sandeep Stress EKG Jeremy Stroud MD complete d FVC / MVV with bronchodilator - 39197 Jeremy Stroud MD completed BLOOD COUNT HEMOGLOBIN Jeremy Stroud MD completed FRC - 35151 Jeremy Stroud MD complet ed SpO2 w/o 6min walk/titration Jeremy Stroud MD completed DLCO - 25343 Jeremy Stroud MD comple sandeep Counseling LDCT Jeremy Stroud MD com pleted EKG Jeremy Stroud MD complete d BLOOD COUNT HEMOGLOBIN Jeremy Stroud MD completed FVC - 41913 Jeremy Stroud MD complet ed FRC - 73921 Jeremy Stroud MD complet ed DLCO - 34058 Jeremy Stroud MD comple sandeep SNOMED-CT: [id number] Smoking Cessation Counseling Jeremy Stroud MD completed EKG Jeremy Stroud MD complete d SNOMED-CT: [id number] 556255 Current Medications Documented Jeremy Stroud MD completed EKG Jeremy Stroud MD complete d EKG Jeremy Stroud MD complete d
== END 2024-06-23 15:56 | disposition home or self-care (01) ==
PROVIDERS: PCP Family Medicine; Visit Provider Internal Medicine Cardiovascular Disease
DX: Z12.2 Encounter for screening for malignant neoplasm of respiratory organs (principal); Z87.891 Personal history of nicotine dependence
CPT/HCPCS: 71271

== ENCOUNTER 2024-08-18 13:04 | Outpatient (CLI) | payer MEDICARE, SELFPAY ==
--- NOTE | ~2024-08-18 | XR_ITS ---
EXAMINATION: XR chest 2V 08/18/2024 13:58 INDICATION: CHF PROCEDURE: 2 view chest COMPARISON: 03/15/2024 FINDINGS: The lungs are clear. The cardiomediastinal silhouette is within normal limits. There are no pleural effusions. There is no pneumothorax suspected. There is a metallic fragment overlying th e right lower thorax anteriorly. The lungs are hyperinflated which is consistent with, but not diagno stic of chronic obstructive pulmonary disease. IMPRESSION: 1: NO ACUTE CARDIOPULMONARY DISEASE. Reviewed, dictated and finalized at location B.
--- OUTSIDE RECORDS SUMMARY | 2024-08-18 13:12 | XMS_ITS | Clinical Summary ---
Author Organization [facility] Address [address] [place] [id number] Care Team Providers Care Latin Dance Instructor Name Role Phone Columba Almeida MD Primary Care Provider [phone] Medications losartan (COZAAR) 50 MG tablet Take 1 tablet (50 mg total) by mouth every night 90 tablet 1 5 Active potassium chloride (K-TAB) 20 MEQ CR tablet Take 1 tablet (20 mEq total) by mouth 1 (one) time each day 90 tablet 5 08/09/19 26 Active metoprolol succinate XL (TOPROL XL) 25 MG 24 hr tablet Take 1 tablet (25 mg total) by mouth every night Do not crush or chew. 90 tablet 1 5 Active Aspirin 81 MG capsule Take by mouth 6 Active clopidogrel (PLAVIX) 75 MG tablet Take 75 mg by mouth 1 (one) time each day Active Dapagliflozin Propanediol (Farxiga) 10 MG tablet Take 10 mg by oral route. 2 Active carvedilol (COREG) 25 MG tablet Take 25 mg by mouth in the morning and 25 mg in the evening. Take with meals. Active rosuvastatin (CRESTOR) 40 MG tablet Take 40 mg by mouth 1 (one) time each day Active ezetimibe (ZETIA) 10 MG tablet Take 10 mg by mouth 1 (one) time each day Active [place]-3 Fatty Acids (FISH OIL PO) Take 1,200 mg by mouth in the morning and 1,200 mg in the evening. Active cyanocobalamin (VITAMIN B-12) 1000 MCG tablet Take 1,000 mcg by mouth 1 (one) time each day Active budesonide-form oterol (SYMBICORT) 80-4.5 MCG/ACT inhaler Inhale 2 puffs in the morning and 2 puffs before bedtime. Rinse mouth with water after use to reduce aftertaste and incidence of candidiasis. Do not swallow. Active OLANZapine (ZyPREXA) 10 MG tablet Take 10 mg by mouth every night Active traZODone (DESYREL) 100 MG tablet Take 100 mg by mouth every night Active busPIRone (BUSPAR) 10 MG tablet Take 10 mg by mouth in the morning and 10 mg in the evening. Active topiramate (TOPAMAX) 100 MG tablet Take 100 mg by mouth in the morning and 100 mg in the evening. Active gabapentin (NEURONTIN) 800 MG tablet Take 800 mg by mouth in the morning and 800 mg in the evening and 800 mg before bedtime. Active metoprolol succinate XL (TOPROL XL) 25 MG 24 hr tablet Take 1 tablet (25 mg total) by mouth every night Do not crush or chew. 90 tablet 1 5 08/09/19 25 Discontin ued(Reord er (does not appear on AVS)) potassium chloride (K-TAB) 20 MEQ CR tablet Take 40 mEq by mouth in the morning and 40 mEq in the evening. 5 08/09/19 25 Discontin ued(Reord er (does not appear on AVS)) Encounters Date Type Department Care Team Description 08/08/2024 12:00 PM CDT Office Visit [facility] [address] [id number] Arun Li DO Stage 3 chronic kidney disease, not otherwise specified (HCC) (Primary Dx); Interstitial nephritis; Persistent proteinuria; Hypokalemia; Coronary artery disease due to calcified coronary lesion; Peripheral vascular disease (HCC); Venous insufficiency; Obstructive sleep apnea syndrome; Hypertensive chronic kidney disease; Pure hypercholesterolemi a, not otherwise specified; Major depressive disorder, single episode, severe without psychotic features, not otherwise specified (HCC) 08/08/2024 Refill [facility] [address] [employer] [id number] Reba Sullivan CMA 08/02/2024 Documentation Only [facility], [address] [address] Arun Li DO 06/27/2024 3:45 PM CDT Office Visit [facility], [facility] [address] [address] Arun Li DO Stage 3 chronic kidney disease, not otherwise specified (HCC) (Primary Dx); Interstitial nephritis; Persistent proteinuria; Coronary artery disease due to calcified coronary lesion; Peripheral vascular disease (HCC); Venous insufficiency; Obstructive sleep apnea syndrome; Hypertensive chronic kidney disease; Pure hypercholesterolemi a, not otherwise specified; Major depressive disorder, single episode, severe without psychotic features, not otherwise specified (HCC) 06/27/2024 Refill [facility], [facility] [address] [address] Carmelina Roblero [facility] 06/27/2024 Orders Only [facility], [facility] [address] [address] [place] [facility] Malignant essential hypertension (Primary Dx) 06/21/2024 Documentation Only [facility], [address] [address] David Alanis MD 06/20/2024 Documentation Only [facility], [facility] [address] [address] David Alanis MD 06/20/2024 Documentation Only [facility], [address] [address] David Alanis MD 06/19/2024 Documentation Only [facility], [address] [address] Arun Li DO from Last [...] Sign Reading Time Taken Comments Blood Pressure 96/58 08/08/2024 12:07 PM CDT Pulse 72 08/08/2024 12:07 PM CDT Temperature 36.1 C (97 F) 06/27/2024 4:02 PM CDT Respiratory Rate 20 08/08/2024 12:07 PM CDT Oxygen Saturation 96% 08/08/2024 12:07 PM CDT Inhaled Oxygen Concentration - - Weight 86.2 kg (190 lb) 08/08/2024 12:07 PM CDT Height 160 cm (5' 3) 08/08/2024 12:07 PM CDT Body Mass Index 33.66 08/08/2024 12:07 PM CDT Plan of Treatment Upcoming Encounters Date Type Department Care Team (Late st Contact Info) Description 08/22/2024 12:00 PM CDT Office Visit [facility], [facility] [address] [facility] [address] [place] [id number] Arun Li DO [address] [facility] [address] [place] [address] Health Maintenance Due Date Last Done Comments Breast Cancer Screening 1961 Colorectal Cancer Screening: Annual FOBT 2010 Colorectal Cancer Screening: Colonoscopy 2010 Colorectal Cancer Screening: Sigmoidoscopy 2010 Pneumococcal Vaccine: 50+ Years (3 of 3 - PCV20 or PCV21) 10/02/2026 10/02/2021, 06/01/2017 Pneumococcal Vaccine: Peds (0 to 5 Years) and At-Risk Patients (6 to 49 Years) Discontinued 10/02/2021, 06/01/2017 Influenza Vaccine Completed 02/02/2024, , 01/06/2022, Additional history exists Hepatitis B Vaccine Aged Out No longe r eligible based on patient's age to complete this topic Insurance [facility] [employer] Medicare Care Teams Latin Dance Instructor Relationship Specialty Start Date End Date Columba Almeida MD [address] [facility], [address] [place] [address] PCP - General Internal Medicine 06/27/24
--- OUTSIDE RECORDS SUMMARY | 2024-08-18 13:12 | XMS_ITS | Continuity of Care Document ---
Author Organization [facility] [place] [address] [facility] [address] [place] [address] Phone Care Team Providers Care Erector Operator Name Role Phone Davie Sun Unavailable Unavailable Procedures Procedure Date Eye Exam & Treatment Eye Exam, New Patient Advance Directives Directive Yes / No Effective Date File Name No Information Encounters Encounter Description Practice Location Reason(s) For Visit Diagnoses Date Provider Providers Copied on Encounter [facility], [address] [place] [address] [address], [place], [place], [id number], tel:[phone] [facility] No Information [address] Krish[address] Dav[address]. [address], [facility] [place], [place]. tel:[phone] [facility], [address] [place] [address] [address], [place], [place], [id number], tel:[phone] [facility] No Information [address] Krishnasamy Davie. [address] [facility] [address], [place], [address], [place]. tel:[phone] Family History Family Member Type Diagnosis Age [...]
--- OUTSIDE RECORDS SUMMARY | 2024-08-18 13:12 | XMS_ITS | Clinical Summary ---
Author Organization [facility] Address [address] [facility] [place] [address] Care Team Providers Care Haul Truck Driver Name Role Phone José Carrillo MD Primary Care Provider [phone] Source Comments [facility],non-owned Affiliates and Associated Physician Practices is amultiple site organization consisting of ambulatory clinics and hospital sitesin [place], [place], [place] and [place]. This disclosure is being madepursuant to the Care Everywhere program and may not contain all information available regarding this patient. Last updated 17.[facility] [employer] Social History Tobacco Use Types Packs/Day Years [...] SCREENING 1961 LIPID TESTING 1961 MAMMOGRAM 1961 HIV SCREENING 1976 HEPATITIS C SCREENING 11/30/1979 DTAP/TDAP/TD VACCINES (1 - Tdap) 1980 PNEUMOCOCCAL VACCINE 50+ (1 of 1 - PCV) 12/05/2011 ZOSTER VACCINE (1 of 2) 12/05/2011 COVID-19 VACCINE (1 - 2023-2 5 season) 2023 DEPRESSION SCREENING [...] age to complete this topic Care Teams Haul Truck Driver Relationship Specialty Start Date End Date José Carrillo MD [address] [place] [address] PCP - General 02/10/18
--- OUTSIDE RECORDS SUMMARY | 2024-08-18 13:12 | XMS_ITS | Data Portability ---
Author Organization [place] [employer] [facility], Main Office Address [address] [place] [address] Care Team Providers Care Electronic Assembly Name Role Phone ANDREAS LEHMAN Primary Care Provider ANDREAS LEHMAN Referring Provider [phone] YI REED Customer Success Manager Assessment Encounter Date Assessment Date Assessment LastModified [...] of 45 minutes. Not available 03/27/2024 12:19:29 06/26/2024 06/26/2024 Time spent with patient included: preparing to see patient by reviewing tests, obtaining and reviewing history, medical examination and evaluation, counseling and educating the patient, ordering medications and tests, documenting clinical information in EHR, interpreting results and communicating results to the patient for a total of 46 minutes.independ ently Not available 06/26/2024 11:40:12 Plan of Treatment Reminders Order Date Submit Date Provider Last Modified By Organization Details Last Modified Time Details Appointments Any 15 2024 11:15A Shantal warren MD Not available Not available Not available Any 15 2024 10:00A Shantal Cortes, TANK FURNACE OPERATOR Not available Not available Not available Lab alpha-1-a ntitrypsi n (aat) phenotype , serum 2023 NORMA [facility], [address], [place], [address], 03/24/2024 12:12:05 BNP (B-type natriuret ic peptide), serum or plasma 2023 [email or web address] 2 [facility], [address], [place], [address], 07/04/2024 08:40:47 ige, total, serum 2023 2 [facility], [address], [place], [address], 07/04/2024 08:40:47 tb (M tuberculo sis), ifn-gamma horace, blood 2023 NORMA [facility], [address], [place], [address], 03/27/2024 08:58:29 [address]cl[address] s 1+2+3+4, serum 2023 024 [email or web address] 2 [facility], [address], [place], [address], 07/04/2024 08:40:47 respirato ry allergen panel, [facility] A, serum 2023 024 [email or web address] 2 [facility], [address], [place], [address], 07/04/2024 08:40:47 respirato ry allergen panel - [facility] b 2023 024 [email or web address] 2 [facility], [address], [place], [address], 07/04/2024 08:40:48 lipid panel, serum 2023 024 [facility], [address], [place], [address], 04/04/2024 08:24:40 CBC w/ auto diff 2023 024 2 [facility], [address], [place], [address], 07/04/2024 08:35:45 CMP, serum or plasma 2023 024 [facility], [address], [place], [address], 04/04/2024 08:24:40 TSH, serum or plasma 2023 024 [email or web address], [address], [place], [address], 04/04/2024 08:24:41 HbA1c (hemoglob in A1c), blood 2023 024 [email or web address] 2 [facility], [address], [place], [address], 07/04/2024 08:35:45 vitamin D, 25-hydrox y, total, serum 2023 024 2 [facility], [address], [place], [address], 07/04/2024 08:35:45 vitamin B12 + folate, serum or blood 2023 024 [facility], [address], [place], [address], 04/04/2024 08:24:40 hepatitis C virus Ab, serum 2023 024 [facility], [address], [place], [address], 04/04/2024 08:24:41 drug of abuse panel, urine 2023 024 [facility] (Lab), [address] [place], [address], 10/19/2023 20:01:07 Referral pulmonary rehab referral - Please call patient to schedule. [address] (Outpatient Rehab), [address] [place], [address], 05/29/2024 08:38:07 overnight pulse oximetry referral - Please call patient to arrange. [address] [facility], [address] [place] [address], [address], 05/29/2024 08:38:22 pulmonolo gist referral - Please call patient to schedule. 2023 024 [email or web address] Gina Cortes ELECTRIC TRUCK CRANE OPERATOR-C, [address], [address], [place], [address], 02/11/2024 15:48:46 Procedures None recorded. Surgeries None recorded. Imaging LDCT, chest, for lung cancer screening - Please call patient to schedule. 2024 025 [email or web address] [facility], [address], [address], [place], [address], 07/13/2024 14:40:51 XR, chest, 2 view 2023 024 [facility], [address], [address], [place], [address], 03/27/2024 16:55:11 MAMMO, screening , digital, bilateral - Please call patient to schedule. 2023 024 [email or web address] [facility], [address], [address], [place], [address], 03/06/2024 16:00:41 Medication Orders Trelegy Ellipta 200 mcg-62.5 mcg-25 mcg powder for inhalatio n 2024 025 [id number], [address], [place], [address], 06/26/2024 11:52:21 Trelegy Ellipta 200 mcg-62.5 mcg-25 mcg powder for inhalatio n 2024 025 [id number], [address], [place], [address], 03/27/2024 10:59:39 Trelegy Ellipta 200 mcg-62.5 mcg-25 mcg powder for inhalatio n 2023 024 [id number], [address], [place], [address], 02/16/2024 14:34:52 Augmentin 875 mg-125 mg tablet 2023 024 [email or web address] [id number] [address] [place], [address], 03/27/2024 10:24:33 prednison e 20 mg tablet 2023 024 [id number], [address] [place], [address], 02/16/2024 14:34:52 gabapenti n 800 mg tablet 2023 024 [id number], [address], [place], [address], 02/02/2024 17:33:19 albuterol sulfate HFA 90 mcg/actua tion aerosol inhaler 2023 024 [id number], [address] [place], [address], 02/02/2024 17:33:18 Symbicort 80 mcg-4.5 mcg/actua tion HFA aerosol inhaler 2023 024 [facility] #[id number], [address], [place], [address], 03/27/2024 10:50:34 cholecalc iferol (vitamin D3) 50 mcg (2,000 unit) capsule 2023 024 NORMA [id number], [address], [place], [address], 02/02/2024 17:33:18 gabapenti n 800 mg tablet 2023 024 [facility] #[id number], [address], [place], [address], 02/02/2024 17:20:08 phentermi ne 37.5 mg tablet 2023 024 [facility] #[id number], [address], [place], [address], 02/02/2024 17:22:01 Patient TargetsNo targets recorded. Patient Instructions Encounter Date Encounter Id Patient Instructions Last Modified By Organization Details Last Modified Time 02/02/2024 [id number] dementia rating scale-2* Not available 02/02/2024 17:33:13 multi-dimensiona l health assessment questionnaire* Not available 02/02/2024 17:33:13 care plan* NORMA Not available 02/03 12:56:35 advance directiv es: care instructions Not available 02/02/2024 17:33:13 advance care planning: care instructions Not available 02/02/2024 17:33:13 [place] Advance Directives Not available 02/02/2024 17:33:14 Follow up in 6 months Obtain labs Tests: Complete mammogram Referral: Gina Lin Recommend: Shingles vaccine Personalized Health Plan and [...] Non Smoker Alcohol Misuse Screening: Negative Weight: Overweight try to lose 15% of your body weight Physical activity: Need more exercise/physical activity minimum of 20-30 minutes activity that causes mild breathlessness/day Nutrition: Average Refer to attached handout DASH Diet: After Your Visit Fall Risk (screened today): Intermediate Refer to attached handout Preventing Falls: After your Visit Vaccines Pneumococcal: No further needed Influenza: Ordered Chronic Disease Risks Stroke: Intermediate Risk I have no recommendations Heart Attack: Low risk I have no recommendations Clogging of the Arteries: Intermediate Risk I have no recommendations Diabetes: Intermediate Risk I have no recommendations Secondary Prevention/Interven tion (detects treatable diseases before they may cause symptoms, disability, or ) Breast Cancer Screening with mammogram: Ordered Cervical/Uterine/Ov serge Cancer Screening: No screening necessary Osteoporosis Screening: No screening necessary Date Screening Last Performed: Colon Cancer Screening: Cologuard (DNA stool test) No screening necessary Date Screening Last Performed: __10/2021___ Eye Disease Screening: No Eye exam necessary Dementia Risk: Intermediate I have no recommendations Depression Screening: Positive Active diagnosis, Continue current treatment plan Not available 02/02/2024 17:33:04 02/16/2024 [id number] six minute walk test* NORMA Not available 03/27/2024 13:55:34 complete PFT w/ post bronchodilator spirometry* - Please call patient to schedule. MARY [id number] at per [facility] payor portal, ref #[id number] NORMA Not available 03/20/2024 11:43:27 Reason for Referral Manager Respiratory Care Referral for C hronic obstructive pulmonary disease [...] Abnormal Flag Note LastModifiedBy Organization Detail LastModifiedTime 10/21/19 24 10/21/2023 XR, shoul luis No observ ation record ed. [address], [place], [address], 11/04/2023 08:55:12 10/21/19 24 10/21/2023 XR, shoul luis No observ ation record ed. [address], [place], [address], 11/04/2023 08:54:55 10/21/19 24 10/21/2023 XR, cervi mechelle spine , 2 or 3 view No observ ation record ed. [address], [place], [address], 11/04/2023 08:55:56 03/08/19 25 03/07/2024 imagi ng/di agnos tic resul t No observ ation record ed. [address], [place], [address], 03/08/2024 23:51:13 03/15/19 25 03/15/2024 XR, chest , 2 view No observ ation record ed. [facility] [address], [place], [address], 03/27/2024 16:55:12 03/15/19 25 03/15/2024 MAMMO , scree migel, digit al, bilat eral No observ ation record ed. michelle [facility] [address], [place], [address], 03/20/2024 14:31:44 03/20/19 25 03/07/2024 compl ete PFT w/ post [facility] hodil ator bee metry * No observ ation record ed. [email or web address] [facility] (Pulmonary) [address] [facility] [address], [place], [address], 03/27/2024 17:00:52 03/24/19 25 03/07/2024 compl ete PFT w/ post [facility] hodil ator bee metry * No observ ation record ed. [facility] (Pulmonary) [address] [facility] [address] [address], [place], [address], 03/24/2024 12:12:05 03/27/19 25 03/27/2024 six minut e walk test* No observ ation record ed. [facility] ([facility]) [address] [place], [address], 03/27/2024 13:55:34 06/26/19 25 06/23/2024 CT, chest , w/o contr ast No observ ation record ed. [place] [id number] [facility], [place], [address], 06/27/2024 09:10:26 06/28/19 25 06/26/2024 , [facility] ardio gram No observ ation record ed. [email or web address] [facility] [address], [place], [address], 07/03/2024 09:59:34 Result Notes Documentation Provider Name and Address Organization Details Recorded Time Tb (m Tuberculosis), Ifn-gamma Horace, Blood : TB neg, RAST neg Gina Cortes NP [address] [facility], [address], [place], [address], [place] [facility] [employer] [facility] 03/27/2024 10:10:36 Problems Name Problem SNOMED Code Status Onset Date Resolution Date Notes Provider Name and Address Organization Details Recorded Time White blood cell abnormali ty 032381247 Active Not Available [employer] 4 11:23:59 Chronic obstructi ve pulmonary disease 61552951 Active Nicole Gimenez APRN [address], [address], [place], [address] , [employer] [place] [employer] 4 17:10:00 Insomnia 207845844 Active Nicole Gimenez APRN [address], [address], [place], [address] , [employer] [place] [employer] 4 17:10:49 Myocardia l infarctio n 69262521 Active 07/2015 Nicole Gimenez APRN [address], [address], [place], [address] , [employer] [place] [employer] [place] 4 17:11:11 Degenerat ion of lumbar intervert ebral disc 84028082 Active Nicole Gimenez APRN [address], [address], [place], [address] , [employer] [place] 4 17:10:20 Raynaud's phenomeno n 615706575 Active Nicole Gimenez APRN [address], [address], [place], [address] , [employer] 4 17:10:58 Angular cheilitis 694128785 Active 2019 Nicole Gimenez APRN [address], [address], [place], [address] , [employer] [place] 4 17:09:55 Shoulder joint pain 164783121 Active Not Available [employer] 4 11:23:59 Syncope 036691490 Active Nicole Gimenez APRN [address], [address], [place], [address] , [employer] [place] 4 17:10:55 Knee pain Active Not Available [employer] 4 11:23:59 Vitamin D deficienc y 52097722 Active Nicole Gimenez APRN [address], [address], [place], [address] , [employer] [place] 4 17:10:51 Depressiv e disorder 29596374 Active Nicole Gimenez APRN [address], [place] [address], [place], [address] , [employer] [facility] [employer] [facility] 4 17:10:24 Malignant neoplasm of uterus 829649900 Active around age 28 Not Available [facility] 4 11:23:59 Osteoarth ritis 666793810 Active Nicole Gimenez APRN [address], [place] [address], [place], [address] , [employer] [facility] [employer] [facility] 4 17:11:01 Obesity 152292644 Active Nicole Gimenez APRN [address], [place] [address], [place], [address] , [facility] [employer] [facility] [employer] [facility] 4 17:11:05 Cough 69732647 Active Not Available [facility] 4 11:24:00 Hyperlipi demia 30583087 Active Nicole Gimenez APRN [address], [place] [address], [place], [address] , [employer] [facility] 4 17:10:40 Essential hypertens ion 80061027 Active Nicole Gimenez APRN [address], [place] [address], [place], [address] , [employer] [facility] [employer] [facility] 4 17:10:28 Degenerat ion of cervical intervert ebral disc 95763127 Active Nicole Gimenez APRN [address], [place] [address], [place], [address] , [employer] [facility] [employer] [facility] 4 17:10:08 Snoring 62734283 Active Not Available [facility] 4 11:24:00 Degenerat ion of intervert ebral disc 41560035 Active lumbar and cervical spine Nicole Gimenez APRN [address], [address], [place], [address] , [facility] [employer] [facility] [employer] [facility] 4 17:10:16 Obstructi ve sleep apnea syndrome 84133297 Active 2017 Nicole Gimenez APRN [address], [address], [place], [address] , [place] [facility] 4 17:11:02 Fatigue 04466715 Active Nicole Gimenez APRN [address], [address], [place], [address] , [place] [facility] [facility] 4 17:10:32 Dental abscess 706703718 Active 2022 Not Available [facility] 4 11:23:59 Pain of right ankle joint 79968005347 965134 Active 2022 Not Available [facility] 4 11:23:59 Pain of left ankle joint 86214381964 672413 Active 2022 Not Available [facility] 4 11:23:59 Closed trimalleo lar fracture of left ankle 42840816710 247232 Active 2022 Not Available [facility] 4 11:23:59 Edema of lower extremity 813370949 Active 2023 Andreas Lehman MD [address], [address], [place], [address] , [place] [facility] 4 17:41:44 Hyperglyc emia 23161104 Active 2023 Nicole Gimenez APRN [address], [address], [place], [address] , [place] [facility] 4 17:11:30 Coronary arteriosc lerosis 80585327 Active 2023 Nicole Gimenez APRN [address], [address], [place], [address] , [place] [facility] 4 17:10:05 Glomerula r filtratio n rate below reference range 380530903 Active 2023 MIRIAM Joyce [address], [address], [place], [address] , [place] [facility] 4 12:52:59 Closed fracture of left ankle 38565373846 271630 Active Nicole Gimenez, ENGINEERING TECHNICIAN PARKING [address], [address], [place], [address] , [place] [facility] [place] [facility] 4 17:06:20 Open fracture of lateral malleolus 0333114 Active Nicole Gimenez, ENGINEERING TECHNICIAN PARKING [address], [address], [place], [address] , [place] [facility] 4 17:06:20 Acute exacerbat ion of chronic obstructi ve pulmonary disease 833066436 Active Nicole Gimenez, ENGINEERING TECHNICIAN PARKING [address], [address], [place], [address] , [place] [facility] 4 17:07:30 Stented coronary artery 766687367 Active 2023 Nicole Gimenez, KELLY [address], [address], [place], [address] , [place] [facility] 4 17:29:53 Disorder of limb 009075481 Active 2023 Nicole Gimenez, KELLY [address], [address], [place], [address] , [place] [facility] 4 17:30:55 Moderate chronic obstructi ve pulmonary disease 239592931 Active 2023 Gina Cortes NP [address], [address], [place], [address] , [place] [facility] [place] [facility] 4 14:15:28 Dyspnea on exertion 29634557 Active 2023 Gina Cortes NP [address], [address], [place], [address] , [place] [facility] 4 14:26:40 Acute sinusitis 01896354 Active 2023 Gina Cortes NP [address], [address], [place], [address] , [place] [facility] [place] [facility] 4 14:31:30 Oxygen saturatio n below reference range 770251346 Active 2024 Gina Cortes NP [address], [place] [address], [place], [address] , [facility] - [facility] 5 11:44:38 Dependenc e on supplemen hanna oxygen 38676927049 7 Active 2024 Gina Cotres NP [address] [facility], [place] [address], [place], [address] , [facility] - [facility] 5 11:39:32 Eosinophi l count above reference range 354496319 Active 2024 Gina Cortes NP [address] [facility], [place] [address], [place], [address] , [facility] - [facility] 11:40:51 Productiv e cough 57896308 Active 2024 Gina Cortes NP [address] [facility], [place] [address], [place], [address] , [employer] [facility] [employer] [facility] 11:42:55 Notes:Some problems listed i n Document: #[id number] could not be added to this patient's chart. Please review this document and add these problems to the patient's chart manually as needed. Problem Notes None recorded. Procedures Surgical History Date Name Laterality Status Provider Name and Address Organization Details Recorded Time 02/02/20 24 Medicare Wellness CPT Code, subsequent completed Nicolezayra BaumKELLY lozada [address] [facility], [place] [address], [place], [address], [facility] - [facility] [employer] [facility] 01/26/2024 17:14:10 Knee Replacement completed Radha kendrick [facility] 09/24/2022 15:33:23 Hysterectomy completed Radha Gallo [facility] 09/24/2022 15:33:41 Cardiac Cath completed Layla Gomez [facility] - [facility] [employer] [facility] 02/02/2024 17:02:43 Neck Surgeries completed Marie Albert [facility] [employer] [facility] 02/16/2024 14:05:44 Ankle Surgery completed Marie Albert MA [facility] [employer] [facility] 02/16/2024 14:05:53 Cardiac Stent Placement completed Marie Albert MA [facility] [employer] 02/16/2024 14:06:16 Stent completed Marie Albert MA [facility] [employer] [facility] 02/16/2024 14:06:28 Imaging Results None recorded. Procedure Notes None recorded. Medical Equipment None Reported. Allergies Allergen ID Allergen Name Allergen Category Reaction Reaction Severity Criticality Documentation Date Start Date Code Code System Note Provider Name and Address Organization Details Recorded Time 75283 Substance with sulfonami de structure and antibacte rial mechanism of action (substanc e) medicatio n Not available Not available Not available 05/06/2022 26071 8003 SNOMED Other react ions and sever ities : 'Adve rse react ion to subst ance' . Nicole Gimenez, ENGINEERING TECHNICIAN PARKING [address] [facility], [address], [place], [address] [place] [address] [employer] 4 17:05:50 Medications Name Sig Start Date Stop Date Status Note LastModified by Organization Details LastModified Time losartan 50 mg tablet TAKE 1 TABLET BY MOUTH EVERY NIGHT. active Not Available Not Available No t Available nifedipine ER 30 mg tablet,ext ended [...] BY MOUTH ONCE DAILY IN THE MORNING 06/26 completed Not Available Not Available Not Available alprazolam 1 mg tablet TAKE 1 [...] No t Available olanzapine 10 mg tablet TAKE 1 TABLET BY MOUTH EVERYDAY AT [...] Available aspirin 81 mg tablet,del ayed release TAKE 1 TABLET BY MOUTH EVERY DAY FOR 30 DAYS active Not Available Not Available No t Available Wellbutrin SR 100 mg tablet, 12 [...] administ ered by the provider 10/02 completed [facility]: 0003-04 94-20 Not Available Not Available Not [...] Available Not Available buspirone 30 mg tablet TAKE 1 TABLET BY MOUTH TWICE A DAY FOR 30 DAYS active Not Available Not Available No t Available triamcinol one acetonide 0.1 % topical [...] Not Available Not Available No t Available fluoxetine 10 mg capsule TAKE 1 CAPSULE BY MOUTH EVERY DAY FOR 30 DAYS active Not Available [...] Not Available Not Available Not Available metoprolol succinate ER 25 mg tablet,ext ended release 24 hr TAKE 1 TABLET BY MOUTH EVERY NIGHT DO NOT CRUSH OR CHEW. active Not Available Not Available No t Available ergocalcif sanjiv (vitamin D2) 1,250 mcg [...] administ ered by the provider 10/02 completed [facility]: 0409-42 76-17 Not Available Not Available Not [...] Not Available Not Available No t Available potassium chloride ER 20 mEq tablet,ext ended release TAKE 2 TABLETS BY MOUTH TWICE A [...] 200 mcg-62.5 mcg-25 mcg powder for inhalation TAKE 1 PUFF BY MOUTH EVERY DAY active Not Available Not Available No t Available [employer] COVID-19 Antigen Home Test kit USE DIRECTED 10/15 completed Not Available Not Available Not Available Vitals Date Recorded Body height Body mass index (BMI) Body weight Heart rate Oxygen saturation Oxygen saturation in Arterial blood by Pulse oximetry Body temperature Systolic blood pressure Diastolic blood pressure Provider Name and Address Organization Details Last Updated DateTime 5 160.02 cm 36.7 kg/m2 06982.6 2 g 70 /min 91 % 91 % 98.4 [degF] 124 mm[Hg] 72 mm[Hg] Shanique Bee MA [facility] [employer] [facility] 5 10:27:38 Date Recorded Body height Body mass index (BMI) Body weight Body temperature Heart rate Oxygen saturation Oxygen saturation in Arterial blood by Pulse oximetry Inhaled oxygen flow rate Systolic blood pressure Diastolic blood pressure Provider Name and Address Organization Details Last Updated DateTime 5 160.02 cm 34.9 kg/m2 45563.7 g 96.9 [degF] 57 /min 97 % 97 % 2 L/min 118 mm[Hg] 76 mm[Hg] Shanique Bee MA [facility] [employer] [facility] 5 11:02:31 Date Recorded Body height Body mass index (BMI) Body weight Body temperature Heart rate Oxygen saturation Oxygen saturation in Arterial blood by Pulse oximetry Systolic blood pressure Diastolic blood pressure Provider Name and Address Organization Details Last Updated DateTime 4 160.02 cm 36.1 kg/m2 89520.8 4 g 97.3 [degF] 81 /min 91 % 91 % 140 mm[Hg] 76 mm[Hg] Virginie Hyde RN [facility] [employer] [facility] 4 16:17:50 Date Recorded Body height Body mass index (BMI) Body weight Body temperature Heart rate Systolic blood pressure Diastolic blood pressure Provider Name and Address Organization Details Last Updated DateTime 4 160.02 cm 36.3 kg/m2 86520.4 4 g 97.2 [degF] 72 /min 126 mm[Hg] 80 mm[Hg] SERA Pope [facility] [employer] [facility] 4 17:04:33 Date Recorded Body height Body temperature Heart rate Oxygen saturation Oxygen saturation in Arterial blood by Pulse oximetry Systolic blood pressure Diastolic blood pressure Provider Name and Address Organization Details Last Updated DateTime 4 160.02 cm 97.2 [degF] 62 /min 90 % 90 % 124 mm[Hg] 78 mm[Hg] Marie Albert MA [place] [employer] [facility] 4 14:02:45 Social History Question Answer Notes LastModified by Organizat ion Details LastModified Time Tobacco Smoking Status Former Smoker Not Available [facility] 05/06/2022 10:41:30 Do You Have An Advance Directive? No [id number] Information not available 05/06/2022 What Is Your Level Of Caffeine Consumption? Occasional [id number] Information not available 05/06/2022 In The 14 Days Before Symptom Onset, Have You Had Close Contact With A Laboratory-confi rmed COVID-19 While That Case Was Ill? No Information not available 02/16/2024 In The 14 Days Before Symptom Onset, Have You Had Close Contact With A Person Who Is Under Investigation For COVID-19 While That Person Was Ill? No Information not available 02/16/2024 What Type Of Diet Are You Following? REGULAR [id number] Information not available 05/06/2022 What Is The Highest Grade Or Level Of School You Have Completed Or The Highest Degree You Have Received? [id number] Information not available 02/02/2024 Do You Have An Electrostatic Air Filter? No Information not available 02/16/2024 Have There Been Any Changes To Your Family Or Social Situation? No [id number] Information not available 05/06/2022 What Is The Fluoride Status Of Your Home? Unknown [id number] Information not available 05/06/2022 When Did You Quit Smoking? 6-10yearssincelastc igarette MIGRATION.[id number] Information not available 05/06/2022 Do You Have A Humidifier? No Information not available 02/16/2024 Do You Use Insect Repellent Routinely? Yes [id number] 61551 Information not available 05/06/2022 Where Do You Live? [place]House MIGRATION.[id number] Information not available 05/06/2022 Do You Have A Medical Power Of Electric Power Machine Operator? No Information not available 02/02/2024 Do You Have Moisture Problems In Your Home? No Information not available 02/16/2024 What Was The Date Of Your Most Recent Tobacco Screening? 06/26/2024 Information not available 06/26/2024 How Many Children Do You Have? 1 Information not available 02/16/2024 What Is Your Current Pack Years? 30ormorepackyears MIGRATION.[id number] 25406 Information not available 05/06/2022 Do You Have Any Pets? Yes Information not available 02/16/2024 What Is Your Relationship Status? Information not available 02/02/2024 Do You Use Your Seat Belt Or Car Seat Routinely? Yes MIGRATION.[id number] Information not available 05/06/2022 Do You Have Smoke And Carbon Monoxide Detectors In Your Home? Yes MIGRATION.45430 [id number] Information not available 05/06/2022 At What Age Did You Start Smoking Tobacco? 17 MIGRATION.78494 16079 Information not available 05/06/2022 Are You Passively Exposed To Smoke? No MIGRATION.44543 16031 Information not available 05/06/2022 Are There Any Smokers In Your House? No MIGRATION.07522 03078 Information not available 05/06/2022 Do You Use Sunscreen Routinely? Yes MIGRATION.42800 29975 Information not available 05/06/2022 Has Tobacco Cessation Counseling Been Provided? No MIGRATION.01396 10537 Information not available 05/06/2022 How Many Years Have You Smoked Tobacco? 37 MIGRATION.46709 17822 Information not available 05/06/2022 Have You Recently Traveled Abroad? No Information not available 02/02/2024 Do You Have Any Dietary Restrictions? No MIGRATION.87882 64701 Information not available 05/06/2022 Sex: Female Functional Status Question Answer Note LastModified by Organizat ion Details LastModified Time Do you use any illicit or recreational drugs? No [id number].[id number] Information not available 05/06/2022 Do you or have you ever used any other forms of tobacco or nicotine? No MIGRATION.[id number] 2221 Information not available 05/06/2022 What is your level of alcohol consumption? None MIGRATION.[id number] 2881 Information not available 05/06/2022 Are you currently employed? No Retired Information not available 02/16/2024 Have you been exposed to chemicals or toxins? Not that aware of Information not available 06/26/2024 What is your exercise level? Occasional MIGRATION.[id number] 3750 Information not available 05/06/2022 Mental Status Question Answer Note LastModified by Organizat ion Details LastModified Time Do you feel stressed (tense, restless, nervous, or anxious, or unable to sleep at night)? [id number] Information not available 05/06/2022 Family History Relationship Description Onset Age of this Age Resolved Age Notes LastModified by Organization Details LastModified Time Mother Heart disease [email or web address] Not available 2022 15:32:53 Mother Hypertensive disorder [email or web address] Not available 2022 15:33:04 Medical History Condition Response ARTHRITIS Y USE OF BLOOD THINNERS Y HEART DISEASE/HEART PROBLEMS Y Gynecological History Statement/Question Response Date of Last Pap Date of Last Mammogram Date of Last Colonoscopy Most Recent Bone Density Obstetrics History GPAL:G 0 P 0 0 0 0 Immunizations Vaccine Type Date Status Note Provider Nam e and Address Organization Details Recorded Time COVID-19, mRNA, LNP-S, PF, 30 mcg/0.3 mL dose 1 completed Nicole Gimenez APRN [address], [place] [address], [place], [address], [facility] [employer] 01/26/2024 17:06:33 COVID-19, mRNA, LNP-S, PF, 30 mcg/0.3 mL dose 1 completed Nicole Gimenez APRN [address], [facility] [address], [place], [address], [facility] [employer] 01/26/2024 17:06:33 Tdap 8 completed Nicole Gimenez APRN [address], [facility] [address], [place], [address], [facility] [employer] 01/26/2024 17:06:33 Influenza, split virus, quadrivalent, PF 3 completed Virginie Hyde RN [facility], [place] [employer] [facility] [employer] 01/27/2023 14:03:43 pneumococcal polysaccharide PPV23 07/28/202 2 completed Not Available [facility] 04/01/2023 11:24:00 Influenza, split virus, quadrivalent, PF 9 completed Not Available [facility] 04/01/2023 11:24:00 Influenza, split virus, quadrivalent, PF 8 completed Not Available [facility] 04/01/2023 11:24:00 Influenza, split virus, quadrivalent, PF 7 completed Not Available [facility] 04/01/2023 11:24:00 Tdap 8 completed Not Available [facility] 04/01/2023 11:24:00 Pneumococcal conjugate PCV 13 8 completed Not Available [facility] 04/01/2023 11:24:00 Influenza, split virus, quadrivalent, PF 2 completed Nicole Gimenez [employer]CH[employer]IC[employer] [address] [facility], [address], [address], [employer] 01/26/2024 17:06:33 Influenza, split virus, quadrivalent, preservative 6 completed Not Available [facility] 04/01/2023 11:24:00 Influenza, split virus, trivalent, PF 4 completed SERA Pope, [employer] 02/02/2024 17:43:40 Past Encounters Encounter ID Performer Location Encounter Start Date Encounter Closed Date Diagnosis/Indication Diagnosis SNOMED-CT Code Diagnosis ICD10 Code Diagnosis Note [id number] Andreas Lehman MD [facility] Primary [facility] [place] [address] [facility] [address] [place] [address] 10/02/2021 00:00:00 10/03/2021 13:26:40 [id number] [facility] [address] [facility] [address] [facility] [place] [address] 11/04/2021 00:00:00 11/04/2021 22:36:43 [id number] [facility] Primary [facility] [address] [facility] [address] [facility] [place] [address] 01/06/2022 00:00:00 02/04/2022 17:58:17 [id number] Andreas Lehman MD [facility] [address] [facility] [address] [place] [address] 05/21/2022 10:22:28 05/21/2022 10:59:50 Dietary management surveillance 448774984 Z71.3 doing welldown 19 poundscont inue phentermin e 37.5 mg po qday daily for 3 months then 4 week breakf/u in 4 months or sooner if needed Degenerati on of lumbar intervertebral disc 79463021 M51.36 d/c lyrica as it is not effectiver estart gabapentin 800 mg po tidcontinu e pain mgtm Dental abscess 242792404 K04.7 salt water garg[place]kee p dentures out when possiblese e dentist if no improvemen t in 2 weeks-her dentures may need to be refitted given her recent weight loss [id number] Vincent Nicole MD [address] [address] 09/24/2022 14:43:44 09/24/2022 16:08:15 Pain of right ankle joint 3737775929 2159653 M25.571 [id number] Vincent Nicole MD [address] [address] 10/15/2022 14:49:01 10/15/2022 15:52:55 Closed trimalleolar fracture of left ankle 9774185025 3942591 S82.852D [id number] Andreas Lehman MD [facility] [address] [facility] [address] [place] [address] 01/26/2023 09:46:08 01/26/2023 10:20:03 Chronic obstructive pulmonary disease 16660858 J44.9 overnight pulse oximetry orderedif normal, consider formal 6 minute walkcontin ue symbicortr ecent CXR normal Administra tion of influenza vaccine 58106874 Z23 [id number] Andreas Lehman MD [facility] [address] [place] [address] 06/14/2023 12:35:15 06/14/2023 13:12:18 Coronary arteriosclerosis 40850086 I25.10 will have heart cath doneconsid er GLP-1 in future for cardiovasc ular effects [id number] Andreas Lehman MD [facility] Primary Care [facility] [address] [place] [address] 07/20/2023 17:19:37 07/20/2023 17:56:26 Chronic obstructive pulmonary disease 44163217 J44.9 overnight pulse oximetry orderedif normal, consider formal 6 minute walkcontin ue symbicortr ecent CXR normal 07/20/23: increase symbicort use to bidprednis one taperdoxyc ycline bid x 7 dayscall/r eturn if no improvemen t in 1-2 days or sooner if neededrevi ewed s/s that warrant urgent/ritu rgent eval in meantime Edema of l ower extremity 244213401 R60.0 check labs after starting furosemide Essential hypertension 78102112 I10 Vitamin D deficiency 347 12438 E55.9 Hyperglycemia 00650993 R 73.9 check a1c, consider ozempic for cardiovasc ular protection if elevated [id number] MIRIAM Joyce [facility] Primary Care [facility] [address] [facility] [address] [facility] [place] [address] 10/19/2023 16:13:56 10/19/2023 16:45:16 Dietary management surveillance 714439243 Z71.3 5lb weight loss since last visit refill phentermin e given Essential hypertension 94433742 I10 stable with medsbp 140/76, 81 no hernandez/cp, occ sob r/t COPDmeds per cardiology Degenerati on of lumbar intervertebral disc 19687641 M51.36 Long-term drug therapy 602572275 Z79.743 [id number] Columba issa MD [facility] Primary Care [facility] [address] [place] [address] 02/02/2024 16:48:10 02/02/2024 17:45:08 Hyperlipidemia 71633382 E78.5 Z79.899 Hyperglycemia 75100226 R 73.9 Vitamin D deficiency 347 72611 E55.9 Screening mammography 24 664665 Z12.31 Hepatitis C screening 41 1285851 Z11.59 Adult heal th examination 548778805 Z00.00 Screening for disorder 328748527 Z13.9 Degenerati on of lumbar intervertebral disc 53112791 M51.369 Administra tion of influenza vaccine 16744029 Z23 Chronic ob structive pulmonary disease 61112731 J44.9 [id number] Gina Cortes NP [facility] [address] 02/16/2024 13:52:03 02/16/2024 14:41:13 Moderate chronic obstructive pulmonary disease 044296325 J44.9 CAT-33Prog ressively worsening of breathing- ADL's [...] and increase use of inhaler Acute sinusitis 21806319 J01.90 Augmentin and Prednisone as directed-s violeta effects reviewed-t yanet probiotic with it Obstructiv e sleep apnea syndrome 86616737 G47.33 continue home O2 at night-unab le to tolerate CPAP Ex-smoker 4220020 Z87.89 1 last LDCT was in May 2023-wnl [id number] Gina Cortes NP [facility] [address] [address] 03/27/2024 09:52:32 03/27/2024 13:06:47 Moderate chronic obstructive pulmonary disease 777865876 J44.9 CAT-32Prog ressively worsening of breathing- ADL's are affected (difficult y showering and dressing, unable to walk long distance without becoming sob) will continue TrelegyO2 sats with 6 minute walk test 87%-+ dyspnea with exertionPu lmonary rehab orderFollo w-up in 3 months-steve ner if worseEncou rage vaccinatio nsRAST -, TB wnl, Alpha 1 neg Ex-cigarette smoker [address] screening in May Oxygen sat uration below reference range 514482525 R79.81 R09.02 G47.30 O2 required with exertion-O 2 sats dropped below 90 during 6 minute walk test [id number] Gina Cortes NP [facility] [address] [address] 06/26/2024 10:45:36 06/27/2024 15:55:05 Chronic obstructive pulmonary disease 03572878 J44.9 J43.9 CAT-30Trel egy as directed-s he is benefiting from trelegyPro gressively worsening of breathing- ADL's are affected (difficult y showering and dressing, unable to walk long distance without becoming sob) will continue TrelegyCou ghing up a lot of phlegmFoll ow-up in 4 months-steve ner if worseEncou rage vaccinatio nsRAST -, TB wnl, Alpha 1 neg Dependence on supplemental oxygen 8678313252 07 Z99.81 R09.02 continue O2 with exertion and sleep-bene fits from use Eosinophil count above reference range 481700481 D72.10 absolute count 0.347 in March 2024 Productive cough 6152688 5 R05.9 The patient has a diagnosis of emphysema and COPD accompanie d by a chronic productive cough with significan t sputum production . Due to impaired mucociliar y clearance and the inability to effectivel y mobilize secretions , the patient is at increased risk for recurrent infections , bronchial obstructio n, and further decline in pulmonary function. Despite optimal medical management , including bronchodil ators, corticoste roid's, and pulmonary hygeine techniques , the patient continues to experience difficulty clearing secretions .A high frequency chest wall oscillatio n device like a Smart Vest is medically necessary to enhance airway clearance, reduce risk of exacerbati ons and hospitaliz ation's, and improve overall respirator y function. The Smart Vest will assist in loosening and mobilizing retained secretions , thereby improving sputum clearance and reducing the burden of disease. The interventi on is in alignment with current standards of care for patients with chronic, productive respirator y conditions who fail convention al therapy. Health Concerns Section Related Observation LastModified by Organization Detai ls LastModified Time None Recorded Concern Status LastModified by Organization Details LastModified Time None Recorded Advance Directives Directive N: Payers Insurance Date Sequence Insurance Name Policy Number Policy Lebron Covered Member ID Lebron Member ID Guarantor Name 06/26/2024 3 [place] Letty Butterfield [id number] Letty Butterfield 08/16/2024 [place]ICAID [place] DURABLE MEDICAL EQUIPMENT Letty Butterfield [id number] Letty Butterfield 08/14/2024 1 [facility] (MEDICARE REPLACEMENT/A DVANTAGE - PPO) [id number] Letty Butterfield [id number] Letty Butterfield 06/26/2024 2 [place]CON[place] WHEN MEDICARE OR MEDICARE REPLACEMENT PRIMARY) Letty Butterfield [id number] Letty Butterfield Notes Date Note Type Note Provider Name and Address Organization Details Recorded Time 10/19/2023 text/html Pt is here for f/u Stew reyes, [employer]LECT[employer]PER[employer] [address], [place], [address], [employer] 10/19/2023 16:39:14 02/02/2024 text/html Letty presents today for her Medicare Annual Wellness exam and medication refills. She also sees Dr. Stroud and Dr. Barron for her care. She does not see pulmonary for her COPD. Nicole Gimenez APRN [address], [place], [address], [employer] 02/04/2024 13:06:37 02/16/2024 text/html COPDReported bypatient.Quality:symp toms [...] sleep apneaMmrc 5 Gina Cortes NP [address] [employer] [place] [address], [place], [address], [employer] 02/16/2024 14:52:44 03/27/2024 text/html COPDReported bypatient.Quality:symp toms [...] with albuterol inhaler Gina Cortes NP [address], [place], [address], [employer] 03/27/2024 12:36:06 06/26/2024 text/html COPDReported bypatient.Quality:symp toms do not vary with time of day; symptoms worse with lying down Severity:very limiting; severe; admitted to hospital 1 times/year; unable to shower without stopping-walking to house from car difficult using albuterol inhaler less 2-3 x a week-uses neb once a day when needed Duration:has noted for months; constant Onset/Timing:chronic: slowly much worse Context:cigarette smoking; recurrent [...] white and frothy;cough loose;depression; lower leg edema intermittentNotes:foll ow-up from March-doing better-no recent illness-notes has a lot of phlegm when she coughs-multiple times of the day coughing up phlegm-sometimes chokes on the phlegmex-smoker of 2 ppd for 40 years-last CT 05/2023 wnlsees Cardiology-hx stentshx sleep apnea-[facility] Gina Cortes NP [address] [facility], [facility] [address], [place], [address], [place] [employer] 06/27/2024 11:17:52 OBGyn Episode No OBEpisode recorded.
[2024-08-18 14:04] LABS: Basophils Percent Auto 0.1 % (0.2-1.2); Eosinophils Absolute Auto 0.2 K/mm3 (0-0.3); Eosinophils Percent Auto 2.6 % (0-4.4); Hematocrit 40.5 % (37.0-47.0); Hemoglobin 12.9 g/dL (12.0-15.0); Immature Granulocyte Absolute 0.03 K/mm3 (0.00-0.031); Immature Granulocyte Percent A 0.3 % (0-0.5); Lymphocytes Absolute Auto 1.73 K/mm3 (0.9-3.2); Lymphocytes Percent Auto 18.5 % (18.3-44.2); Mean Corpuscular HGB Conc 31.9 g/dl (32-36); Mean Corpuscular Hemoglobin 31.9 pg (26-34); Mean Platelet Volume 10.5 fl (7.4-10.4); Monocytes Absolute Auto 0.9 K/mm3 (0.1-0.6); Monocytes Percent Auto 9.5 % (2.6-8.5); Neutrophils Absolute Auto 6.4 K/mm3 (1.3-6.7); Platelet Count Result 243 k/mm3 (150-375); Red Blood Count 4.05 M/mm3 (4.2-5.4); White Blood Count 9.3 K/mm3 (4.5-10.0)
[2024-08-18 14:14] LABS: Cholesterol 209 mg/dL (0-200); HDL Direct 61 mg/dL; Triglycerides 162 mg/dL (<150)
[2024-08-18 14:17] LABS: Albumin Level 4.3 g/dL (3.5-5.1); Anion Gap 7 mmol/L (4-12); Blood Urea Nitrogen 14 mg/dL (7-17); Calcium 9.9 mg/dL (8.4-10.2); Carbon Dioxide 24 mmol/L (22-30); Chloride 109 mmol/L (98-107); Estimated Glomerular Filt Rate 49; Glucose 94 mg/dL (65-110); Magnesium 2.3 mg/dL (1.6-2.3); Phosphorus 2.4 mg/dL (2.5-4.5); Potassium 4.3 mmol/L (3.4-5.0); Sodium 140 mmol/L (137-145)
[2024-08-18 14:21] LABS: NT Pro B Type Natriuretic Pept 358 pg/mL (19.9-100)
[2024-08-18 14:26] LABS: LDL Cholesterol Direct 104 mg/dL
[2024-08-21 14:54] LABS: Cystatin C 1.71 mg/L (0.52-1.14); eGFR 35 (> OR = 60)
== END 2024-08-18 13:05 | disposition home or self-care (01) ==
PROVIDERS: PCP Internal Medicine; Referring Provider Internal Medicine Nephrology; Visit Provider Internal Medicine Cardiovascular Disease
DX: I12.9 Hypertensive chronic kidney disease with stage 1 through stage 4 chronic kidney disease, or unspecified chronic kidney disease (principal); N18.30 Chronic kidney disease, stage 3 unspecified; I21.9 Acute myocardial infarction, unspecified; N12 Tubulo-interstitial nephritis, not specified as acute or chronic; R80.1 Persistent proteinuria, unspecified; E87.6 Hypokalemia; I25.84 Coronary atherosclerosis due to calcified coronary lesion; I73.9 Peripheral vascular disease, unspecified; I87.2 Venous insufficiency (chronic) (peripheral); G47.33 Obstructive sleep apnea (adult) (pediatric); E78.00 Pure hypercholesterolemia, unspecified; F32.2 Major depressive disorder, single episode, severe without psychotic features
CPT/HCPCS: 36415; 71046; 80061; 80069; 82610; 83735; 83880; 85025

== ENCOUNTER 2024-09-09 11:21 | Outpatient (CLI) | payer MEDICARE, SELFPAY ==
--- OUTSIDE RECORDS SUMMARY | 2024-09-09 11:25 | XMS_ITS | Data Portability ---
Author Organization [place] [facility] [place] [facility], Main Office Address [address] [place] [address] Care Team Providers Care Central Processing Technician Name Role Phone ANDREAS LEHMAN Primary Care Provider ANDREAS LEHMAN Referring Provider [phone] YI REED Orthopedic Shoes Salesperson Assessment Encounter Date Assessment Date Assessment LastModified [...] 46 minutes.independ ently Not available 06/26/2024 11:40:12 08/22/2024 08/22/2024 08/18/2204: Dr Reed Cr 1.13, GFR 49 [email or web address] Not available 08/22/2024 13:05:12 Plan of Treatment Reminders Order Date Submit Date Provider Last Modified By Organization Details Last Modified Time Details Appointments Any 15 2024 02:15P Shantal warren MD Not available Not available Not available Any 15 2024 10:00A Shantal Cortes, SREEDHAR Not available Not available Not available Lab vitamin D, 25-hydrox y, total, serum [address] (Lab), [address] [place] [address] [address], [place], [address], 08/22/2024 13:19:00 lipid panel, serum [address] (Lab), [address] [place] [address] [address], [place], [address], 08/29/2024 16:14:38 CBC w/ auto diff [address] (Lab), [address] [place] [address] [address], [place], [address], 08/22/2024 13:18:59 TSH + free T4, serum [address] (Lab), [address] [place] [address] [address], [place], [address], 08/29/2024 16:14:47 alpha-1-a ntitrypsi n (aat) phenotype , serum 2023 024 NORMA [facility], [address], [place], [address], 03/24/2024 12:12:05 BNP (B-type natriuret ic peptide), serum or plasma 2023 024 [email or web address] 2 [facility], [address], [place], [address], 07/04/2024 08:40:47 ige, total, serum 2023 024 [email or web address] 2 [facility], [address], [place], [address], 07/04/2024 08:40:47 tb (M tuberculo sis), ifn-gamma horace, blood 2023 024 NORMA [facility], [address], [place], [address], 03/27/2024 08:58:29 [address] subclasse s 1+2+3+4, serum 2023 024 2 [facility], [address], [place], [address], 07/04/2024 08:40:47 respirato ry allergen panel, [facility] A, serum 2023 024 [email or web address] 2 [facility], [address], [place], [address], 07/04/2024 08:40:47 respirato ry allergen panel - [facility] b 2023 024 [email or web address] 2 [facility], [address], [place], [address], 07/04/2024 08:40:48 lipid panel, serum 2023 024 [email or web address] [facility], [address], [place], [address], 04/04/2024 08:24:40 CBC w/ auto diff 2023 024 [email or web address] 2 [facility], [address], [place], [address], 07/04/2024 08:35:45 CMP, serum or plasma 2023 024 [email or web address] [facility], [address], [place], [address], 04/04/2024 08:24:40 TSH, serum or plasma 2023 024 [employer] [facility], [address], [place], [address], 04/04/2024 08:24:41 HbA1c (hemoglob in A1c), blood 2023 024 [email or web address] 2 [facility], [address], [place], [address], 07/04/2024 08:35:45 vitamin D, 25-hydrox y, total, serum 2023 024 [email or web address] 2 [facility], [address], [place], [address], 07/04/2024 08:35:45 vitamin B12 + folate, serum or blood 2023 024 [facility], [address], [place], [address], 04/04/2024 08:24:40 hepatitis C virus Ab, serum 2023 024 [facility], [address], [place], [address], 04/04/2024 08:24:41 Referral nephrolog ist referral - Please call patient to schedule an appointme nt. Thank you. 2024 025 JUS Reed DO, [address] [facility], [address], [place], [address], 08/29/2024 11:03:33 cardiolog ist referral - Please call patient to schedule an appointme nt. Thank you. 2024 025 JUS Stroud MD, [address] [facility], [address], [place], [address], 08/29/2024 11:52:20 pulmonary rehab referral - Please call patient to schedule. [email or web address] [place] [address] (Outpatient Rehab), [address] [place] [address], [address], 05/29/2024 08:38:07 overnight pulse oximetry referral - Please call patient to arrange. [address] [place] [address] Respiratory Services, [address] [facility], [place], [address], 05/29/2024 08:38:22 pulmonolo gist referral - Please call patient to schedule. 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 Surgeries None recorded. Imaging DEXA, axial skeleton - Please call patient to schedule. 2024 025 [facility], [address], [place], [address], 08/22/2024 14:55:27 LDCT, chest, for lung cancer screening - Please call patient to schedule. [address], [address], [place], [address], 07/13/2024 14:40:51 XR, chest, 2 view 2023 024 [facility], [address], [address], [place], [address], 03/27/2024 16:55:11 MAMMO, screening , digital, bilateral - Please call patient to schedule. [address] [facility], [address], [place], [address], 03/06/2024 16:00:41 Medication Orders Trelegy Ellipta 200 mcg-62.5 mcg-25 mcg powder for inhalatio n 2024 025 [id number], [address], [place], [address], 06/26/2024 11:52:21 Trelegy Ellipta 200 mcg-62.5 mcg-25 mcg powder for inhalatio n 2024 025 [id number], [address], [place], [address], 03/27/2024 10:59:39 Trelegy Ellipta 200 mcg-62.5 mcg-25 mcg powder for inhalatio n 2023 024 [id number], [address], [place], [address], 02/16/2024 14:34:52 Augmentin 875 mg-125 mg tablet 2023 [email or web address] [id number] [address] [place], [address], 03/27/2024 10:24:33 prednison e 20 mg tablet 2023 024 [id number], [address], [place], [address], 08/22/2024 12:30:22 gabapenti n 800 mg tablet 2023 024 [id number], [address], [place], [address], 02/02/2024 17:33:19 albuterol sulfate HFA 90 mcg/actua tion aerosol inhaler 2023 024 [id number], [address] [place], [address], 02/02/2024 17:33:18 Symbicort 80 mcg-4.5 mcg/actua tion HFA aerosol inhaler 2023 024 [facility]acy #[id number], [address], [place], [address], 03/27/2024 10:50:34 cholecalc iferol (vitamin D3) 50 mcg (2,000 unit) capsule 2023 024 [facility]Pharmacy #[id number], [address], [place], [address], 08/22/2024 12:27:26 Patient TargetsNo targets recorded. Patient Instructions Encounter Date Encounter Id Patient Instructions Last Modified By Organization Details Last Modified Time 02/02/2024 [id number] dementia rating scale-2* Not available 02/02/2024 17:33:13 multi-dimensiona l health assessment questionnaire* Not available 02/02/2024 17:33:13 care plan* NORMA Not available 02/03 12:56:35 advance directiv es: care instructions Not available 02/02/2024 17:33:13 advance care planning: care instructions Not available 02/02/2024 17:33:13 [place] Advance Directives Not available 02/02/2024 17:33:14 Follow up in 6 months Obtain labs Tests: Complete mammogram Referral: Gina CortesIinrg-pytrnnybr-DST D Recommend: Shingles vaccine Personalized Health Plan [...] treatment plan Not available 02/02/2024 17:33:04 02/16/2024 [id number] six minute walk test* NORMA Not available 03/27/2024 13:55:34 complete PFT w/ post bronchodilator spirometry* - Please call patient to schedule. 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 Referring Physician: Nicole Gimenez, Internal Medicine, Encounter Date: 02/02/2024 Pulmonary Rehab Referral for Moderate chronic obstructive pulmonary disease Please call patient to schedule. Referring Physician: Gina Cortes, Pulmonary Disease, Encounter Date: 03/27/2024 Overnight Pulse Oximetry Ref erral for Oxygen saturation below reference range Please call patient to arrange. Referring Physician: Gina Cortes Pulmonary Disease, Encounter Date: 03/27/2024 Orthopedic Shoes Salesperson Referral for Ch ronic kidney disease Please call patient to schedule an appointment. Thank you. Referring Physician: Columba Almeida, Internal Medicine, Encounter Date: 08/22/2024 Acidizer Water Well Referral for Co ronary arteriosclerosis Please call patient to schedule an appointment. Thank you. Referring Physician: Columba Almeida Internal Medicine, Encounter Date: 08/22/2024 Results Created Date Observation Date Name Description Value Unit Range Abnormal Flag Note LastModifiedBy Organization Detail LastModifiedTime 03/08/1903/07/2024 imagi ng/di luis danielos tic resul t No observ ation record ed. [facility] [address] [facility] [address], [place], [address], 03/08/2024 23:51:13 03/15/19 25 03/15/2024 XR, chest , 2 view No observ ation record ed. [facility] [address], [place], [address], 03/27/2024 16:55:12 03/15/1903/15/2024 MAMMO , scree migel, digit al, bilat eral No observ ation record ed. [facility] [address], [place], [address], 03/20/2024 14:31:44 03/20/19 25 03/07/2024 compl ete PFT w/ post [facility] hodil ator bee metry * No observ ation record ed. [address] (Pulmonary) [facility] [facility] [address], [address], 03/27/2024 17:00:52 03/24/19 25 03/07/2024 compl ete PFT w/ post [facility] hodil ator bee metry * No observ ation record ed. [facility] (Pulmonary) [address] [facility] [address], [place], [address], 03/24/2024 12:12:05 03/27/19 25 03/27/2024 six minut e walk test* No observ ation record ed. [facility] (One Call Scheduling) [address] [place], [address], 03/27/2024 13:55:34 06/26/19 25 06/23/2024 CT, chest , w/o contr ast No observ ation record ed. [facility] [address], [place], [address], 06/27/2024 09:10:26 06/28/1906/26/2024 US, echoc ardio gram No observ ation record ed. [email or web address] [facility] [address], [place], [address], 07/03/2024 09:59:34 08/19/1908/18/2024 imagi ng/di agnos tic resul t No observ ation record ed. [facility] [address] [facility] [address], [place], [address], 08/18/2024 16:16:32 Result Notes Documentation Provider Name and Address Organization Details Recorded Time Tb (m Tuberculosis), Ifn-gamma Horace, Blood : TB neg, RAST neg Gina Cortes NP [address], [place], [address], [employer] 03/27/2024 10:10:36 Problems Name Problem SNOMED Code Status Onset Date Resolution Date Notes Provider Name and Address Organization Details Recorded Time White blood cell abnormali ty 117891061 Active Not Available [facility] 4 11:23:59 Chronic obstructi ve pulmonary disease 75357375 Active Columba issa MD [address], [address], [place], [address] , [employer] 5 11:27:04 Insomnia 928431317 Active Nicole Gimenez APRN [address], [address], [place], [address] , [employer] 4 17:10:49 Myocardia l infarctio n 42157079 Active 07/2015 Nicole Gimenez APRN [address], [address], [place], [address] , [employer] 4 17:11:11 Degenerat ion of lumbar intervert ebral disc 94103270 Active Nicole Gimenez APRN [address], [address], [place], [address] , [employer] [place] [facility] 4 17:10:20 Raynaud's phenomeno n 345248829 Active Nicole Baumner PIPE LAYER HELPER [address], [address], [place], [address] , [employer] [place] [facility] [facility] 4 17:10:58 Angular cheilitis 692528637 Active 2019 Nicole AmmyKELLY lozada [address], [address], [place], [address] , [employer] [facility] [employer] [facility] 4 17:09:55 Shoulder joint pain 450190139 Active Not Available [facility] 4 11:23:59 Syncope 669629891 Active Nicole Gimenez APRN [address], [address], [place], [address] , [employer] [facility] 4 17:10:55 Knee pain Active Not Available [facility] 4 11:23:59 Vitamin D deficienc y 33286085 Active Nicole Gimenez APRN [address], [address], [place], [address] , [employer] [facility] 4 17:10:51 Depressiv e disorder 00121333 Active Nicole Gimenez APRN [address], [address], [place], [address] , [employer] [facility] [employer] [facility] 4 17:10:24 Malignant neoplasm of uterus 761830998 Active around age 28 Not Available [facility] 4 11:23:59 Osteoarth ritis 509356459 Active Nicole Gimenez APRN [address], [address], [place], [address] , [employer] [facility] [employer] [facility] 4 17:11:01 Obesity 051303906 Active Nicole Gimenez APRN [address], [place], [address] , [employer] [facility] 4 17:11:05 Cough 84429906 Active Not Available [facility] 4 11:24:00 Hyperlipi demia 35843799 Active Columba issa MD [address], [address], [place], [address] , [facility] 5 11:27:19 Essential hypertens ion 91701528 Active Nicole Gimenez APRN [address], [address], [place], [address] , [facility] 4 17:10:28 Degenerat ion of cervical intervert ebral disc 88870623 Active Nicole Gimenez APRN [address], [address], [place], [address] , [facility] 4 17:10:08 Snoring 39391083 Active Not Available [facility] 4 11:24:00 Degenerat ion of intervert ebral disc 29945600 Active lumbar and cervical spine Nicole Gimenez APRN [address], [address], [place], [address] , [facility] 4 17:10:16 Obstructi ve sleep apnea syndrome 46119267 Active 2017 Columba issa MD [address], [address], [place], [address] , [facility] 5 13:01:32 Fatigue 10777803 Active Nicole Gimenez APRN [address], [address], [place], [address] , [facility] 4 17:10:32 Dental abscess 195748968 Active 2022 Not Available [facility] 4 11:23:59 Pain of right ankle joint 89937422417 184838 Active 2022 Not Available [facility] 4 11:23:59 Pain of left ankle joint 57563315276 235825 Active 2022 Not Available [facility] 4 11:23:59 Closed trimalleo lar fracture of left ankle 68908592349 280709 Active 2022 Not Available [facility] 4 11:23:59 Edema of lower extremity 802975272 Active 2023 Andreas Lehman MD [address], [address], [place], [address] , [employer] [facility] 4 17:41:44 Hyperglyc emia 97966245 Active 2023 Nicole Gimenez APRN [address], [address], [place], [address] , [employer] [facility] 4 17:11:30 Coronary arteriosc lerosis 15166971 Active 2023 Columba issa MD [address], [address], [place], [address] , [employer] [facility] 5 13:05:41 Glomerula r filtratio n rate below reference range 797842549 Active 2023 MIRIAM Joyce [address], [place], [address] , [employer] [facility] [employer] [facility] 4 12:52:59 Closed fracture of left ankle 53750771333 948512 Active Nicole Gimenez APRN [address], [place], [address] , [employer] [facility] 4 17:06:20 Open fracture of lateral malleolus 0021367 Active Nicole Gimenez APRN [address], [address], [place], [address] , [employer] [facility] 4 17:06:20 Acute exacerbat ion of chronic obstructi ve pulmonary disease 428281751 Active Nicole Gimenez APRN [address], [address], [place], [address] , [employer] [facility] [place] [facility] 4 17:07:30 Stented coronary artery 033491564 Active 2023 Nicole Gimenez, KELLY [address], [address], [place], [address] , [employer] 4 17:29:53 Disorder of limb 141959802 Active 2023 Nicole Gimenez APRN [address], [address], [place], [address] , [employer] 4 17:30:55 Moderate chronic obstructi ve pulmonary disease 451009978 Active 2023 Gina Cortes NP [address], [address], [place], [address] , [employer] 4 14:15:28 Dyspnea on exertion 35279212 Active 2023 Gina Cortes NP [address], [address], [place], [address] , [employer] 4 14:26:40 Acute sinusitis 56295538 Active 2023 Gina Cortes NP [address], [address], [place], [address] , [employer] 4 14:31:30 Oxygen saturatio n below reference range 234543292 Active 2024 Gina Cortes NP [address], [address], [place], [address] , [employer] 5 11:44:38 Dependenc e on supplemen hanna oxygen 91042971367 7 Active 2024 Gina Cortes NP [address], [address], [place], [address] , [employer] 5 11:39:32 Eosinophi l count above reference range 248001044 Active 2024 Gina Cortes NP [address], [address], [place], [address] , [employer] 5 11:40:51 Productiv e cough 90038825 Active 2024 Gina Cortes NP [address], [address], [place], [address] , [employer] 5 11:42:55 Chronic depressio n 765895242 Active 2024 Columba issa MD [address], [place], [address] , [employer] 5 12:59:12 Bipolar disorder, most recent episode depressio n 970292721 Active 2024 Columba issa MD [address], [place], [address] , [employer] 5 13:01:04 Aneurysm of coronary vessels 25464954 Active 2024 Columba issa MD [address], [place], [address] , [employer] 5 13:01:19 Pulmonary hypertens ion 46376355 Active 2024 Columba issa MD [address], [place], [address] , [employer] 5 13:01:46 Vitamin D below reference range 019753151 Active 2024 Columba issa MD [address], [place], [address] , [employer] [facility] 5 13:02:36 Chronic kidney disease 512007634 Active 2024 Columba issa MD [address], [place], [address] , [employer] [facility] 5 13:04:31 Neuropath y 327455166 Active 2024 Columba issa MD [address], [place], [address] , [facility] 16:31:13 Notes:Some problems listed i n Document: #[id number] could not be added to this patient's chart. Please review this document and add these problems to the patient's chart manually as needed. Problem Notes None recorded. Procedures Surgical History Date Name Laterality Status Provider Name and Address Organization Details Recorded Time 02/02/20 24 Medicare Wellness CPT Code, subsequent completed Nicole Gimenez APRN [address], [place], [address], [facility] 01/26/2024 17:14:10 Knee Replacement completed Layla Gomez [facility] 08/22/2024 12:32:34 Hysterectomy completed Radha Gallo [facility] 09/24/2022 15:33:41 Cardiac Cath completed Layla Gomez [facility] 02/02/2024 17:02:43 Neck Surgeries completed Layla Gomez [facility] 08/22/2024 12:32:45 Ankle Surgery completed Layla Gomez [facility] 08/22/2024 12:32:58 Cardiac Stent Placement completed Marie Albert [facility] 02/16/2024 14:06:16 Stent completed Marie Albert [facility] 02/16/2024 14:06:28 Stent Placement completed Layla Gomez [facility] 08/22/2024 12:33:21 Imaging Results None recorded. Procedure Notes None recorded. Medical Equipment None Reported. Allergies Allergen ID Allergen Name Allergen Category Reaction Reaction Severity Criticality Documentation Date Start Date Code Code System Note Provider Name and Address Organization Details Recorded Time 34872 Substance with sulfonami de structure and antibacte rial mechanism of action (substanc e) medicatio n Not available Not available Not available 05/06/2022 89030 8987 SNOMED Other react ions and sever ities : 'Adve rse react ion to subst ance' . Nicole Gimenez APRN [address], [place], [address], [place] [facility] 4 17:05:50 Medications Name Sig Start Date Stop Date Status Note LastModified by Organization Details LastModified Time losartan 50 mg tablet TAKE 1 TABLET BY MOUTH EVERY NIGHT. 08/22 completed Not Available Not Available Not Available [...] 2 TABLETS BY MOUTH TWICE A DAY 08/22 completed Not Available Not Available Not Available acetaminop hen 325 mg tablet 650 [...] then 1 tabs po x 2 days 08/22 completed Not Available Not Available Not Available isosorbide mononitrat e ER 30 mg tablet,ext ended release 24 hr TAKE 1 TABLET BY MOUTH EVERY DAY 08/22 completed Not Available Not Available Not Available metoprolol succinate ER 100 mg tablet,ext [...] 1 TABLET BY MOUTH EVERY DAY DIRECTED 08/22 completed Not Available Not Available Not Available clopidogre l 75 mg tablet TAKE [...] 1 tablet every day by oral route. 08/22 completed Habib Not Available Not Available Not Available vancomycin 1,000 mg intravenou s injection [...] tablet Take 1 tablet by oral route. 08/22 completed Serota Not Available Not Available Not Available oxycodone- acetaminop hen 5 mg-325 mg [...] 1 TABLET BY MOUTH EVERYDAY AT BEDTIME 08/22 completed Not Available Not Available Not Available oxycodone- acetaminop hen 10 mg-325 mg [...] administ ered by the provider 10/02 completed [facility]: [id number] Not Available Not Available Not [...] (ONE) TIME EACH DAY IN THE MORNING 08/22 completed Not Available Not Available Not Available fluoxetine 10 mg capsule TAKE 1 CAPSULE BY MOUTH EVERY DAY FOR 30 DAYS 08/22 completed Not Available Not Available Not Available [...] 1 TABLET BY MOUTH TWICE A DAY 08/22 completed Not Available Not Available Not Available [...] TAKE 1 TABLET BY MOUTH EVERY DAY 08/22 completed Not Available Not Available Not Available fluticason e propionate 50 mcg/actuat ion [...] day by oral route as directed . 08/22 completed [address] Not Available Not Available Not Available ipratropiu m bromide 0.02 % solution for [...] administ ered by the provider 10/02 completed [facility]: [phone] Not Available Not Available Not [...] 1 capsule every day by oral route. 08/22 completed Not Available Not Available Not Available [...] blood by Pulse oximetry Body temperature Systolic And Diastolic Provider Name and Address Organization Details Last Updated DateTime 5 160.02 cm 36.7 kg/m2 33110.6 2 g 70 /min 91 % 91 % 98.4 [degF] 124/72 mm[Hg] Shanique Bee MA [place] [facility] [address] 5 10:27:38 Date Recorded Body height Body mass index (BMI) Body weight Body temperature Heart rate Oxygen saturation Oxygen saturation in Arterial blood by Pulse oximetry Inhaled oxygen flow rate Systolic And Diastolic Provider Name and Address Organization Details Last Updated DateTime 5 160.02 cm 34.9 kg/m2 04979.7 g 96.9 [degF] 57 /min 97 % 97 % 2 L/min 118/76 mm[Hg] Shanique Bee MA [facility] [employer] [facility] 5 11:02:31 Date Recorded Body height Body mass index (BMI) Body weight Body temperature Heart rate Systolic And Diastolic Provider Name and Address Organization Details Last Updated DateTime 5 160.02 cm 34.2 kg/m2 06942.3 3 g 97.3 [degF] 72 /min 118/66 mm[Hg] SERA Pope [facility] [employer] [facility] 5 12:35:09 Date Recorded Body height Body mass index (BMI) Body weight Body temperature Heart rate Systolic And Diastolic Provider Name and Address Organization Details Last Updated DateTime 4 160.02 cm 36.3 kg/m2 18865.4 4 g 97.2 [degF] 72 /min 126/80 mm[Hg] SERA Pope [facility] [employer] [facility] 4 17:04:33 Date Recorded Body height Body temperature Heart rate Oxygen saturation Oxygen saturation in Arterial blood by Pulse oximetry Systolic And Diastolic Provider Name and Address Organization Details Last Updated DateTime 4 160.02 cm 97.2 [degF] 62 /min 90 % 90 % 124/78 mm[Hg] Marie Albert MA [facility] [employer] [facility] 4 14:02:45 Social History Question Answer Notes LastModified by Organization Details LastModified Time Tobacco Smoking Status Former Smoker quit 2015 SERA Pope [facility] [employer] [facility] 08/22/2024 12:31:57 Do You Have An Advance Directive? No MIGRATION.0301 [id number] Information not available 05/06/2022 What Is Your Level Of Caffeine Consumption? Occasional MIGRATION.0301 [id number] Information not available 05/06/2022 In The 14 [...] Of Diet Are You Following? REGULAR MIGRATION.0301 114230 Information not available 05/06/2022 What Is The Highest Grade Or Level Of School You Have Completed Or The Highest Degree You Have Received? IA62781-2 Information not available 02/02/2024 Do You Have An Electrostatic Air Filter? No Information not available 02/16/2024 Have There Been Any Changes To Your Family Or Social Situation? No MIGRATION.0301 425651 Information not available 05/06/2022 What Is The Fluoride Status Of Your Home? Unknown MIGRATION.0301 716464 Information not available 05/06/2022 When Did You Quit Smoking? 6-10yearssincelastc igarette MIGRATION.0301 518126 Information not available 05/06/2022 Do You Have A Humidifier? No Information not available 02/16/2024 Do You Use Insect Repellent Routinely? Yes MIGRATION.0301 709307 Information not available 05/06/2022 Where Do You Live? SingleLevelHouse MIGRATION.0301 381350 Information not available 05/06/2022 Do You Have A Medical Power Of Finishing Area Supervisor? No Information not available 02/02/2024 Do You Have Moisture Problems In Your Home? No Information not available 02/16/2024 What Was The Date Of Your Most Recent Tobacco Screening? 08/22/2024 Information not available 08/22/2024 How Many Children Do You Have? 1 Information not available 02/16/2024 What Is Your Current Pack Years? 30ormorepackyears MIGRATION.0301 142236 Information not available 05/06/2022 Do You Have Any Pets? Yes Information not available 02/16/2024 What Is Your Relationship Status? Information not available 02/02/2024 Do You Use Your Seat Belt Or Car Seat Routinely? Yes MIGRATION.0301 168764 Information not available 05/06/2022 Do You Have Smoke And Carbon Monoxide Detectors In Your Home? Yes MIGRATION.0301 973074 Information not available 05/06/2022 At What Age Did You Start Smoking Tobacco? 17 MIGRATION.0301 906304 Information not available 05/06/2022 Are You Passively Exposed To Smoke? No MIGRATION.0301 051811 Information not available 05/06/2022 Are There Any Smokers In Your House? No MIGRATION.0301 059548 Information not available 05/06/2022 Do You Use Sunscreen Routinely? Yes MIGRATION.0301 841582 Information not available 05/06/2022 Has Tobacco Cessation Counseling Been Provided? No MIGRATION.0301 651319 Information not available 05/06/2022 How Many Years Have You Smoked Tobacco? 37 MIGRATION.0301 317047 Information not available 05/06/2022 Have You Recently Traveled Abroad? No Information not available 02/02/2024 Do You Have Any Dietary Restrictions? No MIGRATION.0301 703630 Information not available 05/06/2022 Sex: Female Functional Status Question Answer Note LastModified by Organizat ion Details LastModified Time Do you use any illicit or recreational drugs? No MIGRATION.[id number] 8527 Information not available 05/06/2022 Do you or have you ever used any other forms of tobacco or nicotine? No MIGRATION.612534 8176 Information not available 05/06/2022 What is your level of alcohol consumption? None MIGRATION.392149 8636 Information not available 05/06/2022 Are you currently employed? No Retired Information not available 02/16/2024 Have you been exposed to chemicals or toxins? Not that aware of [email or web address] Information not available 06/26/2024 What is your exercise level? Occasional MIGRATION.702408 9855 Information not available 05/06/2022 Mental Status Question Answer Note LastModified by Organizat ion Details LastModified Time Do you feel stressed (tense, restless, nervous, or anxious, or unable to sleep at night)? [id number] MIGRATION.[id number] 5 Information not available 05/06/2022 Family History Relationship Description Onset Age of this Age Resolved Age Notes LastModified by Organization Details LastModified Time Mother Heart disease [email or web address] Not available 2022 15:32:53 Mother Hypertensive disorder [email or web address] Not available 2022 15:33:04 Sister Hypertensive disorder Not available 2024 12:31:23 Medical History Condition Response ARTHRITIS Y HEART DISEASE/HEART PROBLEMS Y USE OF BLOOD THINNERS Y Gynecological [...] Gimenez APRN [address], [address], [place], [address], [employer] [facility] [address] 01/26/2024 17:06:33 COVID-19, mRNA, LNP-S, PF, 30 mcg/0.3 mL dose 1 completed Nicole Gimenez APRN [address], [address], [place], [address], [employer] 01/26/2024 17:06:33 Tdap 8 completed Nicole Gimenez APRN [address], [address], [place], [address], [employer] [facility] [address] 01/26/2024 17:06:33 Influenza, split virus, quadrivalent, PF 3 completed Virginie Hyde RN [facility], [employer] [facility] [address] 01/27/2023 14:03:43 pneumococcal polysaccharide PPV23 2 completed Not Available [facility] 04/01/2023 11:24:00 Influenza, split virus, quadrivalent, PF 9 completed Not Available [facility] 04/01/2023 11:24:00 Influenza, split virus, quadrivalent, PF 8 completed Not Available [facility] 04/01/2023 11:24:00 Influenza, split virus, quadrivalent, PF 7 completed Not Available [facility] 04/01/2023 11:24:00 Tdap 8 completed Not Available [facility] 04/01/2023 11:24:00 Pneumococcal conjugate PCV 13 8 completed Not Available [facility] 04/01/2023 11:24:00 Influenza, split virus, quadrivalent, PF 2 completed Nicole Gimenez, P[employer] L[employer]ER HEL[employer] [address] [facility], [facility] [address], [place], [address], [employer] 01/26/2024 17:06:33 Influenza, split virus, quadrivalent, preservative 6 completed Not Available [facility] 04/01/2023 11:24:00 Influenza, split virus, trivalent, PF 4 completed SERA Pope, [employer] 02/02/2024 17:43:40 Past Encounters Encounter ID Performer Location Encounter Start Date Encounter Closed Date Diagnosis/Indication Diagnosis SNOMED-CT Code Diagnosis ICD10 Code Diagnosis Note [id number] Andreas Lehman MD [facility] Primary Care [facility] [address] [facility] [address] [place] [address] 10/02/2021 00:00:00 10/03/2021 13:26:40 [id number] Andreas Lehman MD [facility] Primary Care [facility] [address] [facility] [address] [place] [address] 11/04/2021 00:00:00 11/04/2021 22:36:43 [id number] Andreas Lehman MD [facility] Primary [place] [address] [facility] [address] [place] [address] 01/06/2022 00:00:00 02/04/2022 17:58:17 [id number] Andreas Lehman MD [facility] [address] [place] [address] 05/21/2022 10:22:28 05/21/2022 10:59:50 Dietary management surveillance 282984219 Z71.3 doing welldown 19 poundscont inue phentermin e 37.5 mg po qday daily for 3 months then 4 week breakf/u in 4 months or sooner if needed Degenerati on of lumbar intervertebral disc 93126111 M51.36 d/c lyrica as it is not effectiver estart gabapentin 800 mg po tidcontinu e pain mgtm Dental abscess 230972857 K04.7 salt water gargleskee p dentures out when possiblese e dentist if no improvemen t in 2 weeks-her dentures may need to be refitted given her recent weight loss [id number] Vincent Nicole MD [address] [address] 09/24/2022 14:43:44 09/24/2022 16:08:15 Pain of right ankle joint 3623873189 1649556 M25.571 [id number] Vincent Nicole MD [address] [address] 10/15/2022 14:49:01 10/15/2022 15:52:55 Closed trimalleolar fracture of left ankle 3962719415 3070643 S82.852D [id number] Andreas Lehman MD [facility] Primary Care [place] [address] [facility] [address] [place] [address] 01/26/2023 09:46:08 01/26/2023 10:20:03 Chronic obstructive pulmonary disease 28730262 J44.9 overnight pulse oximetry orderedif normal, consider formal 6 minute walkcontin ue symbicortr ecent CXR normal Administra tion of influenza vaccine 49543497 Z23 [id number] Andreas Lehman MD [facility] Primary Care [place] [address] [facility] [address] [place] [address] 06/14/2023 12:35:15 06/14/2023 13:12:18 Coronary arteriosclerosis 63023662 I25.10 will have heart cath doneconsid er GLP-1 in future for cardiovasc ular effects [id number] Andreas Lehman MD [facility] Primary Care [place] [address] [facility] [address] [facility] [place] [address] 07/20/2023 17:19:37 07/20/2023 17:56:26 Chronic obstructive pulmonary disease 82569308 J44.9 overnight pulse oximetry orderedif normal, consider formal 6 minute walkcontin ue symbicortr ecent CXR normal 07/20/23: increase symbicort use to bidprednis one taperdoxyc ycline bid x 7 dayscall/r eturn if no improvemen t in 1-2 days or sooner if neededrevi ewed s/s that warrant urgent/ritu rgent eval in meantime Edema of l ower extremity 591382859 R60.0 check labs after starting furosemide Essential hypertension 89917229 I10 Vitamin D deficiency 347 97066 E55.9 Hyperglycemia 38041937 R 73.9 check a1c, consider ozempic for cardiovasc ular protection if elevated [id number] MIRIAM Joyce [facility] Primary Care [address] [place] [address] 10/19/2023 16:13:56 10/19/2023 16:45:16 Dietary management surveillance 409213336 Z71.3 5lb weight loss since last visit refill phentermin e given Essential hypertension 20970510 I10 stable with medsbp 140/76, 81 no hernandez/cp, occ sob r/t COPDmeds per cardiology Degenerati on of lumbar intervertebral disc 12406367 M51.36 Long-term drug therapy 012112967 Z79.093 [id number] Columba issa MD [facility] Primary Care [facility] [address] [facility] [address] [address] [place] [address] 02/02/2024 16:48:10 02/02/2024 17:45:08 Hyperlipidemia 15011504 E78.5 Z79.899 Hyperglycemia 82465968 R 73.9 Vitamin D deficiency 347 88690 E55.9 Screening mammography 24 649693 Z12.31 Hepatitis C screening 41 2471150 Z11.59 Adult heal th examination 851029185 Z00.00 Screening for disorder 761179453 Z13.9 Degenerati on of lumbar intervertebral disc 29417750 M51.369 Administra tion of influenza vaccine 41466598 Z23 Chronic ob structive pulmonary disease 08791176 J44.9 [id number] Gina Cortes NP [facility] [address] [address] 02/16/2024 13:52:03 02/16/2024 14:41:13 Moderate chronic obstructive pulmonary disease 898855054 J44.9 CAT-33Prog ressively worsening of breathing- ADL's [...] and increase use of inhaler Acute sinusitis 20122271 J01.90 Augmentin and Prednisone as directed-s violeta effects reviewed-t yanet probiotic with it Obstructiv e sleep apnea syndrome 09011499 G47.33 continue home O2 at night-unab le to tolerate CPAP Ex-smoker 0923154 Z87.89 1 last LDCT was in May 2023-wnl [id number] Gina Cortes NP [facility] [address] 03/27/2024 09:52:32 03/27/2024 13:06:47 Moderate chronic obstructive pulmonary disease 363867987 J44.9 CAT-32Prog ressively worsening of breathing- ADL's are affected (difficult y showering and dressing, unable to walk long distance without becoming sob) will continue TrelegyO2 sats with 6 minute walk test 87%-+ dyspnea with exertionPu lmonary rehab orderFollo w-up in 3 months-steve ner if worseEncou rage vaccinatio nsRAST -, TB wnl, Alpha 1 neg Ex-cigarette smoker [address] screening in May Oxygen sat uration below reference range 395041005 R79.81 R09.02 G47.30 O2 required with exertion-O 2 sats dropped below 90 during 6 minute walk test [id number] Gina Cortes NP [facility] Pulmonolo gy [place] [address] [address] 06/26/2024 10:45:36 06/27/2024 15:55:05 Chronic obstructive pulmonary disease 11347583 J44.9 J43.9 CAT-30Trel egy as directed-s he is benefiting from trelegyPro gressively worsening of breathing- ADL's are affected (difficult y showering and dressing, unable to walk long distance without becoming sob) will continue TrelegyCou ghing up a lot of phlegmFoll ow-up in 4 months-steve ner if worseEncou rage vaccinatio nsRAST -, TB wnl, Alpha 1 neg Dependence on supplemental oxygen 3729980407 07 Z99.81 R09.02 continue O2 with exertion and sleep-bene fits from use Eosinophil count above reference range 049024947 D72.10 absolute count 0.347 in March 2024 Productive cough 4601165 5 R05.9 The patient has a diagnosis [...] y conditions who fail convention al therapy. [id number] MD MEREDITH Escoto[facility] [address] [address] 08/22/2024 11:55:33 08/22/2024 13:20:36 Screening due 253374810 Z13.9 Cologuard 10/27/2021 : Neg Mammogram: 03/15/2024 : Neg DEXA: Get this WWE: Has declined for now Get yearly flu shot, can do Tdap if not doneCan do COVID 19 boosterCan do shingrix vaccineCan do Prevnar #20 RTC in 2 months, do labs, ER if worse, she and her cousin verbalized her understand ing of the above Chronic ob structive pulmonary disease 71950815 J44.9 On O2 2L NC On albuterol HHNOn albuterol HFAOn ipratropiu m HHNOn trelegySee s pulmonary Hyperlipidemia 64749208 E78.5 CMP: Dr Reed: Cr 1.13, GFR 49 On ASAOn zetiaOn vascepaOn rosuvastat in 40mg dailyGet labs Bipolar di sorder, most recent episode depression 564339058 F31.9 On Buspirone 30mg bidOn onlanzapin e 10mg dailyOn trazodone 100mg at bedtimeOn topiramate 100mg bidSees her psychiatri stNot suicidal or homicidal Aneurysm o f coronary vessels 13070367 I25.[address] Stroud [facility] Obstructiv e sleep apnea syndrome 97707511 G47.33 States that she does see pulmonary but does not wear the CPAP as she just keeps her O2 thru the night Pulmonary hypertension 59779061 I27.20 [facility] and pulmonolog ist Vitamin D below reference range 237854503 R79.89 Postmenopausal state 764 81619 Z78.0 Chronic ki dney disease 721643484 N18.[address] Reed Coronary arteriosclerosis 93927657 I25.10 On plavixOn Farxiga 10mg dialyOn metoprolol ER 25mg dailyOn nifedipine ER 30mg dailyOn K ER 20meq dailySees Dr Stroud Neuropathy 896186482 G62 .9 On gabapentin 800mg tid, states that she does well on this for now Health Concerns Section Related Observation LastModified by Organization Detai ls LastModified Time None Recorded Concern Status LastModified by Organization Details LastModified Time None Recorded Advance Directives Directive N: Payers Insurance Date Sequence Insurance Name Policy Number Policy Lebron Covered Member ID Lebron Member ID Guarantor Name 06/26/2024 3 [place] Letty Butterfield [id number] Letty Butterfield 08/16/2024 [place]ICAID [place] DURABLE MEDICAL EQUIPMENT Letty Butterfield [id number] Letty Butterfield 08/20/2024 1 [facility] (MEDICARE REPLACEMENT/A DVANTAGE - PPO) [id number] Letty Butterfield [id number] Letty Butterfield 06/26/2024 2 [place]CON[place] WHEN MEDICARE OR MEDICARE REPLACEMENT PRIMARY) Letty Butterfield [id number] Letty Butterfield Notes Date Note Type Note Provider Name and Address Organization Details Recorded Time 02/02/2024 text/html Letty presents today for her Medicare Annual Wellness exam and medication refills. She also sees Dr. Stroud and Dr. Barron for her care. She does not see pulmonary for her COPD. Nicole Gimenez, P[employer]ER HEL[employer] [address] [facility], [facility] [address], [place], [address], [facility] [address] 02/04/2024 13:06:37 02/16/2024 text/html COPDReported bypatient.Quality:symp toms [...] sleep apneaMmrc 5 Gina Cortes NP [address] [facility], [address], [place], [address], [employer] 02/16/2024 14:52:44 03/27/2024 text/html COPDReported bypatient.Quality:symp toms [...] with albuterol inhaler Gina Cortes NP [address] [facility], [address], [place], [address], [facility] 03/27/2024 12:36:06 06/26/2024 text/html COPDReported bypatient.Quality:symp toms [...] wnlsees Cardiology-hx stentshx sleep apnea-[facility] Gina Cortes NP [address], [address], [place], [address], [employer] 06/27/2024 11:17:52 08/22/2024 text/html OV 08/22/2024:He re to establish care Present Hx:COPDHLDDepressionOS ACKDCAD Here with her cousin, states that she is doing well today, she is currently on O2 2L continuously Columba Almeida MD [address], [place], [address], [employer] 08/22/2024 16:34:22 OBGyn Episode No OBEpisode recorded."
--- OUTSIDE RECORDS SUMMARY | 2024-09-09 11:25 | XMS_ITS | Encounter Summary ---
Author Organization [facility] [employer] [facility] Address [address] [facility] [place] [address] Phone Care Team Providers Care [employer] Chemist Name Role Phone Columba Almeida MD Primary Care Provider [phone] Encounter Details Date Type Department Care Team (Late st Contact Info) Description 09/07/2024 Documentation Only [place] [facility] [address] [place] [address] 1 [place] [address] Arun Li DO [address] [facility] [address] [place] [address] Social History Tobacco Use Types Packs/Day Years Used Date Smoking Tobacco: Never Assessed Comments Unknown Sex and Gender Information Value Date Recorded Sex Assigned at Not on file Legal Sex Female 11:04 AM EDT Gender Identity Not on file Sexual Orientation Not on file documented as of this encounter Plan of Treatment Upcoming Encounters Date Type Department Care Team (Late Contact Info) Description 09/12/2024 11:00 AM CDT Office Visit [place] [facility] [address] [place] [address] [address] [place] [address] Arun Li DO [address] [facility] [address] [place] [address] documented as of this encounter Visit Diagnoses Not on filedocumented in this encounter Care Teams Wastewater Treatment Plant Chemist Relationship Specialty Start Date End Date Columba Almeida MD [address] [facility], [address] [place] [id number] PCP - General Internal Medicine 06/27/24 documented as of this encounter
--- OUTSIDE RECORDS SUMMARY | 2024-09-09 11:25 | XMS_ITS | Clinical Summary ---
Author Organization [facility] Address [address] [place] [place] [address] Care Team Providers Care Supervisor Of Research Name Role Phone José Carrillo MD Primary Care Provider [phone] Source Comments [facility],non-owned Affiliates and Associated Physician Practices is amultiple site organization consisting of ambulatory clinics and hospital sitesin [place], [place], [place] and [place]. This disclosure is being madepursuant to the Care Everywhere program and may not contain all information available regarding this patient. Last updated 17.[facility] [employer] Social History Tobacco Use Types Packs/Day Years [...] age to complete this topic Care Teams Supervisor Of Research Relationship Specialty Start Date End Date José Carrillo MD [address] [place] [address] PCP - General 02/10/18
--- OUTSIDE RECORDS SUMMARY | 2024-09-09 11:25 | XMS_ITS | Clinical Summary ---
Author Organization [facility] Facility Address [address] [place] [address] Care Team Providers Care Rn Ostomy Name Role Phone Columba Almeida MD Primary Care Provider [phone] Medications losartan (COZAAR) 50 MG tablet Take 1 tablet (50 mg total) by mouth every night 90 tablet 1 5 Active metoprolol succinate XL (TOPROL XL) 25 [...] mouth 1 (one) time each day Active [place]-3 Fatty Acids (FISH OIL PO) Take 1,200 [...] evening and 800 mg before bedtime. Active potassium chloride (K-TAB) 20 MEQ CR tablet Take 1 tablet (20 mEq total) by mouth 1 (one) time each day 90 tablet 08/23/19 25 Discontin ued(Ailynu maxx change) Encounters Date Type Department Care Team Description 09/07/2024 Documentation Only [facility], [address] [phone] Arun Li DO 08/29/2024 Documentation Only [place] [facility], [address] [phone] Arun Li DO 08/22/2024 12:00 PM CDT Office Visit [place] [facility], [facility] [address] [facility] [address] [place] [address] Arun Li DO Stage 3 chronic kidney disease, not otherwise specified (HCC) (Primary Dx); Interstitial nephritis; Persistent proteinuria; Hypokalemia; Coronary artery disease due to calcified coronary lesion; Peripheral vascular disease (HCC); Venous insufficiency; Obstructive sleep apnea syndrome; Hypertensive chronic kidney disease; Pure hypercholesterolemi a, not otherwise specified; Major depressive disorder, single episode, severe without psychotic features, not otherwise specified (HCC) 08/22/2024 Documentation Only [facility], [address] [phone] Arun Li DO 08/21/2024 Documentation Only [facility], [address] [address] Arun Li, 08/18/2024 Documentation Only [facility], [address] [address] Arun Li, DO 08/18/2024 Documentation Only [facility], [address] [address] Arun Li, DO 08/08/2024 12:00 PM CDT Office Visit [facility], [facility] [address] [address] Arun Li DO Stage 3 [...] features, not otherwise specified (HCC) 08/08/2024 Refill [facility], [facility] [address] [address] Reba Sullivan, HUGH 08/02/2024 Documentation Only [facility], [address] [phone] Arun Li, 06/27/2024 3:45 PM CDT Office Visit [facility], [facility] [address] [facility] [address] [place] [address] Arun Li DO Stage 3 chronic kidney disease, not otherwise specified (HCC) (Primary Dx); Interstitial nephritis; Persistent proteinuria; Coronary artery disease due to calcified coronary lesion; Peripheral vascular disease (HCC); Venous insufficiency; Obstructive sleep apnea syndrome; Hypertensive chronic kidney disease; Pure hypercholesterolemi a, not otherwise specified; Major depressive disorder, single episode, severe without psychotic features, not otherwise specified (HCC) 06/27/2024 Refill [place] [facility], [facility] [address] [facility] [address] [place] [address] Annika Carmelina [place] HUSBANDMAN 06/27/2024 Orders Only [facility], [facility] [address] [address] [place] AcresCarmelina delgado, [facility] Malignant essential hypertension (Primary Dx) 06/21/2024 Documentation Only [facility], [address] [address] David Alanis MD 06/20/2024 Documentation Only [facility], [facility] [address] [address] David Alanis MD 06/20/2024 Documentation Only [facility], [address] [address] David Alanis MD 06/19/2024 Documentation Only [facility], [address] [address] Arun Li DO from Last [...] Sign Reading Time Taken Comments Blood Pressure 130/62 08/22/2024 12:24 PM CDT Pulse 74 08/22/2024 12:24 PM CDT Temperature 36.1 C (97 F) 06/27/2024 4:02 PM CDT Respiratory Rate 20 08/22/2024 12:24 PM CDT Oxygen Saturation 93% 08/22/2024 12:24 PM CDT Inhaled Oxygen Concentration - - Weight 87.5 kg (193 lb) 08/22/2024 12:24 PM CDT Height 160 cm (5' 3) 08/22/2024 12:24 PM CDT Body Mass Index 34.19 08/22/2024 12:24 PM CDT Plan of Treatment Upcoming Encounters Date Type Department Care Team (Late st Contact Info) Description 09/12/2024 11:00 AM CDT Office Visit [place] [facility], [facility] [address] [facility] [address] [place] [address] Arun Li DO [address] [facility] [address] [place] [address] Health Maintenance Due Date Last Done Comments Breast Cancer Screening 1960 Colorectal Cancer Screening: Annual FOBT 2010 Colorectal Cancer Screening: Colonoscopy 2010 Colorectal Cancer Screening: Sigmoidoscopy 2010 Influenza Vaccine (#1) 2024 , 01/27/2023, 01/06/2022, Additional history exists Pneumococcal Vaccine: 50+ Years (3 of 3 - PCV20 or PCV21) 10/02/2026 10/02/2021, 06/01/2017 Pneumococcal Vaccine: Peds (0 to 5 Years) and At-Risk Patients (6 to 49 Years) Discontinued 10/02/2021, 06/01/2017 Hepatitis B Vaccine Aged Out No longe r eligible based on patient's age to complete this topic Insurance [facility] Medicare Care Teams Rn Ostomy Relationship Specialty Start Date End Date Columba Almeida MD [address] [facility], [address] [place] [address] PCP - General Internal Medicine 06/27/24
--- OUTSIDE RECORDS SUMMARY | 2024-09-09 11:25 | XMS_ITS | Continuity of Care Document ---
Author Organization [facility] Address [address] [address] [place] [address] Phone Care Team Providers Care Swaging Machine Adjuster Name Role Phone Davie Sun Unavailable Unavailable Procedures Procedure Date Eye Exam & Treatment Eye Exam, New Patient Advance Directives Directive Yes / No Effective Date File Name No Information Encounters Encounter Description Practice Location Reason(s) For Visit Diagnoses Date Provider Providers Copied on Encounter [facility], [address] [place] [address] [address], [place], [place], [id number], tel:[phone] SEC Formerly named [facility] No Information [address] Krishnasamy Davie. [address], [facility], [place]. tel:[phone] [facility], [address] [place] [address] [address], [place], [place], [id number], tel:[phone] SEC Formerly named [facility] No Information [address] Krishnasamy Davie. [address] [facility] [address], [place], [address], [place]. tel:[phone] Family History Family Member Type Diagnosis Age At Onset No Information Payers Payer name Insurance type Covered republican ID Authoriza tion(s) No Information Social History [...]
--- OUTSIDE RECORDS SUMMARY | 2024-09-09 11:25 | XMS_ITS | Clinical Summary ---
Author Organization [facility] Address [facility] [place] [address] Care Team Providers Care Video Game Developer Name Role Phone Unavailable Primary Care Provider [...]
[2024-09-09 12:27] LABS: Hematocrit 40.0 % (37.0-47.0); Hemoglobin 12.7 g/dL (12.0-15.0); Immature Granulocyte Percent A 0.1 % (0-0.5); Lymphocytes Absolute Auto 1.70 K/mm3 (0.9-3.2); Mean Corpuscular HGB Conc 31.8 g/dl (32-36); Mean Corpuscular Hemoglobin 31.9 pg (26-34); Mean Corpuscular Volume 100.5 fl (80-100); Nucleated Red Blood Cells Absolute Auto 0.000 K/mm3 (0.0-0.012); Nucleated Red Blood Cells Perc 0.0 % (0.0-0.2); Platelet Count Result 221 k/mm3 (150-375); Red Blood Count 3.98 M/mm3 (4.2-5.4); White Blood Count 6.8 K/mm3 (4.5-10.0)
[2024-09-09 12:35] LABS: Albumin Level 4.0 g/dL (3.5-5.1); Anion Gap 8 mmol/L (4-12); Blood Urea Nitrogen 20 mg/dL (7-17); Calcium 9.6 mg/dL (8.4-10.2); Carbon Dioxide 22 mmol/L (22-30); Chloride 111 mmol/L (98-107); Cholesterol 119 mg/dL (0-200); Estimated Glomerular Filt Rate 52; Glucose 89 mg/dL (65-110); HDL Direct 58 mg/dL; Magnesium 2.1 mg/dL (1.6-2.3); Potassium 4.5 mmol/L (3.4-5.0); Sodium 141 mmol/L (137-145); Triglycerides 114 mg/dL (<150)
[2024-09-09 12:39] LABS: Add Urine Microscopic? YES; Appearance Urine Clear (Clear); Glucose Urine UA 3+ mg/dL (Negative); Leukocyte Esterase Ur 2+ LEU/UL (Negative); Nitrate Urine Negative (Negative); Non Pathogenic Casts 0-2; Specific Grav Ur 1.016 (1.001-1.035)
[2024-09-09 12:47] LABS: Parathyroid Intact 27.1 pg/mL (14.5-75.2)
[2024-09-09 12:56] LABS: Free T4 Free Thyroxine 0.75 ng/dL (0.78-2.19)
[2024-09-09 13:02] LABS: Total Protein Urine Random 12 mg/dL; Ur Ttl Prot Creatinine Ratio 0.27 mg/mg (0-0.20)
[2024-09-09 13:06] LABS: Thyroid Stimulating Hormone 1.040 uIU/mL (0.465-4.680)
[2024-09-09 13:12] LABS: MALB Creatinine Ratio < 13.4 mg/g (0-30)
[2024-09-09 13:31] LABS: Vitamin B12 > 1000.0 pg/mL (239-931)
[2024-09-11 13:23] LABS: Chloride Rand Ur 63 mmol/L (32-290); Chloride/Creatinine Rand Ur 140 (38-318)
[2024-09-12 11:53] LABS: eGFR 123 (> OR = 60)
== END 2024-09-09 11:22 | disposition home or self-care (01) ==
LOC: ANHLAB 11:24
PROVIDERS: PCP Internal Medicine; Visit Provider Internal Medicine Nephrology
DX: I12.9 Hypertensive chronic kidney disease with stage 1 through stage 4 chronic kidney disease, or unspecified chronic kidney disease (principal); N18.30 Chronic kidney disease, stage 3 unspecified; N12 Tubulo-interstitial nephritis, not specified as acute or chronic; E87.6 Hypokalemia; R80.1 Persistent proteinuria, unspecified; I25.84 Coronary atherosclerosis due to calcified coronary lesion; I73.9 Peripheral vascular disease, unspecified; I87.2 Venous insufficiency (chronic) (peripheral); E78.00 Pure hypercholesterolemia, unspecified; F32.2 Major depressive disorder, single episode, severe without psychotic features; G47.33 Obstructive sleep apnea (adult) (pediatric)
CPT/HCPCS: 36415; 80061; 80069; 81001; 82043; 82306; 82436; 82570; 82607; 82610; 83735; 83970; 84133; 84156; 84300; 84439; 84443; 85025

== ENCOUNTER 2024-12-25 10:15 | Outpatient (CLI) | payer MEDICARE, SELFPAY ==
--- OUTSIDE RECORDS SUMMARY | 2024-12-25 12:10 | XMS_ITS | Clinical Summary ---
Author Organization [facility] Address [facility] [place] [address] Care Team Providers Care Welder Railcar Mechanic Name Role Phone Unavailable Primary Care Provider [...] COVID-19 Vaccine ( - 2023-2 5 season) 2024 Influenza Adult (#1) 2024 RSV Immunization or 60+ Years (1 - 1-dose 75+ series) 2036 Hepatitis A Vaccines Aged Out No long er eligible based on patient's age to complete this topic Meningococcal B Vaccine Aged Out No l onger eligible based on patient's age to complete this topic Meningococcal Vaccine Aged Out No afshin yuniel eligible based on patient's age to complete this topic RSV Immunizations Under 20 Months Aged Out No longer eligible based on patient's age to complete this topic
--- OUTSIDE RECORDS SUMMARY | 2024-12-25 12:10 | XMS_ITS | Clinical Summary ---
Author Organization [facility] Address [address] [facility] [place] [address] Care Team Providers Care Senior Technical Specialist Name Role Phone José Carrillo MD Primary Care Provider [phone] Source Comments [facility],non-owned Affiliates and Associated Physician Practices is amultiple site organization consisting of ambulatory clinics and hospital sitesin [place], [place], [place] and [place]. This disclosure is being madepursuant to the Care Everywhere program and may not contain all information available regarding this patient. Last updated 17.[facility] [employer] Social History Tobacco Use Types Packs/Day Years [...] 12/05/2011 ZOSTER VACCINE (1 of 2) 12/05/2011 DEPRESSION SCREENING 03/08/2024 COVID-19 VACCINE (1 - 2023-2 5 season) 2024 INFLUENZA VACCINE (#1) 2024 Respiratory Syncytial Virus (RSV) Vaccine Pt: [...] age to complete this topic Care Teams Senior Technical Specialist Relationship Specialty Start Date End Date José Carrillo MD [address] [place] [address] PCP - General 02/10/18
--- OUTSIDE RECORDS SUMMARY | 2024-12-25 12:10 | XMS_ITS | Clinical Summary ---
Author Organization [facility] Facility Address [address] [place] [address] Care Team Providers Care Hand Sewer Shoes Name Role Phone Columba Almeida MD Primary Care Provider [phone] Medications losartan (COZAAR) 50 MG tablet Take 1 tablet (50 mg total) by mouth every night 90 tablet 1 06/28/19 25 Active Aspirin 81 MG capsule Take by mouth 08/07/19 16 Active carvedilol (COREG) 25 MG tablet Take 25 mg by mouth in the morning and 25 mg in the evening. Take with meals. Active [place]-3 Fatty Acids (FISH OIL PO) Take 1,200 mg by mouth in the morning and 1,200 mg in the evening. Active budesonide-for moterol (SYMBICORT) 80-4.5 MCG/ACT inhaler Inhale 2 puffs [...] evening and 800 mg before bedtime. Active cholecalcifero l (VITAMIN D-3 SUPER STRENGTH) 50 MCG (1999 UT) tablet cholecalciferol (vitamin D3) 50 mcg (2,000 unit) tablet Activ e rosuvastatin (CRESTOR) 40 MG tablet Take 1 tablet (40 mg total) by mouth 1 (one) time each day 90 tablet 1 09/13/19 25 Active ezetimibe (ZETIA) 10 MG tablet Take 1 tablet (10 mg total) by mouth 1 (one) time each day 90 tablet 1 09/13/19 25 Active clopidogrel (PLAVIX) 75 MG tablet Take 1 tablet (75 mg total) by mouth 1 (one) time each day 90 tablet 1 09/13/19 25 Active cyanocobalamin 500 MCG tablet Take 1 tablet (500 mcg total) by mouth 1 (one) time each day 90 tablet 1 09/13/19 25 Active ergocalciferol 1.25 MG (68494 UT) capsule Take 1 capsule (50,000 Units total) by mouth 1 (one) time per week 12 capsule 1 09/13/19 25 Active metoprolol succinate XL (TOPROL XL) 25 MG 24 hr tablet Take 1 tablet (25 mg total) by mouth every night Do not crush or chew. 90 tablet 1 10/14/19 25 Active Encounters Date Type Department Care Team Description 10/13/[address] [phone] Carmelina Roblero CMA 10/13/2024 Office Communication [address] [phone] Arun Li DO 10/10/2024 Documentation Only [address] [phone] Arun Li DO from Last 3 Months Social History Tobacco Use Types Packs/Day Years Used Date Smoking Tobacco: Never Assessed Comments Unknown Sex and Gender Information Value Date Recorded Sex Assigned at Not on file Legal Sex Female 11:04 AM EDT Gender Identity Not on file Sexual Orientation Not on file Last Filed Vital Signs Vital Sign Reading Time Taken Comments Blood Pressure 120/60 09/12/2024 12:09 PM CDT Pulse 66 09/12/2024 12:09 PM CDT Temperature 36.1 C (97 F) 09/12/2024 12:09 PM CDT Respiratory Rate 18 09/12/2024 12:09 PM CDT Oxygen Saturation 97% 09/12/2024 12:09 PM CDT Inhaled Oxygen Concentration - - Weight 91.6 kg (202 lb) 09/12/2024 12:09 PM CDT Height 160 cm (5' 3) 08/22/2024 12:24 PM CDT Body Mass Index 35.78 08/22/2024 12:24 PM CDT Plan of Treatment Upcoming Encounters Date Type Department Care Team (Late st Contact Info) Description 01/16/2025 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 [address] [place] [address] Arun Li DO [address] [facility] [address] [place] [address] Health Maintenance Due Date Last [...] Insurance [facility] Medicare Care Teams Hand Sewer Shoes Relationship Specialty [place] [address] [place] [address], [address] [place] [id number] PCP - General Internal Medicine 06/27/24
[2024-12-25 13:05] LABS: Hematocrit 46.6 % (37.0-47.0); Hemoglobin 14.9 g/dL (12.0-15.0); Immature Granulocyte Percent A 0.2 % (0-0.5); Lymphocytes Absolute Auto 1.50 K/mm3 (0.9-3.2); Mean Corpuscular HGB Conc 32.0 g/dl (32-36); Mean Corpuscular Hemoglobin 31.1 pg (26-34); Mean Corpuscular Volume 97.3 fl (80-100); Nucleated Red Blood Cells Absolute Auto 0.000 K/mm3 (0.0-0.012); Nucleated Red Blood Cells Perc 0.0 % (0.0-0.2); Platelet Count Result 212 k/mm3 (150-375); Red Blood Count 4.79 M/mm3 (4.2-5.4); White Blood Count 8.2 K/mm3 (4.5-10.0)
[2024-12-25 13:20] LABS: Alanine Aminotransferase 19 U/L (6-35); Albumin Level 4.7 g/dL (3.5-5.1); Alkaline Phosphatase 118 U/L (38-126); Anion Gap 11 mmol/L (4-12); Aspartate Amino Transferase 29 U/L (14-36); Bilirubin,Total 0.8 mg/dL (0.2-1.3); Blood Urea Nitrogen 27 mg/dL (7-17); Calcium 9.9 mg/dL (8.4-10.2); Carbon Dioxide 21 mmol/L (22-30); Chloride 107 mmol/L (98-107); Cholesterol 100 mg/dL (0-200); Estimated Glomerular Filt Rate 46; Glucose 98 mg/dL (65-110); HDL Direct 71 mg/dL; Magnesium 2.2 mg/dL (1.6-2.3); Potassium 3.8 mmol/L (3.4-5.0); Sodium 139 mmol/L (137-145); Total Protein 8.0 g/dL (6.3-8.2); Triglycerides 92 mg/dL (<150)
[2024-12-25 13:29] LABS: Total Protein Urine Random 15 mg/dL; Ur Ttl Prot Creatinine Ratio 0.13 mg/mg (0-0.20)
[2024-12-25 13:35] LABS: Parathyroid Intact 22.0 pg/mL (14.5-75.2)
[2024-12-25 13:39] LABS: MALB Creatinine Ratio 10.1 mg/g (0-30)
[2024-12-25 13:52] LABS: Free T4 Free Thyroxine 1.05 ng/dL (0.78-2.19)
[2024-12-25 14:08] LABS: Thyroid Stimulating Hormone 0.684 uIU/mL (0.465-4.680)
[2024-12-25 14:28] LABS: Vitamin B12 > 1000.0 pg/mL (239-931)
[2024-12-26 07:09] LABS: eGFR 53 (>59)
== END 2024-12-25 10:16 | disposition home or self-care (01) ==
PROVIDERS: PCP Internal Medicine; Visit Provider Internal Medicine Nephrology
DX: I12.9 Hypertensive chronic kidney disease with stage 1 through stage 4 chronic kidney disease, or unspecified chronic kidney disease (principal); N18.30 Chronic kidney disease, stage 3 unspecified; E03.9 Hypothyroidism, unspecified; E78.00 Pure hypercholesterolemia, unspecified; G47.33 Obstructive sleep apnea (adult) (pediatric); J44.9 Chronic obstructive pulmonary disease, unspecified; I25.84 Coronary atherosclerosis due to calcified coronary lesion; I87.2 Venous insufficiency (chronic) (peripheral); F32.2 Major depressive disorder, single episode, severe without psychotic features; I73.9 Peripheral vascular disease, unspecified; R79.89 Other specified abnormal findings of blood chemistry; R80.1 Persistent proteinuria, unspecified; N12 Tubulo-interstitial nephritis, not specified as acute or chronic
CPT/HCPCS: 36415; 80053; 80061; 82043; 82306; 82570; 82607; 82610; 83735; 83970; 84100; 84156; 84439; 84443; 85025

== ENCOUNTER 2024-12-25 11:29 | Outpatient (CLI) | payer MEDICARE, SELFPAY ==
--- NOTE | ~2024-12-25 | US_ITS ---
US thyroid INDICATION: Hypothyroidism TECHNIQUE: Real-time sonographic images of the thyroid gland were obtained. COMPARISON: Ultrasound dated 09/10/2006 FINDINGS: The right thyroid lobe measures 4.8 x 1.5 x 1.4 cm. The left thyroid lobe measures 5.2 x 1.7 x 1.2 cm. There is normal echotexture and echogenicity throughout the thyroid gland. In the right lobe of the thyroid gland there is a small hypoechoic solid mass which is wider than tall measuring 8 x 5 x 5 mm. This mass is smoothly marginated without echogenic foci, TR 4. No other masses are identified. Isthmus measures 1 mm. Normal vascular flow is present. IMPRESSION: 1. Benign-appearing right thyroid mass measuring 8 mm, TR 4. No follow-up required. Reviewed, dictated and finalized at location O. IMPRESSION: 1. Benign-appearing right thyroid mass measuring 8 mm, TR 4. No follow-up requ ired.
--- NOTE | ~2024-12-25 | DEXA_ITS ---
Bone Density Report Name: CLARISSA CANTU Age: 64 Sex: Female Ethnicity: White Date of : 1960 Indication: postmenopausal; screening for osteoporosis; prior fracture; hysterectomy; Referring Provider: Elle, Columba Study: Bone densitometry was performed. Exam Date: December 25, 2024 Accession number: [id number] Bone Density: Region BMD T-score Z-score Classification AP Spine(L1, L2, L3) 1.000 -0.2 1.4 Normal Femoral Neck (Left) 0.798 -0.5 1.0 Normal Total Hip (Left) 0.963 0.2 1.3 Normal Femoral Neck (Right) 0.742 -1.0 0.4 Normal Total Hip (Right) 0.960 0.1 1.3 Normal Total Hip Mean 0.961 0.2 1.3 Normal World Health Organization criteria for BMD impression classify patients as: Normal (T-score at or above -1.0), Osteopenia (T-score between -1.0 and -2.5), or Osteoporosis (T-score at or below -2.5). 10-year Fracture Risk: FRAX not reported because: All T-scores for Spine Total, Hip Total, Femoral Neck at or above -1.0 Clinical Information Provided by Patient: Has had a low trauma fracture Has used the following medications: Vitamin D, Calcium Has the following medical conditions: Hysterectomy, COPD Patient maximum height was 63 Menopause Age: 33 No regular weight bearing exercise Drinks caffeinated beverages Onset of menses at age 11 Number of children 2 Impression: The patient has normal bone mass. The patient has risk factors, including: previous fracture. Discussion: BONE DENSITY IS ABOVE THE MINIMUM DESIRABLE LEVEL AT ALL SKELETAL SITES TESTED. This patient?s bone mineral density is above the minimum desirable level (T-score -1.0 or better) at all sites measured. The patient should follow a healthful lifestyle (good nutrition with adequate calcium and vitamin D, and appropriate weight-bearing exercise). Follow-Up: Consider repeating this study in 5 years or sooner if there is some new clinical indication. Reported by: JAYLEEN on 12/25/2024 12:19:00 PM. Reviewed, dictated and finalized at location A.
== END 2024-12-25 11:30 | disposition home or self-care (01) ==
LOC: MICIMG 11:29
PROVIDERS: PCP Internal Medicine; Visit Provider Internal Medicine
DX: Z13.820 Encounter for screening for osteoporosis (principal); E03.9 Hypothyroidism, unspecified; E07.89 Other specified disorders of thyroid; Z78.0 Asymptomatic menopausal state
CPT/HCPCS: 76536; 77080

== ENCOUNTER 2025-03-06 12:14 | Outpatient (CLI) | payer MEDICARE, SELFPAY ==
--- OUTSIDE RECORDS SUMMARY | 2025-03-06 12:38 | XMS_ITS | Data Portability ---
Author Organization [place] [employer] [place] [employer], Main Office Address [address] [place] [address] Care Team Providers Care Director Of Patient Financial Services Name Role Phone ANDREAS LEHMAN Primary Care Provider ANDREAS LEHMAN Referring Provider [phone] ARUN REED Aircraft Powertrain Repairer Assessment Encounter Date Assessment Date Assessment LastModified by Organization Details LastModified Time 06/26/2024 06/26/2024 Time spent with patient included: preparing to see patient by reviewing tests, obtaining and reviewing history, medical examination and evaluation, counseling and educating the patient, ordering medications and tests, documenting clinical information in EHR, interpreting results and communicating results to the patient for a total of 46 minutes.independ su Not available 06/26/2024 11:40:12 08/22/2024 08/22/2024 08/18/2204: Dr Reed Cr 1.13, GFR 49 Not available 08/22/2024 13:05:12 10/03/2024 10/03/2024 08/18/2204: Dr Reed Cr 1.13, GFR 49 09/09/2024: Dr Reed BUN/Cr./GFR: 20.07/52 FT4 0.75 Not available 10/03/2024 15:31:22 10/25/2024 10/25/2024 Time spent with patient included: preparing to see patient by reviewing tests, obtaining and reviewing history, medical examination and evaluation, counseling and educating the patient, ordering medications and tests, documenting clinical information in EHR, interpreting results and communicating results to the patient for a total of 46 minutes.yoselin blue Not available 10/25/2024 12:23:53 02/21/2025 02/21/2025 Time spent with patient included: preparing to see patient by reviewing tests, obtaining and reviewing history, medical examination and evaluation, counseling and educating the patient, ordering medications and tests, documenting clinical information in EHR, interpreting results and communicating results to the patient for a total of 41 minutes.yoselin blue Not available 02/21/2025 14:25:06 Plan of Treatment Reminders Order Date Submit Date Provider Last Modified By Organization Details Last Modified Time Details Appointments Any 15 2025 02:30P M Columba warren MD Not available Not available Not available Any 30 2025 02:00P M Edwin Lyle MD Not available Not available Not available Lab lipid panel, serum 2024 025 [facility] (Lab), [address] [place] [address], [address], 10/03/2024 17:47:31 CBC w/ auto diff [address] [place] [address] (Lab), [address] [place] [address], [address], 10/03/2024 17:47:31 TSH + free T4, serum [address] [place] [address] (Lab), [address] [place] [address], [address], 10/03/2024 17:47:30 CMP, serum or plasma [address] [place] [address] (Lab), [address] [place] [address], [address], 12/25/2024 15:57:10 TSH, serum or plasma [address] [place] [address] (Lab), [address] [place] [address], [address], 10/10/2024 08:38:43 T4, free, serum [address] [place] [address] (Lab), [address] [place] [address] [address], [place], [address], 10/10/2024 08:38:53 TSH, serum or plasma [address] [place] [address] (Lab), [address] [place] [address] [address], [place], [address], 10/10/2024 08:39:06 vitamin D, 25-hydrox y, total, serum [address] [place] [address] (Lab), [address] [place] [address], [place], [address], 10/03/2024 17:47:31 vitamin D, 25-hydrox y, total, serum [address] [place] [address] (Lab), [address] [place] [address] 162, [place], [address], 09/19/2024 11:31:48 lipid panel, serum [address] [place] [address] (Lab), [address] [place] [address], [place], [address], 02/26/2025 16:26:36 CBC w/ auto diff [address] [place] [address] (Lab), [address] [place] [address], [place], [address], 09/19/2024 11:31:38 TSH + free T4, serum [address] [place] [address] (Lab), [address] [place] [address], [place], [address], 02/26/2025 16:26:36 Referral nephrolog ist referral - Please call patient to schedule an appointme nt. Thank you. [address] [place] [address] Arun Reed DO, [address] [facility], [address], [place], [address], 01/18/2025 17:09:46 cardiolog ist referral - Please call patient to schedule an appointme nt. Thank you. 2024 025 [email or web address] Johan Stroud MD, [address], [address], [place], [address], 01/18/2025 17:09:47 nephrolog ist referral - Please call patient to schedule an appointme nt. Thank you. 2024 025 [email or web address] Arun Reed DO, [address], [address], [place], [address], 11/28/2024 14:16:27 cardiolog ist referral - Please call patient to schedule an appointme nt. Thank you. 2024 025 [email or web address] Johan Stroud MD, [address], [address], [place], [address], 11/28/2024 14:16:28 Procedures None recorded. Surgeries None recorded. Imaging DEXA, axial skeleton - Please call patient to schedule. [address], [facility] [place] [address], [address], 10/03/2024 17:11:49 US, thyroid - Please call patient to schedule. [address], [facility] [address], [place], [address], 11/08/2024 11:03:52 DEXA, axial skeleton - Please call patient to schedule. [address], [facility] [address], [place], [address], 09/21/2024 18:17:20 Medication Orders Trelegy Ellipta 200 mcg-62.5 mcg-25 mcg powder for inhalatio n 2024 025 [facility]/Pharmacy #[id number], [address], [place], [address], 02/21/2025 14:43:51 albuterol sulfate 2.5 mg/3 mL (0.083 %) solution for nebulizat ion 2024 025 [facility]/Pharmacy #[id number], [address], [place], [address], 02/21/2025 14:43:52 Trelegy Ellipta 200 mcg-62.5 mcg-25 mcg powder for inhalatio n 2024 025 [facility]/Pharmacy #[id number], [address], [place], [address], 10/25/2024 12:30:55 albuterol sulfate 2.5 mg/3 mL (0.083 %) solution for nebulizat ion 2024 025 [facility]/Pharmacy #[id number], [address] [place], [address], 10/25/2024 14:38:44 Zepbound 2.5 mg/0.5 mL subcutane ous pen injector 2024 025 [id number], [address] [place], [address], 10/25/2024 12:17:06 Trelegy Ellipta 200 mcg-62.5 mcg-25 mcg powder for inhalatio n 2024 025 [facility]/Pharmacy #[id number], [address] [place], [address], 06/26/2024 11:52:21 Patient TargetsNo targets recorded. Patient Instructions Encounter Date Encounter Id Patient Instructions Last Modified By Organization Details Last Modified Time 10/25/2024 [id number] complete PFT w/ post bronchodilator spirometry* - Please call patient to schedule. To be performed on or around 03/07/2025 [email or web address] Not available 02/06/2025 10:50:42 02/21/2025 [id number] complete PFT w/ post bronchodilator spirometry* - Please call patient to schedule. To be performed on or around 03/07/2025 [email or web address] Not available 02/28/2025 11:38:26 Reason for Referral Aircraft Powertrain Repairer Referral for Ch ronic kidney disease Please call patient to schedule an appointment. Thank you. Referring Physician: Columba Almeida Internal [facility], Encounter Date: 08/22/2024 Financial Counselor Referral for Co ronary arteriosclerosis Please call patient to schedule an appointment. Thank you. Referring Physician: Columba Almeida Internal Medicine, Encounter Date: 08/22/2024 Aircraft Powertrain Repairer Referral for Ch ronic kidney disease Please call patient to schedule an appointment. Thank you. Referring Physician: Columba Almeida Internal Medicine, Encounter Date: 10/03/2024 Financial Counselor Referral for Co ronary arteriosclerosis Please call patient to schedule an appointment. Thank you. Referring Physician: Columba Almeida Internal Medicine, Encounter Date: 10/03/2024 Results Created Date Observation Date Name Description Value Unit Range Abnormal Flag Note LastModifiedBy Organization Detail LastModifiedTime 06/26/19 25 06/23/2024 CT, chest , w/o contr ast No observ ation record ed. [email or web address] [address], [place], [address], 06/27/2024 09:10:26 06/28/19 25 06/26/2024 , echo ardio gram No observ ation record ed. [email or web address] [facility] [address], [place], [address], 07/03/2024 09:59:34 08/19/19 25 08/18/2024 imagi ng/di luis danielos tic resul t No observ ation record ed. [place] [id number] [facility] [address], [place], [address], 08/18/2024 16:16:32 12/26/1912/25/2024 US, thyro id No observ ation record ed. [facility] [address], [place], [address], 12/25/2024 17:15:57 12/27/1912/25/2024 imagi ng/di agnos tic resul t No observ ation record ed. [facility] [address], [place], [address], 12/26/2024 16:30:48 Result Notes None recorded. Problems Name Problem SNOMED Code Status Onset Date Resolution Date Notes Provider Name and Address Organization Details Recorded Time White blood cell abnormali ty 393789119 Active Not Available [facility] 4 11:23:59 Chronic obstructi ve pulmonary disease 04505149 Active Columba issa MD [address], [address], [place], [address] , [employer] 5 11:27:04 Insomnia 545726954 Active Nicole Gimenez APRN [address], [address], [place], [address] , [employer] 4 17:10:49 Myocardia l infarctio n 54610527 Active 07/2015 Nicole Gimenez APRN [address], [address], [place], [address] , [employer] 4 17:11:11 Degenerat ion of lumbar intervert ebral disc 75520627 Active Nicole Gimenez APRN [address], [address], [place], [address] , [employer] 4 17:10:20 Raynaud's phenomeno n 485289220 Active Nicole Gimenez APRN [address], [address], [place], [address] , [employer] 4 17:10:58 Shoulder joint pain 463357356 Active Not Available [facility] 4 11:23:59 Syncope 720242286 Active Nicole Gimenez APRN [address] [facility], [place] [address], [place], [address] , [facility] 4 17:10:55 Knee pain Active Not Available [facility] 4 11:23:59 Vitamin D deficienc y 95481811 Active Nicole Gimenez APRN [address] [facility], [place] [address], [place], [address] , [facility] 4 17:10:51 Depressiv e disorder 08887851 Active Nicole Gimenez APRN [address] [facility], [place] [address], [place], [address] , [facility] 4 17:10:24 Malignant neoplasm of uterus 418262255 Active around age 28 Not Available [facility] 4 11:23:59 Osteoarth ritis 216281797 Active Nicole Gimenez APRN [address], [place] [address], [place], [address] , [facility] 4 17:11:01 Obesity 105429111 Active Nicole Gimenez APRN [address] [facility], [place] [address], [place], [address] , [facility] 4 17:11:05 Cough 95050100 Active Not Available [facility] 4 11:24:00 Hyperlipi demia 63971052 Active Columba issa MD [address] [facility], [place] [address], [place], [address] , [facility] 5 11:27:19 Essential hypertens ion 49374366 Active Nicole Gimenez APRN [address], [place], [address] , [facility] 4 17:10:28 Degenerat ion of cervical intervert ebral disc 17778908 Active Nicole Gimenez APRN [address], [place], [address] , [employer] 4 17:10:08 Snoring 11402728 Active Not Available [facility] 4 11:24:00 Degenerat ion of intervert ebral disc 83367233 Active lumbar and cervical spine Nicole Gimenez APRN [address], [address], [place], [address] , [employer] 4 17:10:16 Fatigue 75910936 Active Nicole Gimenez APRN [address], [address], [place], [address] , [employer] 4 17:10:32 Closed fracture of left ankle 10715514748 493204 Active Nicole Gimenez APRN [address], [address], [place], [address] , [employer] 4 17:06:20 Open fracture of lateral malleolus 1322090 Active Nicole Gimenez APRN [address], [address], [place], [address] , [employer] 4 17:06:20 Acute exacerbat ion of chronic obstructi ve pulmonary disease 254585424 Active Nicole Gimenez APRN [address], [address], [place], [address] , [employer] 4 17:07:30 Obstructi ve sleep apnea syndrome 13294658 Active 2017 Columba issa MD [address], [address], [place], [address] , [employer] 5 13:01:32 Angular cheilitis 038907475 Active 2019 Nicole Gimenez APRN [address], [address], [place], [address] , [employer] 4 17:09:55 Dental abscess 193919665 Active 2022 Not Available [facility] 4 11:23:59 Pain of right ankle joint 98384288764 303253 Active 2022 Not Available [facility] 4 11:23:59 Pain of left ankle joint 94395325085 306403 Active 2022 Not Available [facility] 4 11:23:59 Closed trimalleo lar fracture of left ankle 16727932559 409045 Active 2022 Not Available [facility] 4 11:23:59 Edema of lower extremity 055145831 Active 2023 Andreas Lehman MD [address], [address], [place], [address] , [employer] 4 17:41:44 Hyperglyc emia 26075126 Active 2023 Nicole Gimenez APRN [address], [address], [place], [address] , [employer] [facility] 4 17:11:30 Coronary arteriosc lerosis 48025899 Active 2023 Columba issa MD [address], [address], [place], [address] , [employer] 5 13:05:41 Glomerula r filtratio n rate below reference range 823980011 Active 2023 MIRIAM Joyce [address], [address], [place], [address] , [employer] [facility] 4 12:52:59 Stented coronary artery 124875098 Active 2023 Nicole Gimenez APRN [address], [address], [place], [address] , [employer] [facility] 4 17:29:53 Disorder of limb 353709774 Active 2023 Nicole Gimenez APRN [address], [address], [place], [address] , [place] [employer] 4 17:30:55 Moderate chronic obstructi ve pulmonary disease 677342490 Active 2023 Gina Cortes NP [address], [address], [place], [address] , [employer] [facility] 4 14:15:28 Dyspnea on exertion 08874569 Active 2023 Gina Cortes NP [address], [address], [place], [address] , [employer] [facility] 4 14:26:40 Acute sinusitis 47211435 Active 2023 Gina Cortes NP [address], [address], [place], [address] , [employer] [facility] 4 14:31:30 Oxygen saturatio n below reference range 555861676 Active 2024 Gina Cortes NP [address], [place], [address] , [employer] [facility] 5 11:44:38 Dependenc e on supplemen hanna oxygen 74858710380 7 Active 2024 iGna Cortes NP [address], [address], [place], [address] , [employer] [facility] 5 11:39:32 Eosinophi l count above reference range 989016490 Active 2024 Gina Cortes NP [address], [address], [place], [address] , [employer] [facility] 5 11:40:51 Productiv e cough 88218166 Active 2024 Gina Cortes NP [address], [address], [place], [address] , [employer] [facility] 5 11:42:55 Chronic depressio n 886358330 Active 2024 Columba issa MD [address], [address], [place], [address] , [facility] 5 12:59:12 Bipolar disorder, most recent episode depressio n 170862335 Active 2024 Columba issa MD [address], [address], [place], [address] , [facility] 5 13:01:04 Aneurysm of coronary vessels 12865321 Active 2024 Columba issa MD [address], [address], [place], [address] , [facility] 5 13:01:19 Pulmonary hypertens ion 48937372 Active 2024 Columba issa MD [address], [address], [place], [address] , [facility] 5 13:01:46 Vitamin D below reference range 211299729 Active 2024 Columba issa MD [address], [address], [place], [address] , [facility] [employer] [facility] 5 13:02:36 Chronic kidney disease 302245705 Active 2024 Columba issa MD [address], [address], [place], [address] , [facility] 5 13:04:31 Neuropath y 266851818 Active 2024 Columba issa MD [address], [address], [place], [address] , [facility] [employer] [facility] 5 16:31:13 Hypothyro idism 32314911 Active 2024 Columba issa MD [address], [address], [place], [address] , [facility] 15:52:40 Body mass index 30+ - obesity 565735767 Active 2024 Columba issa MD [address], [address], [place], [address] , [facility] [place] [facility] 16:34:46 Notes:Some problems listed i n Document: #[id number] could not be added to this patient's chart. Please review this document and add these problems to the patient's chart manually as needed. Problem Notes None recorded. Procedures Surgical History Date Name Laterality Status Provider Name and Address Organization Details Recorded Time 02/02/20 24 Medicare Wellness CPT Code, subsequent completed Nicole Gimenez APRN [address], [address], [place], [address], [facility] [place] [facility] 01/26/2024 17:14:10 Knee Replacement completed Layla Gomez [facility] [place] [facility] 08/22/2024 12:32:34 Hysterectomy completed Radha Gallo [facility] [place] [facility] [place] [employer] [facility] 09/24/2022 15:33:41 Cardiac Cath completed Layla Gomez [facility] [place] [facility] 02/02/2024 17:02:43 Neck Surgeries completed Layla Gomez [facility] [place] [facility] 08/22/2024 12:32:45 Ankle Surgery completed Layla Gomez [facility] [place] [facility] 08/22/2024 12:32:58 Cardiac Stent Placement completed Marie Albert [place] [facility] [employer] [facility] 02/16/2024 14:06:16 Stent completed Marie Albert MA [facility] [employer] [facility] 02/16/2024 14:06:28 Stent Placement completed Layla [facility] [place] [employer] [facility] 08/22/2024 12:33:21 Imaging Results None recorded. Procedure Notes None recorded. Medical Equipment None Reported. Allergies Allergen ID Allergen Name Allergen Category Reaction Reaction Severity Criticality Documentation Date Start Date Code Code System Note Provider Name and Address Organization Details Recorded Time 17139 Substance with sulfonami de structure and antibacte rial mechanism of action (substanc e) medicatio n Not available Not available Not available 05/06/2022 99620 8003 SNOMED Other react ions and sever ities : 'Adve rse react ion to subst ance' . Nicole Ammy, SPINNING MACHINE OPERATOR [address] [facility], [address], [place], [address], [facility] [employer] 4 17:05:50 Medications Name Sig Start Date Stop Date Status Note LastModified by Organization Details LastModified Time losartan 50 mg tablet TAKE 1 TABLET BY MOUTH EVERY DAY AT NIGHT active Not Available Not Available No t Available nifedipine ER 30 mg tablet,ext ended release 24 hr TAKE 1 TABLET BY MOUTH EVERY DAY AT BEDTIME. DO NOT CRUSH, CHEW, OR SPLIT 10/03 completed Not Available Not Available Not Available cyclobenza delfino 10 mg tablet Take [...] VIA NEBULIZE R FOUR TIMES DAILY NEEDED 2024 active Not Available Not Available Not Avai lable citalopram 40 mg tablet TK 1 T [...] cyanocobal harris (vit B-12) 500 mcg tablet TAKE 1 TABLET BY MOUTH EVERY DAY active Not Available Not Available No t Available Nitrostat 0.4 mg sublingual tablet 1 [...] mg tablet TAKE 1 TABLET BY MOUTH 3 TIMES A DAY active Not Available Not Available No t Available trazodone 100 mg tablet TAKE 1 TABLET BY MOUTH EVERYDAY AT BEDTIME active Not Available Not Available No t Available Kenalog 10 mg/mL suspension for injection In office injectio n administ ered by the provider 10/[address] [facility]: 0003-04 94-20 Not Available Not Available Not [...] ended release 24 hr TAKE 1 TABLET (25 MG TOTAL) BY MOUTH EVERY NIGHT DO NOT CRUSH OR CHEW. active Not Available Not Available No t Available ergocalcif sanjiv (vitamin D2) 1,250 mcg (50,000 unit) capsule TAKE 1 CAPSULE (50,000 UNITS TOTAL) BY MOUTH ONCE WEEKLY active Not Available Not Available No t Available levofloxac in 500 mg tablet Take [...] completed Not Available Not Available Not Available olmesartan 5 mg tablet TAKE 2 TABLETS (10 MG TOTAL) BY MOUTH EVERY NIGHT active Not Available Not Available No t Available escitalopr am 10 mg tablet 1 [...] mg tablet TAKE 1 TABLET BY MOUTH 1 TIME EACH DAY. active Not Available Not Available No t [...] administ ered by the provider 10/[address] [facility]: 0409-42 76-17 Not Available Not Available Not [...] TAKE 1 TABLET BY MOUTH EVERY DAY 10/03 completed Not Available Not Available Not Available Senexon-S 8.6 mg-50 mg tablet TAKE [...] Available Not Available Farxiga 10 mg tablet TAKE 1 TABLET BY MOUTH ONCE A DAY active Not Available Not Available No t Available potassium chloride ER 20 mEq tablet,ext ended release TAKE 2 TABLETS BY MOUTH TWICE A DAY 10/03 completed Not Available Not Available Not Available Spiriva Respimat 2.5 mcg/actuat ion solution for inhalation Inhale 2 puffs every day by inhalati on route. 12/22 completed Not Available Not Available Not Available Vitamin B12 10/02 completed Not Available Not Available Not Available Repatha Syringe 140 mg/mL subcutaneo us syringe INJECT 1 ML SUBCUTAN EOUSLY EVERY 2 WEEKS IN ABDOMEN, THIGH,OR OUTER AREA OF UPPER ARM (ROTATE SITES) active Not Available Not Available No t Available ketamine 50 mg/5 mL (10 mg/mL) [...] completed Not Available Not Available Not Available Zepbound 2.5 mg/0.5 mL subcutaneo us pen injector Inject 2.5 mg every week by subcutan eous route for 30 days. 10/25 completed Not Available Not Available Not Available Vitals Date Recorded Body height Body mass index (BMI) Body weight Body temperature Heart rate Oxygen saturation Inhaled oxygen flow rate Systolic And Diastolic Provider Name and Address Organization Details Last Updated DateTime 5 160.02 cm 34.9 kg/m2 67903.7 g 96.9 [degF] 57 /min 97 % 2 L/min 118/76 mm[Hg] Shanique Bee MA [facility] [employer] 5 11:02:31 Date Recorded Body height Body mass index (BMI) Body weight Body temperature Heart rate Systolic And Diastolic Provider Name and Address Organization Details Last Updated DateTime 5 160.02 cm 34.2 kg/m2 97133.3 3 g 97.3 [degF] 72 /min 118/66 mm[Hg] SERA Pope [facility] [employer] [facility] 5 12:35:09 Date Recorded Body height Body mass index (BMI) Body weight Body temperature Heart rate Oxygen saturation Inhaled oxygen flow rate Pain severity - 0-10 verbal numeric rating [Score] - Reported Systolic And Diastolic Provider Name and Address Organization Details Last Updated DateTime 5 160.02 cm 35.8 kg/m2 96836.6 6 g 97.9 [degF] 95 /min 95 % 2 L/min 6 138/78 mm[Hg] Marie Albert MA [facility] [employer] [facility] 5 15:21:53 Date Recorded Body height Body mass index (BMI) Body weight Heart rate Oxygen saturation Inhaled oxygen flow rate Systolic And Diastolic Provider Name and Address Organization Details Last Updated DateTime 5 160.02 cm 35.6 kg/m2 95073.0 7 g 84 /min 98 % 2 L/min 130/76 mm[Hg] Shanique Bee MA [facility] [employer] 5 12:19:53 Date Recorded Body height Body mass index (BMI) Body weight Body temperature Heart rate Oxygen saturation Systolic And Diastolic Provider Name and Address Organization Details Last Updated DateTime 5 160.02 cm 37 kg/m2 40973.8 1 g 98.1 [degF] 68 /min 84 % 124/84 mm[Hg] Shanique Bee MA [employer] 14:05:56 Social History Question Answer Notes LastModified by Organization Details LastModified Time Tobacco Smoking Status Former Smoker quit 2015 Layla Gomez SERA marshall, [facility] [employer] 08/22/2024 12:31:57 Do You Have An Advance Directive? No [email or web address].[id number] Information not available 05/06/2022 What Is Your Level Of Caffeine Consumption? Occasional [email or web address].[id number] Information not available 05/06/2022 In The 14 [...] Type Of Diet Are You Following? REGULAR MIGRATION.300035 Information not available 05/06/2022 What Is The Highest Grade Or Level Of School You Have Completed Or The Highest Degree You Have Received? [id number] Information not available 02/02/2024 Do You Have An Electrostatic Air Filter? No Information not available 02/16/2024 Have There Been Any Changes To Your Family Or Social Situation? No [id number] Information not available 05/06/2022 What Is The Fluoride Status Of Your Home? Unknown MIGRATION.300035 Information not available 05/06/2022 When Did You Quit Smoking? 6-10yearssincelastc igarette MIGRATION.[id number] Information not available 05/06/2022 Do You Have A Humidifier? No Information not available 02/16/2024 Do You Use Insect Repellent Routinely? Yes MIGRATION.300035 Information not available 05/06/2022 Where Do You Live? SingleLevelHouse MIGRATION.0301 [id number] Information not available 05/06/2022 Do You Have A Medical Power Of Archivist Economic History? No Information not available 02/02/2024 Do You Have Moisture Problems In Your Home? No Information not available 02/16/2024 What Was The Date Of Your Most Recent Tobacco Screening? 02/21/2025 Information not available 02/21/2025 How Many Children Do You Have? 1 Information not available 02/16/2024 What Is Your Current Pack Years? 30ormorepackyears MIGRATION.0301 [id number] Information not available 05/06/2022 Do You Have Any Pets? Yes Information not available 02/16/2024 What Is Your Relationship Status? Information not available 02/02/2024 Do You Use Your Seat Belt Or Car Seat Routinely? Yes MIGRATION.0301 [id number] Information not available 05/06/2022 Do You Have Smoke And Carbon Monoxide Detectors In Your Home? Yes MIGRATION.0301 [id number] Information not available 05/06/2022 At What Age Did You Start Smoking Tobacco? 17 MIGRATION.0301 [id number] Information not available 05/06/2022 Are You Passively Exposed To Smoke? No MIGRATION.0301 [id number] Information not available 05/06/2022 Are There Any Smokers In Your House? No MIGRATION.0301 682125 Information not available 05/06/2022 Do You Use Sunscreen Routinely? Yes MIGRATION.0301 067994 Information not available 05/06/2022 Has Tobacco Cessation Counseling Been Provided? No MIGRATION.0301 539251 Information not available 05/06/2022 How Many Years Have You Smoked Tobacco? 37 MIGRATION.0301 495758 Information not available 05/06/2022 Have You Recently Traveled Abroad? No Information not available 02/02/2024 Do You Have Any Dietary Restrictions? No MIGRATION.0301 626887 Information not available 05/06/2022 Sex: Female Functional Status Question Answer Note LastModified by Organizat ion Details LastModified Time Do you use any illicit or recreational drugs? No MIGRATION.193463 5985 Information not available 05/06/2022 Do you or have you ever used any other forms of tobacco or nicotine? No MIGRATION.216900 6064 Information not available 05/06/2022 What is your level of alcohol consumption? None MIGRATION.[id number] 0148 Information not available 05/06/2022 Are you currently employed? No Retired [employer] Information not available 02/16/2024 Have you been exposed to chemicals or toxins? Not that aware of Information not available 06/26/2024 What is your exercise level? Occasional MIGRATION.[id number] 7159 Information not available 05/06/2022 Mental Status Question Answer Note LastModified by Organizat ion Details LastModified Time Do you feel stressed (tense, restless, nervous, or anxious, or unable to sleep at night)? [id number] MIGRATION.[id number] Information not available 05/06/2022 Family History Relationship Description Onset Age of this Age Resolved Age Notes LastModified by Organization Details LastModified Time Mother Heart disease Not available 2022 15:32:53 Mother Hypertensive disorder [email or web address] Not available 2022 15:33:04 Sister Hypertensive disorder Not available 2024 12:31:23 Medical History Condition Response HEART DISEASE/HEART PROBLEMS Y ARTHRITIS Y USE OF BLOOD THINNERS Y Gynecological History Statement/Question Response How many live births 2 Date of Last Mammogram Date of Last Colonoscopy Date of Last Mammogram Most Recent Bone Density Date of LMP Date of Last Pap Current Control Method Hysterectom y Obstetrics History GPAL:G 2 P 2 0 0 2 Type Value Multiple Births 0 Full Term 2 Induced 0 Spontaneous 0 Premature 0 Living 2 Ectopics 0 Total 2 Immunizations Vaccine Type Date Status Note Provider Nam e and Address Organization Details Recorded Time COVID-19, mRNA, LNP-S, PF, 30 mcg/0.3 mL dose 1 completed Nicole Gimenez APRN [address], [address], [place], [address], [facility] 01/26/2024 17:06:33 COVID-19, mRNA, LNP-S, PF, 30 mcg/0.3 mL dose 1 completed Nicole Gimenez APRN [address], [address], [place], [address], [facility] [employer] [facility] 01/26/2024 17:06:33 Tdap 8 completed Nicole Gimenez APRN [address] [facility], [facility] [address], [place], [address], [facility] [employer] [facility] 01/26/2024 17:06:33 Influenza, split virus, quadrivalent, PF 3 completed Virginie Hyde RN null, [facility] [employer] [facility] 01/27/2023 14:03:43 pneumococcal polysaccharide PPV23 2 completed Not Available [facility] 04/01/2023 11:24:00 Influenza, split virus, quadrivalent, PF 9 completed Not Available [facility] 04/01/2023 11:24:00 Influenza, split virus, quadrivalent, PF 8 completed Not Available [facility] 04/01/2023 11:24:00 Influenza, split virus, quadrivalent, PF 7 completed Not Available [facility] 04/01/2023 11:24:00 Tdap 8 completed Not Available [facility] 04/01/2023 11:24:00 Pneumococcal conjugate PCV 13 8 completed Not Available [facility] 04/01/2023 11:24:00 Influenza, split virus, quadrivalent, PF 2 completed Nicole Gimenez APRN [address] [facility], [facility] [address], [place], [address], [facility] [employer] [facility] 01/26/2024 17:06:33 Influenza, split virus, quadrivalent, preservative 6 completed Not Available [facility] 04/01/2023 11:24:00 Influenza, split virus, trivalent, PF 4 completed SERA Pope, [facility] [employer] [facility] 02/02/2024 17:43:40 Past Encounters Encounter ID Performer Location Encounter Start Date Encounter Closed Date Diagnosis/Indication Diagnosis SNOMED-CT Code Diagnosis ICD10 Code Diagnosis IMO Codes Diagnosis Note [id number] Andreas Lehman MD [facility] Primary Care [facility] [address] [facility] [address] [place] [address] 10/02/2021 00:00:00 10/03/2021 13:26:40 [id number] Andreas Lehman MD [facility] Primary Care [facility] [address] [facility] [address] [place] [address] 11/04/2021 00:00:00 11/04/2021 22:36:43 [id number] Andreas Lehman MD [facility] Primary Care [facility] [address] [place] [address] [address] [place] [address] 01/06/2022 00:00:00 02/04/2022 17:58:17 [id number] [facility] [address] [place] [address] [address] [place] [address] 05/21/2022 10:22:28 05/21/2022 10:59:50 Dietary management surveillance 906007494 Z71.3 doing welldown 19 poundscont inue phentermin e 37.5 mg po qday daily for 3 months then 4 week breakf/u in 4 months or sooner if needed Degenerati on of lumbar intervertebral disc 88954554 M51.36 d/c lyrica as it is not effectiver estart gabapentin 800 mg po tidcontinu e pain mgtm Dental abscess 533516236 K04.7 salt water gargleskee p dentures out when possiblese e dentist if no improvemen t in 2 weeks-her dentures may need to be refitted given her recent weight loss [id number] Vincent Nicole MD [facility] [address] 09/24/2022 14:43:44 09/24/2022 16:08:15 Pain of right ankle joint 4140115852 2328218 M25.571 [id number] Vincent Nicole MD [facility] [address] 10/15/2022 14:49:01 10/15/2022 15:52:55 Closed trimalleolar fracture of left ankle 1706455754 7978145 S82.852D [id number] Andreas Lehman MD [facility] Primary Care [facility] [address] [facility] [address] [place] [address] 01/26/2023 09:46:08 01/26/2023 10:20:03 Chronic obstructive pulmonary disease 93505904 J44.9 overnight pulse oximetry orderedif normal, consider formal 6 minute walkcontin ue symbicortr ecent CXR normal Administra tion of influenza vaccine 56920380 Z23 [id number] Andreas Lehman MD [facility] Primary Care [facility] [address] [facility] [address] [place] [address] 06/14/2023 12:35:15 06/14/2023 13:12:18 Coronary arteriosclerosis 92021079 I25.10 will have heart cath doneconsid er GLP-1 in future for cardiovasc ular effects [id number] Andreas Lehman MD [facility] Primary Care [facility] [address] [facility] [address] [place] [address] 07/20/2023 17:19:37 07/20/2023 17:56:26 Chronic obstructive pulmonary disease 76678660 J44.9 overnight pulse oximetry orderedif normal, consider formal 6 minute walkcontin ue symbicortr ecent CXR normal 07/20/23: increase symbicort use to bidprednis one taperdoxyc ycline bid x 7 dayscall/r eturn if no improvemen t in 1-2 days or sooner if neededrevi ewed s/s that warrant urgent/ritu rgent eval in meantime Edema of l ower extremity 355701502 R60.0 check labs after starting furosemide Essential hypertension 19283794 I10 Vitamin D deficiency 347 51815 E55.9 Hyperglycemia 01208001 R 73.9 check a1c, consider ozempic for cardiovasc ular protection if elevated [id number] MIRIAM Joyce [facility] Primary Care [facility] [address] [facility] 140 [facility] [place] [address] 10/19/2023 16:13:56 10/19/2023 16:45:16 Dietary management surveillance 938467590 Z71.3 5lb weight loss since last visit refill phentermin e given Essential hypertension 45447024 I10 stable with medsbp 140/76, 81 no hernandez/cp, occ sob r/t COPDmeds per cardiology Degenerati on of lumbar intervertebral disc 72292650 M51.36 Long-term drug therapy 561168742 Z79.851 [id number] Columba issa MD [facility] Primary Care [facility] [address] [facility] [address] [place] [address] 02/02/2024 16:48:10 02/02/2024 17:45:08 Hyperlipidemia 62360883 E78.5 Z79.899 Hyperglycemia 12083951 R 73.9 Vitamin D deficiency 347 39743 E55.9 Screening mammography 24 693944 Z12.31 Hepatitis C screening 41 6802459 Z11.59 Adult heal th examination 712651892 Z00.00 Screening for disorder 179290853 Z13.9 Degenerati on of lumbar intervertebral disc 40660705 M51.369 Administra tion of influenza vaccine 16740821 Z23 Chronic ob structive pulmonary disease 03413872 J44.9 [id number] Gina Cortes NP [facility] Pulmonolo gy [address] [address] 02/16/2024 13:52:03 02/16/2024 14:41:13 Moderate chronic obstructive pulmonary disease 174162461 J44.9 CAT-33Prog ressively worsening of breathing- ADL's [...] and increase use of inhaler Acute sinusitis 14480003 J01.90 Augmentin and Prednisone as directed-s violeta effects reviewed-t yanet probiotic with it Obstructiv e sleep apnea syndrome 98137237 G47.33 continue home O2 at night-unab le to tolerate CPAP Ex-smoker 1244962 Z87.89 1 last LDCT was in May 2023-wnl [id number] Gina Cortes NP [facility] [address] [address] 03/27/2024 09:52:32 03/27/2024 13:06:47 Moderate chronic obstructive pulmonary disease 820693737 J44.9 CAT-32Prog ressively worsening of breathing- ADL's are affected (difficult y showering and dressing, unable to walk long distance without becoming sob) will continue TrelegyO2 sats with 6 minute walk test 87%-+ dyspnea with exertionPu lmonary rehab orderFollo w-up in 3 months-steve ner if worseEncou rage vaccinatio nsRAST -, TB wnl, Alpha 1 neg Ex-cigarette smoker [address] screening in May Oxygen sat uration below reference range 752969374 R79.81 R09.02 G47.30 O2 required with exertion-O 2 sats dropped below 90 during 6 minute walk test [id number] Gina Cortes NP [facility] [place] [address] 06/26/2024 10:45:36 06/27/2024 15:55:05 Chronic obstructive pulmonary disease 93396842 J44.9 J43.9 CAT-30Trel egy as directed-s he is benefiting from trelegyPro gressively worsening of breathing- ADL's are affected (difficult y showering and dressing, unable to walk long distance without becoming sob) will continue TrelegyCou ghing up a lot of phlegmFoll ow-up in 4 months-steve ner if worseEncou rage vaccinatio nsRAST -, TB wnl, Alpha 1 neg Dependence on supplemental oxygen 0048597060 07 Z99.81 R09.02 continue O2 with exertion and sleep-bene fits from use Eosinophil count above reference range 885459433 D72.10 absolute count 0.347 in March 2024 Productive cough 8589971 5 R05.9 The patient has a diagnosis [...] y conditions who fail convention al therapy. [id number] Columba issa MD [facility] [address] [facility], [address] [place] [address] 08/22/2024 11:55:33 08/22/2024 13:20:36 Screening due 419636323 Z13.9 [id number] Cologuard 10/27/2021 : Neg Mammogram: 03/15/2024 : Neg DEXA: Get this WWE: Has declined for now Get yearly flu shot, can do Tdap if not doneCan do COVID 19 boosterCan do shingrix vaccineCan do Prevnar #20 RTC in 2 months, do labs, ER if worse, she and her cousin verbalized her understand ing of the above Chronic ob structive pulmonary disease 27192203 J44.9 473348065 On O2 2L NC On albuterol HHNOn albuterol HFAOn ipratropiu m HHAriel trelegySee s pulmonary Hyperlipidemia 93206697 E78.5 [id number] CMP: Dr Reed: Cr 1.13, GFR 49 On ASAOn zetiaOn vascepaOn rosuvastat in 40mg dailyGet labs Bipolar di sorder, most recent episode depression 214261306 F31.9 132847 On Buspirone 30mg bidOn onlanzapin e 10mg dailyOn trazodone 100mg at bedtimeOn topiramate 100mg bidSees her psychiatri stNot suicidal or homicidal Aneurysm o f coronary vessels 46213604 I25.[address] Stroud [facility] Obstructiv e sleep apnea syndrome 32887596 G47.33 535732 States that she does see pulmonary but does not wear the CPAP as she just keeps her O2 thru the night Pulmonary hypertension 85819042 I27.20 4052 As per [facility]i st and pulmonolog ist Vitamin D below reference range 021029850 R79.89 05205549 Postmenopausal state 764 26424 Z78.0 026773 Chronic ki dney disease 938897604 N18.[id number] Reed Coronary arteriosclerosis 12767809 I25.10 3452182084 On plavixOn Farxiga 10mg dialyOn metoprolol ER 25mg dailyOn nifedipine ER 30mg dailyOn K ER 20meq dailySees Dr Stroud Neuropathy 488008075 G62 .9 16092 On gabapentin 800mg tid, states that she does well on this for now [id number] Columba issa MD [facility] [address] [facility], [facility] [address] [place] [address] 10/03/2024 15:07:45 10/03/2024 16:36:53 Screening due 150906059 Z13.9 [id number] Cologuard 10/27/2021 : Neg Mammogram: 03/15/2024 : Neg DEXA: Get this WWE: Has declined for now Get yearly flu shot, can do Tdap if not doneCan do COVID 19 boosterCan do shingrix vaccineCan do Prevnar #20 RTC in 2 months, do labs, ER if worse, she and her cousin verbalized her understand ing of the above Chronic ob structive pulmonary disease 31495246 J44.9 703899370 On O2 2L NC On albuterol HHNOn albuterol HFAOn ipratropiu m HHNOn trelegySee s pulmonary Hyperlipidemia 29164853 E78.5 33952592 On ASAOn zetiaOn vascepaOn rosuvastat in 40mg dailyGet labs Bipolar di sorder, most recent episode depression 192389671 F31.9 908016 On Buspirone 30mg bidOn onlanzapin e 10mg dailyOn trazodone 100mg at bedtimeOn topiramate 100mg bidSees her psychiatri stNot suicidal or homicidal Aneurysm o f coronary vessels 57783789 I25.[id number] Stroud [facility] Obstructiv e sleep apnea syndrome 47255487 G47.33 227910 States that she does see pulmonary but does not wear the CPAP as she just keeps her O2 thru the night Pulmonary hypertension 94998406 I27.20 4052 As per [facility] cardiologi st and pulmonolog ist Vitamin D below reference range 361010636 R79.89 77399546 Postmenopausal state 764 13458 Z78.0 862093 Chronic ki dney disease 512942685 N18.[id number] Reed Coronary arteriosclerosis 80948665 I25.10 1852111581 On plavixOn Farxiga 10mg dialyOn metoprolol ER 25mg dailyOn nifedipine ER 30mg dailyOn K ER 20meq dailySees Dr Stroud Neuropathy 835895477 G62 .9 89623 On gabapentin 800mg tid, states that she does well on this for now Hypothyroidism 44412724 E03.9 97332834 Repeat the labs and get US thyroidMay need to be on Unithroid Body mass index 30+ - obesity 929269532 E66.9 5520347 Wants to get on GLP-1/GIPN o history of MEN2, thyroid or parathyroi d or pancreatic complaints , no psychiatry complaints Can do Zepbound, side effects explained, hydrate and use supplement s, notify if getting any surgeryIf zepbound is not approved is eager to get on phentermin Dannie will need to discuss its use with her psychiatri st [id number] Edwin Lyle MD [facility] Pulmonolo gy [address], [facility] [address] [place] [address] 10/25/2024 11:59:34 10/26/2024 10:02:53 Chronic obstructive pulmonary disease 65996943 J44.9 J43.9 CAT-32Trel egy as directed-s he is benefiting from trelegyPro gressively worsening of breathing- ADL's are affected (difficult y showering and dressing, unable to walk long distance without becoming sob) will continue TrelegyCou ghing up a lot of phlegm-sma rt vest order todayFollo w-up in 4 months-steve ner if worseEncou rage vaccinatio ns-she notes she has a list of vaccinatio ns advised by her primaryRAS T -, TB wnl, Alpha 1 neg Dependence on supplemental oxygen 2280609815 07 Z99.81 R09.02 continue O2 with exertion and sleep-bene fits from use Eosinophil count above reference range 780509690 D72.10 absolute count 0.347 in March 2024 Productive cough 3446810 5 R05.9 The patient has a diagnosis [...] y conditions who fail convention al therapy. [id number] Edwin Lyle MD [facility] Pulmonolo gy [address] [address] 02/21/2025 13:49:46 02/21/2025 16:47:36 Chronic obstructive pulmonary disease 15639353 J44.9 J43.9 CAT-32PFT scheduled at [place] 03/06/2025 Trelegy as directed-s he is benefiting from trelegyBre athing no better but stable-ADL 's are affected (difficult y showering and dressing, unable to walk long distance without becoming sob) will continue TrelegyCou ghing up a lot of phlegm-con otm consultant if she qualifies for biologic at this time since she was not able to get vest.Micko w-up in 4 months-steve ner if worseEncou rage vaccinatio ns-she notes she has a list of vaccinatio ns advised by her primaryRAS T -, TB wnl, Alpha 1 neg Dependence on supplemental oxygen 8851805125 07 Z99.81 R09.02 continue O2 with exertion and sleep-bene fits from use Eosinophil count above reference range 248904876 D72.10 absolute count 0.347 in March 2024 Productive cough 8161685 5 R05.9 Pulmonary hypertension 94432193 I27.20 4052 Health Concerns Section Related Observation LastModified by Organization Detai ls LastModified Time None Recorded Concern Status LastModified by Organization Details LastModified Time None Recorded Advance Directives Directive N: Payers Insurance Date Sequence Insurance Name Policy Number Policy Lebron Covered Member ID Lebron Member ID Guarantor Name 02/22/2025 2 [place] Letty Butterfield [id number] Letty Butterfield 10/25/2024 3 [place] Letty Butterfield [id number] Letty Butterfield 02/22/2025 [place]ICAID [place] DURABLE MEDICAL EQUIPMENT Letty Butterfield [id number] Letty Butterfield 02/18/2025 1 [facility] (MEDICARE REPLACEMENT/A DVANTAGE - PPO) [id number] Letty Butterfield [id number] Letty Butterfield 10/25/2024 2 [place]CON[place] WHEN MEDICARE OR MEDICARE REPLACEMENT PRIMARY) Letty Butterfield [id number] Letty Butterfield Notes Date Note Type Note Provider Name and Address Organization Details Recorded Time 5 text/htm l COPDReported by PatientHPIFor severity, patient reportsvery limitingbut reportssevereandadmitted to hospital 1 times/year(unable to shower without stopping-walking to house from car difficultusing albuterol inhaler less 2-3 x a week-uses neb once a day when needed). For associated symptoms, patient reportsexcessive daytime sleepiness,dyspnea exertional,decrease in exercise capacity,fatigue,coughing up sputum clear / white and frothy,cough loose, anddepressionbut reportsno snoring,no arousals from sleep,no decrease in exercise capacity,no coughing up sputum,no fever,no wheezing, andno weight loss(lower leg edema intermittent). For quality, patient reportssymptoms do not vary with time of dayandsymptoms worse with lying down. For duration, patient reportshas noted for monthsandconstant. For onset/timing, patient reportschronic: slowly much worse. For context, patient reportscigarette smoking,recurrent bronchopulmonary infections, andinfluenza vaccine 01/2024. For modifying factors, patient reportsrelieved with rest,relieved with bronchodilator,worse in a supine position, andworse with exertion.follow-up from March-doing better-no recent illness-notes has a lot of phlegm when she coughs-multiple times of the day coughing up phlegm-sometimes chokes on the phlegmex-smoker of 2 ppd for 40 years-last CT 05/2023 wnlsees Cardiology-hx stentshx sleep apnea-wearing O2 at nightMm 5 Gina Cortes NP [address], [place], [address], [employer] [facility] [employer] 06/27/2024 11:17:52 5 text/htm l OV 08/22/2024:Here to establish care Present Hx:COPDHLDDepressionOSACKDCA D Here with her cousin, states that she is doing well today, she is currently on O2 2L continuously Columba Almeida MD [address], [place], [address], [employer] [facility] 08/22/2024 16:34:22 5 text/htm l OV 08/22/2024:Here to establish care Present Hx:COPDHLDDepressionOSACKDCA D Here with her cousin, states that she is doing well today, she is currently on O2 2L continuously OV 10/03/2024: Here for her f/u apt, she is doing well today, she is eager to discuss her obesity, states that she did use to be on phentermine, but would consider a GLP-1 medication, she is here with her cousin Natalia Almeida MD [address], [place], [address], [employer] 10/04/2024 09:43:03 5 text/htm l COPDReported by PatientHPIFor severity, patient reportsvery limitingbut reportssevereandadmitted to hospital 1 times/year(unable to shower without stopping-walking to house from car difficultusing albuterol inhaler less 1-2 x a week). For associated symptoms, patient reportsexcessive daytime sleepiness,dyspnea exertional,decrease in exercise capacity,fatigue,coughing up sputum clear / white and frothy,cough loose, anddepressionbut reportsno snoring,no arousals from sleep,no decrease in exercise capacity,no coughing up sputum,no fever,no wheezing, andno weight loss(lower leg edema intermittent). For quality, patient reportssymptoms do not vary with time of dayandsymptoms worse with lying down. For duration, patient reportshas noted for monthsandconstant. For onset/timing, patient reportschronic: slowly much worse. For context, patient reportscigarette smoking,recurrent bronchopulmonary infections, andinfluenza vaccine 01/2024. For modifying factors, patient reportsrelieved with rest,relieved with bronchodilator,worse in a supine position, andworse with exertion.xbrvwx-tw-bkygf better since Trelegy use and O2-no recent illness-notes has a lot of phlegm when she coughs-multiple times of the day coughing up phlegm-sometimes chokes on the phlegm-did not get vest due to communication issuesex-smoker of 2 ppd for 40 years-last CT 05/2023 wnlsees Cardiology-hx stentshx sleep apnea-wearing O2 at night-refuses CPAPMmrc 5 Gina Cortes NP [address], [place], [address], [employer] 10/25/2024 14:38:50 5 text/htm l COPDReported by PatientHPIFor severity, patient reportsvery limitingbut reportssevereandadmitted to hospital 1 times/year(unable to shower without stopping-walking to house from car difficultusing albuterol inhaler less 1-2 x a week). For associated symptoms, patient reportsexcessive daytime sleepiness,dyspnea exertional,decrease in exercise capacity,fatigue,coughing up sputum clear / white and frothy,cough loose, anddepressionbut reportsno snoring,no arousals from sleep,no decrease in exercise capacity,no coughing up sputum,no fever,no wheezing, andno weight loss(lower leg edema intermittent). For quality, patient reportssymptoms do not vary with time of dayandsymptoms worse with lying down. For duration, patient reportshas noted for monthsandconstant. For onset/timing, patient reportschronic: slowly much worse. For context, patient reportscigarette smoking,recurrent bronchopulmonary infections, andinfluenza vaccine 01/2024. For modifying factors, patient reportsrelieved with rest,relieved with bronchodilator,worse in a supine position, andworse with exertion.qjkcfu-co-bozin well-continues with Trelegy use and O2-no recent illness-notes has a lot of phlegm when she coughs-multiple times of the day coughing up phlegm-sometimes chokes on the phlegm-was not able to get vest due to insurance issues-needs new nebulizer hers broke-she uses it more in the winter-not currently doing too bad and hasn't had to use it muchex-smoker of 2 ppd for 40 years-last CT 05/2023 wnlsees Cardiology-hx stentshx sleep apnea-wearing O2 at night-refuses CPAPMmrc 5 Gina Cortes, SRE[place] [address] [facility], [facility] [address], [place], [address], [place] [employer] 02/21/2025 14:44:05 OBGyn Episode No OBEpisode recorded.
--- OUTSIDE RECORDS SUMMARY | 2025-03-06 12:38 | XMS_ITS | Clinical Summary ---
Author Organization [facility] Address [facility] [place] [address] Care Team Providers Care Park Activities Coordinator Name Role Phone Unavailable Primary Care Provider [...] of 2) 12/05/2011 COVID-19 Vaccine ( - 2024-2 6 season) 2024 Influenza Adult (#1) 2024 RSV [...]
--- OUTSIDE RECORDS SUMMARY | 2025-03-06 12:38 | XMS_ITS | Clinical Summary ---
Author Organization [facility] Address [address] [place] [id number] Care Team Providers Care Nurse Practitioner Name Role Phone Columba Almeida MD Primary Care Provider [phone] Medications Aspirin 81 MG capsule Take by mouth 08/07/19 16 Active carvedilol (COREG) 25 MG tablet Take 25 mg by mouth in the morning and 25 mg in the evening. Take with meals. Active [place]-3 Fatty Acids (FISH OIL PO) Take 1,200 [...] l (VITAMIN D-3 SUPER STRENGTH) 50 MCG (2000 UT) tablet cholecalciferol (vitamin D3) 50 mcg [...] 1 09/13/19 25 Active ergocalciferol 1.25 MG (72276 UT) capsule Take 1 capsule (50,000 Units total) by mouth 1 (one) time per week 12 capsule 1 09/13/19 25 Active losartan (COZAAR) 50 MG tablet TAKE 1 TABLET BY MOUTH EVERY NIGHT 90 tablet 1 01/02/20 25 Active metoprolol succinate XL (TOPROL XL) 25 MG 24 hr tablet Take 1 tablet (25 mg total) by mouth every night Do not crush or chew. 90 tablet 1 01/17/20 25 Active olmesartan (BENICAR) 5 MG tablet Take 2 tablets (10 mg total) by mouth every night 180 tablet 1 01/17/20 25 Active Encounters Date Type Department Care Team Description 01/16/2025 1:15 PM SALVAGE ENGINEERING TECHNICIAN Office Visit [facility] [address] [phone] Arun Li DO Stage 3 chronic kidney disease, not otherwise specified (HCC) (Primary Dx); Interstitial nephritis; Persistent proteinuria; Coronary artery disease due to calcified coronary lesion; Peripheral vascular disease (HCC); Venous insufficiency; Obstructive sleep apnea syndrome; Hypertensive chronic kidney disease; Pure hypercholesterolemi a, not otherwise specified; Major depressive disorder, single episode, severe without psychotic features, not otherwise specified (HCC) 01/16/2025 Refill [facility], [facility] [address] [phone] Carmelina Roblero CMA 12/31/2024 Refill [facility], [facility] [address] [facility] [address] [place] [address] Arun Li DO 12/26/2024 Documentation Only [facility], [facility] [address] [phone] Arun Li DO 12/25/2024 Documentation Only [address] [phone] Arun Li DO from Last 3 [...] Sign Reading Time Taken Comments Blood Pressure 130/70 01/16/2025 1:25 PM SALVAGE ENGINEERING TECHNICIAN Pulse 72 01/16/2025 1:25 PM SALVAGE ENGINEERING TECHNICIAN Temperature 36.7 C (98 F) 01/16/2025 1:25 PM SALVAGE ENGINEERING TECHNICIAN Respiratory Rate 18 01/16/2025 1:25 PM SALVAGE ENGINEERING TECHNICIAN Oxygen Saturation 93% 01/16/2025 1:25 PM SALVAGE ENGINEERING TECHNICIAN Inhaled Oxygen Concentration - - Weight 93.4 kg (206 lb) 01/16/2025 1:25 PM SALVAGE ENGINEERING TECHNICIAN Height 160 cm (5' 3) 08/22/2024 12:24 PM CDT Body Mass Index 36.49 08/22/2024 12:24 PM CDT Plan of Treatment Upcoming Encounters Date Type Department Care Team (Late st Contact Info) Description 05/29/2025 2:00 PM CDT Office Visit [facility] [address] [phone] Arun Li DO [address] [place] [phone] Health Maintenance Due Date Last Done [...] patient's age to complete this topic Insurance [facility] Medicare Care Teams Nurse Practitioner Relationship Specialty Start Date End Date Columba Almeida MD [address] [facility], [address] [place] [address] PCP - General Internal Medicine 06/27/24
--- OUTSIDE RECORDS SUMMARY | 2025-03-06 12:38 | XMS_ITS | Continuity of Care Document ---
Author Organization [place] - [facility], [facility] [place] Address [address] [address] Care Team Providers Care Medical I D Sales Name Role Phone ANDREAS LEHMAN Primary Care Provider [phone] ANDREAS LEHMAN Referring Provider YI REED Eligibility Technician Assessment Encounter Date Assessment Date Assessment LastModified by Organization Details LastModified Time 02/21/2025 02/21/2025 Time spent with patient included: preparing to see patient by reviewing tests, obtaining and reviewing history, medical examination and evaluation, counseling and educating the patient, ordering medications and tests, documenting clinical information in EHR, interpreting results and communicating results to the patient for a total of 41 minutes.independ su Not available 02/21/2025 14:25:06 Plan of Treatment Reminders Order Date Submit Date Provider Last Modified By Organization Details Last Modified Time Details Appointments Any 15 2025 02:30P M Columba warren MD Not available Not available Not available Any 30 2025 02:00P M Edwin Lyle MD Not available Not available Not available Lab None recorded. Referral None recorded. Procedures None recorded. Surgeries None recorded. Imaging None recorded. Medication Orders Trelegy Ellipta 200 mcg-62.5 mcg-25 mcg powder for inhalatio n 2024 025 [id number], [address], [place], [address], 02/21/2025 14:43:51 albuterol sulfate 2.5 mg/3 mL (0.083 %) solution for nebulizat ion 2024 025 [id number], [address], [place], [address], 02/21/2025 14:43:52 Patient TargetsNo targets recorded. Patient Instructions Encounter Date Encounter Id Patient Instructions Last Modified By Organization Details Last Modified Time 02/21/2025 [id number] complete PFT w/ post bronchodilator spirometry* - Please call patient to schedule. To be performed on or around 03/07/2025 [email or web address] Not available 02/28/2025 11:38:26 Reason for Referral None Reported. Problems Name Problem SNOMED Code Status Onset Date Resolution Date Notes Provider Name and Address Organization Details Recorded Time White blood cell abnormali ty 338528292 Active Not Available [facility] 4 11:23:59 Chronic obstructi ve pulmonary disease 21967382 Active Columba issa MD [address], [employer], [place], [address] , [employer] 5 11:27:04 Insomnia 516268634 Active Nicole Gimenez APRN [address], [employer], [place], [address] , [employer] 4 17:10:49 Myocardia l infarctio n 04389104 Active 07/2015 Nicole Gimenez APRN [address], [employer], [place], [address] , [employer] 4 17:11:11 Degenerat ion of lumbar intervert ebral disc 19450959 Active Nicole Gimenez APRN [address], [address], [place], [address] , [employer] 4 17:10:20 Raynaud's phenomeno n 103029479 Active Nicole Gimenez APRN [address], [employer], [place], [address] , [employer] 4 17:10:58 Shoulder joint pain 953962460 Active Not Available [facility] 4 11:23:59 Syncope 777306056 Active Nicole Gimenez APRN [address], [address], [place], [address] , [facility] [employer] [facility] [employer] [facility] 4 17:10:55 Knee pain Active Not Available [facility] 4 11:23:59 Vitamin D deficienc y 04150462 Active Nicole Gimenez APRN [address], [address], [place], [address] , [employer] [facility] 4 17:10:51 Depressiv e disorder 16867967 Active Nicole Gimenez APRN [address], [place] [place] [address], [place], [address] , [employer] [facility] [employer] [facility] 4 17:10:24 Malignant neoplasm of uterus 782881901 Active around age 28 Not Available [facility] 4 11:23:59 Osteoarth ritis 102733797 Active Nicole Gimenez APRN [address], [address], [place], [address] , [facility] [employer] [facility] [employer] 4 17:11:01 Obesity 740108697 Active Nicole Gimenez APRN [address], [address], [place], [address] , [employer] [facility] [employer] [facility] 4 17:11:05 Cough 91704619 Active Not Available [facility] 4 11:24:00 Hyperlipi demia 91848263 Active Columba issa MD [address], [address], [place], [address] , [employer] [facility] [employer] 5 11:27:19 Essential hypertens ion 35447501 Active Nicole Gimenez APRN [address], [address], [place], [address] , [employer] [facility] [employer] 4 17:10:28 Degenerat ion of cervical intervert ebral disc 13868126 Active Nicole Gimenez APRN [address], [address], [place], [address] , [employer] 4 17:10:08 Snoring 36511405 Active Not Available [facility] 4 11:24:00 Degenerat ion of intervert ebral disc 71110258 Active lumbar and cervical spine Nicole Gimenez APRN [address], [address], [place], [address] , [employer] 4 17:10:16 Fatigue 63801685 Active Nicole Gimenez APRN [address], [address], [place], [address] , [employer] 4 17:10:32 Closed fracture of left ankle 37583251858 786950 Active Nicole Gimenez APRN [address], [address], [place], [address] , [employer] 4 17:06:20 Open fracture of lateral malleolus 0638802 Active Nicole Gimenez APRN [address], [address], [place], [address] , [employer] 4 17:06:20 Acute exacerbat ion of chronic obstructi ve pulmonary disease 855107523 Active Nicole Gimenez APRN [address], [address], [place], [address] , [employer] 4 17:07:30 Obstructi ve sleep apnea syndrome 17476253 Active 2017 Columba issa MD [address], [address], [place], [address] , [employer] 5 13:01:32 Angular cheilitis 733895047 Active 2019 Nicole Gimenez APRN [address], [address], [place], [address] , [employer] 4 17:09:55 Dental abscess 749964815 Active 2022 Not Available [facility] 4 11:23:59 Pain of right ankle joint 07013176921 076473 Active 2022 Not Available [facility] 4 11:23:59 Pain of left ankle joint 06731185675 256111 Active 2022 Not Available [facility] 4 11:23:59 Closed trimalleo lar fracture of left ankle 21695553387 409086 Active 2022 Not Available [facility] 4 11:23:59 Edema of lower extremity 165578329 Active 2023 Andreas Lehman MD [address], [address], [place], [address] , [employer] 4 17:41:44 Hyperglyc emia 38727574 Active 2023 Nicole Gimenez APRN [address], [address], [place], [address] , [employer] 4 17:11:30 Coronary arteriosc lerosis 37226847 Active 2023 Columba issa MD [address], [address], [place], [address] , [employer] 5 13:05:41 Glomerula r filtratio n rate below reference range 328416123 Active 2023 MIRIAM Joyce [address], [address], [place], [address] , [employer] 4 12:52:59 Stented coronary artery 714156886 Active 2023 Nicole Gimenez APRN [address], [address], [place], [address] , [employer] 4 17:29:53 Disorder of limb 698995874 Active 2023 Nicole Gimenez APRN [address], [address], [place], [address] , [employer] [facility] 4 17:30:55 Moderate chronic obstructi ve pulmonary disease 833931521 Active 2023 Gina Cortes NP [address], [address], [place], [address] , [employer] [facility] [employer] [facility] 4 14:15:28 Dyspnea on exertion 74799987 Active 2023 Gina Cortes NP [address], [address], [place], [address] , [employer] [facility] [employer] [facility] 4 14:26:40 Acute sinusitis 02803770 Active 2023 Gina Cortes NP [address], [address], [place], [address] , [employer] [facility] [employer] [facility] 4 14:31:30 Oxygen saturatio n below reference range 431811013 Active 2024 Gina Cortes NP [address], [address], [place], [address] , [employer] [facility] [employer] [facility] 5 11:44:38 Dependenc e on supplemen hanna oxygen 51972367782 7 Active 2024 Gina Cortes NP [address], [address] [facility], [place], [address] , [employer] [facility] [employer] [facility] 5 11:39:32 Eosinophi l count above reference range 829905395 Active 2024 Gina Cortes NP [address], [address], [place], [address] , [employer] [facility] [employer] [facility] 5 11:40:51 Productiv e cough 13610950 Active 2024 Gina Cortes NP [address], [address], [place], [address] , [employer] [facility] [employer] [facility] 5 11:42:55 Chronic depressio n 714899002 Active 2024 Columba issa MD [address], [address], [place], [address] , [facility] 5 12:59:12 Bipolar disorder, most recent episode depressio n 334481593 Active 2024 Columba issa MD [address], [address], [place], [address] , [facility] 5 13:01:04 Aneurysm of coronary vessels 09943948 Active 2024 Columba issa MD [address], [address], [place], [address] , [facility] [employer] [facility] [employer] [facility] 5 13:01:19 Pulmonary hypertens ion 06973768 Active 2024 Columba issa MD [address], [address], [place], [address] , [facility] [employer] [facility] [employer] [facility] 5 13:01:46 Vitamin D below reference range 747332233 Active 2024 Columba issa MD [address], [address], [place], [address] , [facility] [employer] [facility] [employer] [facility] 5 13:02:36 Chronic kidney disease 489864567 Active 2024 Columba issa MD [address], [address], [place], [address] , [facility] [employer] [facility] 5 13:04:31 Neuropath y 619849846 Active 2024 Columba issa MD [address], [address], [place], [address] , [facility] [employer] [facility] [employer] [facility] 5 16:31:13 Hypothyro idism 89346562 Active 2024 Columba issa MD [address], [address], [place], [address] , [facility] [employer] [facility] [employer] [facility] 5 15:52:40 Body mass index 30+ - obesity 404887664 Active 2024 Columba issa MD [address], [address], [place], [address] , [facility] [employer] [facility] 16:34:46 Notes:Some problems listed i n Document: #[id number] could not be added to this patient's chart. Please review this document and add these problems to the patient's chart manually as needed. Problem Notes None recorded. Procedures Surgical History Date Name Laterality Status Provider Name and Address Organization Details Recorded Time 02/02/20 24 Medicare Wellness CPT Code, subsequent completed Nicole KELLY Gimenez [address], [address], [place], [address], [facility] [employer] [facility] 01/26/2024 17:14:10 Knee Replacement completed Layla Gomez [facility] [employer] [facility] 08/22/2024 12:32:34 Hysterectomy completed Radha Gallo [facility] [employer] [facility] 09/24/2022 15:33:41 Cardiac Cath completed Layla Gomez [facility] [employer] [facility] 02/02/2024 17:02:43 Neck Surgeries completed Layla Gomez [facility] [employer] [facility] 08/22/2024 12:32:45 Ankle Surgery completed Layla Gomez [facility] [employer] [facility] 08/22/2024 12:32:58 Cardiac Stent Placement completed Marie Albert MA [facility] [employer] [facility] 02/16/2024 14:06:16 Stent completed Marie Albert MA [facility] [employer] [facility] 02/16/2024 14:06:28 Stent Placement completed Layla Gomez [facility] [employer] [facility] 08/22/2024 12:33:21 Imaging Results None recorded. Procedure Notes None recorded. Medical Equipment None Reported. Allergies Allergen ID Allergen Name Allergen Category Reaction Reaction Severity Criticality Documentation Date Start Date Code Code System Note Provider Name and Address Organization Details Recorded Time 13126 Substance with sulfonami de structure and antibacte rial mechanism of action (substanc e) medicatio n Not available Not available Not available 05/06/2022 54675 8003 SNOMED Other react ions and sever ities : 'Adve rse react ion to subst ance' . Nicole Gimenez, CHALKER SOLES [address] [facility], [address], [place], [address], [facility] [employer] 4 17:05:50 Medications Name Sig Start Date [...] administ ered by the provider 10/02 completed [facility]: 0003-04 94-20 Not Available Not Available Not [...] administ ered by the provider 10/02 completed [facility]: 0409-42 76-17 Not Available Not Available Not [...] completed Not Available Not Available Not Available [employer] 04/05 completed Not Available [...] and Address Organization Details Last Updated DateTime 160.02 cm 37 kg/m2 47913.8 1 g 98.1 [degF] 68 /min 84 % 124/84 mm[Hg] Shanique Bee MA [employer] 14:05:56 Social History Question Answer Notes LastModified by Organization Details LastModified Time Tobacco Smoking Status Former Smoker quit 2015 SERA Pope, [employer] 08/22/2024 12:31:57 Do You Have An Advance Directive? No MIGRATION.[id number] Information not available 05/06/2022 What Is Your Level Of Caffeine Consumption? Occasional MIGRATION.[id number] Information not available 05/06/2022 In The 14 [...] Type Of Diet Are You Following? REGULAR MIGRATION.[id number] Information not available 05/06/2022 What Is The Highest Grade Or Level Of School You Have Completed Or The Highest Degree You Have Received? [id number] Information not available 02/02/2024 Do You Have An Electrostatic Air Filter? No Information not available 02/16/2024 Have There Been Any Changes To Your Family Or Social Situation? No MIGRATION.030625054 Information not available 05/06/2022 What Is The Fluoride Status Of Your Home? Unknown MIGRATION.[id number] Information not available 05/06/2022 When Did You Quit Smoking? 6-10yearssincelastc igarette MIGRATION.0301 917522 Information not available 05/06/2022 Do You Have A Humidifier? No Information not available 02/16/2024 Do You Use Insect Repellent Routinely? Yes MIGRATION.0301 931729 Information not available 05/06/2022 Where Do You Live? SingleLevelHouse MIGRATION.0301 869923 Information not available 05/06/2022 Do You Have A Medical Power Of Automatic Lathe Operator? No Information not available 02/02/2024 Do You Have Moisture Problems In Your Home? No Information not available 02/16/2024 What Was The Date Of Your Most Recent Tobacco Screening? 02/21/2025 Information not available 02/21/2025 How Many Children Do You Have? 1 Information not available 02/16/2024 What Is Your Current Pack Years? 30ormorepackyears MIGRATION.0301 274077 Information not available 05/06/2022 Do You Have Any Pets? Yes Information not available 02/16/2024 What Is Your Relationship Status? Information not available 02/02/2024 Do You Use Your Seat Belt Or Car Seat Routinely? Yes MIGRATION.0301 244610 Information not available 05/06/2022 Do You Have Smoke And Carbon Monoxide Detectors In Your Home? Yes MIGRATION.0301 058573 Information not available 05/06/2022 At What Age Did You Start Smoking Tobacco? 17 MIGRATION.0301 970167 Information not available 05/06/2022 Are You Passively Exposed To Smoke? No MIGRATION.0301 672612 Information not available 05/06/2022 Are There Any Smokers In Your House? No MIGRATION.0301 948335 Information not available 05/06/2022 Do You Use Sunscreen Routinely? Yes MIGRATION.0301 905192 Information not available 05/06/2022 Has Tobacco Cessation Counseling Been Provided? No MIGRATION.0301 653199 Information not available 05/06/2022 How Many Years Have You Smoked Tobacco? 37 MIGRATION.0301 411721 Information not available 05/06/2022 Have You Recently Traveled Abroad? No Information not available 02/02/2024 Do You Have Any Dietary Restrictions? No MIGRATION.0301 877408 Information not available 05/06/2022 Sex: Female Functional Status Question Answer Note LastModified by Organizat ion Details LastModified Time Do you use any illicit or recreational drugs? No MIGRATION.631873 5999 Information not available 05/06/2022 Do you or have you ever used any other forms of tobacco or nicotine? No MIGRATION.523068 9306 Information not available 05/06/2022 What is your level of alcohol consumption? None MIGRATION.944243 8920 Information not available 05/06/2022 Are you currently employed? No Retired Information not available 02/16/2024 Have you been exposed to chemicals or toxins? Not that aware of Information not available 06/26/2024 What is your exercise level? Occasional MIGRATION.784724 8111 Information not available 05/06/2022 Mental Status Question Answer Note LastModified by Organizat ion Details LastModified Time Do you feel stressed (tense, restless, nervous, or anxious, or unable to sleep at night)? RM48788-1 MIGRATION.793268150 5 Information not available 05/06/2022 Family History Relationship Description Onset Age of this Age Resolved Age Notes LastModified by Organization Details LastModified Time Mother Heart disease [email or web address] Not available 2022 15:32:53 Mother Hypertensive disorder [email or web address] Not available 2022 15:33:04 Sister Hypertensive disorder Not available 2024 12:31:23 Medical History Condition Response ARTHRITIS Y USE OF BLOOD THINNERS Y HEART DISEASE/HEART PROBLEMS Y Gynecological History Statement/Question Response How many [...] Vaccine Type Date Status Note Provider Nam enrique and Address Organization Details Recorded Time COVID-19, mRNA, LNP-S, PF, 30 mcg/0.3 mL dose 1 completed Nicole Gimenez APRN [address], [address], [place], [address], [facility] [employer] [facility] 01/26/2024 17:06:33 COVID-19, mRNA, LNP-S, PF, 30 mcg/0.3 mL dose 1 completed Nicole Gimenez APRN [address], [address], [place], [address], [facility] [employer] [facility] 01/26/2024 17:06:33 Tdap 8 completed Nicole Gimenez APRN [address], [address], [place], [address], [facility] [employer] [facility] 01/26/2024 17:06:33 Influenza, split virus, quadrivalent, PF 3 completed Virginie Hyde RN [facility], [facility] [employer] [facility] 01/27/2023 14:03:43 pneumococcal polysaccharide PPV23 2 completed Not Available [facility] 04/01/2023 11:24:00 Influenza, split virus, quadrivalent, PF 9 completed Not Available [facility] 04/01/2023 11:24:00 Influenza, split virus, quadrivalent, PF 8 completed Not Available [facility] 04/01/2023 11:24:00 Influenza, split virus, quadrivalent, PF 7 completed Not Available [facility] 04/01/2023 11:24:00 Tdap 8 completed Not Available [facility] 04/01/2023 11:24:00 Pneumococcal conjugate PCV 13 8 completed Not Available [facility] 04/01/2023 11:24:00 Influenza, split virus, quadrivalent, PF 2 completed Nicole Gimenez APRN [address], [address], [place], [address], [facility] [employer] [facility] 01/26/2024 17:06:33 Influenza, split virus, quadrivalent, preservative 6 completed Not Available [facility] 04/01/2023 11:24:00 Influenza, split virus, trivalent, PF 4 completed Layla Gomez, SERA null, [place] [facility] 02/02/2024 17:43:40 Past Encounters Encounter ID Performer Location Encounter Start Date Encounter Closed Date Diagnosis/Indication Diagnosis SNOMED-CT Code Diagnosis ICD10 Code Diagnosis IMO Codes Diagnosis Note [id number] Edwin Lyle MD [facility] [address] [place] [address] 02/21/2025 13:49:46 02/21/2025 16:47:36 Chronic obstructive pulmonary disease 96763143 J44.9 J43.9 CAT-32PFT scheduled at [place] 03/06/2025 Trelegy as directed-s he is benefiting from trelegyBre athing no better but stable-ADL 's are affected (difficult y showering and dressing, unable to walk long distance without becoming sob) will continue TrelegyCou ghing up a lot of phlegm-con virtual recruiter if she qualifies for biologic at this time since she was not able to get vest.Follo w-up in 4 months-steve ner if worseEncou rage vaccinatio ns-she notes she has a list of vaccinatio ns advised by her primaryRAS T -, TB wnl, Alpha 1 neg Dependence on supplemental oxygen 6620779783 07 Z99.81 R09.02 continue O2 with exertion and sleep-bene fits from use Eosinophil count above reference range 079664433 D72.10 absolute count 0.347 in March 2024 Productive cough 9736007 5 R05.9 Pulmonary hypertension 97219131 I27.20 4052 Health Concerns Section Related Observation LastModified by Organization Detai ls LastModified Time None Recorded Concern Status LastModified by Organization Details LastModified Time None Recorded Payers Encounter Date Sequence Insurance Name Policy Number Policy Lebron Covered Member ID Lebron Member ID Guarantor Name 02/21/2025 1 [facility] (MEDICARE REPLACEMENT/A DVANTAGE - PPO) [id number] Letty Butterfield [id number] Letty Butterfield Notes Date Note Type Note [...] bronchodilator,worse in a supine position, andworse with exertion.zqhryl-jp-qtnyo well-continues with Trelegy use and O2-no recent [...] Cardiology-hx stentshx sleep apnea-wearing O2 at night-refuses CPAPMm [address] NP [address] [facility], [facility] [address], [place], [address], [place] [facility] [employer] 02/21/2025 14:44:05 OBGyn Episode No OBEpisode recorded.
--- NOTE | 2025-03-07 18:06 | P.PCNPFT_ITS ---
PFT Procedure Performed PFT Procedure Performed Spirometry with Pre/Post Bronchodilator Plethysmography (Lung Vol) Diffusing Cap (DLCO) Flow Vol Loop PFT Interpretation DOS: 03/06/2025 REQUESTING: AJAY Ricketts REASON FOR TESTING: COPD PULMONARY FUNCTION TESTS Results are reliable and reproducible. Repeatability of spirometry FEV1 maneuver pre and post bronchodilator is Grade A. GLI 2012 reference equations were used. Spirometry: The pre-bronchodilator FEV1 is 1.15 L, 51%, reduced. The pre- bronchodilator FVC is 2.20 L, 78%, normal. The FEV1/FVC ratio is 52%, decreased, consistent with airflow obstruction. After bronchodilator, the FEV1 is 1.14 L,-1%. The post-bronchodilator FVC is 2.06 L, -6%. The FEV1/FVC ratio is 55%. Lung volumes: The total lung capacity is 4.22 L, 89%, normal. The functional residual capacity is 2.75 L, 103%, normal. The residual volume is 2.02 L, 104%, normal. The RV/TLC is 48%. Airway resistance is increased. Diffusion: DLCO is 7.3, 36%, severely decreased. The DLCO/VA is 2.75, 61%, partial correction but still remains below normal. Flow volume loop: The flow volume loop coving of the expiratory limb. IMPRESSION: This study shows a moderate obstructive ventilatory defect without response to bronchodilator, normal lung volumes, severe diffusion impairment with partial correction for alveolar volume. Lack of response to bronchodilator should not preclude use if clinically indicated. Compared to the prior study 03/07/2024, FEV1 has decreased more than anticipated, previously was 1.45 L 61% and currently 1.15 L, 51%, 300 mL drop in a year. The FVC was 2.54 L, 85% now 2.20 L, 78% 340 mL decrease. Total lung capacity is similar from last year. RV is normal however there is a trend toward more air trapping, prior residual volume 1.66 L, 84% and now 2.02 L, 104%. Diffusion is similar, DLCO was 6.5, 31% now 7.3, 36%. DLCO/VA was 2.30, 52% now 2.75, 61%. Leigh Aiken MD
== END 2025-03-06 12:15 | disposition home or self-care (01) ==
PROVIDERS: PCP Internal Medicine; Visit Provider Nurse Practitioner
DX: R94.2 Abnormal results of pulmonary function studies (principal); J44.9 Chronic obstructive pulmonary disease, unspecified
CPT/HCPCS: 94060; 94726; 94729